=== PATIENT | male | born 1970 | race Caucasian/White ===

== ENCOUNTER 2019-11-25 13:43 | Inpatient (IN) | payer MEDICAID, OTHER ==
[~2019-11-25] VITALS: Ht 172.7 cm; Wt 80.0 kg
--- NOTE | 2019-11-25 13:00 | NUR ---
Patient in room [facility]. I have received report from Epi DICK and had the opportunity to ask questions and assume patient care.
[~2019-11-25 13:43] MED LIST: etomidate 2mg/ml inj. ONE
[2019-11-25] MEDS ORDERED: ondansetron/PF 4mg/2ml inj IV PRN (15:10)
[2019-11-25] MEDS ORDERED: magnesium hydroxide 30ml (MOM) UD suspension PO PRN (15:10)
[2019-11-25] MEDS ORDERED: mag hydrox/Alum hydrox/simeth 30ml oral suspension PO PRN (15:10)
[2019-11-25] MEDS ORDERED: acetaminophen 325mg tablet PO PRN (15:10)
[2019-11-25] MEDS ORDERED: HYDROmorphone inj. 0.5 MG/0.5 ML DISP.SYRIN IV PRN (15:10)
--- NOTE | 2019-11-25 15:20 | NUR ---
Patient arrive via emt transport.
[2019-11-25 16:02] LABS: BASOPHILS % (AUTO) 0.1 % (0-1); EOSINOPHILS % (AUTO) 0.1 % (0-6); HEMATOCRIT 41.2 % (42.0-52.0); HEMOGLOBIN 13.9 g/dl (14.0-17.9); LYMPHOCYTES # (AUTO) 0.4 X10'3 (1.1-4.8); LYMPHOCYTES % (AUTO) 6.6 % (21-51); MEAN CORPUSCULAR HEMOGLOBIN 29.9 PG (27.0-31.0); MEAN CORPUSCULAR HGB CONC 33.7 g/dL (33.0-36.5); MEAN CORPUSCULAR VOLUME 88.7 FL (78-98); MEAN PLATELET VOLUME 8.2 FL (7.4-10.4); MONOCYTES # (AUTO) 0.5 X10'3 (0-0.9); MONOCYTES % (AUTO) 7.2 % (2-12); NEUTROPHILS # (AUTO) 5.4 X10'3 (1.8-7.7); PLATELET COUNT 204 X10'3 (140-440); RED BLOOD COUNT 4.65 X10'6 (4.70-6.10); RED CELL DISTRIBUTION WIDTH 13.4 % (11.5-14.5); WHITE BLOOD COUNT 6.3 X10'3 (4.5-11.0)
[2019-11-25 16:10] VITALS: BP 111/61
[2019-11-25 16:13] LABS: ALANINE AMINOTRANSFERASE 205 U/L (12-78); ALBUMIN 2.6 G/DL (3.4-5.0); ALBUMIN/GLOBULIN RATIO 0.7 (1.1-1.5); ALKALINE PHOSPHATASE 131 IU/L (46-116); ANION GAP 11 (8-16); ASPARTATE AMINO TRANSFERASE 117 U/L (10-37); BILIRUBIN,TOTAL 1.8 MG/DL (0.1-1.0); BLOOD UREA NITROGEN 41 MG/DL (7-18); BUN/CREATININE RATIO 20.8 (5.4-32.0); CHLORIDE 112 MMOL/L (99-107); CREATININE 1.97 MG/DL (0.60-1.10); GLUCOSE 136 MG/DL (70-104); SODIUM 145 MMOL/L (135-145); TOTAL CARBON DIOXIDE 22.1 MMOL/L (24-32); TOTAL PROTEIN 6.2 G/DL (6.4-8.2); eGFR 36 ML/MIN
[2019-11-25 16:19] LABS: POTASSIUM 3.8 MMOL/L (3.5-5.1)
[2019-11-25 16:28] LABS: CALCIUM < 5.0 MG/DL (8.5-10.1)
[2019-11-25 16:46] LABS: LARGE PLATELETS FEW; PLATELET ESTIMATE NORMAL; TOTAL CELLS COUNTED 100
[2019-11-25] MEDS: HYDROmorphone 1 mg/ml syringe IV PRN ×2 (17:21→21:31)
[2019-11-25] MEDS ORDERED: NO HOME MEDS (17:33)
[2019-11-25] MEDS: normal saline 1000ml 1,000 ML IV SCH ×2 (17:39→21:49)
[2019-11-25 17:45] VITALS: BP 111/61
[2019-11-25 18:00] VITALS: BP 117/52
[2019-11-25 18:05] VITALS: BP 115/75
--- NOTE | 2019-11-25 18:47 | NUR ---
Problems reprioritized. Patient report given, questions answered & plan of care reviewed with Ant DICK.
[2019-11-25] MEDS: heparin, porcine 5000 units/ml vial SQ SCH (20:00)
[2019-11-25] MEDS: ipratropium/albuterol 3ml nebule NEB SCH (20:25)
[2019-11-26] VITALS (15 sets, daily range): BP systolic 106–155; BP diastolic 62–89
[2019-11-26] MEDS: piperacillin/tazo 4.5gm/100ml 100 ML IV SCH ×4 (00:08→23:51)
[2019-11-26] MEDS: HYDROmorphone 1 mg/ml syringe IV PRN ×3 (01:23→10:14)
[2019-11-26] MEDS: ipratropium/albuterol 3ml nebule NEB SCH ×5 (03:17→23:04)
[2019-11-26] MEDS: normal saline 1000ml 1,000 ML IV SCH ×5 (04:29→23:52)
[2019-11-26 05:50] LABS: BASOPHILS % (AUTO) 0.1 % (0-1); EOSINOPHILS % (AUTO) 0.2 % (0-6); HEMATOCRIT 37.1 % (42.0-52.0); HEMOGLOBIN 12.4 g/dl (14.0-17.9); LYMPHOCYTES # (AUTO) 0.3 X10'3 (1.1-4.8); LYMPHOCYTES % (AUTO) 6.9 % (21-51); MEAN CORPUSCULAR HEMOGLOBIN 29.8 PG (27.0-31.0); MEAN CORPUSCULAR HGB CONC 33.4 g/dL (33.0-36.5); MEAN CORPUSCULAR VOLUME 89.1 FL (78-98); MEAN PLATELET VOLUME 8.1 FL (7.4-10.4); MONOCYTES # (AUTO) 0.4 X10'3 (0-0.9); MONOCYTES % (AUTO) 8.1 % (2-12); NEUTROPHILS # (AUTO) 3.8 X10'3 (1.8-7.7); NEUTROPHILS % (AUTO) 84.7 % (42-75); PLATELET COUNT 189 X10'3 (140-440); RED BLOOD COUNT 4.16 X10'6 (4.70-6.10); RED CELL DISTRIBUTION WIDTH 13.3 % (11.5-14.5); WHITE BLOOD COUNT 4.5 X10'3 (4.5-11.0)
[2019-11-26 06:07] LABS: ALANINE AMINOTRANSFERASE 140 U/L (12-78); ALBUMIN 2.3 G/DL (3.4-5.0); ALBUMIN/GLOBULIN RATIO 0.7 (1.1-1.5); ALKALINE PHOSPHATASE 95 IU/L (46-116); ANION GAP 17 (8-16); ASPARTATE AMINO TRANSFERASE 85 U/L (10-37); BILIRUBIN,TOTAL 1.6 MG/DL (0.1-1.0); BLOOD UREA NITROGEN 35 MG/DL (7-18); BUN/CREATININE RATIO 19.9 (5.4-32.0); CHLORIDE 111 MMOL/L (99-107); CREATININE 1.76 MG/DL (0.60-1.10); GLUCOSE 147 MG/DL (70-104); POTASSIUM 3.4 MMOL/L (3.5-5.1); SODIUM 145 MMOL/L (135-145); TOTAL CARBON DIOXIDE 17.4 MMOL/L (24-32); TOTAL PROTEIN 5.7 G/DL (6.4-8.2); eGFR 41 ML/MIN
--- NOTE | 2019-11-26 06:56 | NUR ---
Patient in room [facility]. I have received report from Ant DICK and had the opportunity to ask questions and assume patient care.
[2019-11-26 07:38] LABS: PLATELET ESTIMATE NORMAL; TOTAL CELLS COUNTED 100; TOXIC GRANULATION 1+; TOXIC VACUOLATION 1+
[2019-11-26] MEDS: heparin, porcine 5000 units/ml vial SQ SCH ×2 (07:59→21:03)
[2019-11-26] MEDS ORDERED: dextrose 50%-water 50ml dispensing syringe IV PRN (09:30)
[2019-11-26] MEDS ORDERED: calcium gluconate inj. 1 GM in normal saline 100ml IV soln 90 ML IV ONE (09:30)
[2019-11-26] MEDS: K and/or MAG REPLACEMENT MC SCH ×2 (09:40→20:00)
[2019-11-26] MEDS ORDERED: potassium Cl 20 mEq SR tablet PO PRN ×3 (09:40→13:20)
[2019-11-26] MEDS ORDERED: magnesium Cl slow-release 64mg tablet PO PRN (09:40)
[2019-11-26] MEDS ORDERED: magnesium 4gm in 100ml NS 100 ML IV PRN (09:40)
[2019-11-26 10:15] LABS: MAGNESIUM 1.9 MG/DL (1.5-2.4)
[2019-11-26] MEDS ORDERED: amiodarone/D5 360MG/200ML BAG 200 ML IV SCH (11:21)
[2019-11-26] MEDS ORDERED: amiodarone 150mg/dext, iso-os 100 ML IV ONE (11:25)
--- NOTE | 2019-11-26 11:50 | NUR ---
Call from tele stating that pts HR is 150s to 160s. Checked on pt, pt sleeping. Informed Dr. Cates at nurses station. Call again from tele stating HR in 200s Afib with RVR. Dr. Cates ordered to transfer pt to PCU on Amiodarone drip. STAT EKG done. Family at bedside and aware of transfer. Patient alert and oriented, and aware of transfer. Patient report called to Faustina DICK. Pt to transfer to [facility].
--- NOTE | 2019-11-26 12:00 | NUR ---
Emergent Transfer to ICU after several minutes in Rm 3024A Chest x-ray completed, Ativan given for anxiety, HR in 180's prior to and during transfer, rhythm is A-Fib. Family is at bedside and is informed of transfer. Pt. is alert and able to follow directions, he reports severe abdominal pain.
[2019-11-26] MEDS: LORazepam 2 mg/ml vial IV PRN ×2 (12:13→12:15)
[2019-11-26] MEDS ORDERED: calcium chloride 100 MG/1 ML inj IV ONE ×2 (12:46→12:50)
--- NOTE | 2019-11-26 12:48 | NUR ---
Initial: Pt admit with acute respiratory failure with hypoxia, acute pancreatitis secondary to EtOH, and hypocalcemia. Per MD notes pt was getting more confused with SOB and a rapid response was called and pt was transferred to critical care. Pt with bilat PE s/p thoracentesis with 200 mL fluid removed 11/25. Per H&P pt reports he drinks 1 beer a day, no toxicology report at this time. Pt on banana bag. Pt currently NPO. LBM 11/25. Pt would benefit from pancreatitis nutrition therapy education once stable. Will continue to follow closely. Recommendations: 1) Advance to low fat diet as medically indicated 2) Pancreatitis nutrition therapy education once stable 3) Continue banana bag 4) Bowel care PRN 5) Wt per rx Addendum: 11/26/19 at [address] Amended: Links added.
[2019-11-26] MEDS ORDERED: midazolam 2 mg/2 ml injection ONE ×3 (12:53→13:03)
[2019-11-26 12:55] LABS: ABG BASE EXCESS -7.6 mmol/L (-2.0-3.0); ABG HCO3 16.9 mmol/L (22.0-26.0); ABG OXYGEN SATURATION 91.9 % (95-98); ABG PCO2 (T) 31.2 mmHg (35.0-45.0); ABG PH (T) 7.351 (7.350-7.450); ABG PO2 (T) 62.5 mmHg (83-108); ALLEN'S TEST POSITIVE; FCOHb 0.3 % (0.5-1.5); FLOW 15 L/min; FMetHb 0.2 % (0.3-1.12); FO2Hb 91.4 % (94-100); TOTAL HEMOGLOBIN 12.5 G/dl (14.0-17.9)
[2019-11-26] MEDS ORDERED: ipratropium/albuterol 3ml nebule NEB PRN (12:55)
[2019-11-26] MEDS ORDERED: midazolam 2 mg/2 ml injection IV ONE (12:55)
[2019-11-26] MEDS ORDERED: MIDAZolam 5mg/ml 2ml vial IV ONE (13:00)
[2019-11-26] MEDS ORDERED: etomidate 2mg/ml inj. IV ONE (13:05)
--- NOTE | 2019-11-26 13:11 | NUR ---
Problems reprioritized. Patient report given,Chuck DICK questions answered & plan of care reviewed with .
[2019-11-26] MEDS ORDERED: acetaminophen 325mg tablet PO PRN ×2 (13:20)
[2019-11-26] MEDS ORDERED: potassium CL 10mEq/100ml bag 100 ML IV PRN ×2 (13:20)
[2019-11-26] MEDS: midazolam 100mg in NS 100ml 100 ML IV PRN ×3 (13:34→23:52)
[2019-11-26] MEDS: FENTANYL-0.9 % NACL/PF 100 ML IV PRN (13:58)
[2019-11-26 14:30] LABS: ABG BASE EXCESS -5.9 mmol/L (-2.0-3.0); ABG HCO3 18.1 mmol/L (22.0-26.0); ABG OXYGEN SATURATION 95.8 % (95-98); ABG PCO2 (T) 31.1 mmHg (35.0-45.0); ABG PH (T) 7.383 (7.350-7.450); ABG PO2 (T) 79.1 mmHg (83-108); ALLEN'S TEST POSITIVE; FMetHb 0.3 % (0.3-1.12); FO2Hb 95.5 % (94-100); RESPIRATORY RATE 20 b/min; TIDAL VOLUME 500 mL; TOTAL HEMOGLOBIN 11.9 G/dl (14.0-17.9)
[2019-11-26 14:58] LABS: CLARITY,URINE SLIGHTLY CLOUDY (Clear); COLOR,URINE YELLOW (Yellow); GLUCOSE, URINE NEGATIVE (Neg); KETONES,URINE NEGATIVE (Neg); LEUKOCYTE ESTERASE ,URINE NEGATIVE (Neg); NITRITES, URINE NEGATIVE (Neg); OCCULT BLOOD,URINE LARGE (Neg); PROTEIN,URINE 100 mg/dl (Neg)
[2019-11-26 15:06] LABS: UA COLLECTION TYPE FOLEY CATH
[2019-11-26 15:11] LABS: WBC,URINE 0-4 /HPF (0-4)
[2019-11-26 15:12] LABS: BACTERIA,URINE NONE SEEN /HPF (Neg); CELLULAR CAST 0-4 /LPF (NEGATIVE); MUCUS STRANDS FEW /LPF (Neg); RBC,URINE 20-50 /HPF (0-2); SQUAMOUS EPITHELIAL CELL,UR FEW /LPF (FEW)
[2019-11-26 15:38] LABS: UA EOSINOPHILS NO EOS /HPF
--- NOTE | 2019-11-26 15:47 | NUR ---
patient lost airway during trip to CT when o2 tubing got stuck under the bed. Patient emergently re intubate by DR franz. Addendum: 11/26/19 at 1548 by Vince Garg RN DR kathia delgado
[2019-11-26] MEDS: vancomycin/NS 1 GM ADD-VANTAGE 250 ML IV SCH ×2 (16:05→20:00)
[2019-11-26 16:42] LABS: AMYLASE 152 U/L (25-115); LIPASE 390 U/L (73-393)
--- NOTE | 2019-11-26 18:30 | NUR ---
Patient in room CICU 2007. I have received report from Vince DICK and had the opportunity to ask questions and assume patient care.
[2019-11-26] MEDS: potassium CL 10mEq/100ml bag 100 ML IV PRN ×3 (19:16→23:53)
[2019-11-26] MEDS ORDERED: docusate sod 100mg capsule PO SCH (20:00)
[2019-11-26] MEDS: docusate sodium 100mg/10ml UD cup PO SCH (20:10)
[2019-11-26] MEDS: famotidine/PF 10 mg/ml inj IV SCH (20:10)
[2019-11-26 20:37] LABS: HEMOGLOBIN 12.2 g/dl (14.0-17.9); MEAN CORPUSCULAR HEMOGLOBIN 29.8 PG (27.0-31.0); MEAN CORPUSCULAR HGB CONC 33.8 g/dL (33.0-36.5); MEAN CORPUSCULAR VOLUME 88.1 FL (78-98); MEAN PLATELET VOLUME 8.1 FL (7.4-10.4); PLATELET COUNT 216 X10'3 (140-440); RED BLOOD COUNT 4.09 X10'6 (4.70-6.10); RED CELL DISTRIBUTION WIDTH 13.5 % (11.5-14.5); WHITE BLOOD COUNT 4.4 X10'3 (4.5-11.0)
[2019-11-26 20:50] LABS: ALBUMIN 2.1 G/DL (3.4-5.0); ANION GAP 13 (8-16); BLOOD UREA NITROGEN 33 MG/DL (7-18); BUN/CREATININE RATIO 17.2 (5.4-32.0); CHLORIDE 113 MMOL/L (99-107); CREATININE 1.92 MG/DL (0.60-1.10); GLUCOSE 133 MG/DL (70-104); PHOSPHORUS 2.2 MG/DL (2.3-4.5); SODIUM 146 MMOL/L (135-145); TOTAL CARBON DIOXIDE 19.9 MMOL/L (24-32); eGFR 37 ML/MIN
[2019-11-26 20:51] LABS: POTASSIUM 3.3 MMOL/L (3.5-5.1)
[2019-11-26] MEDS ORDERED: MVI, adult No.4 with vit. K 10 ML in dextrose 5% water 500ml 490 ML IV SCH ×2 (20:53)
[2019-11-26] MEDS ORDERED: thiamine inj. 100 MG, folic acid inj. 2 MG in normal saline 100ml IV soln 99 ML IV SCH (20:54)
--- NOTE | 2019-11-26 21:37 | NUR ---
Pt febrile, ice packs and cooling blanket in place. Fan on as well. Tachycardic, tachypnic, Medardo Coats updated, orders received.
--- NOTE | 2019-11-26 22:40 | NUR ---
Pt having frequent runs of afib with RVR but not sustained. Currently sinus tach at 114. BP:122/69. Medardo Coats notified, no new orders at this time, Will continue to monitor.
[2019-11-27] VITALS (24 sets, daily range): BP systolic 113–157; BP diastolic 66–87
[2019-11-27] MEDS: FENTANYL-0.9 % NACL/PF 100 ML IV PRN ×4 (01:12→20:07)
--- NOTE | 2019-11-27 02:06 | NUR ---
Pt tachypneic, over breathing the vent, using abdominal muscles to ventilate, titrating sedation to promote synchrony with the vent. Intra abdominal pressure obtained:26. JRamiro Coats updated.
[2019-11-27 02:45] LABS: ABG BASE EXCESS -8.2 mmol/L (-2.0-3.0); ABG HCO3 17.3 mmol/L (22.0-26.0); ABG OXYGEN SATURATION 88.2 % (95-98); ABG PCO2 (T) 36.6 mmHg (35.0-45.0); ABG PH (T) 7.296 (7.350-7.450); ABG PO2 (T) 59.5 mmHg (83-108); ALLEN'S TEST POSITIVE; FCOHb 0.3 % (0.5-1.5); FMetHb 0.2 % (0.3-1.12); FO2Hb 87.8 % (94-100); PATIENT TEMPERATURE 37.5; PEEP 5 cm H2O; RESPIRATORY RATE 20 b/min; TIDAL VOLUME 500 mL; TOTAL HEMOGLOBIN 12.6 G/dl (14.0-17.9)
[2019-11-27] MEDS: ipratropium/albuterol 3ml nebule NEB SCH ×6 (03:23→23:01)
[2019-11-27] MEDS: vancomycin/NS 1 GM ADD-VANTAGE 250 ML IV SCH ×2 (05:02→20:28)
[2019-11-27] MEDS: midazolam 100mg in NS 100ml 100 ML IV PRN ×3 (05:02→21:36)
[2019-11-27 06:16] LABS: ALANINE AMINOTRANSFERASE 104 U/L (12-78); ALBUMIN 2.1 G/DL (3.4-5.0); ALBUMIN/GLOBULIN RATIO 0.5 (1.1-1.5); ALKALINE PHOSPHATASE 89 IU/L (46-116); AMYLASE 75 U/L (25-115); ANION GAP 16 (8-16); ASPARTATE AMINO TRANSFERASE 53 U/L (10-37); BILIRUBIN,TOTAL 1.5 MG/DL (0.1-1.0); BLOOD UREA NITROGEN 28 MG/DL (7-18); BUN/CREATININE RATIO 14.9 (5.4-32.0); CALCIUM 6.7 MG/DL (8.5-10.1); CHLORIDE 113 MMOL/L (99-107); CREATININE 1.88 MG/DL (0.60-1.10); GLUCOSE 141 MG/DL (70-104); LIPASE 224 U/L (73-393); MAGNESIUM 2.4 MG/DL (1.5-2.4); PHOSPHORUS 2.8 MG/DL (2.3-4.5); SODIUM 149 MMOL/L (135-145); TOTAL CARBON DIOXIDE 20.1 MMOL/L (24-32); TOTAL PROTEIN 6.6 G/DL (6.4-8.2); eGFR 38 ML/MIN
[2019-11-27 06:17] LABS: POTASSIUM 3.6 MMOL/L (3.5-5.1)
[2019-11-27 06:21] LABS: BASOPHILS % (AUTO) 0 % (0-1); EOSINOPHILS % (AUTO) 0.3 % (0-6); HEMATOCRIT 38.7 % (42.0-52.0); HEMOGLOBIN 12.8 g/dl (14.0-17.9); LYMPHOCYTES # (AUTO) 0.7 X10'3 (1.1-4.8); LYMPHOCYTES % (AUTO) 10.5 % (21-51); MEAN CORPUSCULAR HEMOGLOBIN 29.8 PG (27.0-31.0); MEAN CORPUSCULAR HGB CONC 33.1 g/dL (33.0-36.5); MEAN CORPUSCULAR VOLUME 89.9 FL (78-98); MEAN PLATELET VOLUME 8.5 FL (7.4-10.4); MONOCYTES # (AUTO) 0.5 X10'3 (0-0.9); MONOCYTES % (AUTO) 7.7 % (2-12); NEUTROPHILS # (AUTO) 5.7 X10'3 (1.8-7.7); NEUTROPHILS % (AUTO) 81.5 % (42-75); PLATELET COUNT 225 X10'3 (140-440); RED BLOOD COUNT 4.31 X10'6 (4.70-6.10); RED CELL DISTRIBUTION WIDTH 13.6 % (11.5-14.5)
--- NOTE | 2019-11-27 06:23 | NUR ---
Problems reprioritized. Patient report given, questions answered & plan of care reviewed with Vince DICK.
[2019-11-27] MEDS: normal saline 1000ml 1,000 ML IV SCH ×2 (07:06→21:02)
[2019-11-27 07:51] LABS: PLATELET ESTIMATE NORMAL; TOTAL CELLS COUNTED 100
[2019-11-27 07:52] LABS: POLYCHROMASIA FEW; TOXIC GRANULATION 1+; TOXIC VACUOLATION 1+
[2019-11-27] MEDS ORDERED: folic acid inj. 2 MG, thiamine inj. 100 MG, MVI, adult No.4 with vit. K 10 ML in dextro... IV SCH ×4 (08:00)
[2019-11-27] MEDS ORDERED: thiamine 100mg tablet PO SCH (08:00)
[2019-11-27] MEDS: docusate sodium 100mg/10ml UD cup PO SCH ×2 (08:00→20:28)
[2019-11-27] MEDS ORDERED: folic acid 1mg tablet PO SCH (08:00)
[2019-11-27] MEDS: K and/or MAG REPLACEMENT MC SCH ×2 (08:00→20:00)
[2019-11-27] MEDS: MVI, adult No.4 with vit. K 10 ML in dextrose 5% water 500ml 490 ML IV SCH ×2 (08:10)
[2019-11-27] MEDS: acetaminophen 325mg/10.15ml oral unit dose solution OGT PRN ×2 (08:10→18:05)
[2019-11-27] MEDS: heparin, porcine 5000 units/ml vial SQ SCH ×2 (08:10→20:30)
[2019-11-27] MEDS: famotidine/PF 10 mg/ml inj IV SCH ×2 (08:10→20:30)
[2019-11-27] MEDS: thiamine inj. 100 MG, folic acid inj. 2 MG in normal saline 100ml IV soln 100.0 ML IV SCH (08:11)
[2019-11-27] MEDS: piperacillin/tazo 4.5gm/100ml 100 ML IV SCH ×2 (10:15→14:52)
--- NOTE | 2019-11-27 10:41 | NUR ---
Reassessment: Pt now intubated. TF recommendations below for if prolonged intubation and to receive nutrition support. If TF, pt would benefit from Corpak for post-pyloric feeding to avoid stimulation of the pancreas given admit with pancreatitis. Will continue to follow closely. Initial: Pt admit with acute respiratory failure with hypoxia, acute pancreatitis secondary to EtOH, and hypocalcemia. Per MD notes pt was getting more confused with SOB and a rapid response was called and pt was transferred to critical care. Pt with bilat PE s/p thoracentesis with 200 mL fluid removed 11/25. Per H&P pt reports he drinks 1 beer a day, no toxicology report at this time. Pt on banana bag. Pt currently NPO. LBM 11/25. Pt would benefit from pancreatitis nutrition therapy education once stable. Will continue to follow closely. Recommendations: 1) If TF, Corpak for post-pyloric feeding using Vital High Protein with goal rate of 75 mL/hr 2) If TF, Additional 200 mL water flush Q4H 3) If TF, Prealbumin q /; daily weights 4) Advance to low fat diet after extubation as medically indicated 5) Pancreatitis nutrition therapy education once stable 6) Continue banana bag 7) Bowel care PRN Addendum: 11/27/19 at [address] Amended: Links added.
[2019-11-27] MEDS ORDERED: VECuronium br 10mg inj. IV ONE (11:15)
--- NOTE | 2019-11-27 13:18 | NUR ---
Zosyn piggyback was clamped and med not administered. Spoke with pharmacist for recommendation since the next dose is due at 1600, and this dose would not even be finished by then. She advised me to continue the dose that was hung earlier, and skip the 1600 dose.
[2019-11-27] MEDS: mineral oil/petrolatum ophthal oint EACHEYE SCH ×2 (14:52→20:49)
[2019-11-27] MEDS ORDERED: magnesium 2GM in 50ml NS 50 ML IV ONE (15:10)
[2019-11-27] MEDS ORDERED: amiodarone 150mg/dext, iso-os 100 ML IV ONE ×2 (15:24→15:25)
[2019-11-27] MEDS: potassium Cl 20 mEq/100mL bag IV SCH ×2 (16:25→17:44)
[2019-11-27] MEDS: amiodarone/D5 360MG/200ML BAG 200 ML IV SCH ×2 (17:15→22:00)
[2019-11-27 17:20] LABS: ABG BASE EXCESS -6.1 mmol/L (-2.0-3.0); ABG HCO3 19.4 mmol/L (22.0-26.0); ABG OXYGEN SATURATION 90.2 % (95-98); ABG PCO2 (T) 41.2 mmHg (35.0-45.0); ABG PH (T) 7.298 (7.350-7.450); ABG PO2 (T) 67.2 mmHg (83-108); ALLEN'S TEST POSITIVE; FCOHb 0.3 % (0.5-1.5); FMetHb 0.2 % (0.3-1.12); FO2Hb 89.7 % (94-100); PATIENT TEMPERATURE 38.6; PEEP 5 cm H2O; RESPIRATORY RATE 20 b/min; TIDAL VOLUME 500 mL; TOTAL HEMOGLOBIN 16.4 G/dl (14.0-17.9)
[2019-11-27 17:31] LABS: OXYGEN SATURATION (MIXED VEN) 62.2 % (60-80); PO2 MIXED VENOUS (TEMP COR) 38.4 mmHg (35-46)
[2019-11-27] MEDS: CISatracurium **Bolus** 2 mg/ml inj IV PRN (17:56)
[2019-11-27 18:21] LABS: CLARITY,URINE SLIGHTLY CLOUDY (Clear); COLOR,URINE YELLOW (Yellow); GLUCOSE, URINE NEGATIVE (Neg); KETONES,URINE NEGATIVE (Neg); LEUKOCYTE ESTERASE ,URINE NEGATIVE (Neg); NITRITES, URINE NEGATIVE (Neg); OCCULT BLOOD,URINE MODERATE (Neg); PH,URINE 5.5 (4.8-8.0); PROTEIN,URINE 100 mg/dl (Neg); UA COLLECTION TYPE CLN CATCH MIDSTREAM; UROBILINOGEN,URINE 0.2 E.U/dL (0.2-1.0)
--- NOTE | 2019-11-27 18:30 | NUR ---
Patient in room CICU 2007. I have received report from Vince DICK and had the opportunity to ask questions and assume patient care. student teacher Rohit also received report. Patient is intubated, sedated with versed, pain controlled with fentanyl. Lung sounds clear and equal bilaterally. Patient is on ventilator FiO2 50%. Upper extremity restraints in place. Patient is currently on a cooling mat Temperature 38.3. Tylenol administered prior to shift change.
[2019-11-27 18:45] LABS: CELLULAR CAST 0-4 /LPF (NEGATIVE)
[2019-11-27 18:47] LABS: BACTERIA,URINE NONE SEEN /HPF (Neg); MUCUS STRANDS FEW /LPF (Neg); SQUAMOUS EPITHELIAL CELL,UR FEW /LPF (FEW); WBC,URINE 0-4 /HPF (0-4)
[2019-11-27 18:48] LABS: AMORPHOUS URATES 1+
[2019-11-27] MEDS: lactobacillus rhamnosus 10,000 MMU CELLS/CAPSULE PO SCH (20:31)
[2019-11-28] VITALS (24 sets, daily range): BP systolic 131–167; BP diastolic 70–94
[2019-11-28] MEDS: piperacillin/tazo 4.5gm/100ml 100 ML IV SCH ×3 (00:11→15:37)
[2019-11-28] MEDS: normal saline 1000ml 1,000 ML IV SCH (00:13)
[2019-11-28] MEDS: mineral oil/petrolatum ophthal oint EACHEYE SCH ×4 (02:42→20:10)
[2019-11-28] MEDS: FENTANYL-0.9 % NACL/PF 100 ML IV PRN ×3 (02:42→20:18)
[2019-11-28 03:13] LABS: EOSINOPHILS # (AUTO) 0.1 X10'3 (0-0.9); EOSINOPHILS % (AUTO) 0.8 % (0-6); HEMOGLOBIN 11.6 g/dl (14.0-17.9); LYMPHOCYTES # (AUTO) 0.4 X10'3 (1.1-4.8); MONOCYTES # (AUTO) 0.4 X10'3 (0-0.9)
[2019-11-28 03:15] LABS: BASOPHILS % (AUTO) 0.1 % (0-1); HEMATOCRIT 34.5 % (42.0-52.0); LYMPHOCYTES % (AUTO) 4.1 % (21-51); MEAN CORPUSCULAR HGB CONC 33.6 g/dL (33.0-36.5); MEAN CORPUSCULAR VOLUME 89.3 FL (78-98); MEAN PLATELET VOLUME 8.5 FL (7.4-10.4); MONOCYTES % (AUTO) 3.9 % (2-12); NEUTROPHILS # (AUTO) 8.6 X10'3 (1.8-7.7); NEUTROPHILS % (AUTO) 91.1 % (42-75); PLATELET COUNT 258 X10'3 (140-440); RED BLOOD COUNT 3.86 X10'6 (4.70-6.10); RED CELL DISTRIBUTION WIDTH 13.7 % (11.5-14.5); WHITE BLOOD COUNT 9.5 X10'3 (4.5-11.0)
[2019-11-28] MEDS: amiodarone/D5 360MG/200ML BAG 200 ML IV SCH ×4 (03:30→21:13)
[2019-11-28 03:33] LABS: ALANINE AMINOTRANSFERASE 69 U/L (12-78); ALBUMIN 1.8 G/DL (3.4-5.0); ALBUMIN/GLOBULIN RATIO 0.4 (1.1-1.5); ALKALINE PHOSPHATASE 75 IU/L (46-116); AMYLASE 29 U/L (25-115); ANION GAP 12 (8-16); ASPARTATE AMINO TRANSFERASE 30 U/L (10-37); BILIRUBIN,TOTAL 0.7 MG/DL (0.1-1.0); BLOOD UREA NITROGEN 23 MG/DL (7-18); BUN/CREATININE RATIO 14.3 (5.4-32.0); CHLORIDE 116 MMOL/L (99-107); CREATININE 1.61 MG/DL (0.60-1.10); GLUCOSE 158 MG/DL (70-104); LIPASE 128 U/L (73-393); MAGNESIUM 2.6 MG/DL (1.5-2.4); PHOSPHORUS 2.8 MG/DL (2.3-4.5); POTASSIUM 3.8 MMOL/L (3.5-5.1); SODIUM 150 MMOL/L (135-145); TOTAL PROTEIN 6.1 G/DL (6.4-8.2); eGFR 45 ML/MIN
[2019-11-28] MEDS: midazolam 100mg in NS 100ml 100 ML IV PRN ×4 (03:37→20:19)
[2019-11-28] MEDS: ipratropium/albuterol 3ml nebule NEB SCH ×6 (03:46→22:53)
[2019-11-28] MEDS: CISatracurium **Bolus** 2 mg/ml inj IV PRN (04:30)
--- NOTE | 2019-11-28 04:30 | NUR ---
Patient suddenly became agitated, attempting to sit up in bed: raising head, turning head, pulling at restraints. Sedation attempted without success. vending machine attendant at bedside. Administered Nimbex as ordered. Patient with 4/4 train of four at level 8.
[2019-11-28 04:35] LABS: TOTAL CELLS COUNTED 100
[2019-11-28 04:36] LABS: PLATELET ESTIMATE NORMAL
[2019-11-28 04:37] LABS: LARGE PLATELETS FEW
[2019-11-28 05:10] LABS: ABG BASE EXCESS -7.4 mmol/L (-2.0-3.0); ABG HCO3 19.1 mmol/L (22.0-26.0); ABG OXYGEN SATURATION 91.7 % (95-98); ABG PCO2 (T) 42.7 mmHg (35.0-45.0); ABG PO2 (T) 70.2 mmHg (83-108); ALLEN'S TEST POSITIVE; FCOHb 0.3 % (0.5-1.5); FMetHb 0.1 % (0.3-1.12); FO2Hb 91.3 % (94-100); PATIENT TEMPERATURE 37.3; PEEP 5 cm H2O; RESPIRATORY RATE 20 b/min; TIDAL VOLUME 500 mL; TOTAL HEMOGLOBIN 12.2 G/dl (14.0-17.9)
--- NOTE | 2019-11-28 05:53 | NUR ---
Sodium 150, October JANA Coats made aware of value. No new orders at this time.
--- NOTE | 2019-11-28 05:54 | NUR ---
Student documentation: I have reviewed and agree with all interventions, assessments performed and documented by SN Idalmis.
--- NOTE | 2019-11-28 05:55 | NUR ---
Student Medication Administration: For this medication-pass time frame, all medication were reviewed, dispensed, administered and documented per hospital policy by SN Idalmis.
--- NOTE | 2019-11-28 06:30 | NUR ---
Patient in room CICU 2007. I have received report from Rosey DICK and had the opportunity to ask questions and assume patient care.
--- NOTE | 2019-11-28 06:38 | NUR ---
Problems reprioritized. Patient report given, questions answered & plan of care reviewed with MAYELIN Pizarro.
[2019-11-28] MEDS: docusate sodium 100mg/10ml UD cup PO SCH ×2 (07:28→20:11)
[2019-11-28] MEDS: famotidine/PF 10 mg/ml inj IV SCH ×2 (07:28→20:11)
[2019-11-28] MEDS: heparin, porcine 5000 units/ml vial SQ SCH ×2 (07:28→20:11)
[2019-11-28] MEDS: vancomycin/NS 1 GM ADD-VANTAGE 250 ML IV SCH ×2 (07:28→20:21)
[2019-11-28] MEDS: lactobacillus rhamnosus 10,000 MMU CELLS/CAPSULE PO SCH ×2 (07:28→20:11)
[2019-11-28] MEDS: thiamine inj. 100 MG, folic acid inj. 2 MG in normal saline 100ml IV soln 100.0 ML IV SCH (07:33)
[2019-11-28] MEDS: MVI, adult No.4 with vit. K 10 ML in dextrose 5% water 500ml 490 ML IV SCH ×2 (07:33)
[2019-11-28] MEDS: K and/or MAG REPLACEMENT MC SCH ×2 (08:00→20:00)
[2019-11-28] MEDS: acetaminophen 325mg/10.15ml oral unit dose solution OGT PRN ×2 (09:09→14:55)
[2019-11-28] MEDS ORDERED: LORazepam 2 mg/ml vial IV PRN (09:30)
[2019-11-28] MEDS ORDERED: LORazepam 1 MG tablet PO PRN (09:30)
--- NOTE | 2019-11-28 10:28 | NUR ---
Dr. Klein in to see pt. RN notified of fever and sodium of 150. Dr. Klein stated he would order to start tube feedings and free water.
--- NOTE | 2019-11-28 12:30 | NUR ---
Alpesh consult: Alpesh 10; no edema and skin intact. Addendum: 11/28/19 at [address] Amended: Links added.
--- NOTE | 2019-11-28 12:41 | NUR ---
Pt. remains febrile despite Tylenol. Ice packs to groin and axilla now.
--- NOTE | 2019-11-28 15:43 | NUR ---
Dr. Del Castillo in to see pt. Notified of most recent intra abdominal pressures.
--- NOTE | 2019-11-28 18:19 | NUR ---
Patient in room CICU 2007. I have received report from MAYELIN Pizarro and had the opportunity to ask questions and assume patient care.
--- NOTE | 2019-11-28 18:20 | NUR ---
Problems reprioritized. Patient report given, questions answered & plan of care reviewed with Rosey DICK.
--- NOTE | 2019-11-28 18:55 | NUR ---
Patients Nancy called for an update.
[2019-11-28] MEDS ORDERED: VANCOMYCIN LEVEL IV ONE (19:30)
[2019-11-29] VITALS (24 sets, daily range): BP systolic 131–166; BP diastolic 70–99
[2019-11-29] MEDS: piperacillin/tazo 4.5gm/100ml 100 ML IV SCH ×4 (00:27→23:36)
[2019-11-29] MEDS: midazolam 100mg in NS 100ml 100 ML IV PRN ×5 (01:37→23:26)
[2019-11-29] MEDS: FENTANYL-0.9 % NACL/PF 100 ML IV PRN ×6 (01:40→23:25)
[2019-11-29] MEDS: mineral oil/petrolatum ophthal oint EACHEYE SCH ×4 (02:36→21:11)
[2019-11-29] MEDS: acetaminophen 325mg/10.15ml oral unit dose solution OGT PRN ×3 (02:47→14:24)
[2019-11-29 03:13] LABS: BASOPHILS % (AUTO) 0.1 % (0-1); EOSINOPHILS # (AUTO) 0.1 X10'3 (0-0.9); EOSINOPHILS % (AUTO) 1.1 % (0-6); HEMATOCRIT 31.4 % (42.0-52.0); HEMOGLOBIN 10.6 g/dl (14.0-17.9); LYMPHOCYTES # (AUTO) 0.3 X10'3 (1.1-4.8); LYMPHOCYTES % (AUTO) 2.9 % (21-51); MEAN CORPUSCULAR HGB CONC 33.9 g/dL (33.0-36.5); MEAN CORPUSCULAR VOLUME 88.6 FL (78-98); MEAN PLATELET VOLUME 8.7 FL (7.4-10.4); MONOCYTES # (AUTO) 0.3 X10'3 (0-0.9); MONOCYTES % (AUTO) 2.7 % (2-12); NEUTROPHILS # (AUTO) 9.9 X10'3 (1.8-7.7); NEUTROPHILS % (AUTO) 93.2 % (42-75); PLATELET COUNT 255 X10'3 (140-440); RED BLOOD COUNT 3.54 X10'6 (4.70-6.10); RED CELL DISTRIBUTION WIDTH 13.7 % (11.5-14.5); WHITE BLOOD COUNT 10.6 X10'3 (4.5-11.0)
[2019-11-29] MEDS: ipratropium/albuterol 3ml nebule NEB SCH ×6 (03:14→22:41)
[2019-11-29 03:17] LABS: ALANINE AMINOTRANSFERASE 50 U/L (12-78); ALBUMIN 1.6 G/DL (3.4-5.0); ALBUMIN/GLOBULIN RATIO 0.4 (1.1-1.5); ALKALINE PHOSPHATASE 75 IU/L (46-116); AMYLASE 23 U/L (25-115); ANION GAP 8 (8-16); ASPARTATE AMINO TRANSFERASE 23 U/L (10-37); BILIRUBIN,TOTAL 0.6 MG/DL (0.1-1.0); BLOOD UREA NITROGEN 25 MG/DL (7-18); BUN/CREATININE RATIO 14.5 (5.4-32.0); CALCIUM 7.9 MG/DL (8.5-10.1); CHLORIDE 116 MMOL/L (99-107); CREATININE 1.72 MG/DL (0.60-1.10); GLUCOSE 154 MG/DL (70-104); LIPASE 135 U/L (73-393); PHOSPHORUS 2.5 MG/DL (2.3-4.5); POTASSIUM 3.1 MMOL/L (3.5-5.1); SODIUM 150 MMOL/L (135-145); TOTAL CARBON DIOXIDE 26.3 MMOL/L (24-32); TOTAL PROTEIN 5.5 G/DL (6.4-8.2); eGFR 42 ML/MIN
[2019-11-29] MEDS: amiodarone/D5 360MG/200ML BAG 200 ML IV SCH ×4 (03:46→21:12)
--- NOTE | 2019-11-29 04:00 | NUR ---
Tube feed/ free water held secondary to high residual volumes, 365ml, and concerns for airway. Patient with increased abdominal firmness. Will continue to re assess.
[2019-11-29 04:20] LABS: ABG BASE EXCESS -3.8 mmol/L (-2.0-3.0); ABG HCO3 20.4 mmol/L (22.0-26.0); ABG OXYGEN SATURATION 95.4 % (95-98); ABG PCO2 (T) 35.6 mmHg (35.0-45.0); ABG PO2 (T) 86.9 mmHg (83-108); ALLEN'S TEST POSITIVE; FCOHb 0.3 % (0.5-1.5); FMetHb 0.1 % (0.3-1.12); PATIENT TEMPERATURE 38.2; PEEP 5 cm H2O; RESPIRATORY RATE 20 b/min; TIDAL VOLUME 500 mL; TOTAL HEMOGLOBIN 11.2 G/dl (14.0-17.9)
[2019-11-29] MEDS: normal saline 1000ml 1,000 ML IV SCH (04:36)
[2019-11-29] MEDS: potassium Cl 20mEq/100mL bag 100 ML IV PRN ×2 (04:38→06:05)
--- NOTE | 2019-11-29 06:36 | NUR ---
Problems reprioritized. Patient report given, questions answered & plan of care reviewed with MAYELIN Pizarro.
--- NOTE | 2019-11-29 06:40 | NUR ---
[facility] I have received report from Rosey DICK and had the opportunity to ask questions and assume patient care. Addendum: 11/29/19 at 0640 by Moira Mckenzie RN Amended: Links added.
[2019-11-29] MEDS: MVI, adult No.4 with vit. K 10 ML in dextrose 5% water 500ml 490 ML IV SCH ×2 (06:58)
[2019-11-29] MEDS: thiamine inj. 100 MG, folic acid inj. 2 MG in normal saline 100ml IV soln 100.0 ML IV SCH (06:58)
[2019-11-29] MEDS: famotidine/PF 10 mg/ml inj IV SCH ×2 (07:12→21:11)
[2019-11-29] MEDS: heparin, porcine 5000 units/ml vial SQ SCH ×2 (07:12→21:11)
[2019-11-29] MEDS: docusate sodium 100mg/10ml UD cup PO SCH ×2 (07:12→21:11)
[2019-11-29] MEDS: K and/or MAG REPLACEMENT MC SCH ×2 (07:14→20:00)
[2019-11-29] MEDS: lactobacillus rhamnosus 10,000 MMU CELLS/CAPSULE PO SCH ×2 (07:14→21:11)
[2019-11-29 09:39] LABS: PLATELET ESTIMATE NORMAL; TOTAL CELLS COUNTED 100
[2019-11-29] MEDS ORDERED: metoclopramide 5 mg/ml inj IV PRN (11:35)
[2019-11-29] MEDS: methylnaltrexone br 12mg/0.6ml inj***SubQ only SQ SCH (11:47)
[2019-11-29] MEDS: POTASSIUM CL IV SCH ×2 (12:15→19:36)
[2019-11-29] MEDS: WATER IV SCH ×2 (12:15→19:36)
[2019-11-29] MEDS: DEXTROSE 5% IV SCH ×2 (12:15→19:36)
[2019-11-29] MEDS ORDERED: VANCOmycin 1250MG/NS 250ml Bag 250 ML IV SCH (13:00)
--- NOTE | 2019-11-29 14:59 | NUR ---
Reassessment: Patient was starting on tube feeding last night by MD at 20 ml/hr using the vital high protein recommended by MANJU. Noted gastric residual volume up to 260 ml, patient is receiving fentanyl and likely have delayed gastric empting r/t opiates; discussed with MD and RN, per MD pt will start receiving reglan and relistor. Recommend to continue to attempt tube feeding before utilizing TPN. Pt is intubated. Pt admit with acute respiratory failure with hypoxia, acute pancreatitis secondary to EtOH, and hypocalcemia. If does not tolerated feeding into stomach may benefit from Corpak for post-pyloric feeding to avoid stimulation of the pancreas given admit with pancreatitis. Will continue to follow closely. Pt with bilat PE s/p thoracentesis with 200 mL fluid removed 11/25. Per H&P pt reports he drinks 1 beer a day, no toxicology report at this time. Pt on banana bag. LBM 11/25. Pt would benefit from pancreatitis nutrition therapy education when extubated and prior to discharge. Will continue to follow closely. Recommendations: 1) Continue tube feeding at 20 ml/hr per MD order using vital high protein. Recommend advancing tube feeding as tolerated using Vital High Protein with goal rate of 75 mL/hr will provide total volume of 1800 ml, 1800 cals, 158 g protein, and 1512 water. 2) Additional 200 mL water flush q 4 hours 3) Prealbumin q /; daily weights 4) Advance to low fat diet after extubation as medically indicated 5) Pancreatitis nutrition therapy education once stable 6) Continue banana bag 7) Bowel care PRN Addendum: 11/29/19 at [address] Amended: Links added.
[2019-11-29] MEDS: furosemide 40mg/4ml inj IV SCH ×2 (15:45→23:38)
[2019-11-29] MEDS: albumin (human) 25% 100ml IV 100 ML IV SCH ×2 (15:45→23:37)
[2019-11-29] MEDS ORDERED: albumin (human) 25% 100 ML IV solution IV ONE (16:00)
--- NOTE | 2019-11-29 18:22 | NUR ---
Problems reprioritized. Patient report given, questions answered & plan of care reviewed with Rosey DICK.
--- NOTE | 2019-11-29 18:26 | NUR ---
Patient in room CICU 2007. I have received report from MAYELIN Pizarro and had the opportunity to ask questions and assume patient care.
--- NOTE | 2019-11-29 23:21 | NUR ---
Spoke with October JANA Coats regarding high residual of 300ml. Notified that Tube feeding was held and free water for 1999 was held. Per Pauly, E [employer] give Reglan as ordered and re start tube feeding.
[2019-11-30] VITALS (22 sets, daily range): BP systolic 115–176; BP diastolic 67–97
[2019-11-30] MEDS ORDERED: metoprolol tartrate 1mg/ml inj IV ONE ×2 (02:10→02:20)
--- NOTE | 2019-11-30 02:10 | NUR ---
RAPID A-FIB Rate in 160's - 170's. Patient is maintaining BP. Verbal order for Lopressor 2.5mg IV now.
[2019-11-30] MEDS: WATER IV SCH ×4 (02:18→21:40)
[2019-11-30] MEDS: DEXTROSE 5% IV SCH ×4 (02:18→21:40)
[2019-11-30] MEDS: POTASSIUM CL IV SCH ×4 (02:18→21:40)
[2019-11-30] MEDS ORDERED: diltiazem-D5W 125mg/125ml 125 ML IV SCH (02:20)
[2019-11-30] MEDS ORDERED: diltiazem 5mg/ml 5ml inj. IV ONE ×2 (02:20→04:45)
[2019-11-30] MEDS ORDERED: diltiazem-NS 100mg/100ml 100 ML IV SCH ×2 (02:24→04:45)
[2019-11-30] MEDS: mineral oil/petrolatum ophthal oint EACHEYE SCH ×4 (02:38→19:53)
[2019-11-30 02:45] LABS: ABG BASE EXCESS -2.3 mmol/L (-2.0-3.0); ABG HCO3 22.8 mmol/L (22.0-26.0); ABG OXYGEN SATURATION 95.9 % (95-98); ABG PCO2 (T) 42.8 mmHg (35.0-45.0); ABG PH (T) 7.351 (7.350-7.450); ABG PO2 (T) 90.5 mmHg (83-108); ALLEN'S TEST POSITIVE; FCOHb 0.3 % (0.5-1.5); FMetHb 0.1 % (0.3-1.12); FO2Hb 95.5 % (94-100); PATIENT TEMPERATURE 38.2; PEEP 5 cm H2O; RESPIRATORY RATE 20 b/min; TIDAL VOLUME 500 mL; TOTAL HEMOGLOBIN 11.8 G/dl (14.0-17.9)
[2019-11-30] MEDS: ipratropium/albuterol 3ml nebule NEB SCH ×6 (02:49→23:02)
--- NOTE | 2019-11-30 03:00 | NUR ---
Erasmo to hold free water, re start tube feeding per October JANA Coats . Addendum: 11/30/19 at 0408 by Vanessa Dockery RN TIME SHOULD BE 5656
[2019-11-30 03:15] LABS: BASOPHILS % (AUTO) 0.1 % (0-1); EOSINOPHILS # (AUTO) 0.2 X10'3 (0-0.9); EOSINOPHILS % (AUTO) 1.4 % (0-6); HEMATOCRIT 33.5 % (42.0-52.0); HEMOGLOBIN 11.1 g/dl (14.0-17.9); LYMPHOCYTES # (AUTO) 0.3 X10'3 (1.1-4.8); LYMPHOCYTES % (AUTO) 2.4 % (21-51); MEAN CORPUSCULAR HEMOGLOBIN 29.9 PG (27.0-31.0); MEAN CORPUSCULAR HGB CONC 33.2 g/dL (33.0-36.5); MEAN PLATELET VOLUME 8.6 FL (7.4-10.4); MONOCYTES # (AUTO) 0.3 X10'3 (0-0.9); MONOCYTES % (AUTO) 2.3 % (2-12); NEUTROPHILS # (AUTO) 12.1 X10'3 (1.8-7.7); NEUTROPHILS % (AUTO) 93.8 % (42-75); PLATELET COUNT 241 X10'3 (140-440); RED BLOOD COUNT 3.73 X10'6 (4.70-6.10); RED CELL DISTRIBUTION WIDTH 13.9 % (11.5-14.5); WHITE BLOOD COUNT 12.9 X10'3 (4.5-11.0)
[2019-11-30 03:35] LABS: ALANINE AMINOTRANSFERASE 37 U/L (12-78); ALBUMIN 2.4 G/DL (3.4-5.0); ALBUMIN/GLOBULIN RATIO 0.6 (1.1-1.5); ALKALINE PHOSPHATASE 75 IU/L (46-116); AMYLASE 29 U/L (25-115); ANION GAP 11 (8-16); ASPARTATE AMINO TRANSFERASE 23 U/L (10-37); BILIRUBIN,TOTAL 0.8 MG/DL (0.1-1.0); BLOOD UREA NITROGEN 23 MG/DL (7-18); BUN/CREATININE RATIO 11.2 (5.4-32.0); CALCIUM 8.3 MG/DL (8.5-10.1); CHLORIDE 111 MMOL/L (99-107); CREATININE 2.06 MG/DL (0.60-1.10); GLUCOSE 164 MG/DL (70-104); LIPASE 215 U/L (73-393); MAGNESIUM 1.6 MG/DL (1.5-2.4); PHOSPHORUS 3.7 MG/DL (2.3-4.5); POTASSIUM 3.9 MMOL/L (3.5-5.1); SODIUM 148 MMOL/L (135-145); TOTAL CARBON DIOXIDE 26.1 MMOL/L (24-32); TOTAL PROTEIN 6.4 G/DL (6.4-8.2); eGFR 34 ML/MIN
[2019-11-30 03:58] LABS: TOTAL CELLS COUNTED 100
[2019-11-30 03:59] LABS: PLATELET ESTIMATE NORMAL
[2019-11-30] MEDS: amiodarone/D5 360MG/200ML BAG 200 ML IV SCH ×2 (04:02→08:42)
--- NOTE | 2019-11-30 04:30 | NUR ---
Patient back into A-fib with RVR at 165. October JANA Coats at bedside, order placed for Cardizem drip with bolus. Magnesium 1.6 to be replaced.
[2019-11-30] MEDS: midazolam 100mg in NS 100ml 100 ML IV PRN ×4 (04:40→20:36)
[2019-11-30] MEDS: FENTANYL-0.9 % NACL/PF 100 ML IV PRN ×3 (04:43→14:03)
[2019-11-30] MEDS ORDERED: magnesium 4gm in 100ml NS 100 ML IV PRN (05:00)
[2019-11-30] MEDS ORDERED: magnesium 2GM in 50ml NS 50 ML IV PRN (05:00)
[2019-11-30] MEDS: acetaminophen 325mg/10.15ml oral unit dose solution OGT PRN ×2 (05:33→12:40)
--- NOTE | 2019-11-30 05:39 | NUR ---
Patient with increased abdominal tightness. Abdominal pressure tested, unit faulty, replaced. Reading resulted at 22 with new unit. Results to October JANA Coats. Order to give paralytic as ordered and to re check the value.
--- NOTE | 2019-11-30 06:45 | NUR ---
Problems reprioritized. Patient report given, questions answered & plan of care reviewed with MAYELIN Pizarro.
[2019-11-30] MEDS: K and/or MAG REPLACEMENT MC SCH ×2 (08:00→20:00)
[2019-11-30] MEDS: furosemide 40mg/4ml inj IV SCH (08:12)
[2019-11-30] MEDS: albumin (human) 25% 100ml IV 100 ML IV SCH ×2 (08:13→15:39)
[2019-11-30] MEDS: lactobacillus rhamnosus 10,000 MMU CELLS/CAPSULE PO SCH ×2 (08:16→19:15)
[2019-11-30] MEDS: heparin, porcine 5000 units/ml vial SQ SCH ×2 (08:16→19:53)
[2019-11-30] MEDS: docusate sodium 100mg/10ml UD cup PO SCH ×2 (08:16→19:15)
[2019-11-30] MEDS: piperacillin/tazo 4.5gm/100ml 100 ML IV SCH ×2 (08:18→15:38)
[2019-11-30] MEDS: famotidine/PF 10 mg/ml inj IV SCH ×2 (08:18→19:53)
[2019-11-30] MEDS: thiamine inj. 100 MG, folic acid inj. 2 MG in normal saline 100ml IV soln 100.0 ML IV SCH (08:18)
[2019-11-30] MEDS: MVI, adult No.4 with vit. K 10 ML in dextrose 5% water 500ml 490 ML IV SCH ×2 (08:46)
[2019-11-30] MEDS ORDERED: LORazepam 1 MG tablet PO PRN (09:30)
[2019-11-30] MEDS ORDERED: LORazepam 2 mg/ml vial IV PRN (09:30)
[2019-11-30] MEDS: diltiazem-NS 100mg/100ml 100 ML IV SCH ×2 (13:19→21:39)
[2019-11-30] MEDS: metoclopramide 5 mg/ml inj IV SCH ×2 (14:02→19:53)
[2019-11-30] MEDS: furosemide 10 MG/1 ML 10ml inj IV SCH (15:35)
--- NOTE | 2019-11-30 15:53 | NUR ---
Reassessment: Per process line operator during critical care rounds, pt may have abdominal compartment syndrome with current abdominal distention. Per bedside RN, pt with IAP results of 12-17 mm Hg. Pt with OG which is now to suction and TF is held. Pt may benefit from parenteral nutrition pending further GI results. TPN recs below if to begin TPN. LBM 11/28. Will continue to monitor. Recommendations: 1) Continue tube feeding at 20 ml/hr per MD order using vital high protein. Recommend advancing tube feeding as tolerated using Vital High Protein with goal rate of 75 mL/hr will provide total volume of 1800 ml, 1800 cals, 158 g protein, and 1512 water. 2) Additional 200 mL water flush q 4 hours 3) Prealbumin q /; daily weights 4) IF TPN, recommend 2:1 TPN using Clinimix E 5/20 to run at 70ml/hr 5) IF TPN, separate 20% intralipids to run at 23ml/hr for 12 hours a day. 6) If TPN, Using Clinimix E 5/20 and 20% intralipids to provide a total of 2030 kcal, 84g protein, 55g fat with dextrose loading of 2.57 mg/kg/min. 6) Pancreatitis nutrition therapy education once stable 7) Continue banana bag 8) Bowel care PRN Addendum: 11/30/19 at 1553 by Wing Connie NUNES Amended: Links added. Addendum: 11/30/19 at [address] MANJU Cochran
[2019-11-30] MEDS: fentaNYL/PF 50MCG/1 ML 2ML syringe IV PRN ×4 (20:37→21:18)
[2019-11-30] MEDS: CISatracurium **Bolus** 2 mg/ml inj IV PRN (23:50)
[2019-12-01] VITALS (24 sets, daily range): BP systolic 104–169; BP diastolic 55–97
[2019-12-01] MEDS: albumin (human) 25% 100ml IV 100 ML IV SCH ×2 (00:10→07:34)
[2019-12-01] MEDS: furosemide 10 MG/1 ML 10ml inj IV SCH ×3 (00:11→15:13)
[2019-12-01] MEDS: piperacillin/tazo 4.5gm/100ml 100 ML IV SCH ×3 (00:11→15:13)
[2019-12-01] MEDS ORDERED: VANCOMYCIN LEVEL IV ONE (00:30)
[2019-12-01] MEDS: midazolam 100mg in NS 100ml 100 ML IV PRN ×3 (00:50→14:07)
[2019-12-01] MEDS: FENTANYL-0.9 % NACL/PF 100 ML IV PRN ×2 (01:57→19:19)
[2019-12-01] MEDS: metoclopramide 5 mg/ml inj IV SCH ×4 (02:07→20:46)
[2019-12-01] MEDS: mineral oil/petrolatum ophthal oint EACHEYE SCH ×4 (02:11→20:49)
[2019-12-01 02:21] LABS: BASOPHILS # (AUTO) 0.1 X10'3 (0-0.2); BASOPHILS % (AUTO) 0.3 % (0-1); EOSINOPHILS # (AUTO) 0.3 X10'3 (0-0.9); EOSINOPHILS % (AUTO) 1.6 % (0-6); HEMATOCRIT 31.3 % (42.0-52.0); HEMOGLOBIN 10.5 g/dl (14.0-17.9); LYMPHOCYTES # (AUTO) 0.5 X10'3 (1.1-4.8); LYMPHOCYTES % (AUTO) 3.2 % (21-51); MEAN CORPUSCULAR HGB CONC 33.5 g/dL (33.0-36.5); MEAN CORPUSCULAR VOLUME 89.7 FL (78-98); MEAN PLATELET VOLUME 8.8 FL (7.4-10.4); MONOCYTES # (AUTO) 0.5 X10'3 (0-0.9); MONOCYTES % (AUTO) 2.8 % (2-12); NEUTROPHILS # (AUTO) 15.5 X10'3 (1.8-7.7); NEUTROPHILS % (AUTO) 92.1 % (42-75); PLATELET COUNT 235 X10'3 (140-440); RED BLOOD COUNT 3.49 X10'6 (4.70-6.10); RED CELL DISTRIBUTION WIDTH 13.9 % (11.5-14.5); WHITE BLOOD COUNT 16.8 X10'3 (4.5-11.0)
[2019-12-01 02:26] LABS: ALBUMIN 2.7 G/DL (3.4-5.0); AMYLASE 29 U/L (25-115); ANION GAP 8 (8-16); BLOOD UREA NITROGEN 30 MG/DL (7-18); CALCIUM 8.1 MG/DL (8.5-10.1); CHLORIDE 107 MMOL/L (99-107); GLUCOSE 151 MG/DL (70-104); LIPASE 254 U/L (73-393); MAGNESIUM 2.1 MG/DL (1.5-2.4); PHOSPHORUS 4.9 MG/DL (2.3-4.5); POTASSIUM 4.4 MMOL/L (3.5-5.1); SODIUM 142 MMOL/L (135-145); TOTAL CARBON DIOXIDE 26.7 MMOL/L (24-32); eGFR 27 ML/MIN
[2019-12-01] MEDS: ipratropium/albuterol 3ml nebule NEB SCH ×6 (02:47→23:03)
[2019-12-01 03:09] LABS: TOTAL CELLS COUNTED 100
[2019-12-01 03:10] LABS: PLATELET ESTIMATE NORMAL
[2019-12-01 04:20] LABS: ABG BASE EXCESS -3.1 mmol/L (-2.0-3.0); ABG OXYGEN SATURATION 91.7 % (95-98); ABG PCO2 (T) 46.9 mmHg (35.0-45.0); ABG PH (T) 7.311 (7.350-7.450); ABG PO2 (T) 72.5 mmHg (83-108); ALLEN'S TEST POSITIVE; FCOHb 0.3 % (0.5-1.5); FMetHb 0.2 % (0.3-1.12); FO2Hb 91.2 % (94-100); PATIENT TEMPERATURE 37.7; PEEP 5 cm H2O; RESPIRATORY RATE 20 b/min; TIDAL VOLUME 500 mL
[2019-12-01] MEDS: WATER IV SCH ×2 (05:11→11:11)
[2019-12-01] MEDS: DEXTROSE 5% IV SCH ×2 (05:11→11:11)
[2019-12-01] MEDS: POTASSIUM CL IV SCH ×2 (05:11→11:11)
--- NOTE | 2019-12-01 06:24 | NUR ---
Patient in room CICU 2007. I have received report from Meghan DICK and had the opportunity to ask questions and assume patient care.
[2019-12-01] MEDS: MVI, adult No.4 with vit. K 10 ML in dextrose 5% water 500ml 490 ML IV SCH ×4 (07:29→13:30)
[2019-12-01] MEDS: thiamine inj. 100 MG, folic acid inj. 2 MG in normal saline 100ml IV soln 100.0 ML IV SCH (07:29)
[2019-12-01] MEDS: docusate sodium 100mg/10ml UD cup PO SCH ×2 (07:30→20:00)
[2019-12-01] MEDS: acetaminophen 325mg/10.15ml oral unit dose solution OGT PRN ×2 (07:30→15:27)
[2019-12-01] MEDS: lactobacillus rhamnosus 10,000 MMU CELLS/CAPSULE PO SCH ×2 (07:30→20:00)
[2019-12-01] MEDS: famotidine/PF 10 mg/ml inj IV SCH ×2 (07:30→20:46)
[2019-12-01] MEDS: heparin, porcine 5000 units/ml vial SQ SCH ×2 (07:31→20:47)
[2019-12-01] MEDS: methylnaltrexone br 12mg/0.6ml inj***SubQ only SQ SCH (07:31)
[2019-12-01] MEDS: K and/or MAG REPLACEMENT MC SCH ×2 (07:31→20:00)
--- NOTE | 2019-12-01 11:37 | NUR ---
Dr. Ghosh would like the long prep oral contrast for this patient before going to CT and he is aware that the patient will not go down until the change of shift. I coordinated with CT to have analytics consultant bring the patient around 7pm
[2019-12-01] MEDS ORDERED: diatr meglu/diatrizoate 30ml oral sol.-(3 dose) bottle PO SCH (12:00)
[2019-12-01] MEDS: diatr meglu/diatrizoate 30ml oral sol.-(3 dose) bottle PO SCH ×3 (13:13→18:59)
[2019-12-01] MEDS ORDERED: sodium phosphate inj. 15 MMOL in dextrose 5%-water 250 ML IV PRN (13:20)
[2019-12-01] MEDS: K, MAG and/or Phos replacement - Verify level? MC SCH (13:20)
[2019-12-01] MEDS ORDERED: potassium Cl 20mEq/100mL bag 100 ML IV PRN ×2 (13:20)
[2019-12-01] MEDS ORDERED: sodium phosphate inj. 30 MMOL in dextrose 5%-water 250 ML IV PRN (13:20)
[2019-12-01] MEDS ORDERED: Neutra Phos packet PO PRN (13:20)
[2019-12-01] MEDS ORDERED: potassium Cl 20 mEq SR tablet PO PRN ×2 (13:20)
[2019-12-01] MEDS ORDERED: magnesium Cl slow-release 64mg tablet PO PRN (13:20)
[2019-12-01] MEDS ORDERED: magnesium 2GM in 50ml NS 50 ML IV PRN (13:20)
[2019-12-01] MEDS ORDERED: magnesium 4gm in 100ml NS 100 ML IV PRN (13:20)
--- NOTE | 2019-12-01 15:23 | NUR ---
TPN consult, patient has elevated intra-abdominal pressure 17-21 mm Hg and tube feeding is contraindicated due to risk of ischemic bowel, TPN needed to meet nutrition needs on the vent. Discussed at rounds with MD, pharmacy, and bedside RN. Recommendations: 1) Recommend continuous 2:1 TPN using Clinimix E 5/20 at goal rate of 70ml/hr. This formula and rate will not meet the patient's needs without overfeeding on the vent, dextrose overloading, and fluid overloading. 2) Separate 20% intralipids to run at 23ml/hr for 12 hours a day 3) Using Clinimix E 5/20 and 20% intralipids to provide a total of 2030 kcal, 84g protein, 55g fat with dextrose loading of 2.57 mg/kg/min. 4) Prealbumin q /; daily weights 5) When intra-abdominal pressure is decreased, recommend to resume tube feedings at trickle tube feeding at 20 ml/hr using vital high Protein and advance tube feeding as tolerated using Vital High Protein with goal rate of 75 mL/hr will provide total volume of 1800 ml, 1800 cals, 158 g protein, and 1512 water. 6. When tube feedings resumed, provide additional 200 mL water flush q 4 hours 7) Pancreatitis nutrition therapy education once stable 8) Continue banana bag 9) Bowel care as needed Addendum: 12/01/19 at [address] Amended: Links added.
--- NOTE | 2019-12-01 18:36 | NUR ---
report given to LUIS E DICK
[2019-12-01] MEDS: FAT EMULSION IV SCH (20:47)
[2019-12-01] MEDS: Trace element-5 inj. 1 ML in AA 5 %/CALCIUM/LYTES/DEXT 20% 2,000 ML IV SCH (20:49)
[2019-12-02] VITALS (24 sets, daily range): BP systolic 116–164; BP diastolic 58–95
[2019-12-02] MEDS: piperacillin/tazo 4.5gm/100ml 100 ML IV SCH ×3 (00:06→16:54)
[2019-12-02] MEDS: furosemide 10 MG/1 ML 10ml inj IV SCH ×3 (00:07→15:15)
[2019-12-02] MEDS: midazolam 100mg in NS 100ml 100 ML IV PRN ×4 (00:07→20:32)
[2019-12-02] MEDS: CISatracurium **Bolus** 2 mg/ml inj IV PRN ×2 (01:56→06:28)
[2019-12-02] MEDS: FENTANYL-0.9 % NACL/PF 100 ML IV PRN ×4 (01:57→19:52)
[2019-12-02] MEDS: metoclopramide 5 mg/ml inj IV SCH ×4 (02:35→19:31)
[2019-12-02] MEDS: ipratropium/albuterol 3ml nebule NEB SCH ×6 (02:46→22:50)
[2019-12-02] MEDS: mineral oil/petrolatum ophthal oint EACHEYE SCH ×4 (02:47→19:32)
[2019-12-02] MEDS: acetaminophen 325mg/10.15ml oral unit dose solution OGT PRN ×2 (02:56→07:51)
[2019-12-02 03:00] LABS: BASOPHILS % (AUTO) 0.3 % (0-1); EOSINOPHILS # (AUTO) 0.2 X10'3 (0-0.9); EOSINOPHILS % (AUTO) 1.3 % (0-6); HEMATOCRIT 29.7 % (42.0-52.0); HEMOGLOBIN 10.1 g/dl (14.0-17.9); LYMPHOCYTES # (AUTO) 0.6 X10'3 (1.1-4.8); LYMPHOCYTES % (AUTO) 3.6 % (21-51); MEAN CORPUSCULAR HEMOGLOBIN 30.1 PG (27.0-31.0); MEAN CORPUSCULAR VOLUME 88.4 FL (78-98); MEAN PLATELET VOLUME 9.2 FL (7.4-10.4); MONOCYTES # (AUTO) 0.4 X10'3 (0-0.9); MONOCYTES % (AUTO) 2.6 % (2-12); NEUTROPHILS # (AUTO) 15.2 X10'3 (1.8-7.7); NEUTROPHILS % (AUTO) 92.2 % (42-75); PLATELET COUNT 269 X10'3 (140-440); RED BLOOD COUNT 3.36 X10'6 (4.70-6.10); RED CELL DISTRIBUTION WIDTH 13.6 % (11.5-14.5); WHITE BLOOD COUNT 16.5 X10'3 (4.5-11.0)
[2019-12-02 03:20] LABS: ALANINE AMINOTRANSFERASE 18 U/L (12-78); ALBUMIN 2.4 G/DL (3.4-5.0); ALBUMIN/GLOBULIN RATIO 0.6 (1.1-1.5); ALKALINE PHOSPHATASE 72 IU/L (46-116); AMYLASE 33 U/L (25-115); ANION GAP 13 (8-16); ASPARTATE AMINO TRANSFERASE 21 U/L (10-37); BLOOD UREA NITROGEN 45 MG/DL (7-18); BUN/CREATININE RATIO 13.2 (5.4-32.0); CALCIUM 8.3 MG/DL (8.5-10.1); CHLORIDE 103 MMOL/L (99-107); CREATININE 3.41 MG/DL (0.60-1.10); GLUCOSE 160 MG/DL (70-104); LIPASE 346 U/L (73-393); MAGNESIUM 1.8 MG/DL (1.5-2.4); PHOSPHORUS 4.9 MG/DL (2.3-4.5); POTASSIUM 3.4 MMOL/L (3.5-5.1); PREALBUMIN 9.1 MG/DL (19-36); SODIUM 140 MMOL/L (135-145); TOTAL CARBON DIOXIDE 23.7 MMOL/L (24-32); TOTAL PROTEIN 6.2 G/DL (6.4-8.2); TRIGLYCERIDES 210 MG/DL (20-135); eGFR 19 ML/MIN
[2019-12-02 03:41] LABS: ABG OXYGEN SATURATION 93.4 % (95-98); ABG PCO2 (T) 35.3 mmHg (35.0-45.0); ABG PO2 (T) 90.9 mmHg (83-108); FCOHb 0.3 % (0.5-1.5); FMetHb 0.3 % (0.3-1.12); FO2Hb 92.8 % (94-100); PATIENT TEMPERATURE 39.5; PEEP 5 cm H2O; RESPIRATORY RATE 24 b/min; TIDAL VOLUME 500 mL; TOTAL HEMOGLOBIN 10.5 G/dl (14.0-17.9)
[2019-12-02 03:56] LABS: TOTAL CELLS COUNTED 100
[2019-12-02 03:57] LABS: PLATELET ESTIMATE NORMAL
[2019-12-02] MEDS: diltiazem-NS 100mg/100ml 100 ML IV SCH ×2 (04:21→13:51)
[2019-12-02] MEDS: lactobacillus rhamnosus 10,000 MMU CELLS/CAPSULE PO SCH ×2 (07:49→19:31)
[2019-12-02] MEDS: potassium Cl 20 mEq SR tablet PO PRN ×2 (07:49→15:16)
[2019-12-02] MEDS: MVI, adult No.4 with vit. K 10 ML in dextrose 5% water 500ml 490 ML IV SCH ×4 (07:49→07:53)
[2019-12-02] MEDS: heparin, porcine 5000 units/ml vial SQ SCH ×2 (07:52→19:31)
[2019-12-02] MEDS: famotidine/PF 10 mg/ml inj IV SCH ×2 (07:53→19:31)
[2019-12-02] MEDS: docusate sodium 100mg/10ml UD cup PO SCH ×2 (07:54→20:34)
[2019-12-02] MEDS: K and/or MAG REPLACEMENT MC SCH ×2 (07:54→20:00)
[2019-12-02] MEDS: K, MAG and/or Phos replacement - Verify level? MC SCH (07:54)
[2019-12-02] MEDS: thiamine inj. 100 MG, folic acid inj. 2 MG in normal saline 100ml IV soln 100.0 ML IV SCH (07:55)
--- NOTE | 2019-12-02 12:00 | NUR ---
patient placed on ARDS protocol per dr gtz
--- NOTE | 2019-12-02 13:48 | NUR ---
Reassessment: Pt remains intubated and sedated. Pt continues with high intra-abdominal pressure of 18 and 19. Per MD discussion at critical care rounds, may proceed with open abdomen surgery if intra-abdominal pressure remains elevated. TPN started last night. Potassium now low at 3.4, currently being replaced. LBM 12/02. Will continue to monitor. Recommendations: 1) Recommend continuous 2:1 TPN using Clinimix E 5/20 at goal rate of 70ml/hr. This formula and rate will not meet the patient's needs without overfeeding on the vent, dextrose overloading, and fluid overloading. 2) Separate 20% intralipids to run at 23ml/hr for 12 hours a day 3) Using Clinimix E 5/20 and 20% intralipids to provide a total of 2030 kcal, 84g protein, 55g fat with dextrose loading of 2.57 mg/kg/min. 4) Prealbumin q /; daily weights 5) When intra-abdominal pressure is decreased, recommend to resume tube feedings at trickle tube feeding at 20 ml/hr using vital high Protein and advance tube feeding as tolerated using Vital High Protein with goal rate of 75 mL/hr will provide total volume of 1800 ml, 1800 cals, 158 g protein, and 1512 water. 6. When tube feedings resumed, provide additional 200 mL water flush q 4 hours 7) Pancreatitis nutrition therapy education once stable 8) Continue banana bag 9) Bowel care as needed Addendum: 12/02/19 at 1348 by Wing Connie NUNES Amended: Links added. Addendum: 12/02/19 at [address] MANJU Cochran
[2019-12-02] MEDS: CISatracurium besylate inj. 100 MG in normal saline 100ml IV soln 90 ML IV PRN ×2 (13:52→19:53)
[2019-12-02] MEDS: FAT EMULSION IV SCH (19:33)
[2019-12-02] MEDS ORDERED: dextrose ORAL solution 15 GM/59 ML bottle PO PRN ×2 (22:15)
[2019-12-02] MEDS ORDERED: glucagon, human recombinant 1mg kit SUBCUT PRN (22:15)
[2019-12-02] MEDS ORDERED: MESSAGE TO PHARMACY PO ONE (22:15)
[2019-12-02] MEDS ORDERED: dextrose 50%-water 50ml dispensing syringe IV PRN (22:15)
[2019-12-03] VITALS (24 sets, daily range): BP systolic 119–165; BP diastolic 64–89
[2019-12-03] MEDS: piperacillin/tazo 4.5gm/100ml 100 ML IV SCH ×4 (00:29→23:09)
[2019-12-03] MEDS: FENTANYL-0.9 % NACL/PF 100 ML IV PRN ×3 (00:29→23:09)
[2019-12-03] MEDS: acetaminophen 325mg/10.15ml oral unit dose solution OGT PRN ×2 (00:30→08:05)
[2019-12-03] MEDS: furosemide 10 MG/1 ML 10ml inj IV SCH ×2 (00:30→08:06)
[2019-12-03] MEDS: diltiazem-NS 100mg/100ml 100 ML IV SCH ×3 (00:31→17:43)
[2019-12-03] MEDS: metoclopramide 5 mg/ml inj IV SCH ×2 (01:36→08:12)
[2019-12-03] MEDS: mineral oil/petrolatum ophthal oint EACHEYE SCH ×4 (01:36→19:14)
[2019-12-03] MEDS: ipratropium/albuterol 3ml nebule NEB SCH ×6 (02:09→23:26)
--- NOTE | 2019-12-03 02:32 | NUR ---
peak pressures greater than 43, decreased tidal volume to 450 and lavaged/suctioned while bagging patient with paralytic on hold, got small amount thick creamy lao sputum. peak pressures down to 30. RN restarted paralytic and will notify pablo BATES.
[2019-12-03 03:04] LABS: ALANINE AMINOTRANSFERASE 16 U/L (12-78); ALBUMIN/GLOBULIN RATIO 0.4 (1.1-1.5); ALKALINE PHOSPHATASE 80 IU/L (46-116); AMYLASE 28 U/L (25-115); ANION GAP 16 (8-16); ASPARTATE AMINO TRANSFERASE 17 U/L (10-37); BILIRUBIN,TOTAL 0.7 MG/DL (0.1-1.0); BLOOD UREA NITROGEN 54 MG/DL (7-18); BUN/CREATININE RATIO 15.2 (5.4-32.0); CALCIUM 8.3 MG/DL (8.5-10.1); CHLORIDE 100 MMOL/L (99-107); CREATININE 3.56 MG/DL (0.60-1.10); GLUCOSE 248 MG/DL (70-104); LIPASE 374 U/L (73-393); MAGNESIUM 1.9 MG/DL (1.5-2.4); PHOSPHORUS 6.6 MG/DL (2.3-4.5); POTASSIUM 2.8 MMOL/L (3.5-5.1); SODIUM 140 MMOL/L (135-145); TOTAL CARBON DIOXIDE 24.3 MMOL/L (24-32); TOTAL PROTEIN 6.6 G/DL (6.4-8.2); eGFR 18 ML/MIN
[2019-12-03] MEDS ORDERED: POTASSIUM BICARB 20meq eff tab 20 MEQ TABLET.EFF PO PRN ×2 (03:27→03:28)
[2019-12-03 03:37] LABS: HEMOGLOBIN A1C 6.5 % (4.5-6.2)
[2019-12-03 04:01] LABS: ABG BASE EXCESS -12.1 mmol/L (-2.0-3.0); ABG HCO3 12.5 mmol/L (22.0-26.0); ABG OXYGEN SATURATION 87.5 % (95-98); ABG PH (T) 7.316 (7.350-7.450); ABG PO2 (T) 69.5 mmHg (83-108); ALLEN'S TEST POSITIVE; FCOHb 0.3 % (0.5-1.5); FMetHb 0.3 % (0.3-1.12); PATIENT TEMPERATURE 37.1; PEEP 5 cm H2O; RESPIRATORY RATE 24 b/min; TIDAL VOLUME 450 mL; TOTAL HEMOGLOBIN 11.1 G/dl (14.0-17.9)
[2019-12-03] MEDS: CISatracurium besylate inj. 100 MG in normal saline 100ml IV soln 90 ML IV PRN ×2 (04:20→13:08)
[2019-12-03] MEDS: potassium Cl 20mEq/100mL bag 100 ML IV PRN (04:22)
[2019-12-03 04:29] LABS: BASOPHILS # (AUTO) 0.1 X10'3 (0-0.2); BASOPHILS % (AUTO) 0.6 % (0-1); EOSINOPHILS # (AUTO) 0.2 X10'3 (0-0.9); EOSINOPHILS % (AUTO) 1.2 % (0-6); HEMATOCRIT 32.2 % (42.0-52.0); LYMPHOCYTES # (AUTO) 0.7 X10'3 (1.1-4.8); LYMPHOCYTES % (AUTO) 3.6 % (21-51); MEAN CORPUSCULAR HGB CONC 34.1 g/dL (33.0-36.5); MEAN CORPUSCULAR VOLUME 87.9 FL (78-98); MEAN PLATELET VOLUME 9.1 FL (7.4-10.4); MONOCYTES # (AUTO) 0.5 X10'3 (0-0.9); MONOCYTES % (AUTO) 2.7 % (2-12); NEUTROPHILS # (AUTO) 17.3 X10'3 (1.8-7.7); NEUTROPHILS % (AUTO) 91.9 % (42-75); PLATELET COUNT 337 X10'3 (140-440); RED BLOOD COUNT 3.66 X10'6 (4.70-6.10); RED CELL DISTRIBUTION WIDTH 13.4 % (11.5-14.5); WHITE BLOOD COUNT 18.8 X10'3 (4.5-11.0)
[2019-12-03] MEDS: midazolam 100mg in NS 100ml 100 ML IV PRN ×2 (04:30→17:42)
[2019-12-03] MEDS: insulin regular, human U-100 3ml vial - multi-dose SQ SCH ×4 (05:10→19:57)
--- NOTE | 2019-12-03 06:48 | NUR ---
received report from LUIS E DCIK , per report patients oxygen demand has gone up over night and patient is now on 70% Fio2 and SATS are 90% HR 102. Patients kidney function is also worsening although urine output is still sufficient. Patient has remained afebrile due to cooling blanket. Will continue to monitor.
[2019-12-03 07:52] LABS: PLATELET ESTIMATE NORMAL; TOTAL CELLS COUNTED 100
[2019-12-03] MEDS: K and/or MAG REPLACEMENT MC SCH ×2 (08:00→20:00)
[2019-12-03] MEDS: K, MAG and/or Phos replacement - Verify level? MC SCH (08:00)
[2019-12-03] MEDS: methylnaltrexone br 12mg/0.6ml inj***SubQ only SQ SCH (08:05)
[2019-12-03] MEDS: heparin, porcine 5000 units/ml vial SQ SCH ×2 (08:06→19:13)
[2019-12-03] MEDS: lactobacillus rhamnosus 10,000 MMU CELLS/CAPSULE PO SCH ×2 (08:06→19:13)
[2019-12-03] MEDS: docusate sodium 100mg/10ml UD cup PO SCH ×2 (08:07→19:13)
[2019-12-03] MEDS: famotidine/PF 10 mg/ml inj IV SCH ×2 (08:07→19:13)
[2019-12-03] MEDS: thiamine inj. 100 MG, folic acid inj. 2 MG in normal saline 100ml IV soln 100.0 ML IV SCH (08:09)
[2019-12-03] MEDS: MVI, adult No.4 with vit. K 10 ML in dextrose 5% water 500ml 490 ML IV SCH ×2 (08:11)
[2019-12-03] MEDS: Trace element-5 inj. 1 ML in AA 5 %/CALCIUM/LYTES/DEXT 20% 2,000 ML IV SCH (09:00)
--- NOTE | 2019-12-03 10:45 | NUR ---
stopping lasix per dr bae
[2019-12-03 11:31] LABS: ABG BASE EXCESS -5.2 mmol/L (-2.0-3.0); ABG HCO3 21.3 mmol/L (22.0-26.0); ABG OXYGEN SATURATION 87.7 % (95-98); ABG PCO2 (T) 45.3 mmHg (35.0-45.0); ABG PO2 (T) 61.3 mmHg (83-108); ALLEN'S TEST POSITIVE; FCOHb 0.3 % (0.5-1.5); FMetHb 0.1 % (0.3-1.12); FO2Hb 87.3 % (94-100); PEEP 8 cm H2O; RESPIRATORY RATE 24 b/min; TIDAL VOLUME 450 mL; TOTAL HEMOGLOBIN 11.5 G/dl (14.0-17.9)
--- NOTE | 2019-12-03 18:44 | NUR ---
gave report to marito cardozo
[2019-12-03] MEDS: FAT EMULSION IV SCH (19:14)
[2019-12-03] MEDS: insulin glargine (Lantus) pen - multi-dose SQ SCH (19:56)
--- NOTE | 2019-12-03 20:36 | NUR ---
spoke with JANA Severino at bedside about patients increased needs for vent support. Pt currently on ARDS protocol.
[2019-12-03 22:06] LABS: SODIUM,URINE RANDOM < 15 MEQ/L
[2019-12-04] VITALS (22 sets, daily range): BP systolic 109–173; BP diastolic 52–91
[2019-12-04] MEDS: mineral oil/petrolatum ophthal oint EACHEYE SCH ×4 (02:00→20:55)
[2019-12-04] MEDS: insulin regular, human U-100 3ml vial - multi-dose SQ SCH ×4 (02:28→21:30)
[2019-12-04] MEDS: diltiazem-NS 100mg/100ml 100 ML IV SCH ×3 (02:45→18:33)
[2019-12-04 02:47] LABS: ALANINE AMINOTRANSFERASE 11 U/L (12-78); ALBUMIN 1.8 G/DL (3.4-5.0); ALBUMIN/GLOBULIN RATIO 0.4 (1.1-1.5); ALKALINE PHOSPHATASE 83 IU/L (46-116); AMYLASE 30 U/L (25-115); ANION GAP 13 (8-16); ASPARTATE AMINO TRANSFERASE 14 U/L (10-37); BILIRUBIN,TOTAL 0.7 MG/DL (0.1-1.0); BLOOD UREA NITROGEN 64 MG/DL (7-18); BUN/CREATININE RATIO 16.2 (5.4-32.0); CALCIUM 8.3 MG/DL (8.5-10.1); CHLORIDE 99 MMOL/L (99-107); CREATININE 3.96 MG/DL (0.60-1.10); GLUCOSE 299 MG/DL (70-104); LIPASE 460 U/L (73-393); MAGNESIUM 2.1 MG/DL (1.5-2.4); POTASSIUM 3.8 MMOL/L (3.5-5.1); SODIUM 135 MMOL/L (135-145); TOTAL CARBON DIOXIDE 22.6 MMOL/L (24-32); TOTAL PROTEIN 6.9 G/DL (6.4-8.2); eGFR 16 ML/MIN
[2019-12-04 02:54] LABS: HEMATOCRIT 31.1 % (42.0-52.0); HEMOGLOBIN 10.1 g/dl (14.0-17.9); MEAN CORPUSCULAR HEMOGLOBIN 29.5 PG (27.0-31.0); MEAN CORPUSCULAR HGB CONC 32.6 g/dL (33.0-36.5); MEAN CORPUSCULAR VOLUME 90.3 FL (78-98); MEAN PLATELET VOLUME 9.3 FL (7.4-10.4); PLATELET COUNT 383 X10'3 (140-440); RED BLOOD COUNT 3.44 X10'6 (4.70-6.10); RED CELL DISTRIBUTION WIDTH 13.9 % (11.5-14.5); WHITE BLOOD COUNT 16.8 X10'3 (4.5-11.0)
[2019-12-04] MEDS: midazolam 100mg in NS 100ml 100 ML IV PRN ×3 (03:12→20:20)
[2019-12-04] MEDS: ipratropium/albuterol 3ml nebule NEB SCH ×6 (03:27→22:59)
[2019-12-04 03:39] LABS: TOTAL CELLS COUNTED 100
[2019-12-04 03:40] LABS: PLATELET ESTIMATE NORMAL
[2019-12-04] MEDS: CISatracurium besylate inj. 100 MG in normal saline 100ml IV soln 90 ML IV PRN ×2 (03:56→12:30)
[2019-12-04] MEDS: FENTANYL-0.9 % NACL/PF 100 ML IV PRN ×3 (03:56→17:02)
[2019-12-04 04:10] LABS: ABG BASE EXCESS -7.6 mmol/L (-2.0-3.0); ABG HCO3 18.9 mmol/L (22.0-26.0); ABG OXYGEN SATURATION 89.4 % (95-98); ABG PCO2 (T) 41.6 mmHg (35.0-45.0); ABG PH (T) 7.273 (7.350-7.450); ABG PO2 (T) 65.3 mmHg (83-108); FCOHb 0.3 % (0.5-1.5); FMetHb 0.2 % (0.3-1.12); PATIENT TEMPERATURE 36.4; PEEP 18 cm H2O; RESPIRATORY RATE 25 b/min; TIDAL VOLUME 425 mL; TOTAL HEMOGLOBIN 11.1 G/dl (14.0-17.9)
[2019-12-04] MEDS: K, MAG and/or Phos replacement - Verify level? MC SCH (08:00)
[2019-12-04] MEDS: piperacillin/tazo 4.5gm/100ml 100 ML IV SCH ×2 (08:00→15:54)
[2019-12-04] MEDS: K and/or MAG REPLACEMENT MC SCH ×2 (08:00→20:00)
[2019-12-04] MEDS: thiamine inj. 100 MG, folic acid inj. 2 MG in normal saline 100ml IV soln 100.0 ML IV SCH (08:37)
[2019-12-04] MEDS: MVI, adult No.4 with vit. K 10 ML in dextrose 5% water 500ml 490 ML IV SCH ×2 (09:33)
[2019-12-04] MEDS: famotidine/PF 10 mg/ml inj IV SCH ×2 (09:51→20:54)
[2019-12-04] MEDS: docusate sodium 100mg/10ml UD cup PO SCH ×2 (09:51→20:00)
[2019-12-04] MEDS: lactobacillus rhamnosus 10,000 MMU CELLS/CAPSULE PO SCH ×2 (09:51→20:00)
[2019-12-04] MEDS ORDERED: gentamicin 40 MG/1 ML inj ONE (12:35)
[2019-12-04] MEDS ORDERED: clindamycin phosphate 150mg/ml inj. ONE (12:35)
[2019-12-04] MEDS ORDERED: phenylephrine 10mg/ml inj. ONE (12:52)
[2019-12-04] MEDS ORDERED: diltiazem 5mg/ml 5ml inj. IV ONE (12:52)
[2019-12-04] MEDS ORDERED: rocuronium 10mg/ml inj IV ONE (12:52)
--- NOTE | 2019-12-04 13:01 | NUR ---
patient off to OR
--- NOTE | 2019-12-04 15:00 | NUR ---
Vent changes per DR chatterjee peep reduced to 12, abg obtained, and dany AMAYA notified. No new orders received
[2019-12-04 15:11] LABS: ABG BASE EXCESS -8.8 mmol/L (-2.0-3.0); ABG HCO3 18.9 mmol/L (22.0-26.0); ABG OXYGEN SATURATION 92.7 % (95-98); ABG PCO2 (T) 49.7 mmHg (35.0-45.0); ABG PH (T) 7.199 (7.350-7.450); ABG PO2 (T) 79.8 mmHg (83-108); FCOHb 0.3 % (0.5-1.5); FMetHb 0.2 % (0.3-1.12); FO2Hb 92.2 % (94-100); PEEP 12 cm H2O; RESPIRATORY RATE 25 b/min; TIDAL VOLUME 350 mL; TOTAL HEMOGLOBIN 9.7 G/dl (14.0-17.9)
--- NOTE | 2019-12-04 15:12 | NUR ---
Left message with DR Ghosh to update him on patient now that he is back from the OR
[2019-12-04] MEDS: Trace element-5 inj. 1 ML in AA 5 %/CALCIUM/LYTES/DEXT 20% 2,000 ML IV SCH (15:54)
--- NOTE | 2019-12-04 18:30 | NUR ---
Patient in room CICU 2007. I have received report from Vince DICK and had the opportunity to ask questions and assume patient care.
[2019-12-04] MEDS: FAT EMULSION IV SCH (21:02)
--- NOTE | 2019-12-04 21:15 | NUR ---
Pt febrile, cooling blanket placed, ice packs to axilla and groin, te,p reduced on ventilator.
[2019-12-04] MEDS: insulin glargine (Lantus) pen - multi-dose SQ SCH (21:32)
[2019-12-05] VITALS (29 sets, daily range): BP systolic 102–177; BP diastolic 39–78
[2019-12-05] MEDS ORDERED: albumin (Human) 5% 250ml 250 ML IV ONE ×2 (00:50)
--- NOTE | 2019-12-05 00:50 | NUR ---
Pt hypotensive, urine output decreased. Doyle notified. Orders received.
[2019-12-05] MEDS: FENTANYL-0.9 % NACL/PF 100 ML IV PRN ×4 (01:24→15:41)
[2019-12-05 02:59] LABS: BASOPHILS % (AUTO) 0.3 % (0-1); EOSINOPHILS # (AUTO) 0.1 X10'3 (0-0.9); EOSINOPHILS % (AUTO) 0.4 % (0-6); HEMATOCRIT 25.6 % (42.0-52.0); HEMOGLOBIN 8.3 g/dl (14.0-17.9); LYMPHOCYTES # (AUTO) 0.4 X10'3 (1.1-4.8); LYMPHOCYTES % (AUTO) 3.1 % (21-51); MEAN CORPUSCULAR HGB CONC 32.5 g/dL (33.0-36.5); MEAN CORPUSCULAR VOLUME 89.3 FL (78-98); MEAN PLATELET VOLUME 8.8 FL (7.4-10.4); MONOCYTES # (AUTO) 0.3 X10'3 (0-0.9); MONOCYTES % (AUTO) 2.6 % (2-12); NEUTROPHILS # (AUTO) 12.1 X10'3 (1.8-7.7); NEUTROPHILS % (AUTO) 93.6 % (42-75); PLATELET COUNT 360 X10'3 (140-440); RED BLOOD COUNT 2.86 X10'6 (4.70-6.10); RED CELL DISTRIBUTION WIDTH 13.4 % (11.5-14.5); WHITE BLOOD COUNT 12.9 X10'3 (4.5-11.0)
[2019-12-05] MEDS: insulin regular, human U-100 3ml vial - multi-dose SQ SCH ×4 (03:05→21:28)
[2019-12-05] MEDS: mineral oil/petrolatum ophthal oint EACHEYE SCH ×4 (03:06→21:31)
[2019-12-05] MEDS: ipratropium/albuterol 3ml nebule NEB SCH ×6 (03:06→23:09)
[2019-12-05] MEDS: midazolam 100mg in NS 100ml 100 ML IV PRN ×5 (03:11→22:34)
[2019-12-05 03:16] LABS: ALANINE AMINOTRANSFERASE 13 U/L (12-78); ALBUMIN 1.7 G/DL (3.4-5.0); ALBUMIN/GLOBULIN RATIO 0.4 (1.1-1.5); ALKALINE PHOSPHATASE 58 IU/L (46-116); AMYLASE 32 U/L (25-115); ANION GAP 15 (8-16); ASPARTATE AMINO TRANSFERASE 14 U/L (10-37); BILIRUBIN,TOTAL 0.7 MG/DL (0.1-1.0); BLOOD UREA NITROGEN 74 MG/DL (7-18); BUN/CREATININE RATIO 17.8 (5.4-32.0); CALCIUM 7.6 MG/DL (8.5-10.1); CHLORIDE 102 MMOL/L (99-107); CREATININE 4.16 MG/DL (0.60-1.10); GLUCOSE 188 MG/DL (70-104); LIPASE 430 U/L (73-393); POTASSIUM 3.8 MMOL/L (3.5-5.1); SODIUM 137 MMOL/L (135-145); TOTAL CARBON DIOXIDE 20.5 MMOL/L (24-32); TOTAL PROTEIN 5.7 G/DL (6.4-8.2); eGFR 15 ML/MIN
[2019-12-05 03:46] LABS: PLATELET ESTIMATE NORMAL; TOTAL CELLS COUNTED 100
[2019-12-05 04:46] LABS: ABG BASE EXCESS -6.3 mmol/L (-2.0-3.0); ABG HCO3 19.3 mmol/L (22.0-26.0); ABG OXYGEN SATURATION 95.1 % (95-98); ABG PCO2 (T) 39.1 mmHg (35.0-45.0); ABG PH (T) 7.312 (7.350-7.450); ABG PO2 (T) 86.4 mmHg (83-108); FCOHb 0.3 % (0.5-1.5); FMetHb 0.1 % (0.3-1.12); FO2Hb 94.7 % (94-100); PATIENT TEMPERATURE 37.4; PEEP 12 cm H2O; RESPIRATORY RATE 25 b/min; TIDAL VOLUME 425 mL
[2019-12-05] MEDS: diltiazem-NS 100mg/100ml 100 ML IV SCH ×3 (05:20→19:57)
[2019-12-05 05:52] LABS: PHOSPHORUS 6.9 MG/DL (2.3-4.5)
--- NOTE | 2019-12-05 06:30 | NUR ---
Patient in room CICU 2007. I have received report from Lety DICK and had the opportunity to ask questions and assume patient care. Patient laying in bed with eyes closed. Patient on ventilator fio2 70% peep of 12, sating 92-95% TV 425, rate of 25 Mode PRVC. Patient has a R subclavian, with ordered titratable drips infusing per protocol. Lujan draining to gravity, patient has an open belly from exploratory lap performed , wound vac in place with 125mmhg, with sanguinous drainage. Art line to R wrist. Vital signs stable , no signs or symptoms of distress. Will continue to monitor
--- NOTE | 2019-12-05 06:43 | NUR ---
Problems reprioritized. Patient report given, questions answered & plan of care reviewed with Mary Grace DICK. Student documentation: I have reviewed and agree with all interventions, assessments performed and documented by Gus SAM. Student Medication Administration: For this medication-pass time frame, all medication were reviewed, dispensed, administered and documented per hospital policy by Gus SAM.
--- NOTE | 2019-12-05 07:54 | NUR ---
Patient in room CICU 2008. I have received report from Lety and had the opportunity to ask questions and assume patient care.
[2019-12-05] MEDS: K and/or MAG REPLACEMENT MC SCH ×2 (08:00→20:00)
[2019-12-05] MEDS: lactobacillus rhamnosus 10,000 MMU CELLS/CAPSULE PO SCH ×2 (08:00→21:31)
[2019-12-05] MEDS: K, MAG and/or Phos replacement - Verify level? MC SCH (08:00)
[2019-12-05] MEDS: docusate sodium 100mg/10ml UD cup PO SCH ×2 (08:00→21:30)
[2019-12-05] MEDS: methylnaltrexone br 12mg/0.6ml inj***SubQ only SQ SCH (08:56)
[2019-12-05] MEDS: famotidine/PF 10 mg/ml inj IV SCH ×2 (08:57→21:30)
[2019-12-05] MEDS: MVI, adult No.4 with vit. K 10 ML in dextrose 5% water 500ml 490 ML IV SCH ×2 (09:00)
[2019-12-05] MEDS: thiamine inj. 100 MG, folic acid inj. 2 MG in normal saline 100ml IV soln 100.0 ML IV SCH (09:12)
[2019-12-05] MEDS ORDERED: epoetin 20,000 units/ml inj SQ ONE (11:20)
--- NOTE | 2019-12-05 11:20 | NUR ---
New orders per Dr. Peter, urine studies, epogen, lasix, albumin, repeat lactic acid, blood cultures and tidal volume increase to 600. orders transcribed.
[2019-12-05 14:44] LABS: SODIUM,URINE RANDOM < 15 MEQ/L; TOTAL PROTEIN,URINE RANDOM 119.5 MG/DL
--- NOTE | 2019-12-05 15:25 | NUR ---
reassessment: Pt abdominal compartment syndrome s/p ex laparotomy w/ drainage of large pseudocyst and abdominal wound vac placement. Trickle EN held OG currently to suction receiving TPN at goal and tolerating. May benefit from increased PN goal rate given wound healing needs and off EN; updated recs below. Will monitor for additional nutrition needs post-op and EN initiation as medically indicated. Recommendations: 1) Recommend continuous 2:1 TPN using Clinimix E 5/20 at goal rate of 70ml/hr. Separate 20% intralipids to run at 23ml/hr for 12 hours a day using Clinimix E 5/20 and 20% intralipids to provide a total of 2030 kcal, 84g protein, 55g fat, 336g DEX, 2.57 mg/kg/min dex loading. 2) IF prolonged PN; consider increase to Clinimix E 5/20 at 100ml/hr w/ minimal 20% intralipids at 9ml/hr for 12 hours daily to meet essential fat needs. Would provide 2400ml fluid, 120g AA, 480g DEX(2.97mg/kg/min), 22g lipids, and total 2332kcals. Unable to meet needs without fluid overloading and overfeeding given high DEX formula. 3) Prealbumin q M/TH; daily weights 4) When intra-abdominal pressure is decreased, recommend to resume tube feedings at trickle tube feeding at 20 ml/hr using vital high Protein and advance tube feeding as tolerated using Vital High Protein with goal rate of 90mL/hr will provide total volume of 2160ml, 2160cals, 189g protein, and 1814ml free water. 5). When tube feedings resumed, provide additional 200 mL water flush q 4 hours 6) Pancreatitis nutrition therapy education once stable 7) Continue banana bag per MD Addendum: 12/05/19 at [address] Amended: Links added.
--- NOTE | 2019-12-05 15:38 | NUR ---
F/u: MANJU d/w BOARD HANDLER regarding PN adjustment to better meet pt protein needs post-op. MANJU collaborated w/ clinical pharmacist regarding updated PN recs. RN reports steroids have been d/c for GLU control; RD reported current DEX loading not substantial and may require insulin drip IF GLU continues to be issue on PN per MD approval. Will monitor for PN tolerance. Recommendations: 1) Recommend continuous 2:1 TPN using Clinimix E 5/20 at goal rate of 100ml/hr. Separate 20% intralipids at 9ml/hr for 12 hours daily to meet essential fat needs. To provide 2400ml fluid, 120g AA, 480g DEX(2.97mg/kg/min), 22g lipids, and total 2332kcals. Unable to meet needs without fluid overloading and overfeeding given high DEX formula. 2) Prealbumin q /; daily weights 3) When intra-abdominal pressure is decreased, recommend to resume tube feedings at trickle tube feeding at 20 ml/hr using vital high Protein and advance tube feeding as tolerated using Vital High Protein with goal rate of 90mL/hr will provide total volume of 2160ml, 2160cals, 189g protein, and 1814ml free water. 4). When tube feedings resumed, provide additional 200 mL water flush q 4 hours 5) Pancreatitis nutrition therapy education once stable 6) Continue banana bag per MD Addendum: 12/05/19 at [address] Amended: Links added. Addendum: 12/05/19 at [address] CORRECTION: F/u: MANJU d/w BOARD HANDLER regarding PN adjustment to better meet pt protein needs post-op. MANJU collaborated w/ clinical pharmacist regarding updated PN recs. Will monitor for PN tolerance. Recommendations: 1) Recommend continuous 2:1 TPN using Clinimix E 02/22 at goal rate of 100ml/hr. Separate 20% intralipids at 9ml/hr for 12 hours daily to meet essential fat needs. To provide 2400ml fluid, 120g AA, 480g DEX(2.97mg/kg/min), 22g lipids, and total 2332kcals. Unable to meet needs without fluid overloading and overfeeding given high DEX formula. 2) Prealbumin q /; daily weights 3) When intra-abdominal pressure is decreased, recommend to resume tube feedings at trickle tube feeding at 20 ml/hr using vital high Protein and advance tube feeding as tolerated using Vital High Protein with goal rate of 90mL/hr will provide total volume of 2160ml, 2160cals, 189g protein, and 1814ml free water. 4). When tube feedings resumed, provide additional 200 mL water flush q 4 hours 5) Pancreatitis nutrition therapy education once stable 6) Continue banana bag per
--- NOTE | 2019-12-05 15:54 | NUR ---
PER RN DR. GRIFFIN WOULD LIKE TO INCREASE PT'S TIDAL VOLUME TO 600. RT ATTEMPTED TO INCREASE VOLUME TO 600, PT DID NOT TOLERATE VOLUME INCREASE, PT'S PEAK PRESSURES INCREASED. DECREASED VOLUME TO 550, PT COMFORTABLE. NURSE MADE AWARE. Addendum: 12/05/19 at 1559 by Maylin [address] RT Amended: Links added.
[2019-12-05] MEDS: furosemide 10 MG/1 ML 10ml inj IV SCH (16:01)
[2019-12-05] MEDS: albumin (human) 25% 100ml IV 100 ML IV SCH (16:02)
[2019-12-05 16:46] LABS: ABG BASE EXCESS -6.6 mmol/L (-2.0-3.0); ABG HCO3 18.1 mmol/L (22.0-26.0); ABG OXYGEN SATURATION 94.4 % (95-98); ABG PCO2 (T) 32.4 mmHg (35.0-45.0); ABG PH (T) 7.364 (7.350-7.450); ABG PO2 (T) 79.4 mmHg (83-108); FCOHb 0.2 % (0.5-1.5); FMetHb 0.2 % (0.3-1.12); PEEP 12 cm H2O; RESPIRATORY RATE 25 b/min; TIDAL VOLUME 550 mL; TOTAL HEMOGLOBIN 8.5 G/dl (14.0-17.9)
[2019-12-05] MEDS: Trace element-5 inj. 1 ML in AA 5 %/CALCIUM/LYTES/DEXT 20% 2,000 ML IV SCH (16:58)
--- NOTE | 2019-12-05 18:25 | NUR ---
Problems reprioritized. Patient report given, questions answered & plan of care reviewed with eLty Mccormick.
--- NOTE | 2019-12-05 18:30 | NUR ---
[facility] I have received report from day shift RN and had the opportunity to ask questions and assume patient care. Addendum: 12/05/19 at 1916 by Lety Rodriguez RN Amended: Links added.
--- NOTE | 2019-12-05 18:30 | NUR ---
Patient in room CICU 2007. I have received report from day shift RN and had the opportunity to ask questions and assume patient care.
[2019-12-05] MEDS: insulin glargine (Lantus) pen - multi-dose SQ SCH (21:29)
[2019-12-05] MEDS: FAT EMULSION IV SCH (21:30)
--- NOTE | 2019-12-05 23:16 | NUR ---
Titrating sedation and pain medications for patient comfort. Vital signs stable. IAP:16. Will continue to monitor
[2019-12-06] VITALS (24 sets, daily range): BP systolic 117–154; BP diastolic 46–66
[2019-12-06] MEDS: FENTANYL-0.9 % NACL/PF 100 ML IV PRN ×6 (00:33→20:29)
[2019-12-06] MEDS: diltiazem-NS 100mg/100ml 100 ML IV SCH ×4 (00:34→20:29)
[2019-12-06] MEDS: furosemide 10 MG/1 ML 10ml inj IV SCH ×4 (00:41→23:00)
[2019-12-06] MEDS: albumin (human) 25% 100ml IV 100 ML IV SCH ×4 (00:41→22:59)
[2019-12-06] MEDS: mineral oil/petrolatum ophthal oint EACHEYE SCH ×4 (02:18→20:00)
[2019-12-06] MEDS: insulin regular, human U-100 3ml vial - multi-dose SQ SCH ×4 (02:21→20:26)
--- NOTE | 2019-12-06 02:58 | NUR ---
Pt peak pressuring on the vent despite increased sedation and pain medication. Mathieu Severino notified, okayed to restart Nimbex drip to assist w/ventilation. Will continue to monitor.
[2019-12-06] MEDS: ipratropium/albuterol 3ml nebule NEB SCH ×6 (02:59→22:43)
[2019-12-06 03:09] LABS: EOSINOPHILS # (AUTO) 0.1 X10'3 (0-0.9); HEMOGLOBIN 7.2 g/dl (14.0-17.9); LYMPHOCYTES # (AUTO) 0.5 X10'3 (1.1-4.8); MONOCYTES # (AUTO) 0.7 X10'3 (0-0.9); WHITE BLOOD COUNT 13.4 X10'3 (4.5-11.0)
[2019-12-06 03:10] LABS: BASOPHILS % (AUTO) 0.3 % (0-1); EOSINOPHILS % (AUTO) 0.7 % (0-6); MEAN CORPUSCULAR HEMOGLOBIN 29.7 PG (27.0-31.0); MEAN CORPUSCULAR HGB CONC 33.8 g/dL (33.0-36.5); MEAN CORPUSCULAR VOLUME 87.8 FL (78-98); MEAN PLATELET VOLUME 8.7 FL (7.4-10.4); MONOCYTES % (AUTO) 5.1 % (2-12); NEUTROPHILS % (AUTO) 89.9 % (42-75); PLATELET COUNT 339 X10'3 (140-440); RED BLOOD COUNT 2.41 X10'6 (4.70-6.10); RED CELL DISTRIBUTION WIDTH 13.1 % (11.5-14.5)
[2019-12-06 03:15] LABS: ABG BASE EXCESS -5.7 mmol/L (-2.0-3.0); ABG HCO3 18.7 mmol/L (22.0-26.0); ABG OXYGEN SATURATION 93.4 % (95-98); ABG PCO2 (T) 32.7 mmHg (35.0-45.0); ABG PH (T) 7.377 (7.350-7.450); ABG PO2 (T) 77.7 mmHg (83-108); ALLEN'S TEST POSITIVE; FCOHb 0.3 % (0.5-1.5); FMetHb 0.2 % (0.3-1.12); FO2Hb 92.9 % (94-100); PATIENT TEMPERATURE 37.4; PEEP 12 cm H2O; RESPIRATORY RATE 25 b/min; TIDAL VOLUME 550 mL; TOTAL HEMOGLOBIN 7.5 G/dl (14.0-17.9)
[2019-12-06 03:19] LABS: HEMATOCRIT 21.2 % (42.0-52.0)
[2019-12-06] MEDS: CISatracurium besylate inj. 100 MG in normal saline 100ml IV soln 90 ML IV PRN ×3 (03:22→22:59)
[2019-12-06 03:23] LABS: ALANINE AMINOTRANSFERASE 11 U/L (12-78); ALBUMIN 1.8 G/DL (3.4-5.0); ALBUMIN/GLOBULIN RATIO 0.5 (1.1-1.5); ALKALINE PHOSPHATASE 56 IU/L (46-116); AMYLASE 24 U/L (25-115); ANION GAP 13 (8-16); ASPARTATE AMINO TRANSFERASE 13 U/L (10-37); BILIRUBIN,TOTAL 0.8 MG/DL (0.1-1.0); BLOOD UREA NITROGEN 78 MG/DL (7-18); BUN/CREATININE RATIO 18.2 (5.4-32.0); CALCIUM 7.7 MG/DL (8.5-10.1); CHLORIDE 102 MMOL/L (99-107); CREATININE 4.29 MG/DL (0.60-1.10); GLUCOSE 146 MG/DL (70-104); LIPASE 226 U/L (73-393); MAGNESIUM 1.9 MG/DL (1.5-2.4); PHOSPHORUS 6.7 MG/DL (2.3-4.5); POTASSIUM 3.2 MMOL/L (3.5-5.1); PREALBUMIN 11.4 MG/DL (19-36); SODIUM 137 MMOL/L (135-145); TOTAL PROTEIN 5.8 G/DL (6.4-8.2); TRIGLYCERIDES 168 MG/DL (20-135); eGFR 15 ML/MIN
[2019-12-06] MEDS: midazolam 100mg in NS 100ml 100 ML IV PRN ×5 (03:23→18:59)
[2019-12-06 04:24] LABS: PLATELET ESTIMATE NORMAL; TOTAL CELLS COUNTED 100
[2019-12-06] MEDS: potassium Cl 20mEq/100mL bag 100 ML IV PRN ×2 (05:04→07:10)
--- NOTE | 2019-12-06 06:26 | NUR ---
Problems reprioritized. Patient report given, questions answered & plan of care reviewed with Mary Grace DICK.
--- NOTE | 2019-12-06 06:30 | NUR ---
Patient in room CICU 2007. I have received report from Lety DICK and had the opportunity to ask questions and assume patient care. Patient laying in bed with closed on ventilator fio2 70% peep of 12, sating 92-94%, king to gravity, art line to r wrist with stable blood pressure reading, wound vac to midline abdomen, with two YORDAN drains, IV drips infusing to R subclavian. Vital signs stable will continue to monitor
[2019-12-06] MEDS: K, MAG and/or Phos replacement - Verify level? MC SCH (08:00)
[2019-12-06] MEDS: lactobacillus rhamnosus 10,000 MMU CELLS/CAPSULE PO SCH ×2 (08:00→19:38)
[2019-12-06] MEDS: docusate sodium 100mg/10ml UD cup PO SCH (08:00)
[2019-12-06] MEDS: K and/or MAG REPLACEMENT MC SCH ×2 (08:00→20:00)
[2019-12-06] MEDS: thiamine inj. 100 MG, folic acid inj. 2 MG in normal saline 100ml IV soln 100.0 ML IV SCH (08:25)
[2019-12-06] MEDS: MVI, adult No.4 with vit. K 10 ML in dextrose 5% water 500ml 490 ML IV SCH ×2 (08:29)
[2019-12-06] MEDS: famotidine/PF 10 mg/ml inj IV SCH ×2 (08:31→19:38)
--- NOTE | 2019-12-06 09:00 | NUR ---
Dr Sutherland by to round on patient adjusted tidal volume to 500 and rate to 28, also increased nimbex from 1.0mcg/kg to 1.5mcg/kg for better ventilator compliance per Dr. Sutherland
[2019-12-06] MEDS: diatr meglu/diatrizoate 30ml oral sol.-(3 dose) bottle PO SCH ×4 (10:59→16:38)
[2019-12-06] MEDS ORDERED: heparin 5,000 units/ml 10ML vial IV SCH (11:00)
[2019-12-06] MEDS ORDERED: THIAMINE IV SCH (11:12)
[2019-12-06] MEDS ORDERED: NORMAL SALINE IV SCH (11:12)
[2019-12-06] MEDS: Trace element-5 inj. 1 ML in AA 5 %/CALCIUM/LYTES/DEXT 20% 2,000 ML IV SCH (12:31)
[2019-12-06] MEDS ORDERED: dextrose ORAL solution 15 GM/59 ML bottle OGT PRN ×2 (16:19)
--- NOTE | 2019-12-06 18:40 | NUR ---
Problems reprioritized. Patient report given, questions answered & plan of care reviewed with Shelby DICK.
[2019-12-06] MEDS: FAT EMULSION IV SCH (19:38)
[2019-12-06] MEDS: docusate sodium 100mg/10ml UD cup OGT SCH (19:38)
[2019-12-06] MEDS: heparin, porcine 5000 units/ml vial IV SCH (19:38)
[2019-12-06] MEDS: insulin glargine (Lantus) pen - multi-dose SQ SCH (20:27)
[2019-12-06 21:05] LABS: ABG BASE EXCESS -9.1 mmol/L (-2.0-3.0); ABG OXYGEN SATURATION 86.1 % (95-98); ABG PCO2 (T) 52.8 mmHg (35.0-45.0); ABG PH (T) 7.172 (7.350-7.450); ABG PO2 (T) 64.2 mmHg (83-108); FCOHb 0.3 % (0.5-1.5); FMetHb 0.3 % (0.3-1.12); FO2Hb 85.6 % (94-100); PATIENT TEMPERATURE 36.5; PEEP 12 cm H2O; RESPIRATORY RATE 28 b/min; TIDAL VOLUME 350 mL; TOTAL HEMOGLOBIN 7.6 G/dl (14.0-17.9)
[2019-12-06 22:35] LABS: BASOPHILS % (AUTO) 0.1 % (0-1); EOSINOPHILS # (AUTO) 0.1 X10'3 (0-0.9); EOSINOPHILS % (AUTO) 0.8 % (0-6); LYMPHOCYTES # (AUTO) 0.5 X10'3 (1.1-4.8); LYMPHOCYTES % (AUTO) 3.1 % (21-51); MEAN CORPUSCULAR HEMOGLOBIN 29.8 PG (27.0-31.0); MEAN CORPUSCULAR HGB CONC 32.8 g/dL (33.0-36.5); MEAN CORPUSCULAR VOLUME 90.7 FL (78-98); MEAN PLATELET VOLUME 8.3 FL (7.4-10.4); MONOCYTES # (AUTO) 0.4 X10'3 (0-0.9); MONOCYTES % (AUTO) 2.7 % (2-12); NEUTROPHILS # (AUTO) 15.1 X10'3 (1.8-7.7); NEUTROPHILS % (AUTO) 93.3 % (42-75); PLATELET COUNT 370 X10'3 (140-440); RED BLOOD COUNT 2.29 X10'6 (4.70-6.10); RED CELL DISTRIBUTION WIDTH 13.5 % (11.5-14.5); WHITE BLOOD COUNT 16.2 X10'3 (4.5-11.0)
[2019-12-06 22:38] LABS: HEMATOCRIT 20.7 % (42.0-52.0); HEMOGLOBIN 6.8 g/dl (14.0-17.9)
[2019-12-06 22:58] LABS: ANION GAP 14 (8-16); BLOOD UREA NITROGEN 87 MG/DL (7-18); BUN/CREATININE RATIO 19.8 (5.4-32.0); CALCIUM 8.5 MG/DL (8.5-10.1); CHLORIDE 102 MMOL/L (99-107); CREATININE 4.39 MG/DL (0.60-1.10); GLUCOSE 214 MG/DL (70-104); SODIUM 136 MMOL/L (135-145); TOTAL CARBON DIOXIDE 20.3 MMOL/L (24-32); eGFR 14 ML/MIN
[2019-12-06 22:59] LABS: PHOSPHORUS 10.4 MG/DL (2.3-4.5)
[2019-12-07] VITALS (30 sets, daily range): BP systolic 103–159; BP diastolic 45–62
[2019-12-07] MEDS: midazolam 100mg in NS 100ml 100 ML IV PRN ×5 (00:09→20:48)
[2019-12-07] MEDS: FENTANYL-0.9 % NACL/PF 100 ML IV PRN ×6 (00:09→23:19)
[2019-12-07 00:31] LABS: ABG BASE EXCESS -10.2 mmol/L (-2.0-3.0); ABG HCO3 18.3 mmol/L (22.0-26.0); ABG OXYGEN SATURATION 85.2 % (95-98); ABG PCO2 (T) 54.6 mmHg (35.0-45.0); ABG PH (T) 7.139 (7.350-7.450); ABG PO2 (T) 60.9 mmHg (83-108); FCOHb 0.3 % (0.5-1.5); FMetHb 0.4 % (0.3-1.12); FO2Hb 84.6 % (94-100); PATIENT TEMPERATURE 36.4; PEEP 12 cm H2O; RESPIRATORY RATE 28 b/min; TIDAL VOLUME 500 mL; TOTAL HEMOGLOBIN 7.3 G/dl (14.0-17.9)
[2019-12-07] MEDS ORDERED: DOBUTamine-DoBUTrex 500mg/D5W 250 ML IV ONE (00:51)
[2019-12-07] MEDS ORDERED: sodium phosphate inj. 30 MMOL in normal saline 250ml IV soln 250 ML IV PRN (01:30)
[2019-12-07] MEDS ORDERED: heparin 10,000 units/1 ML INJ IV ONE (01:30)
[2019-12-07] MEDS ORDERED: calcium chloride inj. 1,000 MG in normal saline 100ml IV soln 100 ML IV PRN (01:30)
[2019-12-07] MEDS ORDERED: potassium Cl 20mEq/100mL bag 100 ML IV PRN (01:30)
[2019-12-07] MEDS: mineral oil/petrolatum ophthal oint EACHEYE SCH ×4 (02:12→20:47)
[2019-12-07] MEDS: hydrocortisone sod succ/PF 100mg/2ml inj. IV SCH ×4 (02:13→20:47)
[2019-12-07] MEDS: insulin regular, human U-100 3ml vial - multi-dose SQ SCH ×4 (02:25→21:34)
[2019-12-07] MEDS: Duosol 4K/3 Ca (w/calcium) 5,000 ML HE SCH ×4 (02:43→06:34)
[2019-12-07] MEDS: ipratropium/albuterol 3ml nebule NEB SCH ×6 (02:45→22:43)
[2019-12-07 03:22] LABS: EOSINOPHILS # (AUTO) 0.1 X10'3 (0-0.9); EOSINOPHILS % (AUTO) 0.6 % (0-6); LYMPHOCYTES # (AUTO) 0.6 X10'3 (1.1-4.8); MEAN PLATELET VOLUME 8.5 FL (7.4-10.4); PARTIAL THROMBOPLASTIN TIME 30 SECONDS (22-32)
[2019-12-07 03:25] LABS: GLUCOSE 211 MG/DL (70-104)
[2019-12-07 03:26] LABS: ALANINE AMINOTRANSFERASE 12 U/L (12-78); ALBUMIN 2.2 G/DL (3.4-5.0); ALBUMIN/GLOBULIN RATIO 0.5 (1.1-1.5); ALKALINE PHOSPHATASE 62 IU/L (46-116); AMYLASE 26 U/L (25-115); ANION GAP 13 (8-16); ASPARTATE AMINO TRANSFERASE 25 U/L (10-37); BILIRUBIN,TOTAL 0.8 MG/DL (0.1-1.0); BLOOD UREA NITROGEN 85 MG/DL (7-18); BUN/CREATININE RATIO 18.8 (5.4-32.0); CALCIUM 8.5 MG/DL (8.5-10.1); CHLORIDE 100 MMOL/L (99-107); CREATININE 4.51 MG/DL (0.60-1.10); LIPASE 371 U/L (73-393); MAGNESIUM 2.2 MG/DL (1.5-2.4); POTASSIUM 4.5 MMOL/L (3.5-5.1); SODIUM 135 MMOL/L (135-145); TOTAL CARBON DIOXIDE 21.9 MMOL/L (24-32); TOTAL PROTEIN 6.5 G/DL (6.4-8.2); eGFR 14 ML/MIN
[2019-12-07 03:27] LABS: BASOPHILS # (AUTO) 0.1 X10'3 (0-0.2); BASOPHILS % (AUTO) 0.3 % (0-1); LYMPHOCYTES % (AUTO) 3.8 % (21-51); MEAN CORPUSCULAR HEMOGLOBIN 30.2 PG (27.0-31.0); MEAN CORPUSCULAR HGB CONC 33.2 g/dL (33.0-36.5); MEAN CORPUSCULAR VOLUME 90.9 FL (78-98); MONOCYTES # (AUTO) 0.6 X10'3 (0-0.9); MONOCYTES % (AUTO) 3.3 % (2-12); NEUTROPHILS # (AUTO) 15.6 X10'3 (1.8-7.7); PLATELET COUNT 363 X10'3 (140-440); RED BLOOD COUNT 2.15 X10'6 (4.70-6.10); RED CELL DISTRIBUTION WIDTH 13.6 % (11.5-14.5)
[2019-12-07 03:59] LABS: HEMATOCRIT 19.6 % (42.0-52.0); HEMOGLOBIN 6.5 g/dl (14.0-17.9)
[2019-12-07] MEDS: heparin 25,000 UNIT/250ml bag 250 ML IV SCH ×2 (03:59→22:42)
[2019-12-07 04:11] LABS: ABG BASE EXCESS -8.8 mmol/L (-2.0-3.0); ABG HCO3 17.1 mmol/L (22.0-26.0); ABG OXYGEN SATURATION 88.5 % (95-98); ABG PCO2 (T) 34.7 mmHg (35.0-45.0); ABG PH (T) 7.304 (7.350-7.450); ABG PO2 (T) 53.6 mmHg (83-108); FCOHb 0.2 % (0.5-1.5); FMetHb 0.1 % (0.3-1.12); FO2Hb 88.2 % (94-100); PATIENT TEMPERATURE 35.7; RESPIRATORY RATE 28 b/min; TIDAL VOLUME 500 mL
[2019-12-07 04:23] LABS: TOTAL CELLS COUNTED 100
[2019-12-07 04:24] LABS: PLATELET ESTIMATE NORMAL
[2019-12-07 04:54] LABS: UREA NITROGEN 24HR,URINE 9.9 GM/24HR (7-20)
[2019-12-07 05:57] LABS: BASOPHILS # (AUTO) 0.2 X10'3 (0-0.2); BASOPHILS % (AUTO) 0.8 % (0-1); EOSINOPHILS # (AUTO) 0.1 X10'3 (0-0.9); EOSINOPHILS % (AUTO) 0.3 % (0-6); HEMOGLOBIN 7.5 g/dl (14.0-17.9); LYMPHOCYTES # (AUTO) 0.5 X10'3 (1.1-4.8); LYMPHOCYTES % (AUTO) 2.4 % (21-51); MEAN CORPUSCULAR HEMOGLOBIN 30.3 PG (27.0-31.0); MEAN CORPUSCULAR HGB CONC 34.2 g/dL (33.0-36.5); MEAN CORPUSCULAR VOLUME 88.9 FL (78-98); MEAN PLATELET VOLUME 8.2 FL (7.4-10.4); MONOCYTES # (AUTO) 0.6 X10'3 (0-0.9); MONOCYTES % (AUTO) 2.8 % (2-12); NEUTROPHILS # (AUTO) 19.4 X10'3 (1.8-7.7); NEUTROPHILS % (AUTO) 93.7 % (42-75); PLATELET COUNT 362 X10'3 (140-440); RED BLOOD COUNT 2.46 X10'6 (4.70-6.10); RED CELL DISTRIBUTION WIDTH 13.6 % (11.5-14.5); WHITE BLOOD COUNT 20.7 X10'3 (4.5-11.0)
[2019-12-07 06:05] LABS: HEMATOCRIT 21.9 % (42.0-52.0)
[2019-12-07 06:12] LABS: ALBUMIN 2.2 G/DL (3.4-5.0); ANION GAP 16 (8-16); BLOOD UREA NITROGEN 78 MG/DL (7-18); BUN/CREATININE RATIO 20.2 (5.4-32.0); CALCIUM 8.8 MG/DL (8.5-10.1); CHLORIDE 101 MMOL/L (99-107); CREATININE 3.87 MG/DL (0.60-1.10); GLUCOSE 212 MG/DL (70-104); MAGNESIUM 2.2 MG/DL (1.5-2.4); POTASSIUM 4.1 MMOL/L (3.5-5.1); SODIUM 136 MMOL/L (135-145); TOTAL CARBON DIOXIDE 18.6 MMOL/L (24-32); eGFR 17 ML/MIN
--- NOTE | 2019-12-07 06:30 | NUR ---
Patient in room CICU 2007. I have received report from Corrine DICK and had the opportunity to ask questions and assume patient care.
[2019-12-07 06:39] LABS: PLATELET ESTIMATE NORMAL; TOTAL CELLS COUNTED 100
[2019-12-07 06:59] LABS: BASOPHILS % (AUTO) 0.1 % (0-1); EOSINOPHILS % (AUTO) 0.1 % (0-6); HEMATOCRIT 24.2 % (42.0-52.0); HEMOGLOBIN 8.2 g/dl (14.0-17.9); LYMPHOCYTES # (AUTO) 0.5 X10'3 (1.1-4.8); LYMPHOCYTES % (AUTO) 2.2 % (21-51); MEAN CORPUSCULAR HEMOGLOBIN 29.7 PG (27.0-31.0); MEAN CORPUSCULAR HGB CONC 33.8 g/dL (33.0-36.5); MEAN PLATELET VOLUME 8.3 FL (7.4-10.4); MONOCYTES # (AUTO) 0.8 X10'3 (0-0.9); MONOCYTES % (AUTO) 3.8 % (2-12); NEUTROPHILS # (AUTO) 19.5 X10'3 (1.8-7.7); NEUTROPHILS % (AUTO) 93.8 % (42-75); PLATELET COUNT 361 X10'3 (140-440); RED BLOOD COUNT 2.75 X10'6 (4.70-6.10); RED CELL DISTRIBUTION WIDTH 13.4 % (11.5-14.5); WHITE BLOOD COUNT 20.8 X10'3 (4.5-11.0)
[2019-12-07] MEDS: diatr meglu/diatrizoate 30ml oral sol.-(3 dose) bottle PO SCH ×4 (07:00→20:51)
[2019-12-07 07:06] LABS: ALBUMIN 2.2 G/DL (3.4-5.0); ANION GAP 13 (8-16); BLOOD UREA NITROGEN 73 MG/DL (7-18); BUN/CREATININE RATIO 19.7 (5.4-32.0); CALCIUM 8.4 MG/DL (8.5-10.1); CHLORIDE 102 MMOL/L (99-107); GLUCOSE 195 MG/DL (70-104); MAGNESIUM 1.9 MG/DL (1.5-2.4); SODIUM 135 MMOL/L (135-145); TOTAL CARBON DIOXIDE 19.8 MMOL/L (24-32); eGFR 17 ML/MIN
[2019-12-07] MEDS: Trace element-5 inj. 1 ML in AA 5 %/CALCIUM/LYTES/DEXT 20% 2,000 ML IV SCH (07:28)
[2019-12-07] MEDS: lactobacillus rhamnosus 10,000 MMU CELLS/CAPSULE PO SCH ×2 (08:00→20:00)
[2019-12-07] MEDS: docusate sodium 100mg/10ml UD cup OGT SCH ×2 (08:00→20:00)
[2019-12-07] MEDS: heparin, porcine 5000 units/ml vial IV SCH (08:00)
[2019-12-07] MEDS: K, MAG and/or Phos replacement - Verify level? MC SCH (08:00)
[2019-12-07] MEDS: furosemide 10 MG/1 ML 10ml inj IV SCH (08:00)
[2019-12-07] MEDS: albumin (human) 25% 100ml IV 100 ML IV SCH ×2 (08:00→16:01)
[2019-12-07 09:04] LABS: NUCLEATED RED BLOOD CELLS 1 /100WBC (0-0); TOTAL CELLS COUNTED 100
[2019-12-07 09:05] LABS: BASOPHILS % (AUTO) 0 % (0-1); EOSINOPHILS % (AUTO) 0.2 % (0-6); HEMATOCRIT 23.2 % (42.0-52.0); LYMPHOCYTES # (AUTO) 0.5 X10'3 (1.1-4.8); LYMPHOCYTES % (AUTO) 2.6 % (21-51); MEAN CORPUSCULAR HEMOGLOBIN 30.1 PG (27.0-31.0); MEAN CORPUSCULAR HGB CONC 34.5 g/dL (33.0-36.5); MEAN CORPUSCULAR VOLUME 87.3 FL (78-98); MEAN PLATELET VOLUME 8.7 FL (7.4-10.4); MONOCYTES # (AUTO) 0.7 X10'3 (0-0.9); MONOCYTES % (AUTO) 3.7 % (2-12); NEUTROPHILS # (AUTO) 18.3 X10'3 (1.8-7.7); NEUTROPHILS % (AUTO) 93.5 % (42-75); PLATELET COUNT 351 X10'3 (140-440); RED BLOOD COUNT 2.65 X10'6 (4.70-6.10); RED CELL DISTRIBUTION WIDTH 13.4 % (11.5-14.5); WHITE BLOOD COUNT 19.6 X10'3 (4.5-11.0)
[2019-12-07 09:06] LABS: PLATELET ESTIMATE NORMAL
[2019-12-07 09:10] LABS: POLYCHROMASIA FEW
[2019-12-07 09:14] LABS: ALBUMIN 2.1 G/DL (3.4-5.0); ANION GAP 13 (8-16); BLOOD UREA NITROGEN 69 MG/DL (7-18); BUN/CREATININE RATIO 19.3 (5.4-32.0); CALCIUM 8.6 MG/DL (8.5-10.1); CHLORIDE 101 MMOL/L (99-107); CREATININE 3.58 MG/DL (0.60-1.10); GLUCOSE 196 MG/DL (70-104); PHOSPHORUS 5.9 MG/DL (2.3-4.5); SODIUM 135 MMOL/L (135-145); TOTAL CARBON DIOXIDE 20.8 MMOL/L (24-32); eGFR 18 ML/MIN
[2019-12-07] MEDS: famotidine/PF 10 mg/ml inj IV SCH ×2 (09:28→20:47)
[2019-12-07] MEDS: THIAMINE IV SCH (09:29)
[2019-12-07] MEDS: NORMAL SALINE IV SCH (09:29)
[2019-12-07] MEDS: methylnaltrexone br 12mg/0.6ml inj***SubQ only SQ SCH (09:29)
[2019-12-07] MEDS: MVI, adult No.4 with vit. K 10 ML in dextrose 5% water 500ml 490 ML IV SCH ×2 (09:30)
[2019-12-07] MEDS: CISatracurium besylate inj. 100 MG in normal saline 100ml IV soln 90 ML IV PRN ×2 (09:44→21:18)
[2019-12-07] MEDS ORDERED: albumin (human) 25% 100ml IV 100 ML IV ONE (10:05)
[2019-12-07] MEDS ORDERED: vancomycin/NS 1 GM ADD-VANTAGE 250 ML IV ONE (10:15)
--- NOTE | 2019-12-07 10:40 | NUR ---
Dr. Sutherland he is " comfortable with 50-100 ml/hr off with CVVH" and that we can use levophed if needed
[2019-12-07 10:41] LABS: BASOPHILS # (AUTO) 0.1 X10'3 (0-0.2); BASOPHILS % (AUTO) 0.3 % (0-1); EOSINOPHILS % (AUTO) 0.1 % (0-6); HEMATOCRIT 23.9 % (42.0-52.0); LYMPHOCYTES # (AUTO) 0.6 X10'3 (1.1-4.8); LYMPHOCYTES % (AUTO) 2.8 % (21-51); MEAN CORPUSCULAR HEMOGLOBIN 29.3 PG (27.0-31.0); MEAN CORPUSCULAR HGB CONC 33.6 g/dL (33.0-36.5); MEAN CORPUSCULAR VOLUME 87.2 FL (78-98); MEAN PLATELET VOLUME 8.7 FL (7.4-10.4); MONOCYTES % (AUTO) 4.7 % (2-12); NEUTROPHILS # (AUTO) 18.8 X10'3 (1.8-7.7); NEUTROPHILS % (AUTO) 92.1 % (42-75); PLATELET COUNT 362 X10'3 (140-440); RED BLOOD COUNT 2.74 X10'6 (4.70-6.10); RED CELL DISTRIBUTION WIDTH 13.6 % (11.5-14.5); WHITE BLOOD COUNT 20.4 X10'3 (4.5-11.0)
[2019-12-07 10:58] LABS: ALBUMIN 2.1 G/DL (3.4-5.0); ANION GAP 12 (8-16); BLOOD UREA NITROGEN 66 MG/DL (7-18); BUN/CREATININE RATIO 19.3 (5.4-32.0); CALCIUM 8.4 MG/DL (8.5-10.1); CHLORIDE 102 MMOL/L (99-107); CREATININE 3.42 MG/DL (0.60-1.10); GLUCOSE 202 MG/DL (70-104); POTASSIUM 3.9 MMOL/L (3.5-5.1); SODIUM 136 MMOL/L (135-145); TOTAL CARBON DIOXIDE 22.4 MMOL/L (24-32); eGFR 19 ML/MIN
[2019-12-07] MEDS: heparin 10,000 units/1 ML INJ IV PRN ×3 (11:40→23:03)
[2019-12-07] MEDS: diltiazem-NS 100mg/100ml 100 ML IV SCH ×2 (15:22→20:47)
[2019-12-07 16:31] LABS: BASOPHILS % (AUTO) 0.2 % (0-1); EOSINOPHILS % (AUTO) 0 % (0-6); HEMATOCRIT 22.8 % (42.0-52.0); HEMOGLOBIN 7.7 g/dl (14.0-17.9); LYMPHOCYTES # (AUTO) 0.8 X10'3 (1.1-4.8); LYMPHOCYTES % (AUTO) 4.4 % (21-51); MEAN CORPUSCULAR HEMOGLOBIN 29.2 PG (27.0-31.0); MEAN CORPUSCULAR HGB CONC 33.9 g/dL (33.0-36.5); MEAN CORPUSCULAR VOLUME 86.2 FL (78-98); MEAN PLATELET VOLUME 8.5 FL (7.4-10.4); MONOCYTES # (AUTO) 0.8 X10'3 (0-0.9); MONOCYTES % (AUTO) 4.6 % (2-12); NEUTROPHILS # (AUTO) 16.1 X10'3 (1.8-7.7); NEUTROPHILS % (AUTO) 90.8 % (42-75); PLATELET COUNT 374 X10'3 (140-440); RED BLOOD COUNT 2.64 X10'6 (4.70-6.10); RED CELL DISTRIBUTION WIDTH 13.3 % (11.5-14.5); WHITE BLOOD COUNT 17.8 X10'3 (4.5-11.0)
[2019-12-07 16:39] LABS: ALBUMIN 2.3 G/DL (3.4-5.0); ANION GAP 12 (8-16); BLOOD UREA NITROGEN 55 MG/DL (7-18); BUN/CREATININE RATIO 20.2 (5.4-32.0); CALCIUM 8.8 MG/DL (8.5-10.1); CHLORIDE 101 MMOL/L (99-107); CREATININE 2.72 MG/DL (0.60-1.10); GLUCOSE 263 MG/DL (70-104); POTASSIUM 3.9 MMOL/L (3.5-5.1); SODIUM 135 MMOL/L (135-145); TOTAL CARBON DIOXIDE 22.3 MMOL/L (24-32); eGFR 25 ML/MIN
[2019-12-07] MEDS: piperacillin/tazo 3.375gm/50ml 50 ML IV SCH (17:35)
--- NOTE | 2019-12-07 19:01 | NUR ---
Problems reprioritized. Patient report given, questions answered & plan of care reviewed with Corrine DICK.
[2019-12-07] MEDS: FAT EMULSION IV SCH (20:50)
[2019-12-07] MEDS: insulin glargine (Lantus) pen - multi-dose SQ SCH (21:34)
[2019-12-07 22:34] LABS: BASOPHILS % (AUTO) 0.2 % (0-1); EOSINOPHILS % (AUTO) 0 % (0-6); HEMATOCRIT 22.6 % (42.0-52.0); HEMOGLOBIN 7.9 g/dl (14.0-17.9); LYMPHOCYTES # (AUTO) 0.6 X10'3 (1.1-4.8); LYMPHOCYTES % (AUTO) 3.5 % (21-51); MEAN CORPUSCULAR HEMOGLOBIN 30.3 PG (27.0-31.0); MEAN CORPUSCULAR HGB CONC 34.9 g/dL (33.0-36.5); MEAN CORPUSCULAR VOLUME 86.6 FL (78-98); MONOCYTES # (AUTO) 0.5 X10'3 (0-0.9); MONOCYTES % (AUTO) 3.3 % (2-12); PLATELET COUNT 387 X10'3 (140-440); RED BLOOD COUNT 2.61 X10'6 (4.70-6.10); RED CELL DISTRIBUTION WIDTH 13.1 % (11.5-14.5); WHITE BLOOD COUNT 16.1 X10'3 (4.5-11.0)
[2019-12-07 22:49] LABS: ALBUMIN 2.5 G/DL (3.4-5.0); ANION GAP 11 (8-16); BLOOD UREA NITROGEN 47 MG/DL (7-18); BUN/CREATININE RATIO 19.9 (5.4-32.0); CALCIUM 8.5 MG/DL (8.5-10.1); CHLORIDE 101 MMOL/L (99-107); CREATININE 2.36 MG/DL (0.60-1.10); GLUCOSE 263 MG/DL (70-104); PHOSPHORUS 3.6 MG/DL (2.3-4.5); POTASSIUM 3.7 MMOL/L (3.5-5.1); SODIUM 136 MMOL/L (135-145); TOTAL CARBON DIOXIDE 24.3 MMOL/L (24-32); eGFR 29 ML/MIN
[2019-12-08] VITALS (24 sets, daily range): BP systolic 111–144; BP diastolic 50–64
[2019-12-08] MEDS: FENTANYL-0.9 % NACL/PF 100 ML IV PRN ×9 (00:09→23:02)
[2019-12-08] MEDS: piperacillin/tazo 3.375gm/50ml 50 ML IV SCH ×4 (00:10→23:32)
[2019-12-08] MEDS: albumin (human) 25% 100ml IV 100 ML IV SCH ×4 (00:10→23:31)
[2019-12-08] MEDS: midazolam 100mg in NS 100ml 100 ML IV PRN ×5 (00:22→20:05)
[2019-12-08] MEDS: CISatracurium besylate inj. 100 MG in normal saline 100ml IV soln 90 ML IV PRN ×3 (01:27→07:34)
[2019-12-08] MEDS: mineral oil/petrolatum ophthal oint EACHEYE SCH ×4 (01:59→19:57)
[2019-12-08] MEDS: hydrocortisone sod succ/PF 100mg/2ml inj. IV SCH ×4 (02:00→19:57)
[2019-12-08] MEDS: insulin regular, human U-100 3ml vial - multi-dose SQ SCH ×4 (02:02→20:21)
[2019-12-08] MEDS: Duosol 4K/3 Ca (w/calcium) 5,000 ML HE SCH ×16 (02:20→23:38)
[2019-12-08] MEDS: ipratropium/albuterol 3ml nebule NEB SCH ×6 (02:44→23:17)
[2019-12-08] MEDS: Trace element-5 inj. 1 ML in AA 5 %/CALCIUM/LYTES/DEXT 20% 2,000 ML IV SCH ×2 (03:12→20:39)
[2019-12-08 03:46] LABS: ABG PCO2 (T) 23.8 mmHg (35.0-45.0); ABG PH (T) 7.446 (7.350-7.450); ABG PO2 (T) 82.9 mmHg (83-108); FCOHb 0.2 % (0.5-1.5); FMetHb 0.4 % (0.3-1.12); FO2Hb 93.4 % (94-100); PATIENT TEMPERATURE 37.1; PEEP 12 cm H2O; RESPIRATORY RATE 28 b/min; TIDAL VOLUME 500 mL; TOTAL HEMOGLOBIN 7.7 G/dl (14.0-17.9)
[2019-12-08 04:35] LABS: BASOPHILS % (AUTO) 0.2 % (0-1); EOSINOPHILS % (AUTO) 0.1 % (0-6); HEMOGLOBIN 7.7 g/dl (14.0-17.9); LYMPHOCYTES # (AUTO) 0.5 X10'3 (1.1-4.8); LYMPHOCYTES % (AUTO) 3.5 % (21-51); MEAN CORPUSCULAR HEMOGLOBIN 30.7 PG (27.0-31.0); MEAN CORPUSCULAR HGB CONC 35.3 g/dL (33.0-36.5); MEAN PLATELET VOLUME 7.9 FL (7.4-10.4); MONOCYTES # (AUTO) 0.8 X10'3 (0-0.9); MONOCYTES % (AUTO) 4.9 % (2-12); NEUTROPHILS # (AUTO) 14.3 X10'3 (1.8-7.7); NEUTROPHILS % (AUTO) 91.3 % (42-75); PLATELET COUNT 377 X10'3 (140-440); RED BLOOD COUNT 2.53 X10'6 (4.70-6.10); RED CELL DISTRIBUTION WIDTH 12.9 % (11.5-14.5); WHITE BLOOD COUNT 15.7 X10'3 (4.5-11.0)
[2019-12-08 04:47] LABS: ALANINE AMINOTRANSFERASE 13 U/L (12-78); ALBUMIN 2.6 G/DL (3.4-5.0); ALBUMIN/GLOBULIN RATIO 0.6 (1.1-1.5); ALKALINE PHOSPHATASE 80 IU/L (46-116); AMYLASE 22 U/L (25-115); ANION GAP 8 (8-16); ASPARTATE AMINO TRANSFERASE 14 U/L (10-37); BLOOD UREA NITROGEN 40 MG/DL (7-18); BUN/CREATININE RATIO 19.3 (5.4-32.0); CALCIUM 8.9 MG/DL (8.5-10.1); CHLORIDE 103 MMOL/L (99-107); CREATININE 2.07 MG/DL (0.60-1.10); GLUCOSE 176 MG/DL (70-104); LIPASE 146 U/L (73-393); PHOSPHORUS 4.5 MG/DL (2.3-4.5); SODIUM 137 MMOL/L (135-145); TOTAL CARBON DIOXIDE 25.9 MMOL/L (24-32); eGFR 34 ML/MIN
[2019-12-08 04:59] LABS: TOTAL CELLS COUNTED 100
[2019-12-08 05:00] LABS: PLATELET ESTIMATE NORMAL
[2019-12-08] MEDS: heparin 10,000 units/1 ML INJ IV PRN (05:39)
[2019-12-08] MEDS: docusate sodium 100mg/10ml UD cup OGT SCH ×2 (07:22→19:58)
[2019-12-08] MEDS: K, MAG and/or Phos replacement - Verify level? MC SCH (07:22)
[2019-12-08] MEDS: famotidine/PF 10 mg/ml inj IV SCH ×2 (07:32→19:57)
[2019-12-08] MEDS: diltiazem-NS 100mg/100ml 100 ML IV SCH ×2 (07:34→15:43)
[2019-12-08] MEDS: MVI, adult No.4 with vit. K 10 ML in dextrose 5% water 500ml 490 ML IV SCH ×2 (07:35)
[2019-12-08] MEDS: lactobacillus rhamnosus 10,000 MMU CELLS/CAPSULE PO SCH ×2 (07:37→19:58)
[2019-12-08] MEDS: NORMAL SALINE IV SCH (07:37)
[2019-12-08] MEDS: THIAMINE IV SCH (07:37)
[2019-12-08 10:01] LABS: BASOPHILS % (AUTO) 0.3 % (0-1); EOSINOPHILS % (AUTO) 0.1 % (0-6); HEMOGLOBIN 7.2 g/dl (14.0-17.9); LYMPHOCYTES # (AUTO) 0.5 X10'3 (1.1-4.8); LYMPHOCYTES % (AUTO) 4.2 % (21-51); MEAN CORPUSCULAR HEMOGLOBIN 29.5 PG (27.0-31.0); MEAN CORPUSCULAR HGB CONC 34.2 g/dL (33.0-36.5); MEAN CORPUSCULAR VOLUME 86.3 FL (78-98); MONOCYTES # (AUTO) 0.7 X10'3 (0-0.9); MONOCYTES % (AUTO) 5.2 % (2-12); NEUTROPHILS # (AUTO) 11.4 X10'3 (1.8-7.7); NEUTROPHILS % (AUTO) 90.2 % (42-75); PLATELET COUNT 380 X10'3 (140-440); RED BLOOD COUNT 2.44 X10'6 (4.70-6.10); WHITE BLOOD COUNT 12.7 X10'3 (4.5-11.0)
[2019-12-08 10:02] LABS: HEMATOCRIT 21.1 % (42.0-52.0)
[2019-12-08 10:13] LABS: ALBUMIN 2.8 G/DL (3.4-5.0); ANION GAP 8 (8-16); BLOOD UREA NITROGEN 37 MG/DL (7-18); BUN/CREATININE RATIO 20.3 (5.4-32.0); CALCIUM 8.7 MG/DL (8.5-10.1); CHLORIDE 102 MMOL/L (99-107); CREATININE 1.82 MG/DL (0.60-1.10); GLUCOSE 207 MG/DL (70-104); PHOSPHORUS 3.9 MG/DL (2.3-4.5); POTASSIUM 4.2 MMOL/L (3.5-5.1); SODIUM 136 MMOL/L (135-145); TOTAL CARBON DIOXIDE 25.9 MMOL/L (24-32); eGFR 39 ML/MIN
[2019-12-08] MEDS: heparin 25,000 UNIT/250ml bag 250 ML IV SCH ×2 (11:02→22:20)
--- NOTE | 2019-12-08 11:57 | NUR ---
reassessment: patient is s/p open abdomen surgery, exploratory lap, and drainage of pseudocyst on due to compartment syndrome. Per solar energy technician will return to OR tomorrow for replacement of wound vac and recheck. Patient is now on CVVH. Tolerating TPN at goal rate. Electrolytes are within normal limits, d/w Dry Lumber Grader and pharmacy. May benefit from increased PN goal rate given wound healing needs and off EN; updated recs below. Will monitor. reassessment: Pt abdominal compartment syndrome s/p ex laparotomy w/ drainage of large pseudocyst and abdominal wound vac placement. Trickle EN held OG currently to suction receiving TPN at goal and tolerating. May benefit from increased PN goal rate given wound healing needs and off EN; updated recs below. Will monitor for additional nutrition needs post-op and EN initiation as medically indicated. Recommendations: 1) Recommend continuous 2:1 TPN using Clinimix E 5/20 at goal rate of 100ml/hr. Separate 20% intralipids at 9ml/hr for 12 hours daily to meet essential fat needs. To provide 2400ml fluid, 120g AA, 480g DEX(2.97mg/kg/min), 22g lipids, and total 2332kcals. Unable to meet needs without fluid overloading and overfeeding given high DEX formula. 2) Prealbumin q /; daily weights 3) When intra-abdominal pressure is decreased and abdomen closed, when OK by surgeon to start tube feedings, recommend to resume tube feedings at trickle tube feeding at 20 ml/hr using vital high Protein and advance tube feeding as tolerated using Vital High Protein with goal rate of 90mL/hr will provide total volume of 2160ml, 2160cals, 189g protein, and 1814ml free water. 4). When tube feedings resumed, provide additional 200 mL water flush q 4 hours 5) Pancreatitis nutrition therapy education once stable 6) Continue banana bag Addendum: 12/08/19 at [address] Amended: Links added.
[2019-12-08 15:52] LABS: BASOPHILS % (AUTO) 0.2 % (0-1); EOSINOPHILS % (AUTO) 0.1 % (0-6); HEMATOCRIT 22.1 % (42.0-52.0); HEMOGLOBIN 7.5 g/dl (14.0-17.9); LYMPHOCYTES # (AUTO) 0.8 X10'3 (1.1-4.8); LYMPHOCYTES % (AUTO) 5.9 % (21-51); MEAN CORPUSCULAR HEMOGLOBIN 29.6 PG (27.0-31.0); MEAN CORPUSCULAR HGB CONC 33.7 g/dL (33.0-36.5); MEAN CORPUSCULAR VOLUME 87.9 FL (78-98); MEAN PLATELET VOLUME 7.6 FL (7.4-10.4); MONOCYTES # (AUTO) 0.8 X10'3 (0-0.9); MONOCYTES % (AUTO) 5.9 % (2-12); NEUTROPHILS # (AUTO) 11.5 X10'3 (1.8-7.7); NEUTROPHILS % (AUTO) 87.9 % (42-75); PLATELET COUNT 406 X10'3 (140-440); RED BLOOD COUNT 2.51 X10'6 (4.70-6.10); RED CELL DISTRIBUTION WIDTH 13.3 % (11.5-14.5); WHITE BLOOD COUNT 13.1 X10'3 (4.5-11.0)
[2019-12-08 16:07] LABS: ALBUMIN 2.8 G/DL (3.4-5.0); ANION GAP 8 (8-16); BLOOD UREA NITROGEN 36 MG/DL (7-18); BUN/CREATININE RATIO 21.3 (5.4-32.0); CALCIUM 9.2 MG/DL (8.5-10.1); CHLORIDE 102 MMOL/L (99-107); CREATININE 1.69 MG/DL (0.60-1.10); GLUCOSE 207 MG/DL (70-104); MAGNESIUM 2.1 MG/DL (1.5-2.4); PHOSPHORUS 3.8 MG/DL (2.3-4.5); POTASSIUM 4.3 MMOL/L (3.5-5.1); SODIUM 136 MMOL/L (135-145); TOTAL CARBON DIOXIDE 26.2 MMOL/L (24-32); eGFR 43 ML/MIN
--- NOTE | 2019-12-08 18:59 | NUR ---
1830..Patient in room CICU 2007. I have received report from Justin DICK and had the opportunity to ask questions and assume patient care.
[2019-12-08] MEDS: FAT EMULSION IV SCH (20:04)
[2019-12-08] MEDS: insulin glargine (Lantus) pen - multi-dose SQ SCH (20:23)
[2019-12-08 22:15] LABS: BASOPHILS % (AUTO) 0.3 % (0-1); EOSINOPHILS % (AUTO) 0.1 % (0-6); HEMOGLOBIN 7.4 g/dl (14.0-17.9); LYMPHOCYTES # (AUTO) 0.7 X10'3 (1.1-4.8); LYMPHOCYTES % (AUTO) 5.3 % (21-51); MEAN CORPUSCULAR HEMOGLOBIN 30.5 PG (27.0-31.0); MEAN CORPUSCULAR HGB CONC 34.7 g/dL (33.0-36.5); MEAN PLATELET VOLUME 7.5 FL (7.4-10.4); MONOCYTES # (AUTO) 0.7 X10'3 (0-0.9); MONOCYTES % (AUTO) 5.3 % (2-12); NEUTROPHILS # (AUTO) 11.8 X10'3 (1.8-7.7); PLATELET COUNT 406 X10'3 (140-440); RED BLOOD COUNT 2.42 X10'6 (4.70-6.10); RED CELL DISTRIBUTION WIDTH 13.3 % (11.5-14.5); WHITE BLOOD COUNT 13.2 X10'3 (4.5-11.0)
--- NOTE | 2019-12-08 22:22 | NUR ---
2000..Assessment as noted, pt will open eyes to name, moves all extremities, does not follow commands. CVVH running with no problems at this time.
--- NOTE | 2019-12-08 22:22 | NUR ---
1900..embossograph operator at bedside, restarting CVVH.
[2019-12-08 22:23] LABS: ALBUMIN 2.8 G/DL (3.4-5.0); ANION GAP 6 (8-16); BLOOD UREA NITROGEN 38 MG/DL (7-18); BUN/CREATININE RATIO 22.1 (5.4-32.0); CALCIUM 8.7 MG/DL (8.5-10.1); CHLORIDE 103 MMOL/L (99-107); CREATININE 1.72 MG/DL (0.60-1.10); GLUCOSE 186 MG/DL (70-104); MAGNESIUM 1.9 MG/DL (1.5-2.4); PHOSPHORUS 3.5 MG/DL (2.3-4.5); POTASSIUM 4.4 MMOL/L (3.5-5.1); SODIUM 137 MMOL/L (135-145); eGFR 42 ML/MIN
[2019-12-08 22:25] LABS: HEMATOCRIT 21.3 % (42.0-52.0)
[2019-12-09] VITALS (26 sets, daily range): BP systolic 110–188; BP diastolic 52–112
[2019-12-09] MEDS: diltiazem-NS 100mg/100ml 100 ML IV SCH ×3 (00:06→21:29)
--- NOTE | 2019-12-09 00:14 | NUR ---
0000..CVVH continues with no problems, no other changes noted.
[2019-12-09] MEDS: Duosol 4K/3 Ca (w/calcium) 5,000 ML HE SCH ×9 (00:55→12:28)
[2019-12-09] MEDS: hydrocortisone sod succ/PF 100mg/2ml inj. IV SCH ×4 (02:05→20:35)
[2019-12-09] MEDS: FENTANYL-0.9 % NACL/PF 100 ML IV PRN ×9 (02:06→23:09)
[2019-12-09] MEDS: midazolam 100mg in NS 100ml 100 ML IV PRN ×5 (02:06→20:35)
[2019-12-09] MEDS: mineral oil/petrolatum ophthal oint EACHEYE SCH ×4 (02:19→20:00)
[2019-12-09] MEDS: insulin regular, human U-100 3ml vial - multi-dose SQ SCH ×4 (02:22→20:27)
[2019-12-09] MEDS: ipratropium/albuterol 3ml nebule NEB SCH ×6 (02:55→23:01)
[2019-12-09 03:00] LABS: BASOPHILS % (AUTO) 0.4 % (0-1); EOSINOPHILS % (AUTO) 0.1 % (0-6); HEMOGLOBIN 7.2 g/dl (14.0-17.9); LYMPHOCYTES # (AUTO) 0.7 X10'3 (1.1-4.8); LYMPHOCYTES % (AUTO) 5.1 % (21-51); MEAN CORPUSCULAR HEMOGLOBIN 30.5 PG (27.0-31.0); MEAN CORPUSCULAR HGB CONC 34.6 g/dL (33.0-36.5); MEAN CORPUSCULAR VOLUME 88.1 FL (78-98); MEAN PLATELET VOLUME 7.9 FL (7.4-10.4); MONOCYTES # (AUTO) 0.8 X10'3 (0-0.9); MONOCYTES % (AUTO) 6.2 % (2-12); NEUTROPHILS # (AUTO) 11.9 X10'3 (1.8-7.7); NEUTROPHILS % (AUTO) 88.2 % (42-75); PLATELET COUNT 417 X10'3 (140-440); RED BLOOD COUNT 2.36 X10'6 (4.70-6.10); RED CELL DISTRIBUTION WIDTH 13.5 % (11.5-14.5); WHITE BLOOD COUNT 13.5 X10'3 (4.5-11.0)
[2019-12-09 03:04] LABS: HEMATOCRIT 20.8 % (42.0-52.0)
[2019-12-09 03:09] LABS: ALANINE AMINOTRANSFERASE 18 U/L (12-78); ALBUMIN/GLOBULIN RATIO 0.7 (1.1-1.5); ALKALINE PHOSPHATASE 124 IU/L (46-116); ANION GAP 12 (8-16); ASPARTATE AMINO TRANSFERASE 16 U/L (10-37); BILIRUBIN,TOTAL 0.9 MG/DL (0.1-1.0); BLOOD UREA NITROGEN 37 MG/DL (7-18); CALCIUM 9.6 MG/DL (8.5-10.1); CHLORIDE 102 MMOL/L (99-107); CREATININE 1.61 MG/DL (0.60-1.10); GLUCOSE 184 MG/DL (70-104); MAGNESIUM 2.2 MG/DL (1.5-2.4); PHOSPHORUS 3.5 MG/DL (2.3-4.5); POTASSIUM 4.6 MMOL/L (3.5-5.1); PREALBUMIN 19.9 MG/DL (19-36); SODIUM 141 MMOL/L (135-145); TOTAL CARBON DIOXIDE 26.9 MMOL/L (24-32); TOTAL PROTEIN 7.1 G/DL (6.4-8.2); TRIGLYCERIDES 138 MG/DL (20-135); eGFR 45 ML/MIN
[2019-12-09 03:11] LABS: ABG BASE EXCESS 0.8 mmol/L (-2.0-3.0); ABG HCO3 24.1 mmol/L (22.0-26.0); ABG OXYGEN SATURATION 94.5 % (95-98); ABG PCO2 (T) 32.9 mmHg (35.0-45.0); ABG PH (T) 7.484 (7.350-7.450); ABG PO2 (T) 74.7 mmHg (83-108); FCOHb 0.3 % (0.5-1.5); FMetHb 0.3 % (0.3-1.12); FO2Hb 93.9 % (94-100); PATIENT TEMPERATURE 36.9; PEEP 12 cm H2O; RESPIRATORY RATE 28 b/min; TIDAL VOLUME 500 mL; TOTAL HEMOGLOBIN 7.7 G/dl (14.0-17.9)
[2019-12-09 03:47] LABS: TOTAL CELLS COUNTED 100
[2019-12-09 03:48] LABS: PLATELET ESTIMATE NORMAL
--- NOTE | 2019-12-09 05:32 | NUR ---
0530..20 ml fentanyl and 10 ml of versed given as boluses for extreme agitation, with moderate effect, no other changes noted.
--- NOTE | 2019-12-09 05:32 | NUR ---
0400..No changes noted.
--- NOTE | 2019-12-09 06:20 | NUR ---
0615..Problems reprioritized. Patient report given, questions answered & plan of care reviewed with Ashish DICK.
[2019-12-09] MEDS: albumin (human) 25% 100ml IV 100 ML IV SCH ×2 (07:46→16:16)
[2019-12-09] MEDS: piperacillin/tazo 3.375gm/50ml 50 ML IV SCH ×2 (07:48→16:18)
[2019-12-09] MEDS: famotidine/PF 10 mg/ml inj IV SCH ×2 (07:54→20:35)
[2019-12-09] MEDS: methylnaltrexone br 12mg/0.6ml inj***SubQ only SQ SCH (07:54)
[2019-12-09] MEDS: MVI, adult No.4 with vit. K 10 ML in dextrose 5% water 500ml 490 ML IV SCH ×2 (07:54)
[2019-12-09] MEDS: NORMAL SALINE IV SCH (07:54)
[2019-12-09] MEDS: THIAMINE IV SCH (07:54)
[2019-12-09] MEDS: lactobacillus rhamnosus 10,000 MMU CELLS/CAPSULE PO SCH ×2 (07:55→21:32)
[2019-12-09] MEDS: docusate sodium 100mg/10ml UD cup OGT SCH ×2 (07:55→21:31)
[2019-12-09] MEDS: K, MAG and/or Phos replacement - Verify level? MC SCH (07:56)
[2019-12-09 08:33] LABS: BASOPHILS % (AUTO) 0.2 % (0-1); EOSINOPHILS % (AUTO) 0.1 % (0-6); HEMOGLOBIN 7.2 g/dl (14.0-17.9); LYMPHOCYTES # (AUTO) 0.8 X10'3 (1.1-4.8); MEAN CORPUSCULAR HEMOGLOBIN 29.4 PG (27.0-31.0); MEAN CORPUSCULAR HGB CONC 33.5 g/dL (33.0-36.5); MEAN CORPUSCULAR VOLUME 87.6 FL (78-98); MEAN PLATELET VOLUME 7.3 FL (7.4-10.4); MONOCYTES # (AUTO) 0.8 X10'3 (0-0.9); MONOCYTES % (AUTO) 6.1 % (2-12); NEUTROPHILS # (AUTO) 12.1 X10'3 (1.8-7.7); NEUTROPHILS % (AUTO) 87.6 % (42-75); PLATELET COUNT 424 X10'3 (140-440); RED BLOOD COUNT 2.46 X10'6 (4.70-6.10); RED CELL DISTRIBUTION WIDTH 13.3 % (11.5-14.5); WHITE BLOOD COUNT 13.8 X10'3 (4.5-11.0)
[2019-12-09 08:37] LABS: HEMATOCRIT 21.5 % (42.0-52.0)
[2019-12-09 08:47] LABS: ANION GAP 7 (8-16); BLOOD UREA NITROGEN 35 MG/DL (7-18); BUN/CREATININE RATIO 22.3 (5.4-32.0); CALCIUM 9.1 MG/DL (8.5-10.1); CHLORIDE 103 MMOL/L (99-107); CREATININE 1.57 MG/DL (0.60-1.10); GLUCOSE 176 MG/DL (70-104); MAGNESIUM 1.9 MG/DL (1.5-2.4); PHOSPHORUS 2.9 MG/DL (2.3-4.5); POTASSIUM 4.4 MMOL/L (3.5-5.1); SODIUM 137 MMOL/L (135-145); eGFR 47 ML/MIN
--- NOTE | 2019-12-09 09:00 | NUR ---
1 Unit PRBC to be given per Dr. Zaria Cano
--- NOTE | 2019-12-09 11:25 | NUR ---
CVVH off and disconnected from the patient. The filter and cartridge have been removed from the CVVH machine, and the CVVH has been Dc'd from future care for today, per Dr. Klein.
[2019-12-09] MEDS ORDERED: heparin 1,000 units/ml 10ml inj HE ONE ×2 (11:45)
[2019-12-09] MEDS ORDERED: ceFAZolin 1000mg inj ONE (11:45)
[2019-12-09] MEDS ORDERED: CISatracurium **Bolus** 2 mg/ml inj IV PRN (12:35)
[2019-12-09] MEDS ORDERED: CISatracurium 10mg/ml inj.***infusion only IV PRN (12:40)
--- NOTE | 2019-12-09 13:08 | NUR ---
Patient is back from the OR and is hooked back up to the monitors in the room.
[2019-12-09] MEDS: epoetin 20,000 units/ml inj SQ SCH (13:32)
[2019-12-09] MEDS: Trace element-5 inj. 1 ML in AA 5 %/CALCIUM/LYTES/DEXT 20% 2,000 ML IV SCH (17:26)
--- NOTE | 2019-12-09 18:08 | NUR ---
Patient's family at bedside
[2019-12-09] MEDS: insulin glargine (Lantus) pen - multi-dose SQ SCH (20:29)
[2019-12-09] MEDS: FAT EMULSION IV SCH (20:36)
[2019-12-09] MEDS: propofol 1000mg/100ml bottle 100 ML IV SCH (21:27)
[2019-12-09] MEDS: acetaminophen 325mg/10.15ml oral unit dose solution OGT PRN (21:31)
[2019-12-10] VITALS (22 sets, daily range): BP systolic 118–143; BP diastolic 56–73
[2019-12-10] MEDS: piperacillin/tazo 3.375gm/50ml 50 ML IV SCH ×4 (01:39→23:37)
[2019-12-10] MEDS: albumin (human) 25% 100ml IV 100 ML IV SCH ×4 (01:41→23:37)
[2019-12-10] MEDS: FENTANYL-0.9 % NACL/PF 100 ML IV PRN ×6 (01:53→23:13)
[2019-12-10] MEDS: mineral oil/petrolatum ophthal oint EACHEYE SCH ×4 (02:00→20:14)
[2019-12-10] MEDS: insulin regular, human U-100 3ml vial - multi-dose SQ SCH ×4 (03:16→20:12)
[2019-12-10] MEDS: hydrocortisone sod succ/PF 100mg/2ml inj. IV SCH ×4 (03:17→20:18)
[2019-12-10] MEDS: ipratropium/albuterol 3ml nebule NEB SCH ×6 (03:20→22:58)
[2019-12-10 03:35] LABS: HEMOGLOBIN 8.2 g/dl (14.0-17.9); MEAN PLATELET VOLUME 7.5 FL (7.4-10.4)
[2019-12-10 03:37] LABS: HEMATOCRIT 24.4 % (42.0-52.0); MEAN CORPUSCULAR HEMOGLOBIN 30.4 PG (27.0-31.0); MEAN CORPUSCULAR HGB CONC 33.7 g/dL (33.0-36.5); MEAN CORPUSCULAR VOLUME 90.1 FL (78-98); PLATELET COUNT 416 X10'3 (140-440); RED BLOOD COUNT 2.71 X10'6 (4.70-6.10); RED CELL DISTRIBUTION WIDTH 13.7 % (11.5-14.5); WHITE BLOOD COUNT 20.6 X10'3 (4.5-11.0)
[2019-12-10 03:49] LABS: ALANINE AMINOTRANSFERASE 42 U/L (12-78); ALBUMIN 3.4 G/DL (3.4-5.0); ALBUMIN/GLOBULIN RATIO 0.9 (1.1-1.5); ALKALINE PHOSPHATASE 156 IU/L (46-116); ANION GAP 8 (8-16); ASPARTATE AMINO TRANSFERASE 35 U/L (10-37); BILIRUBIN,TOTAL 1.2 MG/DL (0.1-1.0); BLOOD UREA NITROGEN 59 MG/DL (7-18); BUN/CREATININE RATIO 25.7 (5.4-32.0); CALCIUM 8.7 MG/DL (8.5-10.1); CHLORIDE 104 MMOL/L (99-107); GLUCOSE 126 MG/DL (70-104); MAGNESIUM 2.2 MG/DL (1.5-2.4); PHOSPHORUS 6.2 MG/DL (2.3-4.5); POTASSIUM 4.8 MMOL/L (3.5-5.1); SODIUM 137 MMOL/L (135-145); TOTAL CARBON DIOXIDE 24.7 MMOL/L (24-32); TOTAL PROTEIN 7.1 G/DL (6.4-8.2); eGFR 30 ML/MIN
[2019-12-10 04:01] LABS: ABG BASE EXCESS -3.4 mmol/L (-2.0-3.0); ABG HCO3 22.9 mmol/L (22.0-26.0); ABG OXYGEN SATURATION 92.8 % (95-98); ABG PCO2 (T) 47.2 mmHg (35.0-45.0); ABG PH (T) 7.304 (7.350-7.450); ABG PO2 (T) 91.7 mmHg (83-108); FCOHb 0.3 % (0.5-1.5); FMetHb 0.3 % (0.3-1.12); FO2Hb 92.2 % (94-100); PATIENT TEMPERATURE 37.1; PEEP 12 cm H2O; RESPIRATORY RATE 25 b/min; TIDAL VOLUME 500 mL; TOTAL HEMOGLOBIN 8.7 G/dl (14.0-17.9)
[2019-12-10] MEDS: heparin 25,000 UNIT/250ml bag 250 ML IV SCH (04:26)
[2019-12-10 04:39] LABS: TOTAL CELLS COUNTED 100
[2019-12-10 04:40] LABS: ANISOCYTOSIS 1+; PLATELET ESTIMATE NORMAL
[2019-12-10 04:41] LABS: POLYCHROMASIA 1+; STOMATOCYTES 1+
[2019-12-10] MEDS: midazolam 100mg in NS 100ml 100 ML IV PRN ×3 (05:21→18:15)
--- NOTE | 2019-12-10 06:30 | NUR ---
received report from OUMAR DICK
[2019-12-10] MEDS: K, MAG and/or Phos replacement - Verify level? MC SCH (08:00)
[2019-12-10] MEDS: MVI, adult No.4 with vit. K 10 ML in dextrose 5% water 500ml 490 ML IV SCH ×2 (08:40)
[2019-12-10] MEDS: NORMAL SALINE IV SCH (08:41)
[2019-12-10] MEDS: lactobacillus rhamnosus 10,000 MMU CELLS/CAPSULE PO SCH ×2 (08:41→20:23)
[2019-12-10] MEDS: THIAMINE IV SCH (08:41)
[2019-12-10] MEDS: famotidine/PF 10 mg/ml inj IV SCH ×2 (08:41→20:18)
[2019-12-10] MEDS: docusate sodium 100mg/10ml UD cup OGT SCH ×2 (08:42→20:23)
[2019-12-10] MEDS: propofol 1000mg/100ml bottle 100 ML IV SCH ×3 (08:45→23:47)
[2019-12-10] MEDS: diltiazem-NS 100mg/100ml 100 ML IV SCH (11:44)
--- NOTE | 2019-12-10 11:45 | NUR ---
patient remains on high amounts of ventilator support and sedation, Currently 80 fio2 and PEEP of [address] Klein with sats remaining in the low 90s. patient is stacking breaths and it has been difficult to synchronize breaths with the ventilator. Respiratory rate is 34 to 36. BP goes up to 200 systolic when patient begins to wake up and he is requiring high amounts of sedation. Dr. Klein does not want to restart nimbex at this time as this was discussed during rounds. Patients abd pressures remain elevated, this morning it was 20 to 21. Patient can open eyes and move arms bilaterally but, no other meaningful commands. Urine output is adequate but, it is noted that since removing CVVH yesterday patients creatinine has begun to climb again and this was discussed during rounds. Will continue to monitor for changes.
[2019-12-10 13:05] LABS: ABG BASE EXCESS -4.2 mmol/L (-2.0-3.0); ABG HCO3 21.9 mmol/L (22.0-26.0); ABG OXYGEN SATURATION 90.7 % (95-98); ABG PCO2 (T) 45.2 mmHg (35.0-45.0); ABG PH (T) 7.304 (7.350-7.450); ABG PO2 (T) 67.9 mmHg (83-108); FCOHb 0.2 % (0.5-1.5); FMetHb 0.3 % (0.3-1.12); FO2Hb 90.2 % (94-100); PEEP 15 cm H2O; RESPIRATORY RATE 25 b/min; TIDAL VOLUME 50 mL; TOTAL HEMOGLOBIN 8.9 G/dl (14.0-17.9)
--- NOTE | 2019-12-10 13:42 | NUR ---
restarting nimbex drip per Dr. Klein
[2019-12-10] MEDS: CISatracurium besylate inj. 100 MG in normal saline 100ml IV soln 90 ML IV PRN ×2 (14:09→19:46)
--- NOTE | 2019-12-10 14:38 | NUR ---
Reassessment: Pt s/p wound VAC change 12/08. Pt remains intubated/sedated and off CVVH at this time. Pt continues tolerating TPN at goal rate of 100 mL/hr. LBM 12/06. Pt receiving routine Colace and Relistor. Will continue to follow closely. Recommendations: 1) Recommend continuous 2:1 TPN using Clinimix E 02/22 at goal rate of 100ml/hr. Separate 20% intralipids at 9ml/hr for 12 hours daily to meet essential fat needs. To provide 2400ml fluid, 120g AA, 480g DEX(2.97mg/kg/min), 22g lipids, and total 2332kcals. Unable to meet needs without fluid overloading and overfeeding given high DEX formula. 2) Prealbumin q /; daily weights 3) When intra-abdominal pressure is decreased and abdomen closed, when OK by surgeon to start tube feedings, recommend to resume tube feedings at trickle tube feeding at 20 ml/hr using vital high Protein and advance tube feeding as tolerated using Vital High Protein with goal rate of 90mL/hr will provide total volume of 2160ml, 2160cals, 189g protein, and 1814ml free water. 4). When tube feedings resumed, provide additional 200 mL water flush q 4 hours 5) Pancreatitis nutrition therapy education once stable 6) Continue banana bag 7) Routine bowel care Addendum: 12/10/19 at [address] Amended: Links added.
[2019-12-10] MEDS: acetaminophen 325mg/10.15ml oral unit dose solution OGT PRN (15:57)
[2019-12-10] MEDS: Trace element-5 inj. 1 ML in AA 5 %/CALCIUM/LYTES/DEXT 20% 2,000 ML IV SCH (17:06)
--- NOTE | 2019-12-10 18:26 | NUR ---
gave report to Claudy DICK
[2019-12-10] MEDS: insulin glargine (Lantus) pen - multi-dose SQ SCH (20:13)
[2019-12-10] MEDS: FAT EMULSION IV SCH (20:19)
[2019-12-11] VITALS (24 sets, daily range): BP systolic 124–229; BP diastolic 48–91
[2019-12-11] MEDS: CISatracurium besylate inj. 100 MG in normal saline 100ml IV soln 90 ML IV PRN ×4 (01:42→22:27)
[2019-12-11] MEDS: insulin regular, human U-100 3ml vial - multi-dose SQ SCH ×4 (02:27→19:59)
[2019-12-11] MEDS: mineral oil/petrolatum ophthal oint EACHEYE SCH ×4 (02:29→20:00)
[2019-12-11] MEDS: hydrocortisone sod succ/PF 100mg/2ml inj. IV SCH ×4 (02:31→20:04)
[2019-12-11 03:10] LABS: BASOPHILS % (AUTO) 0.1 % (0-1); EOSINOPHILS % (AUTO) 0.1 % (0-6); HEMATOCRIT 23.4 % (42.0-52.0); HEMOGLOBIN 7.8 g/dl (14.0-17.9); LYMPHOCYTES # (AUTO) 0.7 X10'3 (1.1-4.8); LYMPHOCYTES % (AUTO) 4.6 % (21-51); MEAN CORPUSCULAR HEMOGLOBIN 30.1 PG (27.0-31.0); MEAN CORPUSCULAR HGB CONC 33.5 g/dL (33.0-36.5); MEAN PLATELET VOLUME 7.6 FL (7.4-10.4); MONOCYTES # (AUTO) 0.9 X10'3 (0-0.9); MONOCYTES % (AUTO) 6.2 % (2-12); NEUTROPHILS # (AUTO) 12.9 X10'3 (1.8-7.7); PLATELET COUNT 386 X10'3 (140-440); WHITE BLOOD COUNT 14.5 X10'3 (4.5-11.0)
[2019-12-11] MEDS: ipratropium/albuterol 3ml nebule NEB SCH ×6 (03:18→23:13)
[2019-12-11 03:22] LABS: ALANINE AMINOTRANSFERASE 31 U/L (12-78); ALBUMIN 3.4 G/DL (3.4-5.0); ALKALINE PHOSPHATASE 120 IU/L (46-116); AMYLASE 134 U/L (25-115); ANION GAP 11 (8-16); ASPARTATE AMINO TRANSFERASE 15 U/L (10-37); BILIRUBIN,TOTAL 0.9 MG/DL (0.1-1.0); BLOOD UREA NITROGEN 77 MG/DL (7-18); BUN/CREATININE RATIO 27.5 (5.4-32.0); CALCIUM 8.7 MG/DL (8.5-10.1); CHLORIDE 107 MMOL/L (99-107); GLUCOSE 147 MG/DL (70-104); LIPASE 948 U/L (73-393); MAGNESIUM 2.4 MG/DL (1.5-2.4); PHOSPHORUS 6.7 MG/DL (2.3-4.5); POTASSIUM 4.5 MMOL/L (3.5-5.1); SODIUM 141 MMOL/L (135-145); TOTAL CARBON DIOXIDE 22.9 MMOL/L (24-32); TOTAL PROTEIN 6.9 G/DL (6.4-8.2); eGFR 24 ML/MIN
[2019-12-11] MEDS: FENTANYL-0.9 % NACL/PF 100 ML IV PRN ×3 (04:05→20:59)
[2019-12-11] MEDS: midazolam 100mg in NS 100ml 100 ML IV PRN ×3 (04:06→20:24)
[2019-12-11 04:15] LABS: ABG BASE EXCESS -5.3 mmol/L (-2.0-3.0); ABG HCO3 21.4 mmol/L (22.0-26.0); ABG OXYGEN SATURATION 90.3 % (95-98); ABG PCO2 (T) 46.6 mmHg (35.0-45.0); ABG PH (T) 7.277 (7.350-7.450); FCOHb 0.3 % (0.5-1.5); FMetHb 0.2 % (0.3-1.12); FO2Hb 89.8 % (94-100); PATIENT TEMPERATURE 36.4; PEEP 15 cm H2O; RESPIRATORY RATE 25 b/min; TIDAL VOLUME 500 mL; TOTAL HEMOGLOBIN 8.8 G/dl (14.0-17.9)
[2019-12-11] MEDS: propofol 1000mg/100ml bottle 100 ML IV SCH ×2 (06:13→11:26)
[2019-12-11] MEDS: diltiazem-NS 100mg/100ml 100 ML IV SCH ×3 (07:51→17:02)
[2019-12-11] MEDS: K, MAG and/or Phos replacement - Verify level? MC SCH (08:00)
--- NOTE | 2019-12-11 08:05 | NUR ---
Patient is hypertensive. Trying to assess level of sedation while he is paralyzed is very difficult. BIS monitor placed and indicates patient is well sedated at 40. I also do not have a baseline for the train of 4. Will place electrodes to ulnar nerve and start at the last charted voltage of 7. will speak with charge nurse for advice on how to proceed Addendum: 12/11/19 at 0824 by Vince Garg RN Charge nurse advised me to wait to call MD for a little while so we can address other nurses concerns at the same time Addendum: 12/11/19 at 0847 by Vince Garg RN Spoke with Jaja ARRIAZA Ordered Thaddeus trac and hydralazine
[2019-12-11] MEDS: hydrALAZINE 20mg/ml inj. IV ONE ×2 (08:50→14:02)
[2019-12-11] MEDS: albumin (human) 25% 100ml IV 100 ML IV SCH ×2 (10:05→16:22)
[2019-12-11] MEDS: piperacillin/tazo 3.375gm/50ml 50 ML IV SCH ×2 (10:05→16:19)
[2019-12-11] MEDS: THIAMINE IV SCH (10:06)
[2019-12-11] MEDS: NORMAL SALINE IV SCH (10:06)
[2019-12-11] MEDS: lactobacillus rhamnosus 10,000 MMU CELLS/CAPSULE PO SCH ×2 (10:20→20:17)
[2019-12-11] MEDS: famotidine/PF 10 mg/ml inj IV SCH ×2 (10:21→20:07)
[2019-12-11] MEDS: methylnaltrexone br 12mg/0.6ml inj***SubQ only SQ SCH (10:21)
[2019-12-11] MEDS: docusate sodium 100mg/10ml UD cup OGT SCH ×2 (10:21→20:16)
[2019-12-11] MEDS: MVI, adult No.4 with vit. K 10 ML in dextrose 5% water 500ml 490 ML IV SCH ×2 (10:54)
[2019-12-11] MEDS: epoetin 20,000 units/ml inj SQ SCH (11:48)
--- NOTE | 2019-12-11 13:57 | NUR ---
BP 225/90. Charge and Jaja AMAYA notified. Ordered to try the hydralazine dose from this morning that was not administered because the BP had stabilized Addendum: 12/11/19 at 1444 by Vince Garg RN SBP continues to be above 200 after administration of hydralazine. Jaja AMAYA notified Addendum: 12/11/19 at 1456 by Vince Garg RN orders to increase propofol to 40 and call her after one hour if SBP still above 200
[2019-12-11] MEDS: Trace element-5 inj. 1 ML in AA 5 %/CALCIUM/LYTES/DEXT 20% 2,000 ML IV SCH (15:05)
[2019-12-11] MEDS: insulin glargine (Lantus) pen - multi-dose SQ SCH (20:00)
[2019-12-11] MEDS: FAT EMULSION IV SCH (20:59)
[2019-12-12] VITALS (35 sets, daily range): BP systolic 129–209; BP diastolic 55–86
[2019-12-12] MEDS: FENTANYL-0.9 % NACL/PF 100 ML IV PRN ×4 (01:23→20:15)
[2019-12-12] MEDS: mineral oil/petrolatum ophthal oint EACHEYE SCH ×4 (02:01→20:09)
[2019-12-12] MEDS: insulin regular, human U-100 3ml vial - multi-dose SQ SCH ×4 (02:01→20:29)
[2019-12-12] MEDS: hydrocortisone sod succ/PF 100mg/2ml inj. IV SCH ×4 (02:01→20:09)
[2019-12-12 03:08] LABS: BASOPHILS % (AUTO) 0.2 % (0-1); EOSINOPHILS % (AUTO) 0 % (0-6); HEMOGLOBIN 7.9 g/dl (14.0-17.9); LYMPHOCYTES # (AUTO) 0.5 X10'3 (1.1-4.8); LYMPHOCYTES % (AUTO) 3.5 % (21-51); MEAN CORPUSCULAR HGB CONC 33.2 g/dL (33.0-36.5); MEAN CORPUSCULAR VOLUME 90.5 FL (78-98); MEAN PLATELET VOLUME 7.5 FL (7.4-10.4); MONOCYTES # (AUTO) 0.8 X10'3 (0-0.9); MONOCYTES % (AUTO) 5.9 % (2-12); NEUTROPHILS # (AUTO) 11.6 X10'3 (1.8-7.7); NEUTROPHILS % (AUTO) 90.4 % (42-75); PLATELET COUNT 392 X10'3 (140-440); RED BLOOD COUNT 2.65 X10'6 (4.70-6.10); RED CELL DISTRIBUTION WIDTH 13.9 % (11.5-14.5); WHITE BLOOD COUNT 12.8 X10'3 (4.5-11.0)
[2019-12-12] MEDS: ipratropium/albuterol 3ml nebule NEB SCH ×6 (03:16→22:44)
[2019-12-12 03:27] LABS: ALANINE AMINOTRANSFERASE 21 U/L (12-78); ALBUMIN 3.5 G/DL (3.4-5.0); ALBUMIN/GLOBULIN RATIO 1.1 (1.1-1.5); ALKALINE PHOSPHATASE 94 IU/L (46-116); ANION GAP 15 (8-16); ASPARTATE AMINO TRANSFERASE 11 U/L (10-37); BILIRUBIN,TOTAL 0.8 MG/DL (0.1-1.0); BLOOD UREA NITROGEN 88 MG/DL (7-18); BUN/CREATININE RATIO 34.1 (5.4-32.0); CALCIUM 8.9 MG/DL (8.5-10.1); CHLORIDE 109 MMOL/L (99-107); CREATININE 2.58 MG/DL (0.60-1.10); GLUCOSE 155 MG/DL (70-104); MAGNESIUM 2.4 MG/DL (1.5-2.4); PHOSPHORUS 6.6 MG/DL (2.3-4.5); POTASSIUM 4.3 MMOL/L (3.5-5.1); SODIUM 144 MMOL/L (135-145); TOTAL CARBON DIOXIDE 20.3 MMOL/L (24-32); TOTAL PROTEIN 6.7 G/DL (6.4-8.2); eGFR 26 ML/MIN
[2019-12-12 04:10] LABS: ABG BASE EXCESS -5.6 mmol/L (-2.0-3.0); ABG HCO3 19.6 mmol/L (22.0-26.0); ABG OXYGEN SATURATION 94.2 % (95-98); ABG PCO2 (T) 36.5 mmHg (35.0-45.0); ABG PH (T) 7.347 (7.350-7.450); ABG PO2 (T) 76.5 mmHg (83-108); FCOHb 0.3 % (0.5-1.5); FMetHb 0.3 % (0.3-1.12); FO2Hb 93.6 % (94-100); PATIENT TEMPERATURE 36.8; PEEP 15 cm H2O; RESPIRATORY RATE 27 b/min; TIDAL VOLUME 500 mL; TOTAL HEMOGLOBIN 8.6 G/dl (14.0-17.9)
[2019-12-12] MEDS: CISatracurium besylate inj. 100 MG in normal saline 100ml IV soln 90 ML IV PRN ×3 (04:17→21:36)
[2019-12-12] MEDS: propofol 1000mg/100ml bottle 100 ML IV SCH ×5 (04:18→21:47)
[2019-12-12] MEDS: Trace element-5 inj. 1 ML in AA 5 %/CALCIUM/LYTES/DEXT 20% 2,000 ML IV SCH (06:17)
--- NOTE | 2019-12-12 06:47 | NUR ---
Patient in room CICU 2007. I have received report from MAYELIN Loco and had the opportunity to ask questions and assume patient care.
[2019-12-12] MEDS: midazolam 100mg in NS 100ml 100 ML IV PRN ×2 (07:17→16:49)
[2019-12-12] MEDS: docusate sodium 100mg/10ml UD cup OGT SCH ×2 (07:52→20:10)
[2019-12-12] MEDS: lactobacillus rhamnosus 10,000 MMU CELLS/CAPSULE PO SCH ×2 (07:52→20:10)
[2019-12-12] MEDS: famotidine/PF 10 mg/ml inj IV SCH ×2 (07:52→20:10)
[2019-12-12] MEDS: piperacillin/tazo 3.375gm/50ml 50 ML IV SCH ×4 (07:53→23:31)
[2019-12-12] MEDS: albumin (human) 25% 100ml IV 100 ML IV SCH ×4 (08:00→23:38)
[2019-12-12] MEDS: K, MAG and/or Phos replacement - Verify level? MC SCH (08:00)
[2019-12-12 08:01] LABS: PLATELET ESTIMATE NORMAL; POIKILOCYTOSIS FEW; POLYCHROMASIA FEW; TOTAL CELLS COUNTED 100
[2019-12-12] MEDS: THIAMINE IV SCH (09:04)
[2019-12-12] MEDS: NORMAL SALINE IV SCH (09:04)
[2019-12-12] MEDS: MVI, adult No.4 with vit. K 10 ML in dextrose 5% water 500ml 490 ML IV SCH ×2 (10:17)
--- NOTE | 2019-12-12 11:09 | NUR ---
Dr. Pema lomas.
[2019-12-12] MEDS: diltiazem-NS 100mg/100ml 100 ML IV SCH ×2 (13:33→22:06)
--- NOTE | 2019-12-12 16:15 | NUR ---
Patient in room CICU 2007. I have received report from Christophe DICK and had the opportunity to ask questions and assume patient care.
--- NOTE | 2019-12-12 16:15 | NUR ---
Reported of to MAYELIN Ortiz
--- NOTE | 2019-12-12 17:00 | NUR ---
i agree with the previous RN's charted physical assessment.
--- NOTE | 2019-12-12 18:30 | NUR ---
Patient in room CICU 2007. I have received report from Deborah Jin RN. Pt received orally intubated #8 ETT @ 23cm teeth. ETT secure with anchorfast. Pt is on vent. AC PRVC mode 100% FIO2 TV 500 Rate 27 +5 PEEP observed TV 505. Pt is on Nimbex, Fentanyl, versed & propofol drips. Unresponsive. Pupils at 1mm bilaterally & reaction is sluggish. Rhythm is sinus, Pt is on cardizem drip. CVP is transduced via PICC line. OGT to low intermittent wall suction draining dark green fluid. Abdomen with open wound & wound Vac. Left upper mid abdomen with YORDAN drain, fluid is brown. BS absent. TPN infusing at 100ml/hr. Right femoral dialysis cath intact. Lujan cath is draining yellow urine with sediment. No distress at change of shift.
--- NOTE | 2019-12-12 18:31 | NUR ---
Patient report given, questions answered & plan of care reviewed with Verito DICK.
--- NOTE | 2019-12-12 20:00 | NUR ---
Spoke with SOCK IRONER regarding TOF & Nimbex. Instructed to keep peak pressures WNL utilizing paralytic. When Nimbex titrated down, peak pressures rise to 38-40, RR with retractions & SBP > 216. Pt is on 100% FIO2 on ventilator with oxygen saturations 88-90%. + 12 PEEP.
[2019-12-12] MEDS: FAT EMULSION IV SCH (20:16)
[2019-12-12] MEDS: insulin glargine (Lantus) pen - multi-dose SQ SCH (20:31)
[2019-12-13] VITALS (62 sets, daily range): BP systolic 114–179; BP diastolic 58–78
[2019-12-13] MEDS: propofol 1000mg/100ml bottle 100 ML IV SCH ×6 (00:45→22:06)
[2019-12-13] MEDS: diltiazem-NS 100mg/100ml 100 ML IV SCH ×3 (00:51→17:33)
[2019-12-13] MEDS: FENTANYL-0.9 % NACL/PF 100 ML IV PRN ×6 (00:52→19:29)
[2019-12-13] MEDS: midazolam 100mg in NS 100ml 100 ML IV PRN ×3 (01:41→19:27)
[2019-12-13] MEDS: hydrocortisone sod succ/PF 100mg/2ml inj. IV SCH ×4 (01:41→20:06)
[2019-12-13] MEDS: mineral oil/petrolatum ophthal oint EACHEYE SCH ×4 (01:42→20:06)
[2019-12-13] MEDS: Trace element-5 inj. 1 ML in AA 5 %/CALCIUM/LYTES/DEXT 20% 2,000 ML IV SCH ×2 (02:10→22:10)
[2019-12-13] MEDS: insulin regular, human U-100 3ml vial - multi-dose SQ SCH ×4 (02:20→20:02)
[2019-12-13] MEDS: CISatracurium besylate inj. 100 MG in normal saline 100ml IV soln 90 ML IV PRN (02:49)
[2019-12-13] MEDS: ipratropium/albuterol 3ml nebule NEB SCH ×6 (03:01→23:11)
[2019-12-13 03:10] LABS: BASOPHILS % (AUTO) 0.2 % (0-1); EOSINOPHILS % (AUTO) 0.1 % (0-6); HEMATOCRIT 25.9 % (42.0-52.0); HEMOGLOBIN 8.6 g/dl (14.0-17.9); LYMPHOCYTES # (AUTO) 0.4 X10'3 (1.1-4.8); LYMPHOCYTES % (AUTO) 2.4 % (21-51); MEAN CORPUSCULAR HEMOGLOBIN 30.5 PG (27.0-31.0); MEAN CORPUSCULAR HGB CONC 33.3 g/dL (33.0-36.5); MEAN CORPUSCULAR VOLUME 91.5 FL (78-98); MEAN PLATELET VOLUME 7.7 FL (7.4-10.4); MONOCYTES # (AUTO) 0.9 X10'3 (0-0.9); MONOCYTES % (AUTO) 5.4 % (2-12); NEUTROPHILS # (AUTO) 14.8 X10'3 (1.8-7.7); NEUTROPHILS % (AUTO) 91.9 % (42-75); PLATELET COUNT 415 X10'3 (140-440); RED BLOOD COUNT 2.83 X10'6 (4.70-6.10); RED CELL DISTRIBUTION WIDTH 14.5 % (11.5-14.5); WHITE BLOOD COUNT 16.1 X10'3 (4.5-11.0)
[2019-12-13 03:11] LABS: ALANINE AMINOTRANSFERASE 20 U/L (12-78); ALBUMIN 3.5 G/DL (3.4-5.0); ALKALINE PHOSPHATASE 98 IU/L (46-116); ANION GAP 13 (8-16); ASPARTATE AMINO TRANSFERASE 11 U/L (10-37); BILIRUBIN,TOTAL 0.8 MG/DL (0.1-1.0); BLOOD UREA NITROGEN 89 MG/DL (7-18); CALCIUM 8.7 MG/DL (8.5-10.1); CHLORIDE 111 MMOL/L (99-107); CREATININE 2.47 MG/DL (0.60-1.10); GLUCOSE 165 MG/DL (70-104); MAGNESIUM 2.4 MG/DL (1.5-2.4); PHOSPHORUS 6.8 MG/DL (2.3-4.5); POTASSIUM 4.4 MMOL/L (3.5-5.1); SODIUM 147 MMOL/L (135-145); TOTAL CARBON DIOXIDE 22.8 MMOL/L (24-32); TOTAL PROTEIN 6.9 G/DL (6.4-8.2); TRIGLYCERIDES 249 MG/DL (20-135); eGFR 28 ML/MIN
[2019-12-13 03:16] LABS: ABG BASE EXCESS -8.5 mmol/L (-2.0-3.0); ABG HCO3 18.6 mmol/L (22.0-26.0); ABG OXYGEN SATURATION 87.7 % (95-98); ABG PCO2 (T) 46.6 mmHg (35.0-45.0); ABG PH (T) 7.222 (7.350-7.450); ABG PO2 (T) 68.1 mmHg (83-108); FCOHb 0.3 % (0.5-1.5); FMetHb 0.3 % (0.3-1.12); FO2Hb 87.2 % (94-100); PATIENT TEMPERATURE 37.7; PEEP 12 cm H2O; RESPIRATORY RATE 27 b/min; TIDAL VOLUME 500 mL; TOTAL HEMOGLOBIN 9.2 G/dl (14.0-17.9)
--- NOTE | 2019-12-13 06:15 | NUR ---
Problems reprioritized. Patient report given, questions answered & plan of care reviewed .
--- NOTE | 2019-12-13 06:30 | NUR ---
Patient in room CICU 2007. I have received report from and had the opportunity to ask questions and assume patient care.
--- NOTE | 2019-12-13 06:30 | NUR ---
Patient in room CICU 2007. I have received report from Verito DICK and had the opportunity to ask questions and assume patient care. Patient laying in bed with eyes closed, Patient on ventilator fio2 100% peep of 12, sating 88-90%, fentanyl, versed, propofol, cardizem, tpn and lipids infusing as ordered, king to gravity with good output, wound vac to mid line 125mmhg with serious output. Vital signs stable no signs or symptoms of distress will continue to monitor
[2019-12-13] MEDS: albumin (human) 25% 100ml IV 100 ML IV SCH ×2 (07:29→15:56)
[2019-12-13] MEDS: THIAMINE IV SCH (07:30)
[2019-12-13] MEDS: NORMAL SALINE IV SCH (07:30)
[2019-12-13] MEDS: MVI, adult No.4 with vit. K 10 ML in dextrose 5% water 500ml 490 ML IV SCH ×2 (07:30)
[2019-12-13] MEDS: piperacillin/tazo 3.375gm/50ml 50 ML IV SCH ×2 (07:31→15:59)
[2019-12-13] MEDS: methylnaltrexone br 12mg/0.6ml inj***SubQ only SQ SCH (07:31)
[2019-12-13] MEDS: famotidine/PF 10 mg/ml inj IV SCH ×2 (07:32→20:06)
[2019-12-13] MEDS: lactobacillus rhamnosus 10,000 MMU CELLS/CAPSULE PO SCH ×2 (08:00→20:06)
[2019-12-13] MEDS: K, MAG and/or Phos replacement - Verify level? MC SCH (08:00)
[2019-12-13 09:17] LABS: PLATELET ESTIMATE NORMAL; TOTAL CELLS COUNTED 100
[2019-12-13 09:18] LABS: POLYCHROMASIA FEW
[2019-12-13] MEDS ORDERED: heparin 1,000unit/ml 10ml vial 10 ML IV ONE (09:53)
[2019-12-13] MEDS ORDERED: albumin (human) 25% 100ml IV 100 ML IV PRN (09:55)
[2019-12-13] MEDS ORDERED: epoetin 20,000 units/ml inj IV ONE (09:55)
[2019-12-13] MEDS ORDERED: heparin 1,000 units/ml 10ml inj IV ONE (09:55)
[2019-12-13] MEDS ORDERED: heparin 1,000 units/ml 10ml inj HE ONE ×2 (10:00)
--- NOTE | 2019-12-13 11:30 | NUR ---
Family at bedside with Dr. Sutherland discussing prognosis and next steps in patients care. would like to make patient DNR, Dr. Sutherland will put in the order, arm band will be changed with two RN verification once ordered
[2019-12-13] MEDS: heparin, porcine 5000 units/ml vial SQ SCH ×2 (12:07→20:42)
[2019-12-13 12:25] LABS: PREALBUMIN 39.2 MG/DL (19-36)
--- NOTE | 2019-12-13 12:57 | NUR ---
reassessment: Pt started on HD for KAROLINE. Remains intubated w/ ARDS. -910ml wound vac drainage to open abdomen and 100ml gastric drainage. LBM 3/3 receiving colace and relistor. Pending family discussion per MD. Tolerating TPN at goal; still unable to fully meet needs given high DEX formula. Will continue to monitor. Recommendations: 1) Recommend continuous 2:1 TPN using Clinimix E 5/20 at goal rate of 100ml/hr. Separate 20% intralipids at 9ml/hr for 12 hours daily to meet essential fat needs. To provide 2400ml fluid, 120g AA, 480g DEX(2.97mg/kg/min), 22g lipids, and total 2332kcals. Unable to meet needs without fluid overloading and overfeeding given high DEX formula. 2) Prealbumin q /; daily weights 3) When intra-abdominal pressure is decreased and abdomen closed, when OK by surgeon to start tube feedings, recommend to resume tube feedings at trickle tube feeding at 20 ml/hr using vital high Protein and advance tube feeding as tolerated using Vital High Protein with goal rate of 90mL/hr will provide total volume of 2160ml, 2160cals, 189g protein, and 1814ml free water. 4). When tube feedings resumed, provide additional 200 mL water flush q 4 hours 5) Pancreatitis nutrition therapy education once stable 6) Continue banana bag 7) Routine bowel care; opioid antagonist per MD Addendum: 12/13/19 at [address] Amended: Links added.
--- NOTE | 2019-12-13 18:16 | NUR ---
Problems reprioritized. Patient report given, questions answered & plan of care reviewed with Verito DICK.
--- NOTE | 2019-12-13 18:17 | NUR ---
Problems reprioritized. Patient report given, questions answered & plan of care reviewed with .
--- NOTE | 2019-12-13 18:17 | NUR ---
Patient in room CICU 2007. I have received report and had the opportunity to ask questions and assume patient care.
[2019-12-13] MEDS: insulin glargine (Lantus) pen - multi-dose SQ SCH (20:04)
[2019-12-13] MEDS: FAT EMULSION IV SCH (20:40)
[2019-12-14] VITALS (57 sets, daily range): BP systolic 123–248; BP diastolic 57–120
[2019-12-14] MEDS: albumin (human) 25% 100ml IV 100 ML IV SCH ×2 (00:13→08:12)
[2019-12-14] MEDS: piperacillin/tazo 3.375gm/50ml 50 ML IV SCH ×4 (00:13→23:59)
[2019-12-14] MEDS: FENTANYL-0.9 % NACL/PF 100 ML IV PRN ×7 (00:31→23:21)
[2019-12-14] MEDS: propofol 1000mg/100ml bottle 100 ML IV SCH ×8 (00:51→21:42)
[2019-12-14] MEDS: mineral oil/petrolatum ophthal oint EACHEYE SCH ×4 (02:18→20:49)
[2019-12-14] MEDS: insulin regular, human U-100 3ml vial - multi-dose SQ SCH ×4 (02:28→21:05)
[2019-12-14] MEDS: hydrocortisone sod succ/PF 100mg/2ml inj. IV SCH ×4 (02:32→21:18)
[2019-12-14] MEDS: ipratropium/albuterol 3ml nebule NEB SCH ×6 (02:52→23:38)
[2019-12-14 03:06] LABS: ABG BASE EXCESS -2.8 mmol/L (-2.0-3.0); ABG HCO3 22.4 mmol/L (22.0-26.0); ABG OXYGEN SATURATION 93.5 % (95-98); ABG PCO2 (T) 41.4 mmHg (35.0-45.0); ABG PH (T) 7.354 (7.350-7.450); ABG PO2 (T) 79.2 mmHg (83-108); FCOHb 0.3 % (0.5-1.5); FMetHb 0.2 % (0.3-1.12); PATIENT TEMPERATURE 37.6; PEEP 12 cm H2O; RESPIRATORY RATE 27 b/min; TIDAL VOLUME 500 mL; TOTAL HEMOGLOBIN 8.5 G/dl (14.0-17.9)
[2019-12-14 03:31] LABS: BASOPHILS % (AUTO) 0 % (0-1); EOSINOPHILS % (AUTO) 0.2 % (0-6); HEMATOCRIT 24.1 % (42.0-52.0); LYMPHOCYTES # (AUTO) 0.6 X10'3 (1.1-4.8); LYMPHOCYTES % (AUTO) 4.6 % (21-51); MEAN CORPUSCULAR HGB CONC 33.1 g/dL (33.0-36.5); MEAN CORPUSCULAR VOLUME 90.4 FL (78-98); MEAN PLATELET VOLUME 7.6 FL (7.4-10.4); MONOCYTES # (AUTO) 0.6 X10'3 (0-0.9); MONOCYTES % (AUTO) 4.5 % (2-12); NEUTROPHILS # (AUTO) 11.6 X10'3 (1.8-7.7); NEUTROPHILS % (AUTO) 90.7 % (42-75); PLATELET COUNT 389 X10'3 (140-440); RED BLOOD COUNT 2.67 X10'6 (4.70-6.10); RED CELL DISTRIBUTION WIDTH 14.1 % (11.5-14.5); WHITE BLOOD COUNT 12.7 X10'3 (4.5-11.0)
[2019-12-14 03:41] LABS: ALANINE AMINOTRANSFERASE 23 U/L (12-78); ALBUMIN 3.6 G/DL (3.4-5.0); ALBUMIN/GLOBULIN RATIO 1.1 (1.1-1.5); ALKALINE PHOSPHATASE 93 IU/L (46-116); ANION GAP 10 (8-16); ASPARTATE AMINO TRANSFERASE 14 U/L (10-37); BILIRUBIN,TOTAL 0.9 MG/DL (0.1-1.0); BLOOD UREA NITROGEN 69 MG/DL (7-18); BUN/CREATININE RATIO 37.7 (5.4-32.0); CALCIUM 8.1 MG/DL (8.5-10.1); CHLORIDE 106 MMOL/L (99-107); CREATININE 1.83 MG/DL (0.60-1.10); GLUCOSE 166 MG/DL (70-104); MAGNESIUM 2.2 MG/DL (1.5-2.4); PHOSPHORUS 5.3 MG/DL (2.3-4.5); POTASSIUM 3.9 MMOL/L (3.5-5.1); SODIUM 142 MMOL/L (135-145); TOTAL CARBON DIOXIDE 26.3 MMOL/L (24-32); TOTAL PROTEIN 6.8 G/DL (6.4-8.2); eGFR 39 ML/MIN
[2019-12-14] MEDS: midazolam 100mg in NS 100ml 100 ML IV PRN ×3 (03:43→21:10)
[2019-12-14 04:15] LABS: NUCLEATED RED BLOOD CELLS 1 /100WBC (0-0); TOTAL CELLS COUNTED 100
[2019-12-14 04:16] LABS: ANISOCYTOSIS 1+; PLATELET ESTIMATE NORMAL
[2019-12-14] MEDS: diltiazem-NS 100mg/100ml 100 ML IV SCH ×2 (04:28→22:45)
--- NOTE | 2019-12-14 06:10 | NUR ---
patient back from OR, new wound vac in place, Upper left quadrant YORDAN drain pulled, vital signs stable no signs or symptoms of distress will continue to monitor
--- NOTE | 2019-12-14 06:15 | NUR ---
Problems reprioritized. Patient report given, questions answered & plan of care reviewed.
--- NOTE | 2019-12-14 06:30 | NUR ---
Patient in room CICU 2007. I have received report from MAYELIN Sellers and had the opportunity to ask questions and assume patient care. Patient laying in bed with eyes closed on ventilator setting of PRVC sating 90% fio2 80% peep of 12. Lujan draining to gravity, wound vac to midline incision with 125mmhg, drips infusing as ordered. Vital signs stable no signs or symptoms of distress will continue to monitor
[2019-12-14] MEDS: lactobacillus rhamnosus 10,000 MMU CELLS/CAPSULE PO SCH ×2 (06:53→21:19)
--- NOTE | 2019-12-14 06:53 | NUR ---
Patient in room CICU 2007. I have received report from and had the opportunity to ask questions and assume patient care.
[2019-12-14] MEDS: K, MAG and/or Phos replacement - Verify level? MC SCH (08:00)
[2019-12-14] MEDS: THIAMINE IV SCH (08:19)
[2019-12-14] MEDS: NORMAL SALINE IV SCH (08:19)
[2019-12-14] MEDS ORDERED: albumin (human) 25% 100ml IV 100 ML IV PRN (08:20)
[2019-12-14] MEDS ORDERED: epoetin 20,000 units/ml inj IV ONE (08:20)
[2019-12-14] MEDS ORDERED: heparin 1,000 units/ml 10ml inj HE ONE ×2 (08:25)
[2019-12-14] MEDS: famotidine/PF 10 mg/ml inj IV SCH ×2 (08:26→21:17)
[2019-12-14] MEDS: heparin, porcine 5000 units/ml vial SQ SCH ×2 (08:26→21:18)
[2019-12-14] MEDS: MVI, adult No.4 with vit. K 10 ML in dextrose 5% water 500ml 490 ML IV SCH ×2 (08:33)
--- NOTE | 2019-12-14 08:40 | NUR ---
Called Jesse, to obtain verbal consent for patient to return OR for a wound vac replacement, verbal consent obtained and verified with MAYELIN Anderson.
--- NOTE | 2019-12-14 10:15 | NUR ---
Per Dr. Sutherland D/C artline after OR when patient is hemodynamically stable
[2019-12-14] MEDS: epoetin 20,000 units/ml inj SQ SCH (11:05)
[2019-12-14] MEDS ORDERED: desflurane 240ml liquid inh. IH ONE (16:52)
[2019-12-14] MEDS ORDERED: fentaNYL /PF 50mcg/ml 5ml ampule ONE (17:02)
--- NOTE | 2019-12-14 17:10 | NUR ---
PT to OR at 1710 accompanied by 2 RNs and one tech.
[2019-12-14] MEDS ORDERED: gentamicin 40 MG/1 ML inj ONE (17:27)
[2019-12-14] MEDS ORDERED: clindamycin phosphate 150mg/ml inj. ONE (17:27)
[2019-12-14] MEDS ORDERED: ceFAZolin 1000mg inj ONE ×2 (17:29)
[2019-12-14] MEDS ORDERED: rocuronium 10mg/ml inj IV ONE (17:30)
[2019-12-14] MEDS: Trace element-5 inj. 1 ML in AA 5 %/CALCIUM/LYTES/DEXT 20% 2,000 ML IV SCH (18:06)
--- NOTE | 2019-12-14 18:29 | NUR ---
Problems reprioritized. Patient report given, questions answered & plan of care reviewed with Verito DICK.
--- NOTE | 2019-12-14 18:30 | NUR ---
Patient in room CICU 2007. I have received report from Mary Grace DICK and had the opportunity to ask questions and assume patient care. Pt remains intubated ETT @23cm teeth & secured with anchorfast. On AC PRVC mode FIO@ 80%ate 27 TV 500 +12 PEEP. O2 saturations 98%. Pt is sedated on Propofol/Fentanyl & versed infusions. Rhythm is sinus HR 78 right radial arterial line is intact with good wave form, fingers are warm with brisk capillary refill. Edema is generalized 2+ pitting. OGT to low intermittent wall suction drainage is dark green. OGT taped securely to ETT. Abdominal wound vac is intact, no drainage at this time. Lujan drains clear yellow urine. Left upper arm PICC line is transduced to CVP line zeroed & reads 18-20. TPN infusing via PICC line. Left F/A IV is patent/ Right wrist saline lock #20 G intact. Right F/A #20G saline lock is intact. No distress at shift change.
[2019-12-14] MEDS: FAT EMULSION IV SCH (20:54)
[2019-12-14] MEDS: insulin glargine (Lantus) pen - multi-dose SQ SCH (21:08)
[2019-12-15] VITALS (41 sets, daily range): BP systolic 87–190; BP diastolic 36–84
[2019-12-15] MEDS: propofol 1000mg/100ml bottle 100 ML IV SCH ×6 (01:51→23:16)
[2019-12-15] MEDS: mineral oil/petrolatum ophthal oint EACHEYE SCH ×4 (01:52→19:13)
[2019-12-15] MEDS: hydrocortisone sod succ/PF 100mg/2ml inj. IV SCH ×4 (01:55→21:34)
[2019-12-15] MEDS: insulin regular, human U-100 3ml vial - multi-dose SQ SCH ×4 (02:32→22:42)
[2019-12-15 02:59] LABS: BASOPHILS % (AUTO) 0.2 % (0-1); EOSINOPHILS # (AUTO) 0.1 X10'3 (0-0.9); EOSINOPHILS % (AUTO) 0.3 % (0-6); HEMATOCRIT 25.4 % (42.0-52.0); HEMOGLOBIN 8.6 g/dl (14.0-17.9); LYMPHOCYTES # (AUTO) 0.6 X10'3 (1.1-4.8); LYMPHOCYTES % (AUTO) 4.2 % (21-51); MEAN CORPUSCULAR HEMOGLOBIN 30.5 PG (27.0-31.0); MEAN CORPUSCULAR VOLUME 89.6 FL (78-98); MEAN PLATELET VOLUME 7.6 FL (7.4-10.4); MONOCYTES # (AUTO) 0.6 X10'3 (0-0.9); MONOCYTES % (AUTO) 3.9 % (2-12); NEUTROPHILS # (AUTO) 13.3 X10'3 (1.8-7.7); NEUTROPHILS % (AUTO) 91.4 % (42-75); PLATELET COUNT 401 X10'3 (140-440); RED BLOOD COUNT 2.83 X10'6 (4.70-6.10); RED CELL DISTRIBUTION WIDTH 13.8 % (11.5-14.5); WHITE BLOOD COUNT 14.5 X10'3 (4.5-11.0)
[2019-12-15 03:06] LABS: ALANINE AMINOTRANSFERASE 22 U/L (12-78); ALBUMIN 3.3 G/DL (3.4-5.0); ALKALINE PHOSPHATASE 94 IU/L (46-116); ASPARTATE AMINO TRANSFERASE 15 U/L (10-37); BILIRUBIN,TOTAL 0.8 MG/DL (0.1-1.0); BLOOD UREA NITROGEN 54 MG/DL (7-18); BUN/CREATININE RATIO 36.7 (5.4-32.0); CALCIUM 7.9 MG/DL (8.5-10.1); CHLORIDE 105 MMOL/L (99-107); CREATININE 1.47 MG/DL (0.60-1.10); GLUCOSE 175 MG/DL (70-104); PHOSPHORUS 4.8 MG/DL (2.3-4.5); TOTAL CARBON DIOXIDE 27.1 MMOL/L (24-32); TOTAL PROTEIN 6.7 G/DL (6.4-8.2); eGFR 51 ML/MIN
[2019-12-15] MEDS: ipratropium/albuterol 3ml nebule NEB SCH ×6 (03:06→23:40)
[2019-12-15 03:12] LABS: ANION GAP 7 (8-16); POTASSIUM 3.9 MMOL/L (3.5-5.1); SODIUM 139 MMOL/L (135-145)
[2019-12-15 03:39] LABS: TOTAL CELLS COUNTED 100
[2019-12-15] MEDS: FENTANYL-0.9 % NACL/PF 100 ML IV PRN ×7 (03:39→23:50)
[2019-12-15 03:40] LABS: ANISOCYTOSIS 1+; PLATELET ESTIMATE NORMAL; TOXIC GRANULATION 1+
[2019-12-15 04:30] LABS: ABG BASE EXCESS -1.5 mmol/L (-2.0-3.0); ABG HCO3 23.7 mmol/L (22.0-26.0); ABG OXYGEN SATURATION 96.9 % (95-98); ABG PCO2 (T) 42.2 mmHg (35.0-45.0); ABG PH (T) 7.367 (7.350-7.450); ABG PO2 (T) 108.9 mmHg (83-108); FCOHb 0.3 % (0.5-1.5); FO2Hb 96.6 % (94-100); PATIENT TEMPERATURE 36.9; PEEP 12 cm H2O; RESPIRATORY RATE 27 b/min; TIDAL VOLUME 500 mL; TOTAL HEMOGLOBIN 9.2 G/dl (14.0-17.9)
--- NOTE | 2019-12-15 06:10 | NUR ---
Problems reprioritized. Patient report given, questions answered & plan of care reviewed with Mary Grace DICK.
[2019-12-15] MEDS: lactobacillus rhamnosus 10,000 MMU CELLS/CAPSULE PO SCH ×2 (08:00→20:00)
[2019-12-15] MEDS: MVI, adult No.4 with vit. K 10 ML in dextrose 5% water 500ml 500 ML IV SCH ×2 (08:00)
[2019-12-15] MEDS: heparin, porcine 5000 units/ml vial SQ SCH ×2 (08:00→21:36)
[2019-12-15] MEDS: famotidine/PF 10 mg/ml inj IV SCH ×2 (08:00→21:34)
[2019-12-15] MEDS: K, MAG and/or Phos replacement - Verify level? MC SCH (08:00)
[2019-12-15] MEDS ORDERED: epoetin 20,000 units/ml inj IV ONE (09:10)
[2019-12-15] MEDS ORDERED: heparin 1,000 units/ml 10ml inj HE ONE ×2 (09:15)
[2019-12-15] MEDS: THIAMINE IV SCH (09:32)
[2019-12-15] MEDS: NORMAL SALINE IV SCH (09:32)
[2019-12-15] MEDS: piperacillin/tazo 3.375gm/50ml 50 ML IV SCH ×3 (09:33→23:50)
--- NOTE | 2019-12-15 09:34 | NUR ---
Patient in room CICU 2007. I have received report from Verito Mccormick and had the opportunity to ask questions and assume patient care. Patient laying in bed with eyes closed, on ventilator mode PRVC fio2 70% peep of 12, sating 97%, king to gravity, OG to low intermittent suction, Wound vac to open midline abdominal incision setting 125 mmhg with sanguinous drainage 200ml currently in canister. Ordered drips infusing to L upper picc line as ordered. Vital signs stable, no signs or symptoms of distress will continue to monitor.
[2019-12-15] MEDS: midazolam 100mg in NS 100ml 100 ML IV PRN (11:19)
[2019-12-15] MEDS: Trace element-5 inj. 1 ML in AA 5 %/CALCIUM/LYTES/DEXT 20% 2,000 ML IV SCH (13:25)
[2019-12-15 13:27] LABS: AMYLASE 97 U/L (25-115); LIPASE 571 U/L (73-393)
[2019-12-15] MEDS ORDERED: diltiazem-NS 100mg/100ml 100 ML IV SCH (19:30)
[2019-12-15] MEDS ORDERED: diltiazem 5mg/ml 5ml inj. IV ONE (19:30)
[2019-12-15] MEDS ORDERED: metoprolol tartrate 1mg/ml inj IV ONE ×3 (20:00→21:24)
[2019-12-15] MEDS ORDERED: normal saline 500ml IV soln 500 ML IV ONE (20:25)
[2019-12-15] MEDS: FAT EMULSION IV SCH (21:08)
[2019-12-15] MEDS ORDERED: digoxin 250mcg/ml 2ml ampule IV ONE ×2 (22:25→23:15)
[2019-12-15] MEDS: insulin glargine (Lantus) pen - multi-dose SQ SCH (22:35)
[2019-12-16] VITALS (31 sets, daily range): BP systolic 82–141; BP diastolic 39–74
[2019-12-16] MEDS: diltiazem-NS 100mg/100ml 100 ML IV SCH ×4 (00:40→19:48)
[2019-12-16] MEDS: mineral oil/petrolatum ophthal oint EACHEYE SCH ×4 (03:18→20:00)
[2019-12-16] MEDS: FENTANYL-0.9 % NACL/PF 100 ML IV PRN ×6 (03:18→22:54)
[2019-12-16] MEDS: midazolam 100mg in NS 100ml 100 ML IV PRN ×4 (03:37→21:01)
[2019-12-16] MEDS: propofol 1000mg/100ml bottle 100 ML IV SCH ×2 (03:39→09:11)
[2019-12-16] MEDS: ipratropium/albuterol 3ml nebule NEB SCH ×6 (03:40→22:40)
[2019-12-16] MEDS: hydrocortisone sod succ/PF 100mg/2ml inj. IV SCH ×4 (03:41→20:49)
[2019-12-16] MEDS: insulin regular, human U-100 3ml vial - multi-dose SQ SCH ×3 (04:31→20:43)
[2019-12-16 05:17] LABS: HBSAG SCREEN Negative (Negative)
[2019-12-16 05:51] LABS: BASOPHILS % (AUTO) 0.2 % (0-1); EOSINOPHILS # (AUTO) 0.2 X10'3 (0-0.9); HEMOGLOBIN 10.9 g/dl (14.0-17.9); LYMPHOCYTES # (AUTO) 0.5 X10'3 (1.1-4.8); LYMPHOCYTES % (AUTO) 2.5 % (21-51); MEAN CORPUSCULAR HEMOGLOBIN 29.7 PG (27.0-31.0); MEAN CORPUSCULAR HGB CONC 33.2 g/dL (33.0-36.5); MEAN CORPUSCULAR VOLUME 89.6 FL (78-98); MEAN PLATELET VOLUME 7.5 FL (7.4-10.4); MONOCYTES % (AUTO) 4.8 % (2-12); NEUTROPHILS # (AUTO) 18.4 X10'3 (1.8-7.7); NEUTROPHILS % (AUTO) 91.5 % (42-75); PLATELET COUNT 407 X10'3 (140-440); RED BLOOD COUNT 3.68 X10'6 (4.70-6.10); RED CELL DISTRIBUTION WIDTH 14.2 % (11.5-14.5); WHITE BLOOD COUNT 20.1 X10'3 (4.5-11.0)
[2019-12-16 06:04] LABS: ALANINE AMINOTRANSFERASE 22 U/L (12-78); ALBUMIN 2.8 G/DL (3.4-5.0); ALBUMIN/GLOBULIN RATIO 0.7 (1.1-1.5); ALKALINE PHOSPHATASE 107 IU/L (46-116); ANION GAP 12 (8-16); ASPARTATE AMINO TRANSFERASE 13 U/L (10-37); BILIRUBIN,TOTAL 1.3 MG/DL (0.1-1.0); BLOOD UREA NITROGEN 51 MG/DL (7-18); BUN/CREATININE RATIO 40.8 (5.4-32.0); CALCIUM 7.8 MG/DL (8.5-10.1); CHLORIDE 102 MMOL/L (99-107); CREATININE 1.25 MG/DL (0.60-1.10); GLUCOSE 118 MG/DL (70-104); MAGNESIUM 1.8 MG/DL (1.5-2.4); PHOSPHORUS 5.1 MG/DL (2.3-4.5); SODIUM 139 MMOL/L (135-145); TOTAL CARBON DIOXIDE 24.8 MMOL/L (24-32); eGFR 61 ML/MIN
[2019-12-16] MEDS: K, MAG and/or Phos replacement - Verify level? MC SCH (08:00)
[2019-12-16] MEDS ORDERED: digoxin 250mcg/ml 2ml ampule IV SCH (08:00)
[2019-12-16 08:32] LABS: NUCLEATED RED BLOOD CELLS 1 /100WBC (0-0); PLATELET ESTIMATE NORMAL; TOTAL CELLS COUNTED 100
[2019-12-16 08:33] LABS: POLYCHROMASIA FEW
[2019-12-16] MEDS: famotidine/PF 10 mg/ml inj IV SCH ×2 (08:53→20:50)
[2019-12-16] MEDS: lactobacillus rhamnosus 10,000 MMU CELLS/CAPSULE PO SCH (08:54)
[2019-12-16] MEDS: NORMAL SALINE IV SCH (08:55)
[2019-12-16] MEDS: THIAMINE IV SCH (08:55)
[2019-12-16] MEDS: piperacillin/tazo 3.375gm/50ml 50 ML IV SCH ×3 (08:56→23:59)
[2019-12-16] MEDS: MVI, adult No.4 with vit. K 10 ML in dextrose 5% water 500ml 500 ML IV SCH ×2 (08:56)
[2019-12-16] MEDS ORDERED: heparin 1,000unit/ml 10ml vial 10 ML ONE (10:11)
[2019-12-16] MEDS ORDERED: LIDOcaine 1%/PF 5ML 10 MG/ML VIAL ONE (10:11)
[2019-12-16] MEDS: Trace element-5 inj. 1 ML in AA 5 %/CALCIUM/LYTES/DEXT 20% 2,000 ML IV SCH (12:01)
[2019-12-16] MEDS: FAT EMULSION IV SCH (12:03)
--- NOTE | 2019-12-16 12:23 | NUR ---
reassessment: Pt tolerating PN at goal and propofol stopped today. Still no BM 9 days post-op; LBM /. RD d/w regarding opioid antagonist since receiving opiates for prolonged period of time; per start relistor today. Pt having dialysis catheter placed currently for HD needs; previously on CVVH. Open abdomen wound vac changed yesterday per RN. Will monitor for further PN tolerance and EN needs once medically indicated post-op. Recommendations: 1) Recommend continuous 2:1 TPN using Clinimix E 5/20 at goal rate of 100ml/hr. Separate 20% intralipids at 9ml/hr for 12 hours daily to meet essential fat needs. To provide 2400ml fluid, 120g AA, 480g DEX(2.97mg/kg/min), 22g lipids, and total 2332kcals. Unable to meet needs without fluid overloading and overfeeding given high DEX formula. 2) Prealbumin q /; daily weights 3) When intra-abdominal pressure is decreased and abdomen closed, when OK by surgeon to start tube feedings, recommend to resume tube feedings at trickle tube feeding at 20 ml/hr using vital high Protein and advance tube feeding as tolerated using Vital High Protein with goal rate of 90mL/hr will provide total volume of 2160ml, 2160cals, 189g protein, and 1814ml free water. 4). When tube feedings resumed, provide additional 200 mL water flush q 4 hours 5) Pancreatitis nutrition therapy education once stable 6) Continue banana bag 7) Routine bowel care; opioid antagonist per Addendum: 12/16/19 at [address] Amended: Links added.
[2019-12-16] MEDS: dextrose 50%-water 50ml dispensing syringe IV PRN (12:26)
[2019-12-16] MEDS: epoetin 20,000 units/ml inj SQ SCH (14:12)
[2019-12-16] MEDS: insulin glargine (Lantus) pen - multi-dose SQ SCH (20:45)
[2019-12-16] MEDS: lactobacillus rhamnosus 10,000 MMU CELLS/CAPSULE OGT SCH (20:55)
[2019-12-17] VITALS (24 sets, daily range): BP systolic 105–161; BP diastolic 48–97
[2019-12-17] MEDS: FENTANYL-0.9 % NACL/PF 100 ML IV PRN ×7 (01:41→21:38)
[2019-12-17] MEDS: mineral oil/petrolatum ophthal oint EACHEYE SCH ×4 (02:00→20:09)
[2019-12-17] MEDS: hydrocortisone sod succ/PF 100mg/2ml inj. IV SCH ×4 (02:22→20:05)
[2019-12-17] MEDS: insulin regular, human U-100 3ml vial - multi-dose SQ SCH ×4 (02:25→19:56)
[2019-12-17] MEDS: ipratropium/albuterol 3ml nebule NEB SCH ×6 (02:42→23:26)
[2019-12-17 02:55] LABS: ABG BASE EXCESS -3.5 mmol/L (-2.0-3.0); ABG HCO3 22.2 mmol/L (22.0-26.0); ABG OXYGEN SATURATION 91.6 % (95-98); ABG PCO2 (T) 41.9 mmHg (35.0-45.0); ABG PO2 (T) 65.5 mmHg (83-108); ALLEN'S TEST POSITIVE; FCOHb 0.3 % (0.5-1.5); FMetHb 0.2 % (0.3-1.12); FO2Hb 91.1 % (94-100); PATIENT TEMPERATURE 36.4; PEEP 10 cm H2O; RESPIRATORY RATE 27 b/min; TIDAL VOLUME 500 mL; TOTAL HEMOGLOBIN 9.8 G/dl (14.0-17.9)
[2019-12-17] MEDS: midazolam 100mg in NS 100ml 100 ML IV PRN ×5 (03:13→23:46)
[2019-12-17 03:21] LABS: BASOPHILS % (AUTO) 0.3 % (0-1); EOSINOPHILS % (AUTO) 0.3 % (0-6); HEMOGLOBIN 8.8 g/dl (14.0-17.9); LYMPHOCYTES # (AUTO) 0.4 X10'3 (1.1-4.8); LYMPHOCYTES % (AUTO) 3.4 % (21-51); MEAN CORPUSCULAR HEMOGLOBIN 30.4 PG (27.0-31.0); MEAN CORPUSCULAR HGB CONC 33.8 g/dL (33.0-36.5); MEAN PLATELET VOLUME 7.8 FL (7.4-10.4); MONOCYTES # (AUTO) 0.7 X10'3 (0-0.9); MONOCYTES % (AUTO) 5.2 % (2-12); NEUTROPHILS # (AUTO) 11.5 X10'3 (1.8-7.7); NEUTROPHILS % (AUTO) 90.8 % (42-75); PLATELET COUNT 331 X10'3 (140-440); RED BLOOD COUNT 2.89 X10'6 (4.70-6.10); RED CELL DISTRIBUTION WIDTH 14.2 % (11.5-14.5); WHITE BLOOD COUNT 12.7 X10'3 (4.5-11.0)
[2019-12-17 03:32] LABS: ALANINE AMINOTRANSFERASE 16 U/L (12-78); ALBUMIN 2.4 G/DL (3.4-5.0); ALBUMIN/GLOBULIN RATIO 0.6 (1.1-1.5); ALKALINE PHOSPHATASE 85 IU/L (46-116); ANION GAP 9 (8-16); ASPARTATE AMINO TRANSFERASE 10 U/L (10-37); BILIRUBIN,TOTAL 0.9 MG/DL (0.1-1.0); BLOOD UREA NITROGEN 67 MG/DL (7-18); BUN/CREATININE RATIO 43.8 (5.4-32.0); CALCIUM 7.9 MG/DL (8.5-10.1); CHLORIDE 105 MMOL/L (99-107); CREATININE 1.53 MG/DL (0.60-1.10); GLUCOSE 109 MG/DL (70-104); MAGNESIUM 1.8 MG/DL (1.5-2.4); PHOSPHORUS 5.4 MG/DL (2.3-4.5); SODIUM 140 MMOL/L (135-145); TOTAL CARBON DIOXIDE 25.8 MMOL/L (24-32); TOTAL PROTEIN 6.3 G/DL (6.4-8.2); eGFR 48 ML/MIN
[2019-12-17 03:50] LABS: NUCLEATED RED BLOOD CELLS 1 /100WBC (0-0); TOTAL CELLS COUNTED 100
[2019-12-17 03:52] LABS: ANISOCYTOSIS 1+; LARGE PLATELETS MODERATE; PLATELET ESTIMATE NORMAL
[2019-12-17] MEDS: NORMAL SALINE IV SCH (07:10)
[2019-12-17] MEDS: THIAMINE IV SCH (07:10)
[2019-12-17] MEDS: famotidine/PF 10 mg/ml inj IV SCH ×2 (07:11→20:05)
[2019-12-17] MEDS: piperacillin/tazo 3.375gm/50ml 50 ML IV SCH ×3 (07:12→23:51)
[2019-12-17] MEDS: MVI, adult No.4 with vit. K 10 ML in dextrose 5% water 500ml 500 ML IV SCH ×2 (07:12)
[2019-12-17] MEDS: lactobacillus rhamnosus 10,000 MMU CELLS/CAPSULE OGT SCH ×2 (07:12→20:10)
[2019-12-17] MEDS: Trace element-5 inj. 1 ML in AA 5 %/CALCIUM/LYTES/DEXT 20% 2,000 ML IV SCH (07:14)
[2019-12-17] MEDS: diltiazem-NS 100mg/100ml 100 ML IV SCH ×2 (07:32→16:07)
[2019-12-17] MEDS: K, MAG and/or Phos replacement - Verify level? MC SCH (09:00)
[2019-12-17] MEDS ORDERED: epoetin 20,000 units/ml inj IV ONE (09:10)
[2019-12-17] MEDS ORDERED: heparin 1,000unit/ml 10ml vial 10 ML IV ONE (09:10)
[2019-12-17] MEDS ORDERED: heparin 1,000 units/ml 10ml inj IV ONE (09:10)
[2019-12-17] MEDS ORDERED: albumin (human) 25% 100ml IV 100 ML IV PRN (09:10)
[2019-12-17] MEDS ORDERED: heparin 1,000 units/ml 10ml inj HE ONE ×2 (09:15)
[2019-12-17] MEDS: methylnaltrexone br 12mg/0.6ml inj***SubQ only SQ SCH (12:12)
[2019-12-17] MEDS ORDERED: rocuronium 10mg/ml inj IV ONE (14:40)
--- NOTE | 2019-12-17 18:21 | NUR ---
Pt had tracheosty at bedside by Dr. Mcadams, Pt on sedation and comfortable.
--- NOTE | 2019-12-17 18:28 | NUR ---
Problems reprioritized. Patient report given to Aspen (Charge Nurse), questions answered & plan of care reviewed with .
--- NOTE | 2019-12-17 19:00 | NUR ---
Patient in room CICU 2007. I have received report from Yumiko DICK and had the opportunity to ask questions and assume patient care.
[2019-12-17] MEDS: insulin glargine (Lantus) pen - multi-dose SQ SCH (19:55)
[2019-12-17] MEDS: FAT EMULSION IV SCH (20:04)
[2019-12-18] VITALS (24 sets, daily range): BP systolic 98–168; BP diastolic 37–96
[2019-12-18] MEDS: FENTANYL-0.9 % NACL/PF 100 ML IV PRN ×8 (00:04→22:56)
[2019-12-18] MEDS: hydrocortisone sod succ/PF 100mg/2ml inj. IV SCH ×4 (02:00→19:47)
[2019-12-18] MEDS: mineral oil/petrolatum ophthal oint EACHEYE SCH ×4 (02:00→20:00)
[2019-12-18 02:15] LABS: BASOPHILS % (AUTO) 0.3 % (0-1); EOSINOPHILS % (AUTO) 0 % (0-6); HEMATOCRIT 26.1 % (42.0-52.0); HEMOGLOBIN 8.8 g/dl (14.0-17.9); LYMPHOCYTES # (AUTO) 0.5 X10'3 (1.1-4.8); LYMPHOCYTES % (AUTO) 3.8 % (21-51); MEAN CORPUSCULAR HEMOGLOBIN 30.3 PG (27.0-31.0); MEAN CORPUSCULAR HGB CONC 33.7 g/dL (33.0-36.5); MEAN PLATELET VOLUME 7.6 FL (7.4-10.4); MONOCYTES # (AUTO) 0.8 X10'3 (0-0.9); MONOCYTES % (AUTO) 6.5 % (2-12); NEUTROPHILS # (AUTO) 10.6 X10'3 (1.8-7.7); NEUTROPHILS % (AUTO) 89.4 % (42-75); PLATELET COUNT 317 X10'3 (140-440); RED BLOOD COUNT 2.89 X10'6 (4.70-6.10); RED CELL DISTRIBUTION WIDTH 14.2 % (11.5-14.5); WHITE BLOOD COUNT 11.8 X10'3 (4.5-11.0)
[2019-12-18 02:25] LABS: ALANINE AMINOTRANSFERASE 20 U/L (12-78); ALBUMIN 2.5 G/DL (3.4-5.0); ALBUMIN/GLOBULIN RATIO 0.6 (1.1-1.5); ALKALINE PHOSPHATASE 94 IU/L (46-116); ANION GAP 6 (8-16); ASPARTATE AMINO TRANSFERASE 10 U/L (10-37); BILIRUBIN,TOTAL 0.8 MG/DL (0.1-1.0); BLOOD UREA NITROGEN 35 MG/DL (7-18); BUN/CREATININE RATIO 32.7 (5.4-32.0); CALCIUM 8.2 MG/DL (8.5-10.1); CHLORIDE 104 MMOL/L (99-107); CREATININE 1.07 MG/DL (0.60-1.10); GLUCOSE 147 MG/DL (70-104); MAGNESIUM 1.8 MG/DL (1.5-2.4); PHOSPHORUS 3.6 MG/DL (2.3-4.5); POTASSIUM 3.8 MMOL/L (3.5-5.1); SODIUM 141 MMOL/L (135-145); TOTAL CARBON DIOXIDE 30.8 MMOL/L (24-32); TOTAL PROTEIN 6.8 G/DL (6.4-8.2); eGFR 73 ML/MIN
[2019-12-18] MEDS: ipratropium/albuterol 3ml nebule NEB SCH ×6 (02:52→23:25)
[2019-12-18 03:10] LABS: ABG HCO3 24.9 mmol/L (22.0-26.0); ABG OXYGEN SATURATION 94.8 % (95-98); ABG PCO2 (T) 46.2 mmHg (35.0-45.0); ABG PH (T) 7.348 (7.350-7.450); ABG PO2 (T) 84.9 mmHg (83-108); ALLEN'S TEST POSITIVE; FCOHb 0.3 % (0.5-1.5); FMetHb 0.2 % (0.3-1.12); FO2Hb 94.3 % (94-100); PATIENT TEMPERATURE 36.9; PEEP 8 cm H2O; RESPIRATORY RATE 22 b/min; TIDAL VOLUME 500 mL; TOTAL HEMOGLOBIN 10.4 G/dl (14.0-17.9)
[2019-12-18] MEDS: diltiazem-NS 100mg/100ml 100 ML IV SCH ×3 (03:20→19:40)
[2019-12-18 03:54] LABS: ANISOCYTOSIS 1+; PLATELET ESTIMATE NORMAL; POLYCHROMASIA FEW; TOTAL CELLS COUNTED 100
[2019-12-18] MEDS: midazolam 100mg in NS 100ml 100 ML IV PRN ×4 (06:06→21:51)
[2019-12-18] MEDS: THIAMINE IV SCH (07:20)
[2019-12-18] MEDS: NORMAL SALINE IV SCH (07:20)
[2019-12-18] MEDS: K, MAG and/or Phos replacement - Verify level? MC SCH (08:00)
[2019-12-18] MEDS: lactobacillus rhamnosus 10,000 MMU CELLS/CAPSULE OGT SCH ×2 (08:00→20:00)
[2019-12-18] MEDS: MVI, adult No.4 with vit. K 10 ML in dextrose 5% water 500ml 500 ML IV SCH ×2 (08:05)
[2019-12-18] MEDS: piperacillin/tazo 3.375gm/50ml 50 ML IV SCH ×3 (08:06→23:58)
[2019-12-18] MEDS: Trace element-5 inj. 1 ML in AA 5 %/CALCIUM/LYTES/DEXT 20% 2,000 ML IV SCH ×2 (08:07→22:36)
[2019-12-18] MEDS: famotidine/PF 10 mg/ml inj IV SCH ×2 (08:07→19:47)
[2019-12-18] MEDS: insulin regular, human U-100 3ml vial - multi-dose SQ SCH ×3 (08:12→20:08)
[2019-12-18] MEDS ORDERED: amiodarone/D5 360MG/200ML BAG 200 ML IV SCH (08:33)
[2019-12-18] MEDS ORDERED: amiodarone 150mg/dext, iso-os 100 ML IV ONE ×2 (08:35→17:15)
--- NOTE | 2019-12-18 08:56 | NUR ---
Patient in afib RVR this AM. ordered amiodarone drip. patient then converts to SR in the 80's; orders to hold amio for now, and start it if he does this again
[2019-12-18] MEDS: epoetin 20,000 units/ml inj SQ SCH (13:20)
[2019-12-18] MEDS: amiodarone/D5 360MG/200ML BAG 200 ML IV SCH ×2 (17:45→23:38)
--- NOTE | 2019-12-18 19:00 | NUR ---
Patient in room CICU 2007. I have received report from Vince DICK and had the opportunity to ask questions and assume patient care.
[2019-12-18] MEDS: insulin glargine (Lantus) pen - multi-dose SQ SCH (20:09)
[2019-12-18] MEDS: FAT EMULSION IV SCH (21:03)
[2019-12-19] VITALS (24 sets, daily range): BP systolic 101–184; BP diastolic 45–91
[2019-12-19] MEDS: insulin regular, human U-100 3ml vial - multi-dose SQ SCH ×3 (01:34→21:58)
[2019-12-19] MEDS: FENTANYL-0.9 % NACL/PF 100 ML IV PRN ×5 (02:09→22:57)
[2019-12-19] MEDS: hydrocortisone sod succ/PF 100mg/2ml inj. IV SCH ×4 (02:12→19:27)
[2019-12-19] MEDS: midazolam 100mg in NS 100ml 100 ML IV PRN ×4 (02:13→16:36)
[2019-12-19] MEDS: mineral oil/petrolatum ophthal oint EACHEYE SCH ×4 (02:18→19:27)
[2019-12-19] MEDS: ipratropium/albuterol 3ml nebule NEB SCH ×6 (03:32→23:07)
[2019-12-19 03:38] LABS: BASOPHILS # (AUTO) 0.1 X10'3 (0-0.2); BASOPHILS % (AUTO) 0.8 % (0-1); EOSINOPHILS % (AUTO) 0.1 % (0-6); LYMPHOCYTES # (AUTO) 0.8 X10'3 (1.1-4.8); LYMPHOCYTES % (AUTO) 8.9 % (21-51); MEAN CORPUSCULAR HEMOGLOBIN 29.9 PG (27.0-31.0); MEAN CORPUSCULAR HGB CONC 33.3 g/dL (33.0-36.5); MEAN CORPUSCULAR VOLUME 89.9 FL (78-98); MEAN PLATELET VOLUME 7.5 FL (7.4-10.4); MONOCYTES # (AUTO) 0.7 X10'3 (0-0.9); MONOCYTES % (AUTO) 7.5 % (2-12); NEUTROPHILS # (AUTO) 7.6 X10'3 (1.8-7.7); NEUTROPHILS % (AUTO) 82.7 % (42-75); PLATELET COUNT 337 X10'3 (140-440); RED CELL DISTRIBUTION WIDTH 14.5 % (11.5-14.5); WHITE BLOOD COUNT 9.2 X10'3 (4.5-11.0)
[2019-12-19 03:59] LABS: ALANINE AMINOTRANSFERASE 21 U/L (12-78); ALBUMIN 2.5 G/DL (3.4-5.0); ALBUMIN/GLOBULIN RATIO 0.6 (1.1-1.5); ALKALINE PHOSPHATASE 95 IU/L (46-116); ANION GAP 9 (8-16); ASPARTATE AMINO TRANSFERASE 14 U/L (10-37); BILIRUBIN,TOTAL 0.8 MG/DL (0.1-1.0); BLOOD UREA NITROGEN 60 MG/DL (7-18); BUN/CREATININE RATIO 43.2 (5.4-32.0); CALCIUM 8.4 MG/DL (8.5-10.1); CHLORIDE 107 MMOL/L (99-107); CREATININE 1.39 MG/DL (0.60-1.10); GLUCOSE 104 MG/DL (70-104); MAGNESIUM 1.9 MG/DL (1.5-2.4); PHOSPHORUS 3.9 MG/DL (2.3-4.5); POTASSIUM 3.7 MMOL/L (3.5-5.1); SODIUM 144 MMOL/L (135-145); TOTAL CARBON DIOXIDE 28.1 MMOL/L (24-32); TOTAL PROTEIN 6.9 G/DL (6.4-8.2); eGFR 54 ML/MIN
[2019-12-19 04:12] LABS: ANISOCYTOSIS 1+; LARGE PLATELETS FEW; PLATELET ESTIMATE NORMAL; POLYCHROMASIA FEW; TOTAL CELLS COUNTED 100
[2019-12-19 05:00] LABS: ABG BASE EXCESS -0.3 mmol/L (-2.0-3.0); ABG HCO3 25.3 mmol/L (22.0-26.0); ABG OXYGEN SATURATION 91.8 % (95-98); ABG PCO2 (T) 45.4 mmHg (35.0-45.0); ABG PH (T) 7.363 (7.350-7.450); ABG PO2 (T) 68.9 mmHg (83-108); ALLEN'S TEST POSITIVE; FCOHb 0.3 % (0.5-1.5); FMetHb 0.3 % (0.3-1.12); FO2Hb 91.2 % (94-100); PATIENT TEMPERATURE 36.8; PEEP 8 cm H2O; RESPIRATORY RATE 22 b/min; TIDAL VOLUME 500 mL; TOTAL HEMOGLOBIN 8.6 G/dl (14.0-17.9)
[2019-12-19] MEDS: NORMAL SALINE IV SCH (07:41)
[2019-12-19] MEDS: THIAMINE IV SCH (07:41)
[2019-12-19] MEDS: lactobacillus rhamnosus 10,000 MMU CELLS/CAPSULE OGT SCH ×2 (07:42→19:27)
[2019-12-19] MEDS: methylnaltrexone br 12mg/0.6ml inj***SubQ only SQ SCH (07:47)
[2019-12-19] MEDS: K, MAG and/or Phos replacement - Verify level? MC SCH (08:00)
[2019-12-19] MEDS: piperacillin/tazo 3.375gm/50ml 50 ML IV SCH ×2 (08:39→16:00)
[2019-12-19] MEDS: MVI, adult No.4 with vit. K 10 ML in dextrose 5% water 500ml 500 ML IV SCH ×2 (08:43)
[2019-12-19] MEDS: famotidine/PF 10 mg/ml inj IV SCH ×2 (08:43→19:27)
[2019-12-19] MEDS ORDERED: heparin 1,000unit/ml 10ml vial 10 ML IV ONE (09:02)
[2019-12-19] MEDS ORDERED: heparin 1,000 units/ml 10ml inj IV ONE (09:05)
[2019-12-19] MEDS ORDERED: albumin (human) 25% 100ml IV 100 ML IV PRN (09:05)
[2019-12-19] MEDS ORDERED: epoetin 20,000 units/ml inj IV ONE (09:05)
[2019-12-19] MEDS ORDERED: heparin 1,000 units/ml 10ml inj HE ONE ×2 (09:10)
[2019-12-19] MEDS: amiodarone/D5 360MG/200ML BAG 200 ML IV SCH ×2 (11:50→22:56)
--- NOTE | 2019-12-19 12:34 | NUR ---
reassessment: Pt s/p tracheostomy tolerating TPN at goal. Open abdomen wound vac in place. Pt now having large BM's 12/17 receiving relistor on opioids though also abdominal compartment syndrome secondary to pancreatitis and will remain on TPN. To have HD today plan 4-5L off w/ general +3 pitting edema present per MD. Will continue to monitor. Recommendations: 1) Recommend continuous 2:1 TPN using Clinimix E 02/22 at goal rate of 100ml/hr. Separate 20% intralipids at 9ml/hr for 12 hours daily to meet essential fat needs. To provide 2400ml fluid, 120g AA, 480g DEX(2.97mg/kg/min), 22g lipids, and total 2332kcals. Unable to meet needs without fluid overloading and overfeeding given high DEX formula. 2) Prealbumin q /; daily weights 3) When intra-abdominal pressure is decreased and abdomen closed, when OK by surgeon to start tube feedings, recommend to resume tube feedings at trickle tube feeding at 20 ml/hr using vital high Protein and advance tube feeding as tolerated using Vital High Protein with goal rate of 90mL/hr will provide total volume of 2160ml, 2160cals, 189g protein, and 1814ml free water. 4). When tube feedings resumed, provide additional 200 mL water flush q 4 hours 5) Pancreatitis nutrition therapy education once stable 6) Continue banana bag 7) Routine bowel care; opioid antagonist per MD Addendum: 12/19/19 at [address] Amended: Links added.
[2019-12-19] MEDS: Trace element-5 inj. 1 ML in AA 5 %/CALCIUM/LYTES/DEXT 20% 2,000 ML IV SCH (14:10)
[2019-12-19] MEDS: acetaminophen 325mg/10.15ml oral unit dose solution OGT PRN (19:27)
[2019-12-19] MEDS: FAT EMULSION IV SCH (19:27)
[2019-12-19] MEDS ORDERED: acetaminophen 325mg rectal suppository RC PRN (20:20)
[2019-12-19] MEDS: insulin glargine (Lantus) pen - multi-dose SQ SCH (22:11)
[2019-12-19] MEDS: acetaminophen 650mg rectal suppository RC PRN (22:15)
[2019-12-20] VITALS (22 sets, daily range): BP systolic 116–185; BP diastolic 64–90
[2019-12-20] MEDS: mineral oil/petrolatum ophthal oint EACHEYE SCH ×4 (01:22→20:00)
[2019-12-20] MEDS: hydrocortisone sod succ/PF 100mg/2ml inj. IV SCH ×4 (01:22→19:39)
[2019-12-20] MEDS: diltiazem-NS 100mg/100ml 100 ML IV SCH ×2 (01:23→13:25)
[2019-12-20] MEDS: midazolam 100mg in NS 100ml 100 ML IV PRN ×3 (01:24→23:39)
[2019-12-20] MEDS: FENTANYL-0.9 % NACL/PF 100 ML IV PRN ×5 (02:16→21:23)
[2019-12-20 02:41] LABS: ALANINE AMINOTRANSFERASE 33 U/L (12-78); ALBUMIN 2.6 G/DL (3.4-5.0); ALBUMIN/GLOBULIN RATIO 0.6 (1.1-1.5); ALKALINE PHOSPHATASE 139 IU/L (46-116); ANION GAP 6 (8-16); ASPARTATE AMINO TRANSFERASE 23 U/L (10-37); BLOOD UREA NITROGEN 33 MG/DL (7-18); BUN/CREATININE RATIO 30.8 (5.4-32.0); CHLORIDE 105 MMOL/L (99-107); CREATININE 1.07 MG/DL (0.60-1.10); GLUCOSE 115 MG/DL (70-104); MAGNESIUM 1.7 MG/DL (1.5-2.4); PHOSPHORUS 3.2 MG/DL (2.3-4.5); POTASSIUM 3.6 MMOL/L (3.5-5.1); SODIUM 140 MMOL/L (135-145); TOTAL CARBON DIOXIDE 29.1 MMOL/L (24-32); TOTAL PROTEIN 7.2 G/DL (6.4-8.2); TRIGLYCERIDES 190 MG/DL (20-135); eGFR 73 ML/MIN
[2019-12-20 02:46] LABS: BASOPHILS % (AUTO) 0.2 % (0-1); EOSINOPHILS % (AUTO) 0.3 % (0-6); HEMATOCRIT 29.7 % (42.0-52.0); HEMOGLOBIN 9.9 g/dl (14.0-17.9); LYMPHOCYTES # (AUTO) 0.8 X10'3 (1.1-4.8); LYMPHOCYTES % (AUTO) 6.9 % (21-51); MEAN CORPUSCULAR HGB CONC 33.4 g/dL (33.0-36.5); MEAN CORPUSCULAR VOLUME 89.8 FL (78-98); MEAN PLATELET VOLUME 7.2 FL (7.4-10.4); MONOCYTES # (AUTO) 0.8 X10'3 (0-0.9); MONOCYTES % (AUTO) 6.7 % (2-12); NEUTROPHILS # (AUTO) 9.8 X10'3 (1.8-7.7); NEUTROPHILS % (AUTO) 85.9 % (42-75); PLATELET COUNT 350 X10'3 (140-440); RED BLOOD COUNT 3.31 X10'6 (4.70-6.10); RED CELL DISTRIBUTION WIDTH 14.4 % (11.5-14.5); WHITE BLOOD COUNT 11.4 X10'3 (4.5-11.0)
[2019-12-20] MEDS: ipratropium/albuterol 3ml nebule NEB SCH ×6 (02:59→22:46)
[2019-12-20 03:13] LABS: TOTAL CELLS COUNTED 100
[2019-12-20 03:14] LABS: ANISOCYTOSIS 1+; LARGE PLATELETS FEW; PLATELET ESTIMATE NORMAL; POLYCHROMASIA FEW
[2019-12-20 04:11] LABS: ABG BASE EXCESS 1.1 mmol/L (-2.0-3.0); ABG HCO3 26.3 mmol/L (22.0-26.0); ABG OXYGEN SATURATION 95.5 % (95-98); ABG PCO2 (T) 47.2 mmHg (35.0-45.0); ABG PH (T) 7.371 (7.350-7.450); ABG PO2 (T) 88.1 mmHg (83-108); ALLEN'S TEST POSITIVE; FCOHb 0.3 % (0.5-1.5); FMetHb 0.2 % (0.3-1.12); PATIENT TEMPERATURE 38.4; PEEP 8 cm H2O; RESPIRATORY RATE 22 b/min; TIDAL VOLUME 500 mL; TOTAL HEMOGLOBIN 11.7 G/dl (14.0-17.9)
[2019-12-20] MEDS: piperacillin/tazo 3.375gm/50ml 50 ML IV SCH ×3 (07:30→16:06)
[2019-12-20] MEDS: MVI, adult No.4 with vit. K 10 ML in dextrose 5% water 500ml 500 ML IV SCH ×2 (07:35)
[2019-12-20] MEDS: famotidine/PF 10 mg/ml inj IV SCH ×2 (07:35→19:39)
[2019-12-20] MEDS: NORMAL SALINE IV SCH (07:38)
[2019-12-20] MEDS: THIAMINE IV SCH (07:38)
[2019-12-20] MEDS: K, MAG and/or Phos replacement - Verify level? MC SCH (08:00)
[2019-12-20] MEDS: lactobacillus rhamnosus 10,000 MMU CELLS/CAPSULE OGT SCH ×2 (08:00→19:39)
[2019-12-20] MEDS: acetaminophen 650mg rectal suppository RC PRN (08:26)
[2019-12-20] MEDS: amiodarone/D5 360MG/200ML BAG 200 ML IV SCH ×2 (10:43→22:12)
[2019-12-20] MEDS: Dextrose 10%-water IV solution 1,000 ML IV PRN (10:44)
[2019-12-20] MEDS: FAT EMULSION IV SCH (19:39)
--- NOTE | 2019-12-20 20:00 | NUR ---
upon assessment, leaking noted around the wound vac site. no seal leak detected in wound vac. Maycol ROCK CUTTER and charge nurse were called to the bedside to assess patient. Because there was not seal leak and wound vac was still draining properly, no interventions done and surgeon did not need to be called per ROCK CUTTER. Pt to go back to OR today for wound vac change.
[2019-12-20] MEDS: insulin glargine (Lantus) pen - multi-dose SQ SCH (20:39)
[2019-12-21] VITALS (29 sets, daily range): BP systolic 103–173; BP diastolic 54–101
[2019-12-21] MEDS: hydrocortisone sod succ/PF 100mg/2ml inj. IV SCH ×4 (02:23→20:59)
[2019-12-21] MEDS: insulin regular, human U-100 3ml vial - multi-dose SQ SCH ×4 (02:32→21:15)
[2019-12-21] MEDS: mineral oil/petrolatum ophthal oint EACHEYE SCH ×4 (02:41→20:59)
[2019-12-21 02:43] LABS: BASOPHILS % (AUTO) 0.6 % (0-1); EOSINOPHILS # (AUTO) 0.2 X10'3 (0-0.9); EOSINOPHILS % (AUTO) 2.9 % (0-6); HEMATOCRIT 28.1 % (42.0-52.0); HEMOGLOBIN 9.7 g/dl (14.0-17.9); LYMPHOCYTES # (AUTO) 0.8 X10'3 (1.1-4.8); LYMPHOCYTES % (AUTO) 11.7 % (21-51); MEAN CORPUSCULAR HEMOGLOBIN 30.7 PG (27.0-31.0); MEAN CORPUSCULAR HGB CONC 34.6 g/dL (33.0-36.5); MEAN CORPUSCULAR VOLUME 88.9 FL (78-98); MEAN PLATELET VOLUME 7.2 FL (7.4-10.4); MONOCYTES # (AUTO) 0.4 X10'3 (0-0.9); MONOCYTES % (AUTO) 5.7 % (2-12); NEUTROPHILS # (AUTO) 5.1 X10'3 (1.8-7.7); NEUTROPHILS % (AUTO) 79.1 % (42-75); PLATELET COUNT 274 X10'3 (140-440); RED BLOOD COUNT 3.17 X10'6 (4.70-6.10); RED CELL DISTRIBUTION WIDTH 15.1 % (11.5-14.5); WHITE BLOOD COUNT 6.4 X10'3 (4.5-11.0)
[2019-12-21 02:50] LABS: ALANINE AMINOTRANSFERASE 22 U/L (12-78); ALBUMIN 2.4 G/DL (3.4-5.0); ALBUMIN/GLOBULIN RATIO 0.5 (1.1-1.5); ALKALINE PHOSPHATASE 111 IU/L (46-116); ANION GAP 8 (8-16); ASPARTATE AMINO TRANSFERASE 14 U/L (10-37); BILIRUBIN,TOTAL 0.9 MG/DL (0.1-1.0); BLOOD UREA NITROGEN 44 MG/DL (7-18); BUN/CREATININE RATIO 34.6 (5.4-32.0); CALCIUM 8.2 MG/DL (8.5-10.1); CHLORIDE 106 MMOL/L (99-107); CREATININE 1.27 MG/DL (0.60-1.10); GLUCOSE 179 MG/DL (70-104); MAGNESIUM 1.8 MG/DL (1.5-2.4); PHOSPHORUS 3.4 MG/DL (2.3-4.5); POTASSIUM 3.7 MMOL/L (3.5-5.1); SODIUM 143 MMOL/L (135-145); TOTAL CARBON DIOXIDE 28.7 MMOL/L (24-32); eGFR 60 ML/MIN
[2019-12-21] MEDS: ipratropium/albuterol 3ml nebule NEB SCH ×6 (03:26→23:34)
[2019-12-21] MEDS: FENTANYL-0.9 % NACL/PF 100 ML IV PRN (04:36)
[2019-12-21] MEDS: K, MAG and/or Phos replacement - Verify level? MC SCH (08:00)
[2019-12-21] MEDS ORDERED: normal saline 1000ml 250 ML IV PRN ×2 (08:00→09:16)
[2019-12-21] MEDS: lactobacillus rhamnosus 10,000 MMU CELLS/CAPSULE OGT SCH ×2 (08:00→20:59)
[2019-12-21] MEDS: methylnaltrexone br 12mg/0.6ml inj***SubQ only SQ SCH (08:00)
[2019-12-21] MEDS ORDERED: heparin 1,000 units/ml 10ml inj HE ONE ×4 (08:00→09:20)
[2019-12-21] MEDS ORDERED: epoetin 20,000 units/ml inj IV ONE ×2 (08:00→09:20)
[2019-12-21] MEDS ORDERED: LIDOcaine 1% (10mg/ml) 2ml vial SQ ONE ×2 (08:00→09:20)
[2019-12-21] MEDS ORDERED: normal saline 1000ml 100 ML IV PRN ×2 (08:00→09:16)
[2019-12-21] MEDS: piperacillin/tazo 3.375gm/50ml 50 ML IV SCH ×3 (08:01→15:24)
[2019-12-21] MEDS: famotidine/PF 10 mg/ml inj IV SCH ×2 (08:01→20:59)
[2019-12-21] MEDS: NORMAL SALINE IV SCH (08:01)
[2019-12-21] MEDS: THIAMINE IV SCH (08:01)
[2019-12-21] MEDS: MVI, adult No.4 with vit. K 10 ML in dextrose 5% water 500ml 500 ML IV SCH ×2 (08:01)
[2019-12-21] MEDS: Trace element-5 inj. 1 ML in AA 5 %/CALCIUM/LYTES/DEXT 20% 2,000 ML IV SCH (08:03)
[2019-12-21] MEDS: midazolam 100mg in NS 100ml 100 ML IV PRN ×3 (08:31→23:57)
[2019-12-21] MEDS: amiodarone/D5 360MG/200ML BAG 200 ML IV SCH ×4 (09:07→20:58)
[2019-12-21] MEDS ORDERED: amiodarone in dextrose, iso-osm 360mg/200ml bag IV ONE (10:07)
[2019-12-21] MEDS ORDERED: sevoflurane 250ml liquid IH ONE (10:07)
[2019-12-21] MEDS ORDERED: niCARDipine in NS 40mg/200ml (0.2mg/ml) IVPB IV ONE (10:07)
--- NOTE | 2019-12-21 10:23 | NUR ---
pt out of the unit for surgery.
[2019-12-21] MEDS ORDERED: MIDAZolam 5mg/5ml vial ONE (10:24)
[2019-12-21] MEDS ORDERED: fentaNYL /PF 50mcg/ml 5ml ampule ONE (10:24)
[2019-12-21] MEDS ORDERED: gentamicin 40 MG/1 ML inj ONE (10:30)
[2019-12-21] MEDS ORDERED: clindamycin phosphate 150mg/ml inj. ONE (10:31)
[2019-12-21] MEDS ORDERED: rocuronium 10mg/ml inj IV ONE (10:57)
[2019-12-21] MEDS: epoetin 20,000 units/ml inj SQ SCH (11:05)
--- NOTE | 2019-12-21 11:45 | NUR ---
pt back to unit from OR
[2019-12-21] MEDS: diltiazem-NS 100mg/100ml 100 ML IV SCH (19:45)
[2019-12-21] MEDS: FAT EMULSION IV SCH (20:59)
[2019-12-21] MEDS: insulin glargine (Lantus) pen - multi-dose SQ SCH (21:14)
[2019-12-22] VITALS (24 sets, daily range): BP systolic 106–172; BP diastolic 47–97
[2019-12-22] MEDS: piperacillin/tazo 3.375gm/50ml 50 ML IV SCH ×3 (00:34→16:30)
[2019-12-22] MEDS: acetaminophen 650mg rectal suppository RC PRN ×2 (00:34→08:04)
[2019-12-22] MEDS: FENTANYL-0.9 % NACL/PF 100 ML IV PRN ×4 (00:52→21:50)
[2019-12-22] MEDS: Trace element-5 inj. 1 ML in AA 5 %/CALCIUM/LYTES/DEXT 20% 2,000 ML IV SCH ×2 (02:20→22:15)
[2019-12-22] MEDS: insulin regular, human U-100 3ml vial - multi-dose SQ SCH ×3 (02:20→21:08)
[2019-12-22] MEDS: mineral oil/petrolatum ophthal oint EACHEYE SCH ×4 (02:30→20:42)
[2019-12-22] MEDS: hydrocortisone sod succ/PF 100mg/2ml inj. IV SCH ×4 (02:30→20:42)
[2019-12-22 02:46] LABS: BASOPHILS % (AUTO) 0.5 % (0-1); EOSINOPHILS # (AUTO) 0.1 X10'3 (0-0.9); HEMATOCRIT 25.3 % (42.0-52.0); HEMOGLOBIN 8.7 g/dl (14.0-17.9); LYMPHOCYTES % (AUTO) 17.3 % (21-51); MEAN CORPUSCULAR HEMOGLOBIN 30.6 PG (27.0-31.0); MEAN CORPUSCULAR HGB CONC 34.4 g/dL (33.0-36.5); MEAN CORPUSCULAR VOLUME 88.9 FL (78-98); MEAN PLATELET VOLUME 7.5 FL (7.4-10.4); MONOCYTES # (AUTO) 0.2 X10'3 (0-0.9); MONOCYTES % (AUTO) 4.2 % (2-12); NEUTROPHILS # (AUTO) 4.3 X10'3 (1.8-7.7); PLATELET COUNT 247 X10'3 (140-440); RED BLOOD COUNT 2.84 X10'6 (4.70-6.10); RED CELL DISTRIBUTION WIDTH 14.4 % (11.5-14.5); WHITE BLOOD COUNT 5.6 X10'3 (4.5-11.0)
[2019-12-22 02:57] LABS: ALANINE AMINOTRANSFERASE 21 U/L (12-78); ALBUMIN 2.2 G/DL (3.4-5.0); ALBUMIN/GLOBULIN RATIO 0.5 (1.1-1.5); ALKALINE PHOSPHATASE 100 IU/L (46-116); ANION GAP 8 (8-16); ASPARTATE AMINO TRANSFERASE 26 U/L (10-37); BILIRUBIN,TOTAL 0.8 MG/DL (0.1-1.0); BLOOD UREA NITROGEN 29 MG/DL (7-18); BUN/CREATININE RATIO 28.7 (5.4-32.0); CHLORIDE 103 MMOL/L (99-107); CREATININE 1.01 MG/DL (0.60-1.10); GLUCOSE 224 MG/DL (70-104); MAGNESIUM 1.7 MG/DL (1.5-2.4); PHOSPHORUS 2.4 MG/DL (2.3-4.5); POTASSIUM 3.1 MMOL/L (3.5-5.1); SODIUM 140 MMOL/L (135-145); TOTAL CARBON DIOXIDE 28.6 MMOL/L (24-32); TOTAL PROTEIN 6.8 G/DL (6.4-8.2); eGFR 78 ML/MIN
[2019-12-22] MEDS: potassium Cl 20mEq/100mL bag 100 ML IV PRN ×2 (03:22→07:22)
[2019-12-22] MEDS: ipratropium/albuterol 3ml nebule NEB SCH ×6 (03:29→23:46)
[2019-12-22] MEDS: midazolam 100mg in NS 100ml 100 ML IV PRN ×3 (05:34→18:46)
[2019-12-22] MEDS: dextrose 50%-water 50ml dispensing syringe IV PRN (07:18)
[2019-12-22] MEDS: NORMAL SALINE IV SCH (07:26)
[2019-12-22] MEDS: THIAMINE IV SCH (07:26)
[2019-12-22] MEDS: MVI, adult No.4 with vit. K 10 ML in dextrose 5% water 500ml 500 ML IV SCH ×2 (07:27)
[2019-12-22] MEDS ORDERED: normal saline 1000ml 250 ML IV PRN (08:00)
[2019-12-22] MEDS ORDERED: normal saline 1000ml 100 ML IV PRN (08:00)
[2019-12-22] MEDS ORDERED: heparin 1,000 units/ml 10ml inj HE ONE ×2 (08:00)
[2019-12-22] MEDS: K, MAG and/or Phos replacement - Verify level? MC SCH (08:00)
[2019-12-22] MEDS ORDERED: epoetin 20,000 units/ml inj IV ONE (08:00)
[2019-12-22] MEDS: lactobacillus rhamnosus 10,000 MMU CELLS/CAPSULE OGT SCH ×2 (08:00→20:00)
[2019-12-22] MEDS ORDERED: albumin (human) 25% 100ml IV 100 ML IV PRN (08:00)
[2019-12-22] MEDS: famotidine/PF 10 mg/ml inj IV SCH ×2 (08:05→20:42)
[2019-12-22] MEDS ORDERED: DEXTROSE IV SCH (09:30)
[2019-12-22] MEDS ORDERED: AMIODARONE 360 MG IV SCH (09:30)
[2019-12-22] MEDS: amiodarone inj. 450 MG in dextrose 5%-water 250 ML IV SCH ×2 (09:48→17:39)
--- NOTE | 2019-12-22 12:19 | NUR ---
reassessment: Pt tolerating TPN at goal s/p abdomen wound closure. Abdominal pressure of 15 today per RN; documented as 16 last night and 5 this morning likely documentation error. Still unable to meet pt protein needs using high DEX formula. +3 pitting edema on HD w/ 18,764ml negative fluid balance past 4 days. Pt having loose stools w/ reddened buttock per RN. No EN at this time w/ elevated abdominal pressure s/p wound closure. Will continue to monitor. Recommendations: 1) Recommend continuous 2:1 TPN using Clinimix E 02/22 at goal rate of 100ml/hr. Separate 20% intralipids at 9ml/hr for 12 hours daily to meet essential fat needs. To provide 2400ml fluid, 120g AA, 480g DEX(2.97mg/kg/min), 22g lipids, and total 2332kcals. Unable to meet needs without fluid overloading and overfeeding given high DEX formula. 2) Prealbumin q /; daily weights 3) When intra-abdominal pressure is decreased and okay by surgeon to start tube feedings, recommend trickle tube feeding at 20 ml/hr using vital high Protein and advance as tolerated to goal rate 90mL/hr. Will provide total volume of 2160ml, 2160cals, 189g protein,and 1814ml free water. 4). When tube feedings resumed, provide additional 200 mL water flush q 4 hours 5) Continue banana bag 6) Routine bowel care; opioid antagonist per MD Addendum: 12/22/19 at [address] Amended: Links added.
[2019-12-22] MEDS: diltiazem-NS 100mg/100ml 100 ML IV SCH (15:45)
--- NOTE | 2019-12-22 18:55 | NUR ---
Patient in room CICU 2008. I have received report from Elizabeth DICK, and had the opportunity to ask questions and assume patient care.
[2019-12-22] MEDS: FAT EMULSION IV SCH (20:42)
[2019-12-22] MEDS: insulin glargine (Lantus) pen - multi-dose SQ SCH (21:09)
[2019-12-23] VITALS (24 sets, daily range): BP systolic 93–180; BP diastolic 52–93
[2019-12-23] MEDS: piperacillin/tazo 3.375gm/50ml 50 ML IV SCH ×3 (00:15→16:20)
[2019-12-23] MEDS: amiodarone inj. 450 MG in dextrose 5%-water 250 ML IV SCH ×3 (00:15→16:21)
[2019-12-23] MEDS: midazolam 100mg in NS 100ml 100 ML IV PRN ×3 (01:19→14:31)
[2019-12-23] MEDS: hydrocortisone sod succ/PF 100mg/2ml inj. IV SCH ×4 (02:02→20:15)
[2019-12-23] MEDS: mineral oil/petrolatum ophthal oint EACHEYE SCH ×4 (02:02→20:15)
[2019-12-23] MEDS: insulin regular, human U-100 3ml vial - multi-dose SQ SCH ×4 (02:20→21:12)
[2019-12-23 02:59] LABS: BASOPHILS % (AUTO) 0.1 % (0-1); EOSINOPHILS % (AUTO) 0.1 % (0-6); HEMATOCRIT 25.3 % (42.0-52.0); HEMOGLOBIN 8.5 g/dl (14.0-17.9); LYMPHOCYTES # (AUTO) 0.7 X10'3 (1.1-4.8); LYMPHOCYTES % (AUTO) 11.9 % (21-51); MEAN CORPUSCULAR HEMOGLOBIN 29.7 PG (27.0-31.0); MEAN CORPUSCULAR HGB CONC 33.7 g/dL (33.0-36.5); MEAN CORPUSCULAR VOLUME 88.3 FL (78-98); MEAN PLATELET VOLUME 7.9 FL (7.4-10.4); MONOCYTES # (AUTO) 0.3 X10'3 (0-0.9); MONOCYTES % (AUTO) 5.4 % (2-12); NEUTROPHILS # (AUTO) 4.8 X10'3 (1.8-7.7); NEUTROPHILS % (AUTO) 82.5 % (42-75); PLATELET COUNT 245 X10'3 (140-440); RED BLOOD COUNT 2.86 X10'6 (4.70-6.10); RED CELL DISTRIBUTION WIDTH 14.8 % (11.5-14.5); WHITE BLOOD COUNT 5.8 X10'3 (4.5-11.0)
[2019-12-23 03:14] LABS: ALANINE AMINOTRANSFERASE 48 U/L (12-78); ALBUMIN 2.2 G/DL (3.4-5.0); ALBUMIN/GLOBULIN RATIO 0.5 (1.1-1.5); ALKALINE PHOSPHATASE 129 IU/L (46-116); ANION GAP 7 (8-16); ASPARTATE AMINO TRANSFERASE 17 U/L (10-37); BILIRUBIN,TOTAL 0.8 MG/DL (0.1-1.0); BLOOD UREA NITROGEN 47 MG/DL (7-18); BUN/CREATININE RATIO 35.1 (5.4-32.0); CHLORIDE 104 MMOL/L (99-107); CREATININE 1.34 MG/DL (0.60-1.10); GLUCOSE 198 MG/DL (70-104); MAGNESIUM 1.8 MG/DL (1.5-2.4); PHOSPHORUS 4.1 MG/DL (2.3-4.5); POTASSIUM 3.6 MMOL/L (3.5-5.1); SODIUM 139 MMOL/L (135-145); TOTAL CARBON DIOXIDE 27.7 MMOL/L (24-32); TOTAL PROTEIN 6.8 G/DL (6.4-8.2); TRIGLYCERIDES 139 MG/DL (20-135); eGFR 56 ML/MIN
[2019-12-23] MEDS: ipratropium/albuterol 3ml nebule NEB SCH ×6 (03:33→23:43)
[2019-12-23] MEDS: FENTANYL-0.9 % NACL/PF 100 ML IV PRN ×3 (04:03→21:13)
--- NOTE | 2019-12-23 06:15 | NUR ---
Patient in room CICU 2007. I have received report from sulfide head operator and had the opportunity to ask questions and assume patient care.
--- NOTE | 2019-12-23 06:44 | NUR ---
Problems reprioritized. Patient report given, questions answered & plan of care reviewed with Martha DICK.
[2019-12-23] MEDS: methylnaltrexone br 12mg/0.6ml inj***SubQ only SQ SCH (08:00)
[2019-12-23] MEDS: K, MAG and/or Phos replacement - Verify level? MC SCH (08:00)
[2019-12-23] MEDS: lactobacillus rhamnosus 10,000 MMU CELLS/CAPSULE OGT SCH ×2 (08:00→20:00)
[2019-12-23] MEDS: MVI, adult No.4 with vit. K 10 ML in dextrose 5% water 500ml 500 ML IV SCH ×2 (08:19)
[2019-12-23] MEDS: famotidine/PF 10 mg/ml inj IV SCH ×2 (08:19→20:15)
[2019-12-23] MEDS: NORMAL SALINE IV SCH (08:22)
[2019-12-23] MEDS: THIAMINE IV SCH (08:22)
[2019-12-23] MEDS: epoetin 20,000 units/ml inj SQ SCH (11:05)
[2019-12-23 11:31] LABS: ABG BASE EXCESS -1.3 mmol/L (-2.0-3.0); ABG HCO3 23.5 mmol/L (22.0-26.0); ABG OXYGEN SATURATION 98.1 % (95-98); ABG PCO2 (T) 39.7 mmHg (35.0-45.0); ABG PH (T) 7.391 (7.350-7.450); ALLEN'S TEST POSITIVE; FCOHb 0.3 % (0.5-1.5); FMetHb 0.1 % (0.3-1.12); FO2Hb 97.7 % (94-100); PEEP 8 cm H2O; RESPIRATORY RATE 22 b/min; TIDAL VOLUME 500 mL; TOTAL HEMOGLOBIN 8.4 G/dl (14.0-17.9)
[2019-12-23] MEDS: diltiazem-NS 100mg/100ml 100 ML IV SCH (11:45)
[2019-12-23 11:53] LABS: LIPASE 424 U/L (73-393)
[2019-12-23] MEDS: Trace element-5 inj. 1 ML in AA 5 %/CALCIUM/LYTES/DEXT 20% 2,000 ML IV SCH (16:26)
--- NOTE | 2019-12-23 18:49 | NUR ---
Patient in room CICU 2008. I have received report from Martha DICK, and had the opportunity to ask questions and assume patient care.
[2019-12-23] MEDS: FAT EMULSION IV SCH (20:39)
[2019-12-23] MEDS: insulin glargine (Lantus) pen - multi-dose SQ SCH (21:11)
[2019-12-24] VITALS (24 sets, daily range): BP systolic 85–182; BP diastolic 45–138
[2019-12-24] MEDS: piperacillin/tazo 3.375gm/50ml 50 ML IV SCH ×2 (00:53→07:58)
[2019-12-24] MEDS: amiodarone inj. 450 MG in dextrose 5%-water 250 ML IV SCH ×2 (01:03→07:58)
[2019-12-24] MEDS: FENTANYL-0.9 % NACL/PF 100 ML IV PRN ×3 (02:42→17:32)
[2019-12-24] MEDS: mineral oil/petrolatum ophthal oint EACHEYE SCH ×4 (02:42→20:30)
[2019-12-24] MEDS: hydrocortisone sod succ/PF 100mg/2ml inj. IV SCH ×4 (02:43→20:29)
[2019-12-24] MEDS: insulin regular, human U-100 3ml vial - multi-dose SQ SCH ×4 (03:07→21:49)
[2019-12-24] MEDS: ipratropium/albuterol 3ml nebule NEB SCH ×6 (03:17→23:10)
[2019-12-24 03:30] LABS: BASOPHILS % (AUTO) 0.1 % (0-1); EOSINOPHILS % (AUTO) 0 % (0-6); HEMATOCRIT 25.6 % (42.0-52.0); HEMOGLOBIN 8.7 g/dl (14.0-17.9); LYMPHOCYTES # (AUTO) 0.8 X10'3 (1.1-4.8); MEAN CORPUSCULAR HEMOGLOBIN 30.1 PG (27.0-31.0); MEAN CORPUSCULAR HGB CONC 34.1 g/dL (33.0-36.5); MEAN CORPUSCULAR VOLUME 88.2 FL (78-98); MEAN PLATELET VOLUME 7.7 FL (7.4-10.4); MONOCYTES # (AUTO) 0.3 X10'3 (0-0.9); MONOCYTES % (AUTO) 5.5 % (2-12); NEUTROPHILS # (AUTO) 5.1 X10'3 (1.8-7.7); NEUTROPHILS % (AUTO) 81.4 % (42-75); PLATELET COUNT 277 X10'3 (140-440); RED CELL DISTRIBUTION WIDTH 14.5 % (11.5-14.5); WHITE BLOOD COUNT 6.2 X10'3 (4.5-11.0)
[2019-12-24 03:31] LABS: ALANINE AMINOTRANSFERASE 41 U/L (12-78); ALBUMIN 2.3 G/DL (3.4-5.0); ALBUMIN/GLOBULIN RATIO 0.5 (1.1-1.5); ALKALINE PHOSPHATASE 136 IU/L (46-116); ANION GAP 9 (8-16); ASPARTATE AMINO TRANSFERASE 19 U/L (10-37); BILIRUBIN,TOTAL 0.7 MG/DL (0.1-1.0); BLOOD UREA NITROGEN 49 MG/DL (7-18); BUN/CREATININE RATIO 37.4 (5.4-32.0); CALCIUM 8.2 MG/DL (8.5-10.1); CHLORIDE 108 MMOL/L (99-107); CREATININE 1.31 MG/DL (0.60-1.10); GLUCOSE 140 MG/DL (70-104); PHOSPHORUS 3.6 MG/DL (2.3-4.5); POTASSIUM 3.2 MMOL/L (3.5-5.1); SODIUM 144 MMOL/L (135-145); TOTAL CARBON DIOXIDE 27.3 MMOL/L (24-32); TOTAL PROTEIN 7.2 G/DL (6.4-8.2); eGFR 58 ML/MIN
[2019-12-24] MEDS: potassium Cl 20mEq/100mL bag 100 ML IV PRN ×2 (05:31→06:58)
[2019-12-24] MEDS: midazolam 100mg in NS 100ml 100 ML IV PRN ×2 (05:32→23:01)
--- NOTE | 2019-12-24 06:15 | NUR ---
Patient in room CICU 2007. I have received report from third shift lieutenant and had the opportunity to ask questions and assume patient care.
--- NOTE | 2019-12-24 06:54 | NUR ---
Problems reprioritized. Patient report given, questions answered & plan of care reviewed with Martha DICK.
[2019-12-24] MEDS: diltiazem-NS 100mg/100ml 100 ML IV SCH (07:45)
[2019-12-24] MEDS: lactobacillus rhamnosus 10,000 MMU CELLS/CAPSULE OGT SCH ×2 (08:00→20:29)
[2019-12-24] MEDS: K, MAG and/or Phos replacement - Verify level? MC SCH (08:03)
[2019-12-24] MEDS: famotidine/PF 10 mg/ml inj IV SCH ×2 (08:24→20:29)
[2019-12-24] MEDS: THIAMINE IV SCH (08:24)
[2019-12-24] MEDS: NORMAL SALINE IV SCH (08:24)
[2019-12-24] MEDS: MVI, adult No.4 with vit. K 10 ML in dextrose 5% water 500ml 500 ML IV SCH ×2 (08:25)
[2019-12-24] MEDS: dexmedetomidin/NS 400mcg/100ml 100 ML IV SCH ×2 (12:15→20:19)
[2019-12-24] MEDS: Trace element-5 inj. 1 ML in AA 5 %/CALCIUM/LYTES/DEXT 20% 2,000 ML IV SCH (12:38)
[2019-12-24] MEDS: VANCOmycin 1250MG/NS 250ml Bag 250 ML IV SCH (13:22)
--- NOTE | 2019-12-24 15:54 | NUR ---
TF consult: Order in place for Corpak placement. Per consult, MD request trickle feed at 10 cc/hr until further notice. TF recommendations for goal rate to meet nutrient needs below for once MD okays to advance TF goal rate. Will continue to follow closely. reassessment: Pt tolerating TPN at goal s/p abdomen wound closure. Abdominal pressure of 15 today per RN; documented as 16 last night and 5 this morning likely documentation error. Still unable to meet pt protein needs using high DEX formula. +3 pitting edema on HD w/ 18,764ml negative fluid balance past 4 days. Pt having loose stools w/ reddened buttock per RN. No EN at this time w/ elevated abdominal pressure s/p wound closure. Will continue to monitor. Recommendations: 1) Recommend continuous 2:1 TPN using Clinimix E 20 at goal rate of 100ml/hr. Separate 20% intralipids at 9ml/hr for 12 hours daily to meet essential fat needs. To provide 2400ml fluid, 120g AA, 480g DEX(2.97mg/kg/min), 22g lipids, and total 2332kcals. Unable to meet needs without fluid overloading and overfeeding given high DEX formula. 2) Prealbumin q /; daily weights 3) Once Corpak placed and confirmed in appropriate location, trickle tube feeding at 10 mL/hr per MD using Vital High Protein to provide: 240 mL total volume/day, 240 kcal, 21 g protein, and 201 mL water. 4) Once MD okays, advance TF as tolerated to goal rate of 90 mL/hr. Will provide total volume of 2160 mL/day, 2160 kcal, 189 g protein,and 1814 mL free water. 5) When tube feedings are advancing to increased goal rate, provide additional 200 mL water flush Q4H 6) Continue banana bag 7) Routine bowel care; opioid antagonist per MD Addendum: 12/24/19 at [address] Amended: Links added.
--- NOTE | 2019-12-24 18:06 | NUR ---
Problems reprioritized. Patient report given, questions answered & plan of care reviewed with oncoming shift.
--- NOTE | 2019-12-24 18:30 | NUR ---
Patient in room CICU 2008. I have received report from Martha DICK, and had the opportunity to ask questions and assume patient care.
[2019-12-24] MEDS: FAT EMULSION IV SCH (20:29)
[2019-12-24] MEDS: heparin, porcine 5000 units/ml vial SQ SCH (20:30)
[2019-12-24] MEDS: amiodarone 200mg tablet CORPAK SCH (20:31)
[2019-12-24] MEDS: insulin glargine (Lantus) pen - multi-dose SQ SCH (21:50)
[2019-12-25] VITALS (23 sets, daily range): BP systolic 95–175; BP diastolic 57–92
[2019-12-25] MEDS: FENTANYL-0.9 % NACL/PF 100 ML IV PRN ×2 (01:19→14:48)
[2019-12-25] MEDS: VANCOmycin 1250MG/NS 250ml Bag 250 ML IV SCH ×2 (01:26→14:05)
[2019-12-25] MEDS: mineral oil/petrolatum ophthal oint EACHEYE SCH ×4 (02:10→21:00)
[2019-12-25] MEDS: hydrocortisone sod succ/PF 100mg/2ml inj. IV SCH ×4 (02:10→21:09)
[2019-12-25 02:49] LABS: BASOPHILS % (AUTO) 0.1 % (0-1); EOSINOPHILS % (AUTO) 0.1 % (0-6); HEMATOCRIT 24.3 % (42.0-52.0); HEMOGLOBIN 8.1 g/dl (14.0-17.9); LYMPHOCYTES # (AUTO) 0.7 X10'3 (1.1-4.8); MEAN CORPUSCULAR HEMOGLOBIN 29.4 PG (27.0-31.0); MEAN CORPUSCULAR HGB CONC 33.6 g/dL (33.0-36.5); MEAN CORPUSCULAR VOLUME 87.5 FL (78-98); MEAN PLATELET VOLUME 7.7 FL (7.4-10.4); MONOCYTES # (AUTO) 0.3 X10'3 (0-0.9); MONOCYTES % (AUTO) 7.6 % (2-12); NEUTROPHILS # (AUTO) 3.5 X10'3 (1.8-7.7); NEUTROPHILS % (AUTO) 77.2 % (42-75); PLATELET COUNT 276 X10'3 (140-440); RED BLOOD COUNT 2.77 X10'6 (4.70-6.10); RED CELL DISTRIBUTION WIDTH 14.8 % (11.5-14.5); WHITE BLOOD COUNT 4.5 X10'3 (4.5-11.0)
[2019-12-25 03:12] LABS: ALANINE AMINOTRANSFERASE 49 U/L (12-78); ALBUMIN 2.2 G/DL (3.4-5.0); ALBUMIN/GLOBULIN RATIO 0.5 (1.1-1.5); ALKALINE PHOSPHATASE 140 IU/L (46-116); ANION GAP 8 (8-16); ASPARTATE AMINO TRANSFERASE 20 U/L (10-37); BILIRUBIN,TOTAL 0.6 MG/DL (0.1-1.0); BLOOD UREA NITROGEN 52 MG/DL (7-18); BUN/CREATININE RATIO 40.6 (5.4-32.0); CALCIUM 8.1 MG/DL (8.5-10.1); CHLORIDE 110 MMOL/L (99-107); CREATININE 1.28 MG/DL (0.60-1.10); GLUCOSE 177 MG/DL (70-104); PHOSPHORUS 4.2 MG/DL (2.3-4.5); POTASSIUM 3.3 MMOL/L (3.5-5.1); SODIUM 144 MMOL/L (135-145); TOTAL CARBON DIOXIDE 25.6 MMOL/L (24-32); TOTAL PROTEIN 6.8 G/DL (6.4-8.2); eGFR 59 ML/MIN
[2019-12-25] MEDS: ipratropium/albuterol 3ml nebule NEB SCH ×6 (03:34→23:10)
[2019-12-25] MEDS: dexmedetomidin/NS 400mcg/100ml 100 ML IV SCH ×3 (04:02→18:40)
[2019-12-25] MEDS: potassium Cl 20mEq/100mL bag 100 ML IV PRN ×2 (06:12→07:58)
--- NOTE | 2019-12-25 06:15 | NUR ---
Patient in room CICU 2007. I have received report from table games shift manager and had the opportunity to ask questions and assume patient care.
--- NOTE | 2019-12-25 06:51 | NUR ---
Problems reprioritized. Patient report given, questions answered & plan of care reviewed with Martha DICK.
[2019-12-25] MEDS: MVI, adult No.4 with vit. K 10 ML in dextrose 5% water 500ml 500 ML IV SCH ×2 (07:59)
[2019-12-25] MEDS: THIAMINE IV SCH (07:59)
[2019-12-25] MEDS: famotidine/PF 10 mg/ml inj IV SCH ×2 (07:59→21:09)
[2019-12-25] MEDS: NORMAL SALINE IV SCH (07:59)
[2019-12-25] MEDS: heparin, porcine 5000 units/ml vial SQ SCH ×2 (07:59→21:10)
[2019-12-25] MEDS: amiodarone 200mg tablet CORPAK SCH ×2 (08:00→21:10)
[2019-12-25] MEDS: K, MAG and/or Phos replacement - Verify level? MC SCH (08:00)
[2019-12-25] MEDS: lactobacillus rhamnosus 10,000 MMU CELLS/CAPSULE OGT SCH ×2 (08:00→21:09)
[2019-12-25] MEDS: methylnaltrexone br 12mg/0.6ml inj***SubQ only SQ SCH (08:00)
[2019-12-25] MEDS: Trace element-5 inj. 1 ML in AA 5 %/CALCIUM/LYTES/DEXT 20% 2,000 ML IV SCH (08:05)
--- NOTE | 2019-12-25 12:58 | NUR ---
TF consult: Per KUB results the Corpak has been advanced past the stomach into the region of the fourth portion of the duodenum. TF to increase by 20 mL Q12H as tolerated to goal rate per MD. TPN being titrated, currently running at 50 mL/hr, although RD recommends continuing TPN until TF at goal rate to monitor patient's tolerance to TF given slow advancement and GI tract hasn't been used for nutrition for almost a month. LB 12/23. Will continue to follow closely. Recommendations: 1) continuous 2:1 TPN using Clinimix E 02/22 at goal rate of 100ml/hr. Separate 20% intralipids at 9ml/hr for 12 hours daily to meet essential fat needs. To provide 2400ml fluid, 120g AA, 480g DEX(2.97mg/kg/min), 22g lipids, and total 2332kcals. Unable to meet needs without fluid overloading and overfeeding given high DEX formula. 2) Prealbumin q /; daily weights 3) Continuous TF using Vital High Protein with goal rate of 90 mL/hr to provide total volume of 2160 mL/day, 2160 kcal, 189 g protein, and 1814 mL free water. Advance TF by 20 mL Q12H as tolerated to goal rate per MD 5) Water flush per MD 6) Continue TPN until pt tolerating TF at goal rate 7) Continue banana bag 8) Routine bowel care; opioid antagonist per MD Addendum: 12/25/19 at [address] Amended: Links added.
[2019-12-25] MEDS: epoetin 20,000 units/ml inj SQ SCH (15:58)
--- NOTE | 2019-12-25 18:06 | NUR ---
Problems reprioritized. Patient report given, questions answered & plan of care reviewed with oncoming shift.
[2019-12-25] MEDS: insulin glargine (Lantus) pen - multi-dose SQ SCH (21:41)
[2019-12-25] MEDS: insulin regular, human U-100 3ml vial - multi-dose SQ SCH (21:42)
[2019-12-26] VITALS (25 sets, daily range): BP systolic 127–175; BP diastolic 46–87
[2019-12-26] MEDS: FENTANYL-0.9 % NACL/PF 100 ML IV PRN ×3 (00:05→18:13)
[2019-12-26] MEDS ORDERED: VANCOMYCIN LEVEL IV ONE (00:30)
[2019-12-26 01:00] LABS: ALANINE AMINOTRANSFERASE 44 U/L (12-78); ALBUMIN 2.3 G/DL (3.4-5.0); ALBUMIN/GLOBULIN RATIO 0.5 (1.1-1.5); ALKALINE PHOSPHATASE 134 IU/L (46-116); ANION GAP 10 (8-16); ASPARTATE AMINO TRANSFERASE 18 U/L (10-37); BILIRUBIN,TOTAL 0.6 MG/DL (0.1-1.0); BLOOD UREA NITROGEN 48 MG/DL (7-18); BUN/CREATININE RATIO 37.2 (5.4-32.0); CHLORIDE 114 MMOL/L (99-107); CREATININE 1.29 MG/DL (0.60-1.10); GLUCOSE 118 MG/DL (70-104); PHOSPHORUS 3.2 MG/DL (2.3-4.5); POTASSIUM 3.2 MMOL/L (3.5-5.1); SODIUM 150 MMOL/L (135-145); TOTAL CARBON DIOXIDE 25.9 MMOL/L (24-32); TOTAL PROTEIN 6.7 G/DL (6.4-8.2); eGFR 59 ML/MIN
[2019-12-26] MEDS: VANCOmycin 1250MG/NS 250ml Bag 250 ML IV SCH (01:00)
[2019-12-26 01:03] LABS: VANCOMYCIN,TROUGH 28.7 UG/ML (6.0-14.0)
--- NOTE | 2019-12-26 01:51 | NUR ---
1830..Patient in room CICU 2007. I have received report from Mikki DICK and had the opportunity to ask questions and assume patient care.
--- NOTE | 2019-12-26 01:52 | NUR ---
1999..Assessment as noted, pt restless/agitated, increasing fentanyl and precedex.
--- NOTE | 2019-12-26 01:53 | NUR ---
0000..No changes noted.
[2019-12-26] MEDS: mineral oil/petrolatum ophthal oint EACHEYE SCH ×4 (02:00→19:56)
[2019-12-26 03:19] LABS: EOSINOPHILS % (AUTO) 0.1 % (0-6); HEMATOCRIT 24.6 % (42.0-52.0); HEMOGLOBIN 8.2 g/dl (14.0-17.9); LYMPHOCYTES # (AUTO) 0.9 X10'3 (1.1-4.8); LYMPHOCYTES % (AUTO) 20.5 % (21-51); MEAN CORPUSCULAR HEMOGLOBIN 28.9 PG (27.0-31.0); MEAN CORPUSCULAR HGB CONC 33.1 g/dL (33.0-36.5); MEAN CORPUSCULAR VOLUME 87.2 FL (78-98); MEAN PLATELET VOLUME 7.2 FL (7.4-10.4); MONOCYTES # (AUTO) 0.2 X10'3 (0-0.9); MONOCYTES % (AUTO) 4.4 % (2-12); NEUTROPHILS # (AUTO) 3.3 X10'3 (1.8-7.7); PLATELET COUNT 296 X10'3 (140-440); RED BLOOD COUNT 2.82 X10'6 (4.70-6.10); RED CELL DISTRIBUTION WIDTH 14.7 % (11.5-14.5); WHITE BLOOD COUNT 4.4 X10'3 (4.5-11.0)
[2019-12-26] MEDS: ipratropium/albuterol 3ml nebule NEB SCH ×6 (03:19→23:19)
[2019-12-26] MEDS: hydrocortisone sod succ/PF 100mg/2ml inj. IV SCH ×4 (03:25→19:54)
--- NOTE | 2019-12-26 03:30 | NUR ---
0300..Continues to require frequent bolus for agitation
--- NOTE | 2019-12-26 05:47 | NUR ---
0400..Abd dsg changed, foul smelling drainage noted. No other changes noted.
--- NOTE | 2019-12-26 06:29 | NUR ---
0625..Problems reprioritized. Patient report given, questions answered & plan of care reviewed with Solitario DICK.
--- NOTE | 2019-12-26 06:30 | NUR ---
Patient in room CICU 2007. I have received report from Kiarra DICK and had the opportunity to ask questions and assume patient care.
[2019-12-26] MEDS: MVI, adult No.4 with vit. K 10 ML in dextrose 5% water 500ml 500 ML IV SCH ×2 (07:41)
[2019-12-26] MEDS: amiodarone 200mg tablet CORPAK SCH ×2 (07:45→19:55)
[2019-12-26] MEDS: lactobacillus rhamnosus 10,000 MMU CELLS/CAPSULE OGT SCH ×2 (07:46→19:55)
[2019-12-26] MEDS: POTASSIUM BICARB 20meq eff tab 20 MEQ TABLET.EFF OGT PRN ×3 (07:46→20:44)
[2019-12-26] MEDS: heparin, porcine 5000 units/ml vial SQ SCH ×2 (07:47→19:55)
[2019-12-26] MEDS: famotidine/PF 10 mg/ml inj IV SCH ×2 (07:50→19:55)
[2019-12-26] MEDS: THIAMINE IV SCH (07:51)
[2019-12-26] MEDS: NORMAL SALINE IV SCH (07:51)
[2019-12-26] MEDS: K, MAG and/or Phos replacement - Verify level? MC SCH (08:00)
[2019-12-26] MEDS: insulin regular, human U-100 3ml vial - multi-dose SQ SCH ×3 (08:13→20:15)
[2019-12-26] MEDS: dextrose 5%-water 1,000 ML IV SCH ×2 (10:47→19:54)
[2019-12-26] MEDS: OLANZapine 2.5MG tablet PO SCH (11:26)
--- NOTE | 2019-12-26 13:00 | NUR ---
Patient has had 3 loose odorous stools that leaving staining to skin despite multiple wipes. Patient has received zosyn and vanco in the last month of hospitalization. Received order from Dr. Goodwin to place rectal tube and get sample to test for C. Diff. Called Dr. Enrique to discuss. After discussing patient's case he agreed to allow testing of stool. Will continue to monitor.
[2019-12-26] MEDS: VANCOMYCIN 750MG IV in NS 250 ML IV SCH ×2 (13:40→23:41)
[2019-12-26 16:05] LABS: C DIFF SPECIMEN=DIARRHEA? ACCEPTABLE
[2019-12-26 16:07] LABS: C DIFF ANTIGEN NEGATIVE (NEGATIVE); C DIFFICILE TOXINS A&B NEGATIVE (Neg)
--- NOTE | 2019-12-26 18:22 | NUR ---
Problems reprioritized. Patient report given, questions answered & plan of care reviewed with Deborah RN, Cristal RN.
--- NOTE | 2019-12-26 18:25 | NUR ---
Patient in room CICU 2007. I have received report from MAYELIN Quintana and had the opportunity to ask questions and assume patient care. Patient is laying comfortably on hospital bed, I will continue to monitor.
--- NOTE | 2019-12-26 19:08 | NUR ---
Patient flipped into SVT with HR in 160-170's, left msg for to call with orders. In meantime the patient flipped back to SR.
--- NOTE | 2019-12-26 19:21 | NUR ---
Per October,PA if patient goes back into SVT start Amio drip per protocol.
[2019-12-26] MEDS: acetaminophen 325mg/10.15ml oral unit dose solution OGT PRN (19:57)
[2019-12-26] MEDS: insulin glargine (Lantus) pen - multi-dose SQ SCH (20:14)
[2019-12-27] VITALS (25 sets, daily range): BP systolic 131–163; BP diastolic 66–90
[2019-12-27] MEDS: mineral oil/petrolatum ophthal oint EACHEYE SCH ×4 (01:41→19:14)
[2019-12-27] MEDS: hydrocortisone sod succ/PF 100mg/2ml inj. IV SCH ×4 (02:15→20:41)
[2019-12-27] MEDS: insulin regular, human U-100 3ml vial - multi-dose SQ SCH ×4 (02:17→20:58)
[2019-12-27 02:40] LABS: BASOPHILS % (AUTO) 0.3 % (0-1); EOSINOPHILS % (AUTO) 0 % (0-6); HEMATOCRIT 22.1 % (42.0-52.0); HEMOGLOBIN 7.4 g/dl (14.0-17.9); LYMPHOCYTES % (AUTO) 17.9 % (21-51); MEAN CORPUSCULAR HEMOGLOBIN 29.3 PG (27.0-31.0); MEAN CORPUSCULAR HGB CONC 33.4 g/dL (33.0-36.5); MEAN CORPUSCULAR VOLUME 87.6 FL (78-98); MEAN PLATELET VOLUME 7.7 FL (7.4-10.4); MONOCYTES # (AUTO) 0.3 X10'3 (0-0.9); MONOCYTES % (AUTO) 5.1 % (2-12); NEUTROPHILS # (AUTO) 4.1 X10'3 (1.8-7.7); NEUTROPHILS % (AUTO) 76.7 % (42-75); PLATELET COUNT 330 X10'3 (140-440); RED BLOOD COUNT 2.53 X10'6 (4.70-6.10); RED CELL DISTRIBUTION WIDTH 15.2 % (11.5-14.5); WHITE BLOOD COUNT 5.3 X10'3 (4.5-11.0)
[2019-12-27 02:51] LABS: ALANINE AMINOTRANSFERASE 63 U/L (12-78); ALBUMIN 2.3 G/DL (3.4-5.0); ALBUMIN/GLOBULIN RATIO 0.5 (1.1-1.5); ALKALINE PHOSPHATASE 146 IU/L (46-116); ANION GAP 9 (8-16); ASPARTATE AMINO TRANSFERASE 32 U/L (10-37); BILIRUBIN,TOTAL 0.6 MG/DL (0.1-1.0); BLOOD UREA NITROGEN 44 MG/DL (7-18); BUN/CREATININE RATIO 36.1 (5.4-32.0); CALCIUM 7.7 MG/DL (8.5-10.1); CHLORIDE 112 MMOL/L (99-107); CREATININE 1.22 MG/DL (0.60-1.10); GLUCOSE 140 MG/DL (70-104); MAGNESIUM 1.5 MG/DL (1.5-2.4); PREALBUMIN 26.6 MG/DL (19-36); SODIUM 148 MMOL/L (135-145); TOTAL CARBON DIOXIDE 26.8 MMOL/L (24-32); TOTAL PROTEIN 6.6 G/DL (6.4-8.2); TRIGLYCERIDES 143 MG/DL (20-135); eGFR 63 ML/MIN
[2019-12-27 02:53] LABS: POTASSIUM 2.5 MMOL/L (3.5-5.1)
[2019-12-27] MEDS: POTASSIUM BICARB 20meq eff tab 20 MEQ TABLET.EFF OGT PRN ×3 (03:00→20:42)
[2019-12-27 03:28] LABS: LIPASE 339 U/L (73-393)
[2019-12-27] MEDS: ipratropium/albuterol 3ml nebule NEB SCH ×6 (03:32→23:20)
[2019-12-27] MEDS: FENTANYL-0.9 % NACL/PF 100 ML IV PRN ×2 (04:39→16:22)
[2019-12-27] MEDS: dextrose 5%-water 1,000 ML IV SCH ×2 (06:13→18:20)
[2019-12-27] MEDS: acetaminophen 325mg/10.15ml oral unit dose solution OGT PRN (06:13)
[2019-12-27] MEDS: K, MAG and/or Phos replacement - Verify level? MC SCH (08:00)
[2019-12-27] MEDS: thiamine 100mg tablet CORPAK SCH (08:47)
[2019-12-27] MEDS: POTASSIUM BICARB 20meq eff tab 20 MEQ TABLET.EFF PO SCH ×2 (08:47→20:42)
[2019-12-27] MEDS: OLANZapine 2.5MG tablet PO SCH (08:47)
[2019-12-27] MEDS: lactobacillus rhamnosus 10,000 MMU CELLS/CAPSULE OGT SCH ×2 (08:47→20:40)
[2019-12-27] MEDS: famotidine/PF 10 mg/ml inj IV SCH ×2 (08:48→20:41)
[2019-12-27] MEDS: multivitamins, therapeutics tablet PO SCH (08:48)
[2019-12-27] MEDS: amiodarone 200mg tablet CORPAK SCH ×2 (08:48→20:41)
[2019-12-27] MEDS: heparin, porcine 5000 units/ml vial SQ SCH ×2 (08:49→20:39)
--- NOTE | 2019-12-27 11:41 | NUR ---
Reassessment: Pt tolerating TF at goal. LBM 12/25. K 2.5 receiving D5 at 100ml/hr per RN w/ Na 148 to start 100ml water flush Q6 per MD. TPN has been weaned. PALB WNL. Will continue to monitor for EN tolerance. Recommendations: 1) Continuous TF using Vital High Protein with goal rate of 90 mL/hr to provide total volume of 2160 mL/day, 2160 kcal, 189 g protein, and 1814 mL free water. Advance TF by 20 mL Q12H as tolerated to goal rate per MD 2) Prealbumin q /; daily weights 3) Water flush 100ml Q4 per MD 4) thiamin, folic, MVI for etoh hx 5) Routine bowel care; opioid antagonist per MD Addendum: 12/27/19 at [address] Amended: Links added.
[2019-12-27] MEDS: potassium Cl 20mEq/100mL bag 100 ML IV PRN ×4 (12:27→16:32)
[2019-12-27] MEDS: VANCOMYCIN 750MG IV in NS 250 ML IV SCH ×2 (12:27→23:45)
--- NOTE | 2019-12-27 18:30 | NUR ---
Patient in room CICU 2007. I have received report from MAYELIN Lyons and had the opportunity to ask questions and assume patient care.
[2019-12-27] MEDS: insulin glargine (Lantus) pen - multi-dose SQ SCH (20:59)
[2019-12-27] MEDS ORDERED: VANCOMYCIN LEVEL IV ONE (23:30)
[2019-12-28] VITALS (24 sets, daily range): BP systolic 98–163; BP diastolic 57–90
--- NOTE | 2019-12-28 00:30 | NUR ---
Patient restless and squirming a lot, corpak was displaced. I attempted to reinsert corpak, however xray showed it was coiled in stomach. Because of his abdominal surgery, I will leave it out until IR can reinsert in am. D10 hung in place of tube feed.
[2019-12-28] MEDS: mineral oil/petrolatum ophthal oint EACHEYE SCH ×4 (02:00→19:18)
[2019-12-28] MEDS: potassium Cl 20mEq/100mL bag 100 ML IV PRN ×4 (02:00→14:22)
[2019-12-28] MEDS: hydrocortisone sod succ/PF 100mg/2ml inj. IV SCH ×4 (02:00→19:17)
[2019-12-28] MEDS: dextrose 5%-water 1,000 ML IV SCH ×3 (03:43→22:43)
[2019-12-28] MEDS: ipratropium/albuterol 3ml nebule NEB SCH ×6 (03:44→23:15)
[2019-12-28 04:36] LABS: BASOPHILS # (AUTO) 0.1 X10'3 (0-0.2); BASOPHILS % (AUTO) 0.8 % (0-1); EOSINOPHILS % (AUTO) 0 % (0-6); HEMATOCRIT 24.7 % (42.0-52.0); HEMOGLOBIN 8.5 g/dl (14.0-17.9); LYMPHOCYTES # (AUTO) 1.1 X10'3 (1.1-4.8); LYMPHOCYTES % (AUTO) 18.4 % (21-51); MEAN CORPUSCULAR HEMOGLOBIN 30.3 PG (27.0-31.0); MEAN CORPUSCULAR HGB CONC 34.4 g/dL (33.0-36.5); MEAN CORPUSCULAR VOLUME 88.2 FL (78-98); MEAN PLATELET VOLUME 7.2 FL (7.4-10.4); MONOCYTES # (AUTO) 0.1 X10'3 (0-0.9); MONOCYTES % (AUTO) 2.3 % (2-12); NEUTROPHILS # (AUTO) 4.8 X10'3 (1.8-7.7); NEUTROPHILS % (AUTO) 78.5 % (42-75); PLATELET COUNT 315 X10'3 (140-440); RED CELL DISTRIBUTION WIDTH 15.3 % (11.5-14.5); WHITE BLOOD COUNT 6.1 X10'3 (4.5-11.0)
[2019-12-28 05:06] LABS: ALANINE AMINOTRANSFERASE 55 U/L (12-78); ALBUMIN 2.3 G/DL (3.4-5.0); ALBUMIN/GLOBULIN RATIO 0.5 (1.1-1.5); ALKALINE PHOSPHATASE 128 IU/L (46-116); ANION GAP 9 (8-16); ASPARTATE AMINO TRANSFERASE 21 U/L (10-37); BILIRUBIN,TOTAL 0.7 MG/DL (0.1-1.0); BLOOD UREA NITROGEN 36 MG/DL (7-18); CALCIUM 7.8 MG/DL (8.5-10.1); CHLORIDE 113 MMOL/L (99-107); CREATININE 1.03 MG/DL (0.60-1.10); GLUCOSE 104 MG/DL (70-104); LIPASE 263 U/L (73-393); MAGNESIUM 1.5 MG/DL (1.5-2.4); PHOSPHORUS 2.9 MG/DL (2.3-4.5); POTASSIUM 3.3 MMOL/L (3.5-5.1); SODIUM 150 MMOL/L (135-145); TOTAL CARBON DIOXIDE 28.4 MMOL/L (24-32); TOTAL PROTEIN 6.6 G/DL (6.4-8.2); eGFR 76 ML/MIN
[2019-12-28] MEDS: thiamine 100mg tablet CORPAK SCH ×2 (07:24→09:02)
[2019-12-28] MEDS: lactobacillus rhamnosus 10,000 MMU CELLS/CAPSULE OGT SCH ×3 (07:24→19:18)
[2019-12-28] MEDS: famotidine/PF 10 mg/ml inj IV SCH ×2 (07:24→19:18)
[2019-12-28] MEDS: multivitamins, therapeutics tablet PO SCH ×2 (07:24→09:03)
[2019-12-28] MEDS: amiodarone 200mg tablet CORPAK SCH ×3 (07:24→19:18)
[2019-12-28] MEDS: POTASSIUM BICARB 20meq eff tab 20 MEQ TABLET.EFF PO SCH ×3 (07:25→19:18)
[2019-12-28] MEDS: OLANZapine 2.5MG tablet PO SCH ×2 (07:25→08:00)
[2019-12-28] MEDS: heparin, porcine 5000 units/ml vial SQ SCH ×2 (08:00→19:17)
[2019-12-28] MEDS: K, MAG and/or Phos replacement - Verify level? MC SCH (08:00)
[2019-12-28] MEDS: epoetin 20,000 units/ml inj SQ SCH (12:40)
[2019-12-28] MEDS: insulin regular, human U-100 3ml vial - multi-dose SQ SCH ×2 (13:32→21:15)
[2019-12-28] MEDS: FENTANYL-0.9 % NACL/PF 100 ML IV PRN ×2 (13:36→22:44)
--- NOTE | 2019-12-28 15:16 | NUR ---
Large amount of drainage from surgical incision, Called Dr. Del Castillo and received and order for CT abdomen pelvis with oral contrast prep overnight. Order noted. Dressing changed
--- NOTE | 2019-12-28 20:01 | NUR ---
placed patient on heated trach mist fio2 40%. VSS with small creamy secretions.
[2019-12-28] MEDS: diatr meglu/diatrizoate 30ml oral sol.-(3 dose) bottle PO SCH (21:10)
[2019-12-28] MEDS: insulin glargine (Lantus) pen - multi-dose SQ SCH (21:16)
--- NOTE | 2019-12-28 21:43 | NUR ---
patient had increased agitation and desats, placed back on vent, rn giving sedation
[2019-12-28] MEDS: MIDAZolam 5mg/ml 2ml vial IV PRN (21:46)
[2019-12-29] VITALS (24 sets, daily range): BP systolic 98–160; BP diastolic 60–89
[2019-12-29] MEDS: mineral oil/petrolatum ophthal oint EACHEYE SCH ×4 (01:10→20:00)
[2019-12-29] MEDS: hydrocortisone sod succ/PF 100mg/2ml inj. IV SCH ×4 (02:14→20:53)
[2019-12-29 02:46] LABS: BASOPHILS % (AUTO) 0.5 % (0-1); EOSINOPHILS % (AUTO) 0.7 % (0-6); HEMOGLOBIN 7.1 g/dl (14.0-17.9); LYMPHOCYTES # (AUTO) 0.6 X10'3 (1.1-4.8); LYMPHOCYTES % (AUTO) 20.5 % (21-51); MEAN CORPUSCULAR HEMOGLOBIN 29.7 PG (27.0-31.0); MEAN CORPUSCULAR HGB CONC 33.5 g/dL (33.0-36.5); MEAN CORPUSCULAR VOLUME 88.6 FL (78-98); MEAN PLATELET VOLUME 7.8 FL (7.4-10.4); MONOCYTES # (AUTO) 0.1 X10'3 (0-0.9); MONOCYTES % (AUTO) 3.2 % (2-12); NEUTROPHILS # (AUTO) 2.2 X10'3 (1.8-7.7); NEUTROPHILS % (AUTO) 75.1 % (42-75); PLATELET COUNT 275 X10'3 (140-440); RED CELL DISTRIBUTION WIDTH 15.1 % (11.5-14.5)
[2019-12-29 02:58] LABS: ALANINE AMINOTRANSFERASE 45 U/L (12-78); ALBUMIN 1.8 G/DL (3.4-5.0); ALBUMIN/GLOBULIN RATIO 0.5 (1.1-1.5); ALKALINE PHOSPHATASE 103 IU/L (46-116); ANION GAP 7 (8-16); ASPARTATE AMINO TRANSFERASE 18 U/L (10-37); BILIRUBIN,TOTAL 0.5 MG/DL (0.1-1.0); BLOOD UREA NITROGEN 38 MG/DL (7-18); BUN/CREATININE RATIO 35.5 (5.4-32.0); CALCIUM 7.9 MG/DL (8.5-10.1); CHLORIDE 110 MMOL/L (99-107); CREATININE 1.07 MG/DL (0.60-1.10); GLUCOSE 111 MG/DL (70-104); MAGNESIUM 1.4 MG/DL (1.5-2.4); PHOSPHORUS 2.2 MG/DL (2.3-4.5); SODIUM 145 MMOL/L (135-145); TOTAL CARBON DIOXIDE 27.9 MMOL/L (24-32); TOTAL PROTEIN 5.6 G/DL (6.4-8.2); eGFR 73 ML/MIN
[2019-12-29 03:01] LABS: HEMATOCRIT 21.3 % (42.0-52.0); POTASSIUM 2.8 MMOL/L (3.5-5.1)
[2019-12-29] MEDS: ipratropium/albuterol 3ml nebule NEB SCH ×6 (03:08→23:31)
[2019-12-29] MEDS: potassium Cl 20mEq/100mL bag 100 ML IV PRN ×4 (03:26→15:17)
[2019-12-29 03:57] LABS: TOTAL CELLS COUNTED 100
[2019-12-29 03:58] LABS: PLATELET ESTIMATE NORMAL
[2019-12-29] MEDS: magnesium 4gm in 100ml NS 100 ML IV PRN (04:48)
[2019-12-29] MEDS: FENTANYL-0.9 % NACL/PF 100 ML IV PRN ×3 (05:40→23:36)
[2019-12-29] MEDS: diatr meglu/diatrizoate 30ml oral sol.-(3 dose) bottle PO SCH ×2 (07:00→15:19)
[2019-12-29] MEDS: POTASSIUM BICARB 20meq eff tab 20 MEQ TABLET.EFF PO SCH ×2 (08:00→20:53)
[2019-12-29] MEDS: multivitamins, therapeutics tablet PO SCH (08:00)
[2019-12-29] MEDS: thiamine 100mg tablet CORPAK SCH (08:00)
[2019-12-29] MEDS: heparin, porcine 5000 units/ml vial SQ SCH ×2 (08:00→20:53)
[2019-12-29] MEDS: K, MAG and/or Phos replacement - Verify level? MC SCH (08:00)
[2019-12-29] MEDS: lactobacillus rhamnosus 10,000 MMU CELLS/CAPSULE OGT SCH ×2 (08:00→20:53)
[2019-12-29] MEDS: amiodarone 200mg tablet CORPAK SCH ×2 (08:00→20:53)
[2019-12-29] MEDS: famotidine/PF 10 mg/ml inj IV SCH ×2 (08:00→20:53)
[2019-12-29] MEDS: OLANZapine 2.5MG tablet PO SCH (08:00)
[2019-12-29] MEDS: dextrose 5%-water 1,000 ML IV SCH ×2 (09:21→20:53)
[2019-12-29] MEDS: insulin regular, human U-100 3ml vial - multi-dose SQ SCH (09:36)
--- NOTE | 2019-12-29 10:40 | NUR ---
F/u: Pt K, Mg, and Phos decreased. Not refeeding given tolerating TF at goal. Pt is still receiving D5 at 100ml/hr in addition to EN and 1500ml stool output noted 12/26-12/27. Both likely impacting electrolytes. MANJU d/w RN regarding decrease in Dex per foot gatherer approval since receiving EN. Na down to 145 from 150 yesterday w/ increased water flushes as well which could influence potassium. Addendum: 12/29/19 at [address] Amended: Links added.
--- NOTE | 2019-12-29 11:16 | NUR ---
PT. WAS ON HEATED AEROSOL FOR 0700 AND 1100 TX. Addendum: 12/29/19 at 1116 by Dale [address] RT Amended: Links added.
[2019-12-29] MEDS: dextrose 50%-water 50ml dispensing syringe IV PRN (15:08)
[2019-12-29] MEDS: MIDAZolam 5mg/ml 2ml vial IV PRN ×2 (18:54→23:34)
--- NOTE | 2019-12-29 19:30 | NUR ---
1829: Patient very anxious. Attempting to get out of bed. "Going home." Attempted to reorient but patient noted with increased agitation. Patient on vent. Notable cuff leak present. Reported from previous shift that patient was able to ventilate without problems but noted now to automatically switch back to backup mode of A/C due to low volumes. Attempted to inflate cuff but leak remains. Patient still restless and attempting to get out of bed. Medicated with prn Versed 5mg. Paged RT to assess patient's trach. 1899: Patient noted to desat to low 80's. 100% FIO2 via vent. RT assessing cuff leak. 1914: Restraint reapplied. Patient sedated and calm at present time. Continues to desat. RT present in room. 1919: October Pauly EQUIPMENT OPERATOR WAREHOUSE contacted and made aware of cuff leak and desaturations. Assessed patient and called Dr. Rodriguez to change trach. 1939. Dr. Rodriguez present and Trach exchange done without incident. Patient placed on vent spontaneous mode.
[2019-12-29] MEDS: insulin glargine (Lantus) pen - multi-dose SQ SCH (20:46)
[2019-12-30] VITALS (23 sets, daily range): BP systolic 92–224; BP diastolic 44–113
[2019-12-30] MEDS: mineral oil/petrolatum ophthal oint EACHEYE SCH ×4 (02:00→20:40)
[2019-12-30 02:47] LABS: BASOPHILS % (AUTO) 0.3 % (0-1); EOSINOPHILS % (AUTO) 0.4 % (0-6); HEMOGLOBIN 7.2 g/dl (14.0-17.9); LYMPHOCYTES # (AUTO) 0.6 X10'3 (1.1-4.8); LYMPHOCYTES % (AUTO) 18.1 % (21-51); MEAN CORPUSCULAR HEMOGLOBIN 29.7 PG (27.0-31.0); MEAN CORPUSCULAR HGB CONC 33.7 g/dL (33.0-36.5); MEAN CORPUSCULAR VOLUME 88.2 FL (78-98); MEAN PLATELET VOLUME 7.6 FL (7.4-10.4); MONOCYTES # (AUTO) 0.1 X10'3 (0-0.9); MONOCYTES % (AUTO) 2.8 % (2-12); NEUTROPHILS # (AUTO) 2.6 X10'3 (1.8-7.7); NEUTROPHILS % (AUTO) 78.4 % (42-75); PLATELET COUNT 282 X10'3 (140-440); RED BLOOD COUNT 2.44 X10'6 (4.70-6.10); RED CELL DISTRIBUTION WIDTH 15.5 % (11.5-14.5); WHITE BLOOD COUNT 3.3 X10'3 (4.5-11.0)
[2019-12-30 02:57] LABS: HEMATOCRIT 21.5 % (42.0-52.0)
[2019-12-30 03:00] LABS: ALANINE AMINOTRANSFERASE 41 U/L (12-78); ALBUMIN 1.8 G/DL (3.4-5.0); ALBUMIN/GLOBULIN RATIO 0.5 (1.1-1.5); ALKALINE PHOSPHATASE 104 IU/L (46-116); ANION GAP 5 (8-16); ASPARTATE AMINO TRANSFERASE 18 U/L (10-37); BILIRUBIN,TOTAL 0.6 MG/DL (0.1-1.0); BLOOD UREA NITROGEN 28 MG/DL (7-18); BUN/CREATININE RATIO 28.9 (5.4-32.0); CALCIUM 7.8 MG/DL (8.5-10.1); CHLORIDE 107 MMOL/L (99-107); CREATININE 0.97 MG/DL (0.60-1.10); GLUCOSE 111 MG/DL (70-104); MAGNESIUM 1.8 MG/DL (1.5-2.4); PHOSPHORUS 2.8 MG/DL (2.3-4.5); POTASSIUM 3.4 MMOL/L (3.5-5.1); PREALBUMIN 18.5 MG/DL (19-36); SODIUM 142 MMOL/L (135-145); TOTAL CARBON DIOXIDE 29.6 MMOL/L (24-32); TOTAL PROTEIN 5.6 G/DL (6.4-8.2); TRIGLYCERIDES 194 MG/DL (20-135); eGFR 82 ML/MIN
[2019-12-30] MEDS: hydrocortisone sod succ/PF 100mg/2ml inj. IV SCH ×4 (03:04→20:40)
[2019-12-30] MEDS: ipratropium/albuterol 3ml nebule NEB SCH ×6 (03:19→23:02)
[2019-12-30] MEDS: potassium Cl 20mEq/100mL bag 100 ML IV PRN ×2 (03:20→04:21)
[2019-12-30 03:47] LABS: NUCLEATED RED BLOOD CELLS 1 /100WBC (0-0); TOTAL CELLS COUNTED 100
[2019-12-30 03:48] LABS: PLATELET ESTIMATE NORMAL; TEAR DROP CELLS FEW
[2019-12-30] MEDS: dextrose 5%-water 1,000 ML IV SCH (04:21)
--- NOTE | 2019-12-30 06:42 | NUR ---
Patient in room CICU 2007. I have received report from Jasmin DICK and had the opportunity to ask questions and assume patient care.
[2019-12-30] MEDS: K, MAG and/or Phos replacement - Verify level? MC SCH (08:00)
--- NOTE | 2019-12-30 08:30 | NUR ---
per trust evaluation supervisorSarita DICK, AM PO meds held until after AM CT scan.
[2019-12-30] MEDS: heparin, porcine 5000 units/ml vial SQ SCH ×2 (09:13→20:41)
[2019-12-30] MEDS: famotidine/PF 10 mg/ml inj IV SCH ×2 (09:13→20:40)
[2019-12-30] MEDS ORDERED: iohexol 300mg/ml 100ml inj. ONE (10:12)
--- NOTE | 2019-12-30 10:17 | NUR ---
Reassessment: TF currently on hold as pt awaiting CT however previously tolerating at goal rate. Electrolytes have improved, K is 3.4 today, up from 2.8 yesterday; Na, mag, and Phos WNL. Pt documented with 700 mL stool output 12/28. Will continue to follow closely. Recommendations: 1) Continuous TF using Vital High Protein with goal rate of 90 mL/hr to provide total volume of 2160 mL/day, 2160 kcal, 189 g protein, and 1814 mL free water. Advance TF by 20 mL Q12H as tolerated to goal rate per MD 2) Prealbumin q /; daily weights 3) Water flush 200 mL Q4H per MD 4) thiamin, folic, MVI for EtOH hx 5) Routine bowel care; opioid antagonist per MD Addendum: 12/30/19 at [address] Amended: Links added.
[2019-12-30] MEDS: amiodarone 200mg tablet CORPAK SCH ×2 (11:21→20:40)
[2019-12-30] MEDS: lactobacillus rhamnosus 10,000 MMU CELLS/CAPSULE OGT SCH ×2 (11:22→20:40)
[2019-12-30] MEDS: thiamine 100mg tablet CORPAK SCH (11:22)
[2019-12-30] MEDS: multivitamins, therapeutics tablet PO SCH (11:22)
[2019-12-30] MEDS: POTASSIUM BICARB 20meq eff tab 20 MEQ TABLET.EFF PO SCH ×2 (11:22→20:41)
[2019-12-30] MEDS: OLANZapine 2.5MG tablet PO SCH (11:23)
[2019-12-30] MEDS ORDERED: haloperidol lactate 5mg/ml inj IM PRN (13:15)
[2019-12-30] MEDS: epoetin 20,000 units/ml inj SQ SCH (13:27)
[2019-12-30] MEDS: sodium chloride 0.45% 1,000 ML IV SCH (14:05)
[2019-12-30] MEDS ORDERED: clindamycin phosphate 150mg/ml inj. ONE (15:18)
[2019-12-30] MEDS ORDERED: gentamicin 40 MG/1 ML inj ONE (15:18)
--- NOTE | 2019-12-30 15:46 | NUR ---
OR staff at the bedside taking patient to surgery
[2019-12-30] MEDS ORDERED: fentaNYL /PF 50mcg/ml 5ml ampule ONE (16:09)
[2019-12-30] MEDS ORDERED: midazolam 2 mg/2 ml injection ONE (16:09)
[2019-12-30] MEDS ORDERED: rocuronium 10mg/ml inj IV ONE ×2 (16:11→17:24)
[2019-12-30] MEDS ORDERED: ceFOXitin 2 GM ADDVANTGE BAG 50 ML IV ONE (16:14)
[2019-12-30] MEDS ORDERED: morphine 4 MG/ML inj SYRINge ONE (17:38)
[2019-12-30] MEDS ORDERED: labetalol 20mg/4ml (5mg/ml) syringe IV ONE (17:38)
--- NOTE | 2019-12-30 17:50 | NUR ---
pt returned from OR BP 221/114; Dr. Lynn ordered morphine and labetalol. Pt's dressing upon arrival was oozing and saturated. Dr. Goodwin was notified that BP was still 224/113 and orders were received for hydralazine.
[2019-12-30] MEDS: FENTANYL-0.9 % NACL/PF 100 ML IV PRN ×2 (18:23→22:51)
[2019-12-30] MEDS: MIDAZolam 5mg/ml 2ml vial IV PRN (18:24)
[2019-12-30] MEDS: fentaNYL/PF 50MCG/1 ML 2ML syringe IV PRN (18:24)
[2019-12-30] MEDS: midazolam 100mg in NS 100ml 100 ML IV PRN ×2 (18:30→22:50)
--- NOTE | 2019-12-30 19:00 | NUR ---
Patient report given, questions answered & plan of care reviewed with Sarahy DICK.
[2019-12-30] MEDS: insulin glargine (Lantus) pen - multi-dose SQ SCH (21:00)
[2019-12-30] MEDS: piperacillin/tazo 4.5gm/100ml 100 ML IV SCH (23:23)
[2019-12-31] VITALS (24 sets, daily range): BP systolic 95–131; BP diastolic 46–74
[2019-12-31] MEDS: mineral oil/petrolatum ophthal oint EACHEYE SCH ×4 (02:22→20:32)
[2019-12-31] MEDS: hydrocortisone sod succ/PF 100mg/2ml inj. IV SCH ×4 (02:22→20:32)
[2019-12-31] MEDS: ipratropium/albuterol 3ml nebule NEB SCH ×6 (02:57→23:01)
[2019-12-31 03:01] LABS: BASOPHILS % (AUTO) 0.3 % (0-1); EOSINOPHILS % (AUTO) 0.5 % (0-6); HEMATOCRIT 27.5 % (42.0-52.0); HEMOGLOBIN 9.4 g/dl (14.0-17.9); LYMPHOCYTES # (AUTO) 0.8 X10'3 (1.1-4.8); LYMPHOCYTES % (AUTO) 15.7 % (21-51); MEAN CORPUSCULAR HGB CONC 34.3 g/dL (33.0-36.5); MEAN CORPUSCULAR VOLUME 87.5 FL (78-98); MEAN PLATELET VOLUME 7.9 FL (7.4-10.4); MONOCYTES # (AUTO) 0.1 X10'3 (0-0.9); MONOCYTES % (AUTO) 2.9 % (2-12); NEUTROPHILS # (AUTO) 4.1 X10'3 (1.8-7.7); NEUTROPHILS % (AUTO) 80.6 % (42-75); PLATELET COUNT 256 X10'3 (140-440); RED BLOOD COUNT 3.15 X10'6 (4.70-6.10)
[2019-12-31 03:11] LABS: ABG BASE EXCESS 0.1 mmol/L (-2.0-3.0); ABG HCO3 24.1 mmol/L (22.0-26.0); ABG PCO2 (T) 35.2 mmHg (35.0-45.0); ABG PO2 (T) 68.6 mmHg (83-108); FCOHb 0.4 % (0.5-1.5); FMetHb 0.1 % (0.3-1.12); FO2Hb 94.5 % (94-100); PATIENT TEMPERATURE 36.2; PEEP 5 cm H2O; RESPIRATORY RATE 12 b/min; TIDAL VOLUME 500 mL
[2019-12-31 03:14] LABS: ALANINE AMINOTRANSFERASE 46 U/L (12-78); ALBUMIN 1.6 G/DL (3.4-5.0); ALBUMIN/GLOBULIN RATIO 0.5 (1.1-1.5); ALKALINE PHOSPHATASE 96 IU/L (46-116); ANION GAP 6 (8-16); ASPARTATE AMINO TRANSFERASE 21 U/L (10-37); BILIRUBIN,TOTAL 1.4 MG/DL (0.1-1.0); BLOOD UREA NITROGEN 28 MG/DL (7-18); BUN/CREATININE RATIO 25.5 (5.4-32.0); CALCIUM 7.5 MG/DL (8.5-10.1); CHLORIDE 109 MMOL/L (99-107); GLUCOSE 98 MG/DL (70-104); MAGNESIUM 1.6 MG/DL (1.5-2.4); PHOSPHORUS 3.7 MG/DL (2.3-4.5); POTASSIUM 3.5 MMOL/L (3.5-5.1); SODIUM 143 MMOL/L (135-145); TOTAL CARBON DIOXIDE 27.6 MMOL/L (24-32); TOTAL PROTEIN 5.1 G/DL (6.4-8.2); eGFR 71 ML/MIN
[2019-12-31] MEDS: FENTANYL-0.9 % NACL/PF 100 ML IV PRN ×4 (03:18→19:01)
--- NOTE | 2019-12-31 03:35 | NUR ---
confused , trying to pull out her TDC ,restraint placed with orders from JOSE LUIS . remain very fidgety , vitals stable . Addendum: 12/31/19 at 0640 by Sarahy An RN wrong patient
[2019-12-31 04:03] LABS: NUCLEATED RED BLOOD CELLS 1 /100WBC (0-0); TOTAL CELLS COUNTED 100
[2019-12-31 04:04] LABS: LARGE PLATELETS FEW; PLATELET ESTIMATE NORMAL; TOXIC GRANULATION 2+
--- NOTE | 2019-12-31 06:38 | NUR ---
Problems reprioritized. Patient report given, questions answered & plan of care reviewed with Dawson DICK. Addendum: 12/31/19 at 0639 by Sarahy An RN wrong patient
--- NOTE | 2019-12-31 06:40 | NUR ---
Problems reprioritized. Patient report given, questions answered & plan of care reviewed with Mirela DICK.
[2019-12-31] MEDS: OLANZapine 2.5MG tablet PO SCH (07:58)
[2019-12-31] MEDS: famotidine/PF 10 mg/ml inj IV SCH ×2 (07:58→20:32)
[2019-12-31] MEDS: thiamine 100mg tablet CORPAK SCH (07:58)
[2019-12-31] MEDS: multivitamins, therapeutics tablet PO SCH (07:58)
[2019-12-31] MEDS: lactobacillus rhamnosus 10,000 MMU CELLS/CAPSULE OGT SCH ×2 (07:58→20:32)
[2019-12-31] MEDS: amiodarone 200mg tablet CORPAK SCH ×2 (07:58→20:32)
[2019-12-31] MEDS: POTASSIUM BICARB 20meq eff tab 20 MEQ TABLET.EFF PO SCH ×2 (07:58→20:32)
[2019-12-31] MEDS: piperacillin/tazo 4.5gm/100ml 100 ML IV SCH ×3 (07:59→23:45)
[2019-12-31] MEDS: K, MAG and/or Phos replacement - Verify level? MC SCH (08:00)
[2019-12-31] MEDS: heparin, porcine 5000 units/ml vial SQ SCH ×2 (08:00→20:33)
[2019-12-31] MEDS: midazolam 100mg in NS 100ml 100 ML IV PRN ×2 (08:23→17:44)
--- NOTE | 2019-12-31 14:36 | NUR ---
TF consult, tube feedings will be restarted. He is s/p exploratory lap and debridement of pancreatic pseudocyst. TF recs below, d/w bedside RN. Will continue to follow closely. Recommendations: 1) Continuous TF using Vital High Protein with goal rate of 90 mL/hr to provide total volume of 2160 mL/day, 2160 kcal, 189 g protein, and 1814 mL free water. Advance TF by 30 mL q 8 hours as tolerated to goal rate. 2) Prealbumin q /; daily weights 3) Water flush 200 mL Q4H per MD 4) thiamin, folic, MVI for EtOH hx 5) Routine bowel care; opioid antagonist per MD Addendum: 12/31/19 at [address] Amended: Links added.
[2019-12-31] MEDS: sodium chloride 0.45% 1,000 ML IV SCH (16:14)
--- NOTE | 2019-12-31 18:35 | NUR ---
Patient report given, questions answered & plan of care reviewed with Sarahy DICK.
[2019-12-31] MEDS: insulin glargine (Lantus) pen - multi-dose SQ SCH (21:00)
[2020-01-01] VITALS (23 sets, daily range): BP systolic 107–149; BP diastolic 50–80
[2020-01-01] MEDS: FENTANYL-0.9 % NACL/PF 100 ML IV PRN ×5 (00:04→21:09)
[2020-01-01] MEDS: mineral oil/petrolatum ophthal oint EACHEYE SCH ×4 (02:46→19:36)
[2020-01-01] MEDS: hydrocortisone sod succ/PF 100mg/2ml inj. IV SCH ×4 (02:46→19:34)
[2020-01-01] MEDS: ipratropium/albuterol 3ml nebule NEB SCH ×6 (02:54→23:03)
[2020-01-01 03:14] LABS: ALBUMIN 1.5 G/DL (3.4-5.0); ANION GAP 7 (8-16); BLOOD UREA NITROGEN 36 MG/DL (7-18); BUN/CREATININE RATIO 24.8 (5.4-32.0); CALCIUM 7.9 MG/DL (8.5-10.1); CHLORIDE 107 MMOL/L (99-107); CREATININE 1.45 MG/DL (0.60-1.10); GLUCOSE 166 MG/DL (70-104); POTASSIUM 3.8 MMOL/L (3.5-5.1); SODIUM 141 MMOL/L (135-145); eGFR 51 ML/MIN
[2020-01-01 03:17] LABS: BASOPHILS % (AUTO) 0.2 % (0-1); EOSINOPHILS % (AUTO) 0 % (0-6); HEMATOCRIT 26.5 % (42.0-52.0); HEMOGLOBIN 8.7 g/dl (14.0-17.9); LYMPHOCYTES # (AUTO) 0.7 X10'3 (1.1-4.8); LYMPHOCYTES % (AUTO) 11.7 % (21-51); MEAN CORPUSCULAR HEMOGLOBIN 28.9 PG (27.0-31.0); MEAN CORPUSCULAR HGB CONC 32.6 g/dL (33.0-36.5); MEAN CORPUSCULAR VOLUME 88.6 FL (78-98); MEAN PLATELET VOLUME 8.1 FL (7.4-10.4); MONOCYTES # (AUTO) 0.3 X10'3 (0-0.9); MONOCYTES % (AUTO) 4.6 % (2-12); NEUTROPHILS # (AUTO) 4.8 X10'3 (1.8-7.7); NEUTROPHILS % (AUTO) 83.5 % (42-75); PLATELET COUNT 239 X10'3 (140-440); RED BLOOD COUNT 2.99 X10'6 (4.70-6.10); RED CELL DISTRIBUTION WIDTH 15.3 % (11.5-14.5); WHITE BLOOD COUNT 5.8 X10'3 (4.5-11.0)
[2020-01-01 03:26] LABS: ABG BASE EXCESS -2.1 mmol/L (-2.0-3.0); ABG HCO3 22.7 mmol/L (22.0-26.0); ABG OXYGEN SATURATION 93.9 % (95-98); ABG PCO2 (T) 38.4 mmHg (35.0-45.0); ABG PH (T) 7.388 (7.350-7.450); ABG PO2 (T) 72.6 mmHg (83-108); FMetHb 0.2 % (0.3-1.12); FO2Hb 93.7 % (94-100); PATIENT TEMPERATURE 36.7; PEEP 5 cm H2O; RESPIRATORY RATE 12 b/min; TIDAL VOLUME 500 mL; TOTAL HEMOGLOBIN 9.3 G/dl (14.0-17.9)
[2020-01-01] MEDS: midazolam 100mg in NS 100ml 100 ML IV PRN ×3 (03:36→23:00)
[2020-01-01 04:18] LABS: ANISOCYTOSIS 1+; PLATELET ESTIMATE NORMAL; POLYCHROMASIA FEW; TOTAL CELLS COUNTED 100
[2020-01-01] MEDS: sodium chloride 0.45% 1,000 ML IV SCH (05:10)
--- NOTE | 2020-01-01 06:33 | NUR ---
Problems reprioritized. Patient report given, questions answered & plan of care reviewed with Meagan DICK.
[2020-01-01 07:43] LABS: MAGNESIUM 1.9 MG/DL (1.5-2.4)
[2020-01-01] MEDS: K, MAG and/or Phos replacement - Verify level? MC SCH (08:00)
[2020-01-01] MEDS: POTASSIUM BICARB 20meq eff tab 20 MEQ TABLET.EFF PO SCH ×2 (08:11→19:34)
[2020-01-01] MEDS: piperacillin/tazo 4.5gm/100ml 100 ML IV SCH ×2 (08:12→15:29)
[2020-01-01] MEDS: famotidine/PF 10 mg/ml inj IV SCH ×2 (08:12→19:35)
[2020-01-01] MEDS: multivitamins, therapeutics tablet PO SCH (08:13)
[2020-01-01] MEDS: amiodarone 200mg tablet CORPAK SCH ×2 (08:13→19:34)
[2020-01-01] MEDS: heparin, porcine 5000 units/ml vial SQ SCH ×2 (08:13→19:35)
[2020-01-01] MEDS: lactobacillus rhamnosus 10,000 MMU CELLS/CAPSULE OGT SCH ×2 (08:13→19:34)
[2020-01-01] MEDS: OLANZapine 2.5MG tablet PO SCH (08:13)
[2020-01-01] MEDS: thiamine 100mg tablet CORPAK SCH (08:13)
[2020-01-01] MEDS: epoetin 20,000 units/ml inj SQ SCH (14:35)
[2020-01-01] MEDS ORDERED: fentaNYL 50mcg/ml PF inj. 2,500 MCG in normal saline 250ml IV soln 200 ML IV PRN (15:00)
--- NOTE | 2020-01-01 18:23 | NUR ---
Problems reprioritized. Patient report given, questions answered & plan of care reviewed with Jasmin DICK.
[2020-01-01] MEDS: diatr meglu/diatrizoate 30ml oral sol.-(3 dose) bottle PO SCH (20:49)
[2020-01-01] MEDS: insulin regular, human U-100 3ml vial - multi-dose SQ SCH (21:06)
[2020-01-01] MEDS: insulin glargine (Lantus) pen - multi-dose SQ SCH (21:08)
[2020-01-02] VITALS (24 sets, daily range): BP systolic 112–182; BP diastolic 56–91
[2020-01-02] MEDS: sodium chloride 0.45% 1,000 ML IV SCH ×2 (00:09→22:32)
[2020-01-02] MEDS: midazolam 100mg in NS 100ml 100 ML IV PRN ×4 (00:10→21:31)
[2020-01-02] MEDS: piperacillin/tazo 4.5gm/100ml 100 ML IV SCH ×3 (00:10→15:41)
[2020-01-02] MEDS: Dextrose 10%-water IV solution 1,000 ML IV PRN (00:11)
[2020-01-02] MEDS: hydrocortisone sod succ/PF 100mg/2ml inj. IV SCH ×4 (01:54→19:49)
[2020-01-02] MEDS: FENTANYL-0.9 % NACL/PF 100 ML IV PRN ×5 (01:54→21:18)
[2020-01-02] MEDS: mineral oil/petrolatum ophthal oint EACHEYE SCH ×4 (01:55→19:49)
[2020-01-02] MEDS: insulin regular, human U-100 3ml vial - multi-dose SQ SCH ×4 (02:17→21:30)
[2020-01-02 03:04] LABS: BASOPHILS % (AUTO) 0.1 % (0-1); EOSINOPHILS % (AUTO) 0 % (0-6); HEMATOCRIT 25.5 % (42.0-52.0); HEMOGLOBIN 8.3 g/dl (14.0-17.9); LYMPHOCYTES # (AUTO) 0.5 X10'3 (1.1-4.8); LYMPHOCYTES % (AUTO) 10.7 % (21-51); MEAN CORPUSCULAR HEMOGLOBIN 29.1 PG (27.0-31.0); MEAN CORPUSCULAR HGB CONC 32.5 g/dL (33.0-36.5); MEAN CORPUSCULAR VOLUME 89.4 FL (78-98); MEAN PLATELET VOLUME 8.3 FL (7.4-10.4); MONOCYTES # (AUTO) 0.2 X10'3 (0-0.9); MONOCYTES % (AUTO) 4.1 % (2-12); NEUTROPHILS # (AUTO) 4.2 X10'3 (1.8-7.7); NEUTROPHILS % (AUTO) 85.1 % (42-75); PLATELET COUNT 236 X10'3 (140-440); RED BLOOD COUNT 2.86 X10'6 (4.70-6.10); RED CELL DISTRIBUTION WIDTH 15.8 % (11.5-14.5)
[2020-01-02 03:13] LABS: ALANINE AMINOTRANSFERASE 28 U/L (12-78); ALBUMIN 1.5 G/DL (3.4-5.0); ALBUMIN/GLOBULIN RATIO 0.4 (1.1-1.5); ALKALINE PHOSPHATASE 103 IU/L (46-116); ANION GAP 8 (8-16); ASPARTATE AMINO TRANSFERASE 13 U/L (10-37); BILIRUBIN,TOTAL 0.3 MG/DL (0.1-1.0); BLOOD UREA NITROGEN 47 MG/DL (7-18); BUN/CREATININE RATIO 27.3 (5.4-32.0); CALCIUM 7.8 MG/DL (8.5-10.1); CHLORIDE 108 MMOL/L (99-107); CREATININE 1.72 MG/DL (0.60-1.10); GLUCOSE 208 MG/DL (70-104); MAGNESIUM 1.9 MG/DL (1.5-2.4); PHOSPHORUS 5.1 MG/DL (2.3-4.5); POTASSIUM 3.1 MMOL/L (3.5-5.1); SODIUM 142 MMOL/L (135-145); TOTAL CARBON DIOXIDE 26.2 MMOL/L (24-32); TOTAL PROTEIN 5.5 G/DL (6.4-8.2); eGFR 42 ML/MIN
[2020-01-02] MEDS: ipratropium/albuterol 3ml nebule NEB SCH ×6 (03:34→23:05)
[2020-01-02] MEDS: potassium Cl 20mEq/100mL bag 100 ML IV PRN ×2 (03:36→05:36)
[2020-01-02 04:38] LABS: ANISOCYTOSIS 1+; PLATELET ESTIMATE NORMAL; POLYCHROMASIA FEW; TOTAL CELLS COUNTED 100
[2020-01-02] MEDS: diatr meglu/diatrizoate 30ml oral sol.-(3 dose) bottle PO SCH ×2 (07:20→18:23)
[2020-01-02] MEDS: famotidine/PF 10 mg/ml inj IV SCH ×2 (07:21→19:49)
[2020-01-02] MEDS: multivitamins, therapeutics tablet PO SCH (08:00)
[2020-01-02] MEDS: thiamine 100mg tablet CORPAK SCH (08:00)
[2020-01-02] MEDS: heparin, porcine 5000 units/ml vial SQ SCH ×2 (08:00→19:49)
[2020-01-02] MEDS: POTASSIUM BICARB 20meq eff tab 20 MEQ TABLET.EFF PO SCH ×2 (08:00→19:49)
[2020-01-02] MEDS: K, MAG and/or Phos replacement - Verify level? MC SCH (08:00)
[2020-01-02] MEDS: OLANZapine 2.5MG tablet PO SCH (08:00)
[2020-01-02] MEDS: amiodarone 200mg tablet CORPAK SCH ×2 (08:00→19:49)
[2020-01-02] MEDS: lactobacillus rhamnosus 10,000 MMU CELLS/CAPSULE OGT SCH ×2 (08:00→19:49)
[2020-01-02] MEDS ORDERED: iohexol 300mg/ml 100ml inj. ONE (11:00)
--- NOTE | 2020-01-02 13:27 | NUR ---
Reassessment: Pt NPO this AM s/p imaging per RN. RN reports pt NPO at midnight tonight pending return to OR tomorrow. 600ml stool output past 24 hours noted; may require anti-diarrheal if persists and MD is agreeable. Pt previously tolerated TF at goal. Will continue to monitor for TF tolerance post-op. Recommendations: 1) Continuous TF using Vital High Protein with goal rate of 90 mL/hr to provide total volume of 2160 mL/day, 2160 kcal, 189 g protein, and 1814 mL free water. Advance TF by 30 mL q 8 hours as tolerated to goal rate. 2) Prealbumin q /; daily weights 3) Water flush 200 mL Q4H per MD 4) thiamin, folic, MVI for EtOH hx 5) monitor for additional protein needs post-op pending new PALB Addendum: 01/02/20 at [address] Amended: Links added.
[2020-01-02] MEDS: insulin glargine (Lantus) pen - multi-dose SQ SCH (21:30)
[2020-01-02] MEDS ORDERED: OLANZAPINE 5 MG TABLET PO SCH (22:10)
[2020-01-02] MEDS ORDERED: OLANZAPINE 5 MG TABLET PO ONE (22:10)
[2020-01-03] VITALS (27 sets, daily range): BP systolic 89–210; BP diastolic 56–101
[2020-01-03] MEDS: piperacillin/tazo 4.5gm/100ml 100 ML IV SCH ×3 (00:21→16:13)
[2020-01-03] MEDS: midazolam 100mg in NS 100ml 100 ML IV PRN ×4 (00:22→23:50)
[2020-01-03] MEDS: FENTANYL-0.9 % NACL/PF 100 ML IV PRN ×6 (00:25→23:51)
[2020-01-03] MEDS: mineral oil/petrolatum ophthal oint EACHEYE SCH ×4 (02:36→21:48)
[2020-01-03] MEDS: hydrocortisone sod succ/PF 100mg/2ml inj. IV SCH ×4 (02:37→21:51)
[2020-01-03 02:51] LABS: BASOPHILS % (AUTO) 0.3 % (0-1); EOSINOPHILS % (AUTO) 0.1 % (0-6); HEMATOCRIT 27.8 % (42.0-52.0); LYMPHOCYTES # (AUTO) 0.7 X10'3 (1.1-4.8); LYMPHOCYTES % (AUTO) 10.4 % (21-51); MEAN CORPUSCULAR HEMOGLOBIN 28.8 PG (27.0-31.0); MEAN CORPUSCULAR HGB CONC 32.4 g/dL (33.0-36.5); MEAN CORPUSCULAR VOLUME 89.1 FL (78-98); MEAN PLATELET VOLUME 8.1 FL (7.4-10.4); MONOCYTES # (AUTO) 0.2 X10'3 (0-0.9); MONOCYTES % (AUTO) 2.4 % (2-12); NEUTROPHILS # (AUTO) 5.7 X10'3 (1.8-7.7); NEUTROPHILS % (AUTO) 86.8 % (42-75); PLATELET COUNT 237 X10'3 (140-440); RED BLOOD COUNT 3.12 X10'6 (4.70-6.10); WHITE BLOOD COUNT 6.6 X10'3 (4.5-11.0)
[2020-01-03 03:03] LABS: ALANINE AMINOTRANSFERASE 39 U/L (12-78); ALBUMIN 1.5 G/DL (3.4-5.0); ALBUMIN/GLOBULIN RATIO 0.4 (1.1-1.5); ALKALINE PHOSPHATASE 145 IU/L (46-116); ANION GAP 9 (8-16); ASPARTATE AMINO TRANSFERASE 18 U/L (10-37); BILIRUBIN,TOTAL 0.3 MG/DL (0.1-1.0); BLOOD UREA NITROGEN 40 MG/DL (7-18); BUN/CREATININE RATIO 25.8 (5.4-32.0); CALCIUM 8.1 MG/DL (8.5-10.1); CHLORIDE 113 MMOL/L (99-107); CREATININE 1.55 MG/DL (0.60-1.10); GLUCOSE 140 MG/DL (70-104); MAGNESIUM 1.8 MG/DL (1.5-2.4); PHOSPHORUS 4.2 MG/DL (2.3-4.5); POTASSIUM 3.3 MMOL/L (3.5-5.1); SODIUM 148 MMOL/L (135-145); TOTAL PROTEIN 5.7 G/DL (6.4-8.2); eGFR 48 ML/MIN
[2020-01-03] MEDS: ipratropium/albuterol 3ml nebule NEB SCH ×6 (03:33→23:15)
[2020-01-03] MEDS: potassium Cl 20mEq/100mL bag 100 ML IV PRN ×2 (03:33→04:46)
[2020-01-03 03:47] LABS: ANISOCYTOSIS 1+; PLATELET ESTIMATE NORMAL; POLYCHROMASIA FEW; TOTAL CELLS COUNTED 100
[2020-01-03 03:48] LABS: TEAR DROP CELLS FEW
[2020-01-03] MEDS: OLANZAPINE 5 MG TABLET PO SCH (07:10)
[2020-01-03] MEDS: hydrALAZINE 20mg/ml inj. IV PRN (07:25)
[2020-01-03 07:34] LABS: PREALBUMIN 15.9 MG/DL (19-36)
[2020-01-03] MEDS: K, MAG and/or Phos replacement - Verify level? MC SCH (08:00)
[2020-01-03] MEDS: famotidine/PF 10 mg/ml inj IV SCH ×2 (08:00→21:51)
[2020-01-03] MEDS: lactobacillus rhamnosus 10,000 MMU CELLS/CAPSULE OGT SCH ×2 (08:00→20:00)
[2020-01-03] MEDS: multivitamins, therapeutics tablet PO SCH (08:00)
[2020-01-03] MEDS: amiodarone 200mg tablet CORPAK SCH ×2 (08:00→20:00)
[2020-01-03] MEDS: heparin, porcine 5000 units/ml vial SQ SCH ×2 (08:00→21:51)
[2020-01-03] MEDS: POTASSIUM BICARB 20meq eff tab 20 MEQ TABLET.EFF PO SCH (08:00)
[2020-01-03] MEDS: thiamine 100mg tablet CORPAK SCH (08:00)
[2020-01-03] MEDS: Dextrose 10%-water IV solution 1,000 ML IV PRN (09:29)
[2020-01-03] MEDS ORDERED: gentamicin 40 MG/1 ML inj ONE (13:49)
[2020-01-03] MEDS ORDERED: clindamycin phosphate 150mg/ml inj. ONE (13:50)
[2020-01-03] MEDS: dextrose 5%-water 1,000 ML IV SCH (14:07)
[2020-01-03] MEDS ORDERED: sevoflurane 250ml liquid IH ONE (14:30)
[2020-01-03] MEDS ORDERED: labetalol 20mg/4ml (5mg/ml) syringe IV ONE (14:46)
[2020-01-03] MEDS ORDERED: rocuronium 10mg/ml inj IV ONE (14:46)
[2020-01-03] MEDS: sodium chloride 0.45% 1,000 ML IV SCH (17:10)
[2020-01-03] MEDS: POTASSIUM BICARB 20meq eff tab 20 MEQ TABLET.EFF OGT SCH (20:00)
[2020-01-03] MEDS: insulin glargine (Lantus) pen - multi-dose SQ SCH (21:37)
[2020-01-04] VITALS (24 sets, daily range): BP systolic 112–213; BP diastolic 53–101
[2020-01-04] MEDS: piperacillin/tazo 4.5gm/100ml 100 ML IV SCH ×4 (00:13→23:14)
[2020-01-04] MEDS: mineral oil/petrolatum ophthal oint EACHEYE SCH ×4 (02:58→19:38)
[2020-01-04] MEDS: midazolam 100mg in NS 100ml 100 ML IV PRN (02:58)
[2020-01-04] MEDS: FENTANYL-0.9 % NACL/PF 100 ML IV PRN ×5 (02:58→23:15)
[2020-01-04] MEDS: dextrose 5%-water 1,000 ML IV SCH ×4 (02:59→23:14)
[2020-01-04] MEDS: ipratropium/albuterol 3ml nebule NEB SCH ×6 (03:06→23:14)
[2020-01-04 03:58] LABS: BASOPHILS % (AUTO) 0.2 % (0-1); EOSINOPHILS % (AUTO) 0.2 % (0-6); HEMATOCRIT 27.1 % (42.0-52.0); HEMOGLOBIN 8.8 g/dl (14.0-17.9); LYMPHOCYTES % (AUTO) 14.3 % (21-51); MEAN CORPUSCULAR HEMOGLOBIN 29.5 PG (27.0-31.0); MEAN CORPUSCULAR HGB CONC 32.5 g/dL (33.0-36.5); MEAN CORPUSCULAR VOLUME 90.8 FL (78-98); MEAN PLATELET VOLUME 7.8 FL (7.4-10.4); MONOCYTES # (AUTO) 0.2 X10'3 (0-0.9); MONOCYTES % (AUTO) 2.8 % (2-12); NEUTROPHILS # (AUTO) 5.5 X10'3 (1.8-7.7); NEUTROPHILS % (AUTO) 82.5 % (42-75); PLATELET COUNT 195 X10'3 (140-440); RED BLOOD COUNT 2.99 X10'6 (4.70-6.10); RED CELL DISTRIBUTION WIDTH 15.6 % (11.5-14.5); WHITE BLOOD COUNT 6.7 X10'3 (4.5-11.0)
[2020-01-04 04:10] LABS: ALANINE AMINOTRANSFERASE 40 U/L (12-78); ALBUMIN 1.4 G/DL (3.4-5.0); ALBUMIN/GLOBULIN RATIO 0.4 (1.1-1.5); ALKALINE PHOSPHATASE 143 IU/L (46-116); ANION GAP 7 (8-16); ASPARTATE AMINO TRANSFERASE 17 U/L (10-37); BILIRUBIN,TOTAL 0.3 MG/DL (0.1-1.0); BLOOD UREA NITROGEN 30 MG/DL (7-18); CALCIUM 8.1 MG/DL (8.5-10.1); CHLORIDE 115 MMOL/L (99-107); CREATININE 1.58 MG/DL (0.60-1.10); GLUCOSE 128 MG/DL (70-104); MAGNESIUM 1.7 MG/DL (1.5-2.4); POTASSIUM 3.1 MMOL/L (3.5-5.1); SODIUM 149 MMOL/L (135-145); TOTAL CARBON DIOXIDE 27.2 MMOL/L (24-32); TOTAL PROTEIN 5.4 G/DL (6.4-8.2); eGFR 46 ML/MIN
[2020-01-04 04:26] LABS: NUCLEATED RED BLOOD CELLS 1 /100WBC (0-0); TOTAL CELLS COUNTED 100
[2020-01-04 04:27] LABS: ANISOCYTOSIS 1+; PLATELET ESTIMATE NORMAL; STOMATOCYTES 1+
[2020-01-04] MEDS: hydrALAZINE 20mg/ml inj. IV PRN ×2 (07:38→12:27)
[2020-01-04] MEDS: potassium Cl 20mEq/100mL bag 100 ML IV PRN (07:55)
[2020-01-04] MEDS: thiamine 100mg tablet CORPAK SCH (07:56)
[2020-01-04] MEDS: heparin, porcine 5000 units/ml vial SQ SCH ×2 (07:56→19:40)
[2020-01-04] MEDS: hydrocortisone sod succ/PF 100mg/2ml inj. IV SCH (07:56)
[2020-01-04] MEDS: POTASSIUM BICARB 20meq eff tab 20 MEQ TABLET.EFF OGT SCH ×2 (07:57→19:39)
[2020-01-04] MEDS: OLANZAPINE 5 MG TABLET PO SCH (07:57)
[2020-01-04] MEDS: multivitamins, therapeutics tablet PO SCH (07:57)
[2020-01-04] MEDS: lactobacillus rhamnosus 10,000 MMU CELLS/CAPSULE OGT SCH ×2 (07:57→19:39)
[2020-01-04] MEDS: amiodarone 200mg tablet CORPAK SCH ×2 (08:00→19:39)
[2020-01-04] MEDS: famotidine/PF 10 mg/ml inj IV SCH ×2 (08:00→19:39)
[2020-01-04] MEDS: K, MAG and/or Phos replacement - Verify level? MC SCH (08:00)
[2020-01-04] MEDS: epoetin 20,000 units/ml inj SQ SCH (11:05)
[2020-01-04] MEDS: dexmedetomidin/NS 400mcg/100ml 100 ML IV SCH ×2 (12:14→19:48)
--- NOTE | 2020-01-04 13:24 | NUR ---
tube feeding started per order
--- NOTE | 2020-01-04 17:38 | NUR ---
ART line DC'd
[2020-01-04] MEDS: labetalol 100mg tablet PO SCH (19:58)
[2020-01-04] MEDS: insulin glargine (Lantus) pen - multi-dose SQ SCH (21:00)
[2020-01-05] VITALS (23 sets, daily range): BP systolic 87–157; BP diastolic 49–97
[2020-01-05] MEDS: mineral oil/petrolatum ophthal oint EACHEYE SCH ×4 (02:00→20:00)
[2020-01-05] MEDS: ipratropium/albuterol 3ml nebule NEB SCH ×6 (03:15→22:58)
[2020-01-05 04:56] LABS: ALANINE AMINOTRANSFERASE 35 U/L (12-78); ALBUMIN 1.3 G/DL (3.4-5.0); ALBUMIN/GLOBULIN RATIO 0.3 (1.1-1.5); ALKALINE PHOSPHATASE 142 IU/L (46-116); ANION GAP 6 (8-16); ASPARTATE AMINO TRANSFERASE 18 U/L (10-37); BILIRUBIN,TOTAL 0.3 MG/DL (0.1-1.0); BLOOD UREA NITROGEN 25 MG/DL (7-18); BUN/CREATININE RATIO 16.1 (5.4-32.0); CALCIUM 7.7 MG/DL (8.5-10.1); CHLORIDE 115 MMOL/L (99-107); CREATININE 1.55 MG/DL (0.60-1.10); GLUCOSE 115 MG/DL (70-104); MAGNESIUM 1.4 MG/DL (1.5-2.4); POTASSIUM 3.2 MMOL/L (3.5-5.1); SODIUM 148 MMOL/L (135-145); TOTAL CARBON DIOXIDE 26.6 MMOL/L (24-32); TOTAL PROTEIN 5.4 G/DL (6.4-8.2); eGFR 48 ML/MIN
[2020-01-05 04:59] LABS: BASOPHILS % (AUTO) 0.1 % (0-1); EOSINOPHILS % (AUTO) 0.6 % (0-6); HEMOGLOBIN 8.4 g/dl (14.0-17.9); LYMPHOCYTES % (AUTO) 17.5 % (21-51); MEAN CORPUSCULAR HEMOGLOBIN 28.8 PG (27.0-31.0); MEAN CORPUSCULAR HGB CONC 32.3 g/dL (33.0-36.5); MEAN PLATELET VOLUME 8.2 FL (7.4-10.4); MONOCYTES # (AUTO) 0.2 X10'3 (0-0.9); MONOCYTES % (AUTO) 2.6 % (2-12); NEUTROPHILS # (AUTO) 4.5 X10'3 (1.8-7.7); NEUTROPHILS % (AUTO) 79.2 % (42-75); PLATELET COUNT 184 X10'3 (140-440); RED BLOOD COUNT 2.92 X10'6 (4.70-6.10); RED CELL DISTRIBUTION WIDTH 15.3 % (11.5-14.5); WHITE BLOOD COUNT 5.7 X10'3 (4.5-11.0)
[2020-01-05] MEDS: dexmedetomidin/NS 400mcg/100ml 100 ML IV SCH ×3 (05:26→19:48)
[2020-01-05] MEDS: dextrose 5%-water 1,000 ML IV SCH (05:26)
[2020-01-05] MEDS: FENTANYL-0.9 % NACL/PF 100 ML IV PRN ×2 (05:27→08:29)
[2020-01-05] MEDS: lactobacillus rhamnosus 10,000 MMU CELLS/CAPSULE OGT SCH ×2 (07:23→19:43)
[2020-01-05] MEDS: labetalol 100mg tablet PO SCH ×2 (07:23→20:00)
[2020-01-05] MEDS: POTASSIUM BICARB 20meq eff tab 20 MEQ TABLET.EFF OGT SCH ×2 (07:23→19:43)
[2020-01-05] MEDS: thiamine 100mg tablet CORPAK SCH (07:23)
[2020-01-05] MEDS: famotidine/PF 10 mg/ml inj IV SCH ×2 (07:23→19:43)
[2020-01-05] MEDS: amiodarone 200mg tablet CORPAK SCH ×2 (07:23→22:09)
[2020-01-05] MEDS: OLANZAPINE 5 MG TABLET PO SCH (07:23)
[2020-01-05] MEDS: multivitamins, therapeutics tablet PO SCH (07:23)
[2020-01-05] MEDS: heparin, porcine 5000 units/ml vial SQ SCH ×2 (07:24→19:43)
[2020-01-05] MEDS: magnesium 4gm in 100ml NS 100 ML IV PRN (07:25)
[2020-01-05] MEDS: potassium Cl 20mEq/100mL bag 100 ML IV PRN (07:25)
[2020-01-05] MEDS: piperacillin/tazo 4.5gm/100ml 100 ML IV SCH ×3 (07:26→23:53)
[2020-01-05] MEDS: K, MAG and/or Phos replacement - Verify level? MC SCH (08:00)
--- NOTE | 2020-01-05 11:34 | NUR ---
changed abdominal dressing.
--- NOTE | 2020-01-05 13:54 | NUR ---
Reassessment: Patient is s/p exploratory lap with pancreatic debridement on 12/29 and 01/02; has not been consistently receiving goal of 90 ml of nutrition support since 12/27 with tube feeds turned off and started at lower rates after surgery. Note that patient was up to 45 ml/hr on 01/03 then turned down to trickle rate of 10 ml/hr at 14:00 by Cold Working Inspector. Pt previously was tolerated TF at goal. Pt has rectal tube with 100 ml out yesterday, and 500 ml out the day prior. Spoke with Cold Working Inspector today regarding recommendation to increase tube feeding to goal, reported he had spoke with RN regarding this and OK to increase to goal, discussed with bedside RN. Recommendations: 1) Continuous TF using Vital High Protein with goal rate of 90 mL/hr to provide total volume of 2160 mL/day, 2160 kcal, 189 g protein, and 1814 mL free water. Advance TF by 30 mL q 8 hours as tolerated to goal rate. 2) Prealbumin q /; daily weights 3) Water flush 200 mL Q4H per MD 4) thiamin, folic, MVI for EtOH hx Addendum: 01/05/20 at [address] Amended: Links added.
--- NOTE | 2020-01-05 14:00 | NUR ---
Tube feeding advanced to 20mL/hr
--- NOTE | 2020-01-05 14:33 | NUR ---
new picc line being placed
[2020-01-05] MEDS: insulin glargine (Lantus) pen - multi-dose SQ SCH (20:40)
[2020-01-06] VITALS (24 sets, daily range): BP systolic 95–159; BP diastolic 48–90
[2020-01-06] MEDS: dexmedetomidin/NS 400mcg/100ml 100 ML IV SCH ×4 (00:04→23:08)
[2020-01-06] MEDS: mineral oil/petrolatum ophthal oint EACHEYE SCH ×4 (02:00→19:45)
[2020-01-06 03:01] LABS: BASOPHILS % (AUTO) 0.2 % (0-1); EOSINOPHILS % (AUTO) 0.5 % (0-6); HEMATOCRIT 25.9 % (42.0-52.0); HEMOGLOBIN 8.4 g/dl (14.0-17.9); LYMPHOCYTES # (AUTO) 1.3 X10'3 (1.1-4.8); MEAN CORPUSCULAR HEMOGLOBIN 28.9 PG (27.0-31.0); MEAN CORPUSCULAR HGB CONC 32.3 g/dL (33.0-36.5); MEAN CORPUSCULAR VOLUME 89.5 FL (78-98); MEAN PLATELET VOLUME 8.1 FL (7.4-10.4); MONOCYTES # (AUTO) 0.2 X10'3 (0-0.9); MONOCYTES % (AUTO) 2.5 % (2-12); NEUTROPHILS # (AUTO) 5.6 X10'3 (1.8-7.7); NEUTROPHILS % (AUTO) 78.8 % (42-75); PLATELET COUNT 178 X10'3 (140-440); RED CELL DISTRIBUTION WIDTH 15.7 % (11.5-14.5); WHITE BLOOD COUNT 7.2 X10'3 (4.5-11.0)
[2020-01-06 03:06] LABS: ALANINE AMINOTRANSFERASE 41 U/L (12-78); ALBUMIN 1.2 G/DL (3.4-5.0); ALBUMIN/GLOBULIN RATIO 0.3 (1.1-1.5); ALKALINE PHOSPHATASE 173 IU/L (46-116); ANION GAP 8 (8-16); ASPARTATE AMINO TRANSFERASE 20 U/L (10-37); BILIRUBIN,TOTAL 0.4 MG/DL (0.1-1.0); BLOOD UREA NITROGEN 26 MG/DL (7-18); BUN/CREATININE RATIO 15.7 (5.4-32.0); CALCIUM 7.6 MG/DL (8.5-10.1); CHLORIDE 114 MMOL/L (99-107); CREATININE 1.66 MG/DL (0.60-1.10); GLUCOSE 115 MG/DL (70-104); POTASSIUM 3.9 MMOL/L (3.5-5.1); PREALBUMIN 15.9 MG/DL (19-36); SODIUM 147 MMOL/L (135-145); TOTAL CARBON DIOXIDE 25.4 MMOL/L (24-32); TOTAL PROTEIN 5.2 G/DL (6.4-8.2); eGFR 44 ML/MIN
[2020-01-06] MEDS: ipratropium/albuterol 3ml nebule NEB SCH ×6 (03:07→22:35)
[2020-01-06] MEDS: FENTANYL-0.9 % NACL/PF 100 ML IV PRN ×2 (05:21→22:59)
--- NOTE | 2020-01-06 07:47 | NUR ---
Pt placed on trach mist
[2020-01-06] MEDS: K, MAG and/or Phos replacement - Verify level? MC SCH (08:00)
[2020-01-06] MEDS: amiodarone 200mg tablet CORPAK SCH ×2 (08:18→19:40)
[2020-01-06] MEDS: labetalol 100mg tablet PO SCH (08:18)
[2020-01-06] MEDS: OLANZAPINE 5 MG TABLET PO SCH (08:18)
[2020-01-06] MEDS: thiamine 100mg tablet CORPAK SCH (08:19)
[2020-01-06] MEDS: multivitamins, therapeutics tablet PO SCH (08:19)
[2020-01-06] MEDS: lactobacillus rhamnosus 10,000 MMU CELLS/CAPSULE OGT SCH ×2 (08:19→19:41)
[2020-01-06] MEDS: POTASSIUM BICARB 20meq eff tab 20 MEQ TABLET.EFF OGT SCH ×2 (08:19→19:38)
[2020-01-06] MEDS: heparin, porcine 5000 units/ml vial SQ SCH ×2 (08:20→19:39)
[2020-01-06] MEDS: famotidine/PF 10 mg/ml inj IV SCH ×2 (08:20→19:37)
[2020-01-06] MEDS: piperacillin/tazo 4.5gm/100ml 100 ML IV SCH ×3 (08:21→23:35)
--- NOTE | 2020-01-06 10:13 | NUR ---
Pt worked with PT and was able to stand!
[2020-01-06] MEDS: epoetin 20,000 units/ml inj SQ SCH (11:05)
[2020-01-06 14:16] LABS: ABG BASE EXCESS 1.5 mmol/L (-2.0-3.0); ABG HCO3 25.1 mmol/L (22.0-26.0); ABG OXYGEN SATURATION 96.8 % (95-98); ABG PCO2 (T) 35.9 mmHg (35.0-45.0); ABG PH (T) 7.462 (7.350-7.450); ALLEN'S TEST POSITIVE; FCOHb 0.3 % (0.5-1.5); FLOW 10 L/min; FMetHb 0.2 % (0.3-1.12); FO2Hb 96.3 % (94-100); TOTAL HEMOGLOBIN 11.3 G/dl (14.0-17.9)
--- NOTE | 2020-01-06 16:47 | NUR ---
Reassessment: Patient mechanically ventilated with trach, sedated s/p exploratory lap with pancreatic debridement on 12/29 and 01/02; receiving tube feeding via corpak at 40 ml/hr. 01/04 discussed with Costume Design Teacher and bedside RN recommendation to increase tube feeding as tolerated to goal rate to meet patient's needs on the vent. Tube feeding has been increased by 10 ml. Recommend to increase tube feeding by 20 ml q 8 hours as tolerated to goal rate of 90 ml/hr, notified bedside RN. Pt has rectal tube with 50 ml out yesterday. Sodium 147, Costume Design Teacher aware; pt receiving 200 ml water flush q 4 hours. Will continue to follow. Recommendations: 1) Continuous TF using Vital High Protein with goal rate of 90 mL/hr to provide total volume of 2160 mL/day, 2160 kcal, 189 g protein, and 1814 mL free water. Advance TF by 30 mL q 8 hours as tolerated to goal rate. 2) Prealbumin q /; daily weights 3) Additional water flush 200 mL q 4 hours 4) Continue MVI Addendum: 01/06/20 at [address] Amended: Links added.
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
--- NOTE | 2020-01-06 19:00 | NUR ---
Patient in room CICU 2007. I have received report from Art RN and had the opportunity to ask questions and assume patient care.
[2020-01-06] MEDS: insulin glargine (Lantus) pen - multi-dose SQ SCH (21:00)
[2020-01-07] VITALS (22 sets, daily range): BP systolic 104–152; BP diastolic 59–84
[2020-01-07] MEDS: dexmedetomidin/NS 400mcg/100ml 100 ML IV SCH ×6 (02:21→20:30)
[2020-01-07] MEDS: FENTANYL-0.9 % NACL/PF 100 ML IV PRN ×4 (02:21→17:43)
[2020-01-07 02:40] LABS: BASOPHILS % (AUTO) 0.3 % (0-1); EOSINOPHILS # (AUTO) 0.1 X10'3 (0-0.9); EOSINOPHILS % (AUTO) 0.6 % (0-6); HEMATOCRIT 26.7 % (42.0-52.0); HEMOGLOBIN 8.8 g/dl (14.0-17.9); LYMPHOCYTES # (AUTO) 1.9 X10'3 (1.1-4.8); LYMPHOCYTES % (AUTO) 21.3 % (21-51); MEAN CORPUSCULAR HEMOGLOBIN 29.2 PG (27.0-31.0); MEAN CORPUSCULAR VOLUME 88.5 FL (78-98); MEAN PLATELET VOLUME 8.2 FL (7.4-10.4); MONOCYTES # (AUTO) 0.3 X10'3 (0-0.9); MONOCYTES % (AUTO) 3.6 % (2-12); NEUTROPHILS # (AUTO) 6.5 X10'3 (1.8-7.7); NEUTROPHILS % (AUTO) 74.2 % (42-75); PLATELET COUNT 209 X10'3 (140-440); RED BLOOD COUNT 3.02 X10'6 (4.70-6.10); RED CELL DISTRIBUTION WIDTH 15.5 % (11.5-14.5); WHITE BLOOD COUNT 8.8 X10'3 (4.5-11.0)
[2020-01-07] MEDS: ipratropium/albuterol 3ml nebule NEB SCH ×6 (02:45→23:05)
[2020-01-07 02:57] LABS: ALANINE AMINOTRANSFERASE 42 U/L (12-78); ALBUMIN 1.4 G/DL (3.4-5.0); ALBUMIN/GLOBULIN RATIO 0.3 (1.1-1.5); ALKALINE PHOSPHATASE 178 IU/L (46-116); ANION GAP 7 (8-16); ASPARTATE AMINO TRANSFERASE 22 U/L (10-37); BILIRUBIN,TOTAL 0.5 MG/DL (0.1-1.0); BLOOD UREA NITROGEN 24 MG/DL (7-18); BUN/CREATININE RATIO 13.6 (5.4-32.0); CHLORIDE 113 MMOL/L (99-107); CREATININE 1.76 MG/DL (0.60-1.10); GLUCOSE 166 MG/DL (70-104); MAGNESIUM 1.6 MG/DL (1.5-2.4); PHOSPHORUS 3.7 MG/DL (2.3-4.5); POTASSIUM 3.6 MMOL/L (3.5-5.1); SODIUM 149 MMOL/L (135-145); TOTAL CARBON DIOXIDE 29.3 MMOL/L (24-32); TOTAL PROTEIN 5.9 G/DL (6.4-8.2); eGFR 41 ML/MIN
--- NOTE | 2020-01-07 05:34 | NUR ---
PT has been thrashing around in bed thumping his legs down on the bed, tapping on the rail and forcing air around his trach cuff, Spoke to october DIAGRAMMER, she's afraid that he might rupture his cuff if he keeps it up, he still has versed q 5 pushes ordered, she suggested I try that to help sedate him.
--- NOTE | 2020-01-07 06:53 | NUR ---
Patient in room CICU 2007. I have received report from Claudy DICK and had the opportunity to ask questions and assume patient care.
[2020-01-07] MEDS: K, MAG and/or Phos replacement - Verify level? MC SCH (08:00)
[2020-01-07] MEDS: mineral oil/petrolatum ophthal oint EACHEYE SCH ×4 (08:03→21:03)
[2020-01-07] MEDS: piperacillin/tazo 4.5gm/100ml 100 ML IV SCH ×2 (08:42→15:07)
[2020-01-07] MEDS: OLANZAPINE 5 MG TABLET PO SCH (08:43)
[2020-01-07] MEDS: thiamine 100mg tablet CORPAK SCH (08:44)
[2020-01-07] MEDS: labetalol 100mg tablet PO SCH ×2 (08:44→20:48)
[2020-01-07] MEDS: famotidine/PF 10 mg/ml inj IV SCH ×2 (08:45→20:50)
[2020-01-07] MEDS: heparin, porcine 5000 units/ml vial SQ SCH ×3 (08:45→20:50)
[2020-01-07] MEDS: POTASSIUM BICARB 20meq eff tab 20 MEQ TABLET.EFF OGT SCH ×2 (08:46→20:48)
[2020-01-07] MEDS: multivitamins, therapeutics tablet PO SCH (08:46)
[2020-01-07] MEDS: lactobacillus rhamnosus 10,000 MMU CELLS/CAPSULE OGT SCH ×2 (08:46→20:47)
[2020-01-07] MEDS: amiodarone 200mg tablet CORPAK SCH ×2 (08:46→20:47)
[2020-01-07] MEDS ORDERED: acetaminophen 1,000mg/100ml IV 100 ML IV ONE (10:40)
[2020-01-07] MEDS: insulin regular, human U-100 3ml vial - multi-dose SQ SCH ×2 (14:36→20:33)
--- NOTE | 2020-01-07 18:20 | NUR ---
Patient report given, questions answered & plan of care reviewed with Claudy DICK.
--- NOTE | 2020-01-07 19:00 | NUR ---
Patient in room CICU 2007. I have received report from AM RN and had the opportunity to ask questions and assume patient care.
[2020-01-07] MEDS: insulin glargine (Lantus) pen - multi-dose SQ SCH (20:38)
[2020-01-08] VITALS (21 sets, daily range): BP systolic 100–132; BP diastolic 55–79
[2020-01-08] MEDS: dexmedetomidin/NS 400mcg/100ml 100 ML IV SCH ×8 (00:08→23:11)
[2020-01-08] MEDS: piperacillin/tazo 4.5gm/100ml 100 ML IV SCH ×3 (00:08→16:19)
[2020-01-08] MEDS: FENTANYL-0.9 % NACL/PF 100 ML IV PRN ×7 (00:49→23:42)
[2020-01-08] MEDS: mineral oil/petrolatum ophthal oint EACHEYE SCH ×4 (02:26→20:47)
[2020-01-08] MEDS: insulin regular, human U-100 3ml vial - multi-dose SQ SCH ×2 (02:35→09:01)
[2020-01-08 02:37] LABS: BASOPHILS % (AUTO) 0.5 % (0-1); EOSINOPHILS % (AUTO) 0.6 % (0-6); HEMOGLOBIN 8.5 g/dl (14.0-17.9); LYMPHOCYTES # (AUTO) 1.5 X10'3 (1.1-4.8); LYMPHOCYTES % (AUTO) 20.8 % (21-51); MEAN CORPUSCULAR HEMOGLOBIN 28.7 PG (27.0-31.0); MEAN CORPUSCULAR HGB CONC 32.6 g/dL (33.0-36.5); MEAN CORPUSCULAR VOLUME 88.1 FL (78-98); MEAN PLATELET VOLUME 7.7 FL (7.4-10.4); MONOCYTES # (AUTO) 0.4 X10'3 (0-0.9); MONOCYTES % (AUTO) 5.5 % (2-12); NEUTROPHILS # (AUTO) 5.2 X10'3 (1.8-7.7); NEUTROPHILS % (AUTO) 72.6 % (42-75); PLATELET COUNT 200 X10'3 (140-440); RED BLOOD COUNT 2.95 X10'6 (4.70-6.10); WHITE BLOOD COUNT 7.2 X10'3 (4.5-11.0)
[2020-01-08 02:48] LABS: ALANINE AMINOTRANSFERASE 40 U/L (12-78); ALBUMIN 1.4 G/DL (3.4-5.0); ALBUMIN/GLOBULIN RATIO 0.3 (1.1-1.5); ALKALINE PHOSPHATASE 165 IU/L (46-116); ANION GAP 3 (8-16); ASPARTATE AMINO TRANSFERASE 20 U/L (10-37); BILIRUBIN,TOTAL 0.3 MG/DL (0.1-1.0); BLOOD UREA NITROGEN 24 MG/DL (7-18); BUN/CREATININE RATIO 14.8 (5.4-32.0); CALCIUM 7.7 MG/DL (8.5-10.1); CHLORIDE 115 MMOL/L (99-107); CREATININE 1.62 MG/DL (0.60-1.10); GLUCOSE 116 MG/DL (70-104); MAGNESIUM 1.3 MG/DL (1.5-2.4); SODIUM 150 MMOL/L (135-145); TOTAL CARBON DIOXIDE 31.8 MMOL/L (24-32); TOTAL PROTEIN 5.8 G/DL (6.4-8.2); eGFR 45 ML/MIN
[2020-01-08] MEDS: ipratropium/albuterol 3ml nebule NEB SCH ×6 (02:58→22:31)
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
[2020-01-08] MEDS: potassium Cl 20mEq/100mL bag 100 ML IV PRN ×8 (03:14→21:20)
[2020-01-08] MEDS: MIDAZolam 5mg/ml 2ml vial IV PRN ×2 (07:34→14:31)
[2020-01-08] MEDS: K, MAG and/or Phos replacement - Verify level? MC SCH (08:00)
[2020-01-08] MEDS: famotidine/PF 10 mg/ml inj IV SCH ×2 (08:14→20:47)
[2020-01-08] MEDS: lactobacillus rhamnosus 10,000 MMU CELLS/CAPSULE OGT SCH ×2 (08:15→20:46)
[2020-01-08] MEDS: POTASSIUM BICARB 20meq eff tab 20 MEQ TABLET.EFF OGT SCH ×2 (08:15→20:46)
[2020-01-08] MEDS: olanzapine 10mg tablet PO SCH (08:16)
[2020-01-08] MEDS: amiodarone 200mg tablet CORPAK SCH ×2 (08:16→20:48)
[2020-01-08] MEDS: heparin, porcine 5000 units/ml vial SQ SCH ×2 (08:16→20:47)
[2020-01-08] MEDS: thiamine 100mg tablet CORPAK SCH (08:16)
[2020-01-08] MEDS: multivitamins, therapeutics tablet PO SCH (08:17)
[2020-01-08] MEDS: labetalol 100mg tablet PO SCH ×3 (08:17→20:00)
[2020-01-08] MEDS: epoetin 20,000 units/ml inj SQ SCH (11:05)
[2020-01-08] MEDS: VANCOMYCIN 750MG IV in NS 250 ML IV SCH ×2 (11:30→23:15)
--- NOTE | 2020-01-08 12:09 | NUR ---
Reassessment: Patient's TF has been advanced to goal rate and pt tolerating. Water flushes have been increased to 250 mL Q4H per MD given hypernatremia, serum Na 150 today. Pt documented with 1L stool output from rectal tube 01/06. No further nutrition intervention warranted at this time. Will continue to follow closely. Recommendations: 1) Continuous TF using Vital High Protein with goal rate of 90 mL/hr to provide total volume of 2160 mL/day, 2160 kcal, 189 g protein, and 1814 mL free water. 2) Prealbumin q /; daily weights 3) Additional water flush 250 mL Q4H per MD; monitor serum Na 4) Continue MVI and Thiamine Addendum: 01/08/20 at [address] Amended: Links added.
[2020-01-08] MEDS: acetaminophen 325mg/10.15ml oral unit dose solution OGT PRN (12:13)
[2020-01-08] MEDS ORDERED: magnesium 4gm in 100ml NS 100 ML IV ONE (12:30)
[2020-01-08] MEDS: diatr meglu/diatrizoate 30ml oral sol.-(3 dose) bottle PO SCH ×3 (13:22→18:00)
[2020-01-08] MEDS ORDERED: diatr meglu/diatrizoate 30ml oral sol.-(3 dose) bottle PO SCH (15:00)
--- NOTE | 2020-01-08 20:00 | NUR ---
PATIENT OFF FLOOR, TAKEN TO CT FOR ABDOMINAL/PELVIS XRAY. VERSED AND FENTYNAL BOLUS GIVEN PRIOR TO TRANSPORT. PATIENT TOLERATED PROCEDURE WELL, RETURNED TO FLOOR APPROXIMATELY 2044. VITAL SIGNS CONTINUOUSLY MONITORED DURING TRANSPORT AND PROCEDURE. Mathieu SEBASTIAN RN
[2020-01-08] MEDS: insulin glargine (Lantus) pen - multi-dose SQ SCH (20:55)
[2020-01-09] VITALS (24 sets, daily range): BP systolic 87–156; BP diastolic 46–78
[2020-01-09] MEDS: piperacillin/tazo 4.5gm/100ml 100 ML IV SCH ×3 (01:48→16:27)
[2020-01-09] MEDS: mineral oil/petrolatum ophthal oint EACHEYE SCH ×4 (02:08→19:35)
[2020-01-09] MEDS: insulin regular, human U-100 3ml vial - multi-dose SQ SCH ×2 (02:22→20:44)
[2020-01-09] MEDS: acetaminophen 325mg/10.15ml oral unit dose solution OGT PRN ×3 (02:24→19:32)
[2020-01-09] MEDS: ipratropium/albuterol 3ml nebule NEB SCH ×6 (02:33→22:50)
[2020-01-09 02:40] LABS: BASOPHILS % (AUTO) 0.8 % (0-1); EOSINOPHILS % (AUTO) 0.5 % (0-6); HEMATOCRIT 24.8 % (42.0-52.0); LYMPHOCYTES # (AUTO) 1.5 X10'3 (1.1-4.8); LYMPHOCYTES % (AUTO) 24.7 % (21-51); MEAN CORPUSCULAR HEMOGLOBIN 28.4 PG (27.0-31.0); MEAN CORPUSCULAR HGB CONC 32.1 g/dL (33.0-36.5); MEAN CORPUSCULAR VOLUME 88.6 FL (78-98); MONOCYTES # (AUTO) 0.5 X10'3 (0-0.9); MONOCYTES % (AUTO) 8.3 % (2-12); NEUTROPHILS % (AUTO) 65.7 % (42-75); PLATELET COUNT 178 X10'3 (140-440); RED CELL DISTRIBUTION WIDTH 15.3 % (11.5-14.5); WHITE BLOOD COUNT 6.1 X10'3 (4.5-11.0)
[2020-01-09 02:56] LABS: ALANINE AMINOTRANSFERASE 46 U/L (12-78); ALBUMIN 1.3 G/DL (3.4-5.0); ALBUMIN/GLOBULIN RATIO 0.3 (1.1-1.5); ALKALINE PHOSPHATASE 217 IU/L (46-116); ANION GAP 5 (8-16); ASPARTATE AMINO TRANSFERASE 28 U/L (10-37); BILIRUBIN,TOTAL 0.3 MG/DL (0.1-1.0); BLOOD UREA NITROGEN 19 MG/DL (7-18); CALCIUM 7.2 MG/DL (8.5-10.1); CHLORIDE 114 MMOL/L (99-107); CREATININE 1.36 MG/DL (0.60-1.10); GLUCOSE 153 MG/DL (70-104); MAGNESIUM 1.8 MG/DL (1.5-2.4); PHOSPHORUS 1.8 MG/DL (2.3-4.5); POTASSIUM 4.3 MMOL/L (3.5-5.1); SODIUM 146 MMOL/L (135-145); TOTAL CARBON DIOXIDE 27.3 MMOL/L (24-32); TOTAL PROTEIN 5.5 G/DL (6.4-8.2); eGFR 55 ML/MIN
[2020-01-09] MEDS: dexmedetomidin/NS 400mcg/100ml 100 ML IV SCH ×3 (05:38→22:05)
[2020-01-09] MEDS: FENTANYL-0.9 % NACL/PF 100 ML IV PRN ×3 (05:40→22:03)
[2020-01-09] MEDS: POTASSIUM BICARB 20meq eff tab 20 MEQ TABLET.EFF OGT SCH ×2 (07:22→19:33)
[2020-01-09] MEDS: thiamine 100mg tablet CORPAK SCH (07:22)
[2020-01-09] MEDS: olanzapine 10mg tablet PO SCH (07:22)
[2020-01-09] MEDS: labetalol 100mg tablet PO SCH ×2 (07:22→19:33)
[2020-01-09] MEDS: multivitamins, therapeutics tablet PO SCH (07:22)
[2020-01-09] MEDS: lactobacillus rhamnosus 10,000 MMU CELLS/CAPSULE OGT SCH ×2 (07:22→19:32)
[2020-01-09] MEDS: heparin, porcine 5000 units/ml vial SQ SCH ×2 (07:23→19:34)
[2020-01-09] MEDS: amiodarone 200mg tablet CORPAK SCH ×2 (07:23→19:33)
[2020-01-09] MEDS: famotidine/PF 10 mg/ml inj IV SCH ×2 (07:23→19:32)
[2020-01-09] MEDS: K, MAG and/or Phos replacement - Verify level? MC SCH (07:24)
[2020-01-09] MEDS: VANCOMYCIN 750MG IV in NS 250 ML IV SCH ×2 (11:35→23:11)
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
--- NOTE | 2020-01-09 14:36 | NUR ---
I will keep this pt for the rest of this shift, but will refuse being assigned again. Security notified, and they came up and took a report.
--- NOTE | 2020-01-09 17:57 | NUR ---
Pt ventilator keeps saying "System leak". I notified RT.
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
[2020-01-09] MEDS: insulin glargine (Lantus) pen - multi-dose SQ SCH (20:45)
--- NOTE | 2020-01-09 22:10 | NUR ---
Patient extremely agitated. Pulling at restraints, not following commands. Patient kicking his left leg, right leg in restraint - pulling at restraint. Sedation administered as ordered. Patient repositioned in bed after sedation. Pillows in place to off load pressure. Will continue to monitor.
[2020-01-09] MEDS: MIDAZolam 5mg/ml 2ml vial IV PRN (22:16)
[2020-01-09] MEDS ORDERED: VANCOMYCIN LEVEL IV ONE (22:30)
[2020-01-10] VITALS (27 sets, daily range): BP systolic 81–141; BP diastolic 36–92
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
[2020-01-10] MEDS: piperacillin/tazo 4.5gm/100ml 100 ML IV SCH ×3 (00:22→16:00)
[2020-01-10] MEDS: MIDAZolam 5mg/ml 2ml vial IV PRN (00:26)
[2020-01-10] MEDS: mineral oil/petrolatum ophthal oint EACHEYE SCH ×4 (02:00→20:00)
[2020-01-10] MEDS: ipratropium/albuterol 3ml nebule NEB SCH ×6 (02:17→23:00)
[2020-01-10] MEDS: insulin regular, human U-100 3ml vial - multi-dose SQ SCH ×4 (02:24→21:42)
[2020-01-10 02:53] LABS: ALANINE AMINOTRANSFERASE 56 U/L (12-78); ALBUMIN 1.3 G/DL (3.4-5.0); ALBUMIN/GLOBULIN RATIO 0.3 (1.1-1.5); ALKALINE PHOSPHATASE 250 IU/L (46-116); ANION GAP 8 (8-16); ASPARTATE AMINO TRANSFERASE 27 U/L (10-37); BILIRUBIN,TOTAL 0.3 MG/DL (0.1-1.0); BLOOD UREA NITROGEN 22 MG/DL (7-18); BUN/CREATININE RATIO 18.5 (5.4-32.0); CALCIUM 7.6 MG/DL (8.5-10.1); CHLORIDE 112 MMOL/L (99-107); CREATININE 1.19 MG/DL (0.60-1.10); GLUCOSE 136 MG/DL (70-104); MAGNESIUM 1.3 MG/DL (1.5-2.4); PHOSPHORUS 2.2 MG/DL (2.3-4.5); POTASSIUM 3.2 MMOL/L (3.5-5.1); PREALBUMIN 12.7 MG/DL (19-36); SODIUM 146 MMOL/L (135-145); TOTAL CARBON DIOXIDE 26.5 MMOL/L (24-32); TOTAL PROTEIN 5.4 G/DL (6.4-8.2); eGFR 64 ML/MIN
[2020-01-10 02:59] LABS: BASOPHILS % (AUTO) 0.7 % (0-1); EOSINOPHILS % (AUTO) 0.8 % (0-6); LYMPHOCYTES # (AUTO) 1.5 X10'3 (1.1-4.8); LYMPHOCYTES % (AUTO) 27.9 % (21-51); MEAN CORPUSCULAR HEMOGLOBIN 28.6 PG (27.0-31.0); MEAN CORPUSCULAR HGB CONC 32.1 g/dL (33.0-36.5); MEAN PLATELET VOLUME 8.3 FL (7.4-10.4); MONOCYTES # (AUTO) 0.5 X10'3 (0-0.9); NEUTROPHILS # (AUTO) 3.3 X10'3 (1.8-7.7); NEUTROPHILS % (AUTO) 60.6 % (42-75); PLATELET COUNT 189 X10'3 (140-440); RED BLOOD COUNT 2.46 X10'6 (4.70-6.10); RED CELL DISTRIBUTION WIDTH 15.3 % (11.5-14.5); WHITE BLOOD COUNT 5.5 X10'3 (4.5-11.0)
[2020-01-10 03:09] LABS: HEMATOCRIT 21.9 % (42.0-52.0)
[2020-01-10] MEDS: dexmedetomidin/NS 400mcg/100ml 100 ML IV SCH ×5 (03:32→23:05)
[2020-01-10] MEDS ORDERED: magnesium 2GM in 50ml NS 50 ML IV ONE (03:50)
[2020-01-10] MEDS: potassium Cl 20mEq/100mL bag 100 ML IV PRN ×2 (04:04→05:14)
[2020-01-10] MEDS ORDERED: FLU VACC QS2019-20 36MOS UP/PF 60 MCG/0.5 ML SYRINGE IMVAC ONE (05:00)
[2020-01-10] MEDS: FENTANYL-0.9 % NACL/PF 100 ML IV PRN ×4 (06:05→21:03)
--- NOTE | 2020-01-10 06:14 | NUR ---
Problems reprioritized. Patient report given, questions answered & plan of care reviewed with Elizabeth RN and Mary Grace RN.
--- NOTE | 2020-01-10 06:15 | NUR ---
Patient in room CICU 2007. I have received report from and had the opportunity to ask questions and assume patient care.
[2020-01-10] MEDS: K, MAG and/or Phos replacement - Verify level? MC SCH (08:00)
[2020-01-10] MEDS: heparin, porcine 5000 units/ml vial SQ SCH ×2 (08:44→21:04)
[2020-01-10] MEDS: POTASSIUM BICARB 20meq eff tab 20 MEQ TABLET.EFF OGT SCH (08:45)
[2020-01-10] MEDS: lactobacillus rhamnosus 10,000 MMU CELLS/CAPSULE OGT SCH (08:45)
[2020-01-10] MEDS: labetalol 100mg tablet PO SCH ×2 (08:45→21:04)
[2020-01-10] MEDS: amiodarone 200mg tablet CORPAK SCH ×2 (08:45→21:04)
[2020-01-10] MEDS: olanzapine 10mg tablet PO SCH (08:45)
[2020-01-10] MEDS: multivitamins, therapeutics tablet PO SCH (08:46)
[2020-01-10] MEDS: thiamine 100mg tablet CORPAK SCH (08:46)
[2020-01-10] MEDS: famotidine/PF 10 mg/ml inj IV SCH ×2 (09:13→21:04)
[2020-01-10 09:59] LABS: MEAN CORPUSCULAR HEMOGLOBIN 29.3 PG (27.0-31.0); MEAN CORPUSCULAR HGB CONC 32.8 g/dL (33.0-36.5); MEAN CORPUSCULAR VOLUME 89.3 FL (78-98); MEAN PLATELET VOLUME 8.3 FL (7.4-10.4); PLATELET COUNT 185 X10'3 (140-440); RED BLOOD COUNT 2.27 X10'6 (4.70-6.10); RED CELL DISTRIBUTION WIDTH 15.1 % (11.5-14.5); WHITE BLOOD COUNT 5.3 X10'3 (4.5-11.0)
[2020-01-10 10:18] LABS: HEMATOCRIT 20.3 % (42.0-52.0); HEMOGLOBIN 6.7 g/dl (14.0-17.9)
[2020-01-10] MEDS: acetaminophen 325mg/10.15ml oral unit dose solution OGT PRN (10:39)
[2020-01-10] MEDS: vancomycin/NS 1 GM ADD-VANTAGE 250 ML IV SCH ×2 (11:00→23:24)
[2020-01-10] MEDS ORDERED: olanzapine 10mg tablet CORPAK SCH (11:36)
[2020-01-10] MEDS ORDERED: olanzapine 10mg tablet PO ONE (12:00)
[2020-01-10 17:54] LABS: HEMATOCRIT 24.1 % (42.0-52.0); HEMOGLOBIN 7.7 g/dl (14.0-17.9); MEAN CORPUSCULAR HEMOGLOBIN 28.5 PG (27.0-31.0); MEAN CORPUSCULAR HGB CONC 32.2 g/dL (33.0-36.5); MEAN CORPUSCULAR VOLUME 88.6 FL (78-98); MEAN PLATELET VOLUME 8.4 FL (7.4-10.4); PLATELET COUNT 199 X10'3 (140-440); RED BLOOD COUNT 2.72 X10'6 (4.70-6.10); RED CELL DISTRIBUTION WIDTH 14.8 % (11.5-14.5); WHITE BLOOD COUNT 6.9 X10'3 (4.5-11.0)
[2020-01-10] MEDS ORDERED: diatr meglu/diatrizoate 30ml oral sol.-(3 dose) bottle PO SCH (18:00)
[2020-01-10] MEDS ORDERED: dextrose 10% 250ml bag IV ONE (18:05)
[2020-01-10] MEDS: Dextrose 10%-water IV solution 1,000 ML IV SCH (18:10)
--- NOTE | 2020-01-10 18:15 | NUR ---
Problems reprioritized. Patient report given, questions answered & plan of care reviewed with .
--- NOTE | 2020-01-10 18:37 | NUR ---
1300 PT calm and cooperative, removed restraints
--- NOTE | 2020-01-10 18:38 | NUR ---
1730 PT became uncooperative, pulled out corpak, restraints re-applied.
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
[2020-01-10] MEDS: acetaminophen 325mg/10.15ml oral unit dose solution CORPAK PRN (21:03)
[2020-01-10] MEDS: diatr meglu/diatrizoate 30ml oral sol.-(3 dose) bottle PO SCH (21:03)
[2020-01-10] MEDS: POTASSIUM BICARB 20meq eff tab 20 MEQ TABLET.EFF CORPAK SCH (21:04)
[2020-01-10] MEDS: lactobacillus rhamnosus 10,000 MMU CELLS/CAPSULE CORPAK SCH (21:05)
[2020-01-10] MEDS: insulin glargine (Lantus) pen - multi-dose SQ SCH (21:43)
[2020-01-10 22:15] LABS: ALANINE AMINOTRANSFERASE 61 U/L (12-78); ALBUMIN 1.3 G/DL (3.4-5.0); ALBUMIN/GLOBULIN RATIO 0.3 (1.1-1.5); ALKALINE PHOSPHATASE 262 IU/L (46-116); ANION GAP 7 (8-16); ASPARTATE AMINO TRANSFERASE 34 U/L (10-37); BILIRUBIN,TOTAL 0.4 MG/DL (0.1-1.0); BLOOD UREA NITROGEN 17 MG/DL (7-18); BUN/CREATININE RATIO 14.7 (5.4-32.0); CALCIUM 7.6 MG/DL (8.5-10.1); CHLORIDE 110 MMOL/L (99-107); CREATININE 1.16 MG/DL (0.60-1.10); GLUCOSE 127 MG/DL (70-104); POTASSIUM 3.6 MMOL/L (3.5-5.1); SODIUM 141 MMOL/L (135-145); TOTAL PROTEIN 5.8 G/DL (6.4-8.2); eGFR 66 ML/MIN
[2020-01-11] VITALS (23 sets, daily range): BP systolic 86–136; BP diastolic 46–84
--- NOTE | 2020-01-11 | NUR ---
Patient continues to be restless and agitated despite increase in Precedex. Switched from t-piece to trach collar. Patient continually coughing and demanding suction despite patient able to cough up secretions on own. Placed on trach mask and able to clean secretions with a tissue or gauze.
[2020-01-11] MEDS: piperacillin/tazo 4.5gm/100ml 100 ML IV SCH ×3 (00:36→16:13)
[2020-01-11] MEDS: mineral oil/petrolatum ophthal oint EACHEYE SCH (02:00)
[2020-01-11] MEDS: ipratropium/albuterol 3ml nebule NEB SCH ×6 (02:35→22:47)
[2020-01-11] MEDS: dexmedetomidin/NS 400mcg/100ml 100 ML IV SCH ×9 (02:45→22:23)
[2020-01-11 03:06] LABS: BASOPHILS # (AUTO) 0.1 X10'3 (0-0.2); BASOPHILS % (AUTO) 0.6 % (0-1); EOSINOPHILS % (AUTO) 0.4 % (0-6); HEMATOCRIT 26.3 % (42.0-52.0); HEMOGLOBIN 8.5 g/dl (14.0-17.9); LYMPHOCYTES # (AUTO) 2.1 X10'3 (1.1-4.8); LYMPHOCYTES % (AUTO) 24.6 % (21-51); MEAN CORPUSCULAR HEMOGLOBIN 28.7 PG (27.0-31.0); MEAN CORPUSCULAR HGB CONC 32.4 g/dL (33.0-36.5); MEAN CORPUSCULAR VOLUME 88.6 FL (78-98); MEAN PLATELET VOLUME 8.4 FL (7.4-10.4); MONOCYTES # (AUTO) 0.7 X10'3 (0-0.9); MONOCYTES % (AUTO) 8.4 % (2-12); NEUTROPHILS # (AUTO) 5.6 X10'3 (1.8-7.7); PLATELET COUNT 228 X10'3 (140-440); RED BLOOD COUNT 2.97 X10'6 (4.70-6.10); RED CELL DISTRIBUTION WIDTH 14.7 % (11.5-14.5); WHITE BLOOD COUNT 8.5 X10'3 (4.5-11.0)
[2020-01-11 03:19] LABS: ALANINE AMINOTRANSFERASE 63 U/L (12-78); ALBUMIN 1.3 G/DL (3.4-5.0); ALBUMIN/GLOBULIN RATIO 0.3 (1.1-1.5); ALKALINE PHOSPHATASE 261 IU/L (46-116); ANION GAP 5 (8-16); ASPARTATE AMINO TRANSFERASE 33 U/L (10-37); BILIRUBIN,TOTAL 0.4 MG/DL (0.1-1.0); BLOOD UREA NITROGEN 14 MG/DL (7-18); BUN/CREATININE RATIO 12.7 (5.4-32.0); CHLORIDE 110 MMOL/L (99-107); GLUCOSE 91 MG/DL (70-104); MAGNESIUM 1.5 MG/DL (1.5-2.4); POTASSIUM 3.6 MMOL/L (3.5-5.1); SODIUM 142 MMOL/L (135-145); TOTAL CARBON DIOXIDE 27.2 MMOL/L (24-32); TOTAL PROTEIN 6.1 G/DL (6.4-8.2); eGFR 71 ML/MIN
--- NOTE | 2020-01-11 04:45 | NUR ---
Patient continues to be very restless and agitated. Scooting to end of bed. Attempting to "leave" Noted to have green bile secretions from around trach. Trach suctioned with clear secretions noted. RT contacted. Trach cuff reinflated and placed on vent. SIMV mode. 0455 Patient noted to be in SVT with HR 160's. Last about 4 minuted and self resolved. October Pauly CHIPPER MACHINE OPERATOR aware.
[2020-01-11] MEDS ORDERED: acetaminophen 1,000mg/100ml IV 100 ML IV ONE (04:50)
[2020-01-11] MEDS: Dextrose 10%-water IV solution 1,000 ML IV SCH (05:10)
[2020-01-11] MEDS: FENTANYL-0.9 % NACL/PF 100 ML IV PRN ×2 (05:10→09:57)
--- NOTE | 2020-01-11 07:05 | NUR ---
Patient in room CICU 2007. I have received report from RN and had the opportunity to ask questions and assume patient care.
[2020-01-11] MEDS: diatr meglu/diatrizoate 30ml oral sol.-(3 dose) bottle PO SCH ×2 (07:12→09:52)
[2020-01-11] MEDS: K, MAG and/or Phos replacement - Verify level? MC SCH (08:00)
[2020-01-11] MEDS: labetalol 100mg tablet PO SCH ×3 (08:00→20:00)
[2020-01-11] MEDS: famotidine/PF 10 mg/ml inj IV SCH ×2 (08:48→20:23)
[2020-01-11] MEDS: heparin, porcine 5000 units/ml vial SQ SCH ×2 (08:48→20:24)
[2020-01-11] MEDS: insulin regular, human U-100 3ml vial - multi-dose SQ SCH ×3 (08:56→20:39)
[2020-01-11] MEDS ORDERED: iohexol 300mg/ml 100ml inj. ONE (10:22)
--- NOTE | 2020-01-11 10:28 | NUR ---
Reassessment: Pt TF at goal GRV WNL is having significant stool output noted 1000ml 4/4, 2800ml 4/5, and 400ml so far past 24 hours. MANJU d/w RN regarding anti-diarrheal given stool output. Pt is receiving post-pyloric feeding for optimal tolerance. Water flush 250ml Q4 given elevated Na now WNL today. Will continue to monitor. Recommendations: 1) Continuous TF using Vital High Protein with goal rate of 90 mL/hr to provide total volume of 2160 mL/day, 2160 kcal, 189 g protein, and 1814 mL free water. 2) Prealbumin q /; daily weights 3) Additional water flush 250 mL Q4H per MD; monitor serum Na 4) Continue MVI and Thiamine 5) anti-diarrheal if MD approval given stool output hx past 3 days Addendum: 01/11/20 at [address] Amended: Links added.
[2020-01-11] MEDS ORDERED: VANCOMYCIN LEVEL IV ONE (10:30)
--- NOTE | 2020-01-11 11:00 | NUR ---
back from ct
[2020-01-11] MEDS: epoetin 20,000 units/ml inj SQ SCH (12:06)
[2020-01-11] MEDS: POTASSIUM BICARB 20meq eff tab 20 MEQ TABLET.EFF CORPAK SCH ×3 (12:54→20:27)
[2020-01-11] MEDS: olanzapine 10mg tablet CORPAK SCH ×2 (12:54→13:26)
[2020-01-11] MEDS: amiodarone 200mg tablet CORPAK SCH ×3 (12:54→20:24)
[2020-01-11] MEDS: multivitamins, therapeutics tablet PO SCH ×2 (12:54→13:26)
[2020-01-11] MEDS: thiamine 100mg tablet CORPAK SCH ×2 (12:55→13:26)
[2020-01-11] MEDS: vancomycin/NS 1 GM ADD-VANTAGE 250 ML IV SCH ×2 (12:55→22:24)
[2020-01-11] MEDS: lactobacillus rhamnosus 10,000 MMU CELLS/CAPSULE CORPAK SCH ×3 (12:55→20:25)
--- NOTE | 2020-01-11 18:20 | NUR ---
Problems reprioritized. Patient report given, questions answered & plan of care reviewed with .
[2020-01-11] MEDS: insulin glargine (Lantus) pen - multi-dose SQ SCH (20:40)
[2020-01-12] VITALS (23 sets, daily range): BP systolic 93–126; BP diastolic 48–74
[2020-01-12] MEDS: piperacillin/tazo 4.5gm/100ml 100 ML IV SCH ×2 (00:02→08:30)
[2020-01-12] MEDS: insulin regular, human U-100 3ml vial - multi-dose SQ SCH ×4 (02:25→20:26)
[2020-01-12] MEDS: dexmedetomidin/NS 400mcg/100ml 100 ML IV SCH ×5 (02:42→19:32)
[2020-01-12 02:43] LABS: BASOPHILS # (AUTO) 0.1 X10'3 (0-0.2); EOSINOPHILS % (AUTO) 0.9 % (0-6); HEMATOCRIT 22.2 % (42.0-52.0); HEMOGLOBIN 7.3 g/dl (14.0-17.9); LYMPHOCYTES # (AUTO) 1.4 X10'3 (1.1-4.8); LYMPHOCYTES % (AUTO) 26.1 % (21-51); MEAN CORPUSCULAR HEMOGLOBIN 29.2 PG (27.0-31.0); MEAN CORPUSCULAR HGB CONC 33.1 g/dL (33.0-36.5); MEAN CORPUSCULAR VOLUME 88.2 FL (78-98); MEAN PLATELET VOLUME 8.6 FL (7.4-10.4); MONOCYTES # (AUTO) 0.5 X10'3 (0-0.9); MONOCYTES % (AUTO) 9.4 % (2-12); NEUTROPHILS # (AUTO) 3.5 X10'3 (1.8-7.7); NEUTROPHILS % (AUTO) 62.6 % (42-75); PLATELET COUNT 217 X10'3 (140-440); RED BLOOD COUNT 2.51 X10'6 (4.70-6.10); RED CELL DISTRIBUTION WIDTH 14.9 % (11.5-14.5); WHITE BLOOD COUNT 5.5 X10'3 (4.5-11.0)
[2020-01-12] MEDS: ipratropium/albuterol 3ml nebule NEB SCH ×6 (02:44→23:15)
[2020-01-12 03:15] LABS: ALANINE AMINOTRANSFERASE 51 U/L (12-78); ALBUMIN 1.3 G/DL (3.4-5.0); ALBUMIN/GLOBULIN RATIO 0.3 (1.1-1.5); ALKALINE PHOSPHATASE 224 IU/L (46-116); ANION GAP 5 (8-16); ASPARTATE AMINO TRANSFERASE 22 U/L (10-37); BILIRUBIN,TOTAL 0.3 MG/DL (0.1-1.0); BLOOD UREA NITROGEN 13 MG/DL (7-18); BUN/CREATININE RATIO 10.3 (5.4-32.0); CALCIUM 7.7 MG/DL (8.5-10.1); CHLORIDE 111 MMOL/L (99-107); CREATININE 1.26 MG/DL (0.60-1.10); GLUCOSE 108 MG/DL (70-104); MAGNESIUM 1.5 MG/DL (1.5-2.4); PHOSPHORUS 2.5 MG/DL (2.3-4.5); POTASSIUM 3.5 MMOL/L (3.5-5.1); SODIUM 143 MMOL/L (135-145); TOTAL CARBON DIOXIDE 26.9 MMOL/L (24-32); TOTAL PROTEIN 5.8 G/DL (6.4-8.2); eGFR 60 ML/MIN
--- NOTE | 2020-01-12 06:14 | NUR ---
RN Note -Shift Summary Pt was pleasant and cooperative most of the shift, needed reoriented at times.
--- NOTE | 2020-01-12 06:15 | NUR ---
Patient in room CICU 2007. I have received report from and had the opportunity to ask questions and assume patient care.
[2020-01-12] MEDS: K, MAG and/or Phos replacement - Verify level? MC SCH (08:00)
[2020-01-12] MEDS: POTASSIUM BICARB 20meq eff tab 20 MEQ TABLET.EFF CORPAK SCH ×2 (08:29→20:09)
[2020-01-12] MEDS: lactobacillus rhamnosus 10,000 MMU CELLS/CAPSULE CORPAK SCH ×2 (08:29→20:07)
[2020-01-12] MEDS: olanzapine 10mg tablet CORPAK SCH (08:29)
[2020-01-12] MEDS: thiamine 100mg tablet CORPAK SCH (08:30)
[2020-01-12] MEDS: amiodarone 200mg tablet CORPAK SCH ×2 (08:32→20:09)
[2020-01-12] MEDS: heparin, porcine 5000 units/ml vial SQ SCH ×2 (08:32→20:08)
[2020-01-12] MEDS: labetalol 100mg tablet PO SCH ×2 (08:32→20:08)
[2020-01-12] MEDS: multivitamins, therapeutics tablet PO SCH (08:35)
[2020-01-12] MEDS: famotidine/PF 10 mg/ml inj IV SCH ×2 (08:35→20:07)
[2020-01-12] MEDS: vancomycin/NS 1 GM ADD-VANTAGE 250 ML IV SCH ×2 (11:26→23:02)
[2020-01-12] MEDS: MEROPENEM 500MG/50ML-NS IVPB 50 ML IV SCH ×2 (14:14→20:09)
--- NOTE | 2020-01-12 16:03 | NUR ---
Notified MD about PT status. PT seems dull today, not very interactive compared to previous day. Vitals WNL. Orders received and placed.
[2020-01-12 16:26] LABS: ABG HCO3 22.2 mmol/L (22.0-26.0); ABG OXYGEN SATURATION 95.2 % (95-98); ABG PCO2 (T) 30.9 mmHg (35.0-45.0); ABG PH (T) 7.474 (7.350-7.450); ABG PO2 (T) 70.2 mmHg (83-108); ALLEN'S TEST POSITIVE; FCOHb 0.3 % (0.5-1.5); FMetHb 0.3 % (0.3-1.12); FO2Hb 94.6 % (94-100); TOTAL HEMOGLOBIN 8.3 G/dl (14.0-17.9)
--- NOTE | 2020-01-12 18:14 | NUR ---
no sbt pt on cool aersol since 1130 Addendum: 01/12/20 at 1815 by Dale Lloyd RT Amended: Links added.
--- NOTE | 2020-01-12 18:22 | NUR ---
Problems reprioritized. Patient report given, questions answered & plan of care reviewed with restaurant shift supervisor RN.
[2020-01-12] MEDS: insulin glargine (Lantus) pen - multi-dose SQ SCH (20:27)
[2020-01-13] VITALS (24 sets, daily range): BP systolic 119–161; BP diastolic 66–90
[2020-01-13] MEDS: dexmedetomidin/NS 400mcg/100ml 100 ML IV SCH ×9 (01:27→21:40)
[2020-01-13] MEDS: MEROPENEM 500MG/50ML-NS IVPB 50 ML IV SCH ×4 (01:28→20:20)
[2020-01-13] MEDS: acetaminophen 325mg/10.15ml oral unit dose solution CORPAK PRN ×2 (01:30→17:13)
[2020-01-13] MEDS: insulin regular, human U-100 3ml vial - multi-dose SQ SCH ×3 (02:06→21:02)
[2020-01-13] MEDS: ipratropium/albuterol 3ml nebule NEB SCH ×6 (03:02→22:47)
[2020-01-13 04:45] LABS: BASOPHILS % (AUTO) 0.5 % (0-1); EOSINOPHILS % (AUTO) 0.9 % (0-6); HEMATOCRIT 23.6 % (42.0-52.0); HEMOGLOBIN 7.5 g/dl (14.0-17.9); LYMPHOCYTES # (AUTO) 1.6 X10'3 (1.1-4.8); LYMPHOCYTES % (AUTO) 28.1 % (21-51); MEAN CORPUSCULAR HEMOGLOBIN 28.5 PG (27.0-31.0); MEAN CORPUSCULAR HGB CONC 31.9 g/dL (33.0-36.5); MEAN CORPUSCULAR VOLUME 89.2 FL (78-98); MEAN PLATELET VOLUME 8.8 FL (7.4-10.4); MONOCYTES # (AUTO) 0.4 X10'3 (0-0.9); MONOCYTES % (AUTO) 7.9 % (2-12); NEUTROPHILS # (AUTO) 3.5 X10'3 (1.8-7.7); NEUTROPHILS % (AUTO) 62.6 % (42-75); PLATELET COUNT 267 X10'3 (140-440); RED BLOOD COUNT 2.64 X10'6 (4.70-6.10); RED CELL DISTRIBUTION WIDTH 14.8 % (11.5-14.5); WHITE BLOOD COUNT 5.6 X10'3 (4.5-11.0)
[2020-01-13 04:51] LABS: ALANINE AMINOTRANSFERASE 50 U/L (12-78); ALBUMIN 1.3 G/DL (3.4-5.0); ALBUMIN/GLOBULIN RATIO 0.3 (1.1-1.5); ALKALINE PHOSPHATASE 206 IU/L (46-116); ANION GAP 9 (8-16); ASPARTATE AMINO TRANSFERASE 21 U/L (10-37); BILIRUBIN,TOTAL 0.3 MG/DL (0.1-1.0); BLOOD UREA NITROGEN 15 MG/DL (7-18); BUN/CREATININE RATIO 11.3 (5.4-32.0); CALCIUM 7.8 MG/DL (8.5-10.1); CHLORIDE 115 MMOL/L (99-107); CREATININE 1.33 MG/DL (0.60-1.10); GLUCOSE 135 MG/DL (70-104); MAGNESIUM 1.4 MG/DL (1.5-2.4); PHOSPHORUS 2.3 MG/DL (2.3-4.5); POTASSIUM 3.1 MMOL/L (3.5-5.1); PREALBUMIN 12.9 MG/DL (19-36); SODIUM 149 MMOL/L (135-145); TOTAL CARBON DIOXIDE 25.5 MMOL/L (24-32); TOTAL PROTEIN 6.2 G/DL (6.4-8.2); eGFR 57 ML/MIN
[2020-01-13] MEDS: potassium Cl 20mEq/100mL bag 100 ML IV PRN ×2 (05:37→06:42)
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
[2020-01-13] MEDS: olanzapine 10mg tablet CORPAK SCH (07:28)
[2020-01-13] MEDS: thiamine 100mg tablet CORPAK SCH (07:28)
[2020-01-13] MEDS: labetalol 100mg tablet PO SCH ×2 (07:28→20:41)
[2020-01-13] MEDS: multivitamins, therapeutics tablet PO SCH (07:28)
[2020-01-13] MEDS: lactobacillus rhamnosus 10,000 MMU CELLS/CAPSULE CORPAK SCH ×2 (07:28→20:41)
[2020-01-13] MEDS: POTASSIUM BICARB 20meq eff tab 20 MEQ TABLET.EFF CORPAK SCH ×2 (07:28→20:41)
[2020-01-13] MEDS: amiodarone 200mg tablet CORPAK SCH ×2 (07:28→20:00)
[2020-01-13] MEDS: famotidine/PF 10 mg/ml inj IV SCH ×2 (07:32→20:35)
[2020-01-13] MEDS: heparin, porcine 5000 units/ml vial SQ SCH ×2 (07:32→20:32)
[2020-01-13] MEDS: K, MAG and/or Phos replacement - Verify level? MC SCH (07:56)
[2020-01-13] MEDS: vancomycin/NS 1 GM ADD-VANTAGE 250 ML IV SCH ×2 (11:30→23:40)
[2020-01-13] MEDS: fluconazole-Diflucan 200mg/NS 100 ML IV SCH (12:13)
[2020-01-13] MEDS: loperamide 2mg capsule PO PRN ×2 (12:20→20:41)
[2020-01-13] MEDS: epoetin 20,000 units/ml inj SQ SCH (12:53)
[2020-01-13] MEDS: LIPASE/PROTEASE/AMYLASE 4,200 unit CAPSULE.DR PO SCH ×2 (14:25→20:41)
--- NOTE | 2020-01-13 17:05 | NUR ---
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 Pt tube feedings at goal rate. Sodium elevated today at 149, MD is aware, water flushes will continue. Elevated sodium possibly r/t water loss via diarrhea. Likely will improve with anti-diarrheal. Will continue to monitor. Recommendations: 1) Continuous TF using Vital High Protein with goal rate of 90 mL/hr to provide total volume of 2160 mL/day, 2160 kcal, 189 g protein, and 1814 mL free water. 2) Prealbumin q /; daily weights 3) Additional water flush 200 mL Q4H per MD 4) Continue MVI and Thiamine, Pancreatic enzymes 5) continue anti-diarrheal Addendum: 01/13/20 at [address] Amended: Links added.
--- NOTE | 2020-01-13 17:49 | NUR ---
Patient on Tmist from 0800 to 1700
--- NOTE | 2020-01-13 19:38 | NUR ---
RN Note -MD Communication/Fever Spoke to Dimitris regarding pt's fever, which is up to 38.8 after Tylenol. Received order for one time does of ibuprofen.
[2020-01-13] MEDS ORDERED: ibuprofen 100 MG/5 ML oral susp PO ONE (19:40)
[2020-01-13] MEDS: insulin glargine (Lantus) pen - multi-dose SQ SCH (21:03)
[2020-01-14] VITALS (24 sets, daily range): BP systolic 112–149; BP diastolic 61–96
[2020-01-14] MEDS: dexmedetomidin/NS 400mcg/100ml 100 ML IV SCH ×9 (00:44→22:53)
[2020-01-14] MEDS: ipratropium/albuterol 3ml nebule NEB SCH ×6 (02:40→22:32)
[2020-01-14] MEDS: insulin regular, human U-100 3ml vial - multi-dose SQ SCH ×4 (02:43→20:19)
[2020-01-14] MEDS: MEROPENEM 500MG/50ML-NS IVPB 50 ML IV SCH ×4 (02:51→20:43)
[2020-01-14] MEDS: LIPASE/PROTEASE/AMYLASE 4,200 unit CAPSULE.DR PO SCH ×4 (02:51→20:29)
--- NOTE | 2020-01-14 03:00 | NUR ---
RN Note -Called Dimitris Severino regarding critical hematocrit. Received order to update type and screen and redraw hemogram at noon
[2020-01-14 03:30] LABS: BASOPHILS % (AUTO) 0.7 % (0-1); EOSINOPHILS # (AUTO) 0.1 X10'3 (0-0.9); EOSINOPHILS % (AUTO) 1.2 % (0-6); HEMOGLOBIN 7.2 g/dl (14.0-17.9); LYMPHOCYTES # (AUTO) 1.6 X10'3 (1.1-4.8); LYMPHOCYTES % (AUTO) 31.5 % (21-51); MEAN CORPUSCULAR HEMOGLOBIN 29.3 PG (27.0-31.0); MEAN CORPUSCULAR HGB CONC 32.9 g/dL (33.0-36.5); MEAN PLATELET VOLUME 8.4 FL (7.4-10.4); MONOCYTES # (AUTO) 0.4 X10'3 (0-0.9); MONOCYTES % (AUTO) 8.7 % (2-12); NEUTROPHILS # (AUTO) 2.9 X10'3 (1.8-7.7); NEUTROPHILS % (AUTO) 57.9 % (42-75); PLATELET COUNT 291 X10'3 (140-440); RED BLOOD COUNT 2.46 X10'6 (4.70-6.10); RED CELL DISTRIBUTION WIDTH 15.2 % (11.5-14.5)
[2020-01-14 03:36] LABS: HEMATOCRIT 21.9 % (42.0-52.0)
[2020-01-14 03:40] LABS: ALANINE AMINOTRANSFERASE 52 U/L (12-78); ALBUMIN 1.3 G/DL (3.4-5.0); ALBUMIN/GLOBULIN RATIO 0.3 (1.1-1.5); ALKALINE PHOSPHATASE 181 IU/L (46-116); ANION GAP 9 (8-16); ASPARTATE AMINO TRANSFERASE 31 U/L (10-37); BILIRUBIN,TOTAL 0.2 MG/DL (0.1-1.0); BLOOD UREA NITROGEN 20 MG/DL (7-18); BUN/CREATININE RATIO 17.5 (5.4-32.0); CALCIUM 7.7 MG/DL (8.5-10.1); CHLORIDE 116 MMOL/L (99-107); CREATININE 1.14 MG/DL (0.60-1.10); GLUCOSE 131 MG/DL (70-104); MAGNESIUM 1.3 MG/DL (1.5-2.4); PHOSPHORUS 2.6 MG/DL (2.3-4.5); POTASSIUM 3.1 MMOL/L (3.5-5.1); SODIUM 150 MMOL/L (135-145); TOTAL CARBON DIOXIDE 25.1 MMOL/L (24-32); TOTAL PROTEIN 5.7 G/DL (6.4-8.2); eGFR 68 ML/MIN
[2020-01-14] MEDS: potassium Cl 20mEq/100mL bag 100 ML IV PRN ×2 (06:01→07:03)
--- NOTE | 2020-01-14 06:30 | NUR ---
Patient in room CICU 2007. I have received report from MAYELIN Rangel and had the opportunity to ask questions and assume patient care.
[2020-01-14] MEDS: fluconazole-Diflucan 200mg/NS 100 ML IV SCH (07:32)
[2020-01-14] MEDS: olanzapine 10mg tablet CORPAK SCH (07:34)
[2020-01-14] MEDS: lactobacillus rhamnosus 10,000 MMU CELLS/CAPSULE CORPAK SCH (07:34)
[2020-01-14] MEDS: amiodarone 200mg tablet CORPAK SCH ×2 (07:34→20:29)
[2020-01-14] MEDS: POTASSIUM BICARB 20meq eff tab 20 MEQ TABLET.EFF CORPAK SCH ×2 (07:34→20:35)
[2020-01-14] MEDS: multivitamins, therapeutics tablet PO SCH (07:34)
[2020-01-14] MEDS: labetalol 100mg tablet PO SCH ×2 (07:34→20:29)
[2020-01-14] MEDS: famotidine/PF 10 mg/ml inj IV SCH ×2 (07:34→20:24)
[2020-01-14] MEDS: thiamine 100mg tablet CORPAK SCH (07:35)
[2020-01-14] MEDS: heparin, porcine 5000 units/ml vial SQ SCH ×2 (07:36→20:21)
[2020-01-14] MEDS: K, MAG and/or Phos replacement - Verify level? MC SCH (07:37)
[2020-01-14] MEDS: Dextrose 10%-water IV solution 1,000 ML IV SCH ×2 (11:06→22:13)
[2020-01-14] MEDS: vancomycin/NS 1 GM ADD-VANTAGE 250 ML IV SCH ×2 (11:23→23:23)
[2020-01-14] MEDS: loperamide 2mg capsule PO PRN (12:05)
[2020-01-14] MEDS: magnesium Cl slow-release 64mg tablet PO PRN (12:05)
[2020-01-14] MEDS: acetaminophen 325mg/10.15ml oral unit dose solution CORPAK PRN ×2 (12:06→21:30)
[2020-01-14 13:23] LABS: HEMOGLOBIN 7.6 g/dl (14.0-17.9); MEAN CORPUSCULAR HEMOGLOBIN 28.2 PG (27.0-31.0); MEAN CORPUSCULAR HGB CONC 31.7 g/dL (33.0-36.5); MEAN CORPUSCULAR VOLUME 88.8 FL (78-98); MEAN PLATELET VOLUME 8.8 FL (7.4-10.4); PLATELET COUNT 300 X10'3 (140-440); RED CELL DISTRIBUTION WIDTH 15.1 % (11.5-14.5); WHITE BLOOD COUNT 7.2 X10'3 (4.5-11.0)
[2020-01-14] MEDS: insulin glargine (Lantus) pen - multi-dose SQ SCH (20:20)
[2020-01-15] VITALS (25 sets, daily range): BP systolic 116–139; BP diastolic 64–90
[2020-01-15] MEDS: insulin regular, human U-100 3ml vial - multi-dose SQ SCH ×4 (01:36→19:38)
[2020-01-15] MEDS: MEROPENEM 500MG/50ML-NS IVPB 50 ML IV SCH ×4 (02:24→20:21)
[2020-01-15] MEDS: ipratropium/albuterol 3ml nebule NEB SCH ×6 (02:27→22:51)
[2020-01-15] MEDS: LIPASE/PROTEASE/AMYLASE 4,200 unit CAPSULE.DR PO SCH ×4 (02:28→20:02)
[2020-01-15] MEDS: dexmedetomidin/NS 400mcg/100ml 100 ML IV SCH ×8 (04:16→22:44)
--- NOTE | 2020-01-15 06:39 | NUR ---
Patient in room CICU 2008. I have received report from Claudy and had the opportunity to ask questions and assume patient care.
[2020-01-15] MEDS: labetalol 100mg tablet PO SCH ×2 (07:57→20:02)
[2020-01-15] MEDS: olanzapine 10mg tablet CORPAK SCH (07:57)
[2020-01-15] MEDS: multivitamins, therapeutics tablet PO SCH (07:57)
[2020-01-15] MEDS: thiamine 100mg tablet CORPAK SCH (07:57)
[2020-01-15] MEDS: POTASSIUM BICARB 20meq eff tab 20 MEQ TABLET.EFF CORPAK SCH ×2 (07:57→20:01)
[2020-01-15] MEDS: amiodarone 200mg tablet CORPAK SCH ×2 (07:57→20:02)
[2020-01-15] MEDS: heparin, porcine 5000 units/ml vial SQ SCH ×2 (07:58→20:03)
[2020-01-15] MEDS: famotidine/PF 10 mg/ml inj IV SCH ×2 (07:58→20:02)
[2020-01-15] MEDS: K, MAG and/or Phos replacement - Verify level? MC SCH (08:00)
[2020-01-15] MEDS ORDERED: fluconazole/NS 400mg/200ml bag 200 ML IV SCH (08:00)
[2020-01-15 08:34] LABS: BASOPHILS % (AUTO) 0.7 % (0-1); EOSINOPHILS # (AUTO) 0.1 X10'3 (0-0.9); EOSINOPHILS % (AUTO) 1.2 % (0-6); HEMOGLOBIN 7.7 g/dl (14.0-17.9); LYMPHOCYTES # (AUTO) 1.9 X10'3 (1.1-4.8); LYMPHOCYTES % (AUTO) 28.4 % (21-51); MEAN CORPUSCULAR HEMOGLOBIN 28.3 PG (27.0-31.0); MEAN CORPUSCULAR HGB CONC 32.1 g/dL (33.0-36.5); MEAN CORPUSCULAR VOLUME 88.1 FL (78-98); MEAN PLATELET VOLUME 8.5 FL (7.4-10.4); MONOCYTES # (AUTO) 0.6 X10'3 (0-0.9); MONOCYTES % (AUTO) 9.1 % (2-12); NEUTROPHILS # (AUTO) 4.1 X10'3 (1.8-7.7); NEUTROPHILS % (AUTO) 60.6 % (42-75); PLATELET COUNT 359 X10'3 (140-440); RED BLOOD COUNT 2.73 X10'6 (4.70-6.10); RED CELL DISTRIBUTION WIDTH 15.2 % (11.5-14.5); WHITE BLOOD COUNT 6.8 X10'3 (4.5-11.0)
[2020-01-15 08:45] LABS: ALANINE AMINOTRANSFERASE 116 U/L (12-78); ALBUMIN 1.4 G/DL (3.4-5.0); ALBUMIN/GLOBULIN RATIO 0.3 (1.1-1.5); ALKALINE PHOSPHATASE 210 IU/L (46-116); ANION GAP 8 (8-16); ASPARTATE AMINO TRANSFERASE 87 U/L (10-37); BILIRUBIN,TOTAL 0.3 MG/DL (0.1-1.0); BLOOD UREA NITROGEN 21 MG/DL (7-18); BUN/CREATININE RATIO 21.4 (5.4-32.0); CALCIUM 7.8 MG/DL (8.5-10.1); CHLORIDE 111 MMOL/L (99-107); CREATININE 0.98 MG/DL (0.60-1.10); GLUCOSE 134 MG/DL (70-104); MAGNESIUM 1.1 MG/DL (1.5-2.4); PHOSPHORUS 3.2 MG/DL (2.3-4.5); POTASSIUM 3.3 MMOL/L (3.5-5.1); SODIUM 145 MMOL/L (135-145); TOTAL CARBON DIOXIDE 26.3 MMOL/L (24-32); TOTAL PROTEIN 6.3 G/DL (6.4-8.2); eGFR 81 ML/MIN
[2020-01-15] MEDS: Dextrose 10%-water IV solution 1,000 ML IV SCH ×2 (09:20→20:27)
[2020-01-15] MEDS: potassium Cl 20mEq/100mL bag 100 ML IV PRN (09:30)
--- NOTE | 2020-01-15 10:00 | NUR ---
Dr Klein notified of mag 1.1 He stated he would "put in orders".
--- NOTE | 2020-01-15 10:06 | NUR ---
1000 PLACED PT ON PASSY SHERINE VALVE AND TRACH MIST. PT SPO2 98% ON 30%. NO SIGN OF SOB OR DISTRESS. Addendum: 01/15/20 at 1007 by Maylin [address] RT Amended: Links added.
[2020-01-15] MEDS: acetaminophen 325mg/10.15ml oral unit dose solution CORPAK PRN (10:12)
[2020-01-15] MEDS ORDERED: VANCOMYCIN LEVEL IV ONE (10:30)
[2020-01-15] MEDS: vancomycin/NS 1 GM ADD-VANTAGE 250 ML IV SCH (10:53)
--- NOTE | 2020-01-15 11:30 | NUR ---
Vanco trough came back at 24.9. Notified Jolanta in pharmacy. She stated to stop vanco now and she will readjust next dose.
[2020-01-15] MEDS: epoetin 20,000 units/ml inj SQ SCH (13:19)
[2020-01-15] MEDS: ondansetron/PF 4mg/2ml inj IV PRN (13:42)
[2020-01-15] MEDS: loperamide 2mg capsule PO PRN (15:10)
--- NOTE | 2020-01-15 18:00 | NUR ---
Patient in room CICU 2008. I have received report from Carolina DICK and had the opportunity to ask questions and assume patient care.
--- NOTE | 2020-01-15 18:10 | NUR ---
Problems reprioritized. Patient report given, questions answered & plan of care reviewed with elise.
--- NOTE | 2020-01-15 19:00 | NUR ---
Patient in room CICU 2008. I have received report from Carolina DICK and had the opportunity to ask questions and assume patient care.
[2020-01-15] MEDS: insulin glargine (Lantus) pen - multi-dose SQ SCH (20:05)
[2020-01-16] VITALS (19 sets, daily range): BP systolic 114–162; BP diastolic 62–89
[2020-01-16] MEDS: vancomycin inj. 750 MG in normal saline 250ml IV soln 250 ML IV SCH ×3 (01:45→22:50)
[2020-01-16] MEDS: dexmedetomidin/NS 400mcg/100ml 100 ML IV SCH ×4 (01:46→18:28)
[2020-01-16] MEDS: MEROPENEM 500MG/50ML-NS IVPB 50 ML IV SCH ×4 (01:47→20:52)
--- NOTE | 2020-01-16 03:00 | NUR ---
Pt was agitated sayring her couldn't breathe, pulse oximetry was 98. Blood gas taken and it was unremarkable. [place] valve was removed and a moderate amount of white frothy secretions were extracted, Pt claims he can breathe better.
[2020-01-16 03:01] LABS: ABG BASE EXCESS -0.5 mmol/L (-2.0-3.0); ABG HCO3 24.4 mmol/L (22.0-26.0); ABG OXYGEN SATURATION 96.3 % (95-98); ABG PCO2 (T) 41.5 mmHg (35.0-45.0); ABG PH (T) 7.388 (7.350-7.450); ABG PO2 (T) 89.1 mmHg (83-108); ALLEN'S TEST POSITIVE; FCOHb 0.2 % (0.5-1.5); FMetHb 0.2 % (0.3-1.12); FO2Hb 95.9 % (94-100); PATIENT TEMPERATURE 37.4; TOTAL HEMOGLOBIN 8.9 G/dl (14.0-17.9)
[2020-01-16] MEDS: LIPASE/PROTEASE/AMYLASE 4,200 unit CAPSULE.DR PO SCH ×4 (03:03→20:59)
[2020-01-16] MEDS: insulin regular, human U-100 3ml vial - multi-dose SQ SCH ×4 (03:05→21:13)
[2020-01-16] MEDS: ipratropium/albuterol 3ml nebule NEB SCH ×6 (03:05→22:44)
[2020-01-16 05:47] LABS: BASOPHILS # (AUTO) 0.1 X10'3 (0-0.2); BASOPHILS % (AUTO) 0.8 % (0-1); EOSINOPHILS # (AUTO) 0.1 X10'3 (0-0.9); HEMATOCRIT 24.5 % (42.0-52.0); HEMOGLOBIN 7.9 g/dl (14.0-17.9); LYMPHOCYTES % (AUTO) 24.8 % (21-51); MEAN CORPUSCULAR HEMOGLOBIN 28.3 PG (27.0-31.0); MEAN CORPUSCULAR HGB CONC 32.2 g/dL (33.0-36.5); MEAN CORPUSCULAR VOLUME 87.9 FL (78-98); MEAN PLATELET VOLUME 8.8 FL (7.4-10.4); MONOCYTES # (AUTO) 0.6 X10'3 (0-0.9); MONOCYTES % (AUTO) 7.9 % (2-12); NEUTROPHILS # (AUTO) 5.2 X10'3 (1.8-7.7); NEUTROPHILS % (AUTO) 65.5 % (42-75); PLATELET COUNT 409 X10'3 (140-440); RED BLOOD COUNT 2.79 X10'6 (4.70-6.10); RED CELL DISTRIBUTION WIDTH 15.5 % (11.5-14.5)
[2020-01-16 05:57] LABS: ALANINE AMINOTRANSFERASE 140 U/L (12-78); ALBUMIN 1.5 G/DL (3.4-5.0); ALBUMIN/GLOBULIN RATIO 0.3 (1.1-1.5); ALKALINE PHOSPHATASE 233 IU/L (46-116); ANION GAP 8 (8-16); ASPARTATE AMINO TRANSFERASE 79 U/L (10-37); BILIRUBIN,TOTAL 0.3 MG/DL (0.1-1.0); BLOOD UREA NITROGEN 23 MG/DL (7-18); CALCIUM 8.2 MG/DL (8.5-10.1); CHLORIDE 109 MMOL/L (99-107); GLUCOSE 117 MG/DL (70-104); MAGNESIUM 1.2 MG/DL (1.5-2.4); PHOSPHORUS 3.6 MG/DL (2.3-4.5); POTASSIUM 3.7 MMOL/L (3.5-5.1); SODIUM 144 MMOL/L (135-145); TOTAL CARBON DIOXIDE 26.7 MMOL/L (24-32); TOTAL PROTEIN 6.4 G/DL (6.4-8.2); eGFR 79 ML/MIN
[2020-01-16 06:56] LABS: NUCLEATED RED BLOOD CELLS 1 /100WBC (0-0); TOTAL CELLS COUNTED 100
[2020-01-16 06:58] LABS: ANISOCYTOSIS 1+; HYPOCHROMASIA 1+; PLATELET ESTIMATE NORMAL; POLYCHROMASIA 1+; ROULEAUX 1+
[2020-01-16] MEDS: famotidine/PF 10 mg/ml inj IV SCH ×2 (07:57→20:59)
[2020-01-16] MEDS: thiamine 100mg tablet CORPAK SCH (07:57)
[2020-01-16] MEDS: heparin, porcine 5000 units/ml vial SQ SCH ×2 (07:57→20:59)
[2020-01-16] MEDS: olanzapine 10mg tablet CORPAK SCH (07:58)
[2020-01-16] MEDS: amiodarone 200mg tablet CORPAK SCH ×2 (07:58→20:59)
[2020-01-16] MEDS: POTASSIUM BICARB 20meq eff tab 20 MEQ TABLET.EFF CORPAK SCH ×2 (07:58→20:59)
[2020-01-16] MEDS: multivitamins, therapeutics tablet PO SCH (07:58)
[2020-01-16] MEDS: labetalol 100mg tablet PO SCH ×2 (07:58→20:59)
[2020-01-16] MEDS: K, MAG and/or Phos replacement - Verify level? MC SCH (08:00)
[2020-01-16] MEDS: fluconazole-Diflucan 200mg/NS 100 ML IV SCH (09:59)
--- NOTE | 2020-01-16 11:19 | NUR ---
Reassessment: Pt tolerating TF GRV WNL. Elevated stool output 500-600ml receiving imodium PRN and stool output decreased to 60ml so far today per RN. Mg 1.2 w/ slow-mag PRN. Abdomen open. Will continue to monitor. Recommendations: 1) Continuous TF using Vital High Protein with goal rate of 90 mL/hr to provide total volume of 2160 mL/day, 2160 kcal, 189 g protein, and 1814 mL free water. 2) Prealbumin q /; daily weights 3) Additional water flush 200 mL Q4H per MD 4) Continue MVI and Thiamine, Pancreatic enzymes 5) continue anti-diarrheal Addendum: 01/16/20 at [address] Amended: Links added.
--- NOTE | 2020-01-16 18:25 | NUR ---
Patient in room CICU 2007. I have received report from Livia DICK and had the opportunity to ask questions and assume patient care. Patient in bed, on trach mist at 9L, spo2 at 95%, patient is alert to self, reorientates to time and events with assistance. Tube feedings via small bore tube in right nare infusing per orders. Lujan catheter and rectal tube to gravity drainage. Precedex drip infusing per provider orders via right upper arm PICC, will titrate per protocol, see IV spreadsheet for further information. See interventions and EMR for more information. Will continue to monitor.
[2020-01-16] MEDS: insulin glargine (Lantus) pen - multi-dose SQ SCH (21:14)
[2020-01-17] VITALS (23 sets, daily range): BP systolic 105–144; BP diastolic 49–90
[2020-01-17] MEDS: dexmedetomidin/NS 400mcg/100ml 100 ML IV SCH ×4 (00:30→15:14)
[2020-01-17] MEDS: MEROPENEM 500MG/50ML-NS IVPB 50 ML IV SCH ×4 (01:37→20:54)
[2020-01-17] MEDS: LIPASE/PROTEASE/AMYLASE 4,200 unit CAPSULE.DR PO SCH ×4 (01:37→20:51)
[2020-01-17] MEDS: insulin regular, human U-100 3ml vial - multi-dose SQ SCH ×2 (02:02→21:06)
[2020-01-17] MEDS: ipratropium/albuterol 3ml nebule NEB SCH ×5 (02:37→20:07)
[2020-01-17 02:46] LABS: BASOPHILS # (AUTO) 0.1 X10'3 (0-0.2); BASOPHILS % (AUTO) 0.7 % (0-1); EOSINOPHILS # (AUTO) 0.1 X10'3 (0-0.9); EOSINOPHILS % (AUTO) 1.4 % (0-6); HEMATOCRIT 24.1 % (42.0-52.0); LYMPHOCYTES # (AUTO) 2.1 X10'3 (1.1-4.8); LYMPHOCYTES % (AUTO) 23.8 % (21-51); MEAN CORPUSCULAR HEMOGLOBIN 29.2 PG (27.0-31.0); MEAN CORPUSCULAR HGB CONC 33.2 g/dL (33.0-36.5); MEAN CORPUSCULAR VOLUME 87.9 FL (78-98); MEAN PLATELET VOLUME 8.8 FL (7.4-10.4); MONOCYTES # (AUTO) 0.6 X10'3 (0-0.9); MONOCYTES % (AUTO) 7.3 % (2-12); NEUTROPHILS # (AUTO) 5.8 X10'3 (1.8-7.7); NEUTROPHILS % (AUTO) 66.8 % (42-75); PLATELET COUNT 441 X10'3 (140-440); RED BLOOD COUNT 2.74 X10'6 (4.70-6.10); RED CELL DISTRIBUTION WIDTH 15.1 % (11.5-14.5); WHITE BLOOD COUNT 8.7 X10'3 (4.5-11.0)
[2020-01-17 03:04] LABS: ALANINE AMINOTRANSFERASE 151 U/L (12-78); ALBUMIN 1.5 G/DL (3.4-5.0); ALBUMIN/GLOBULIN RATIO 0.3 (1.1-1.5); ALKALINE PHOSPHATASE 244 IU/L (46-116); ANION GAP 11 (8-16); ASPARTATE AMINO TRANSFERASE 86 U/L (10-37); BILIRUBIN,TOTAL 0.3 MG/DL (0.1-1.0); BLOOD UREA NITROGEN 23 MG/DL (7-18); BUN/CREATININE RATIO 26.1 (5.4-32.0); CHLORIDE 108 MMOL/L (99-107); CREATININE 0.88 MG/DL (0.60-1.10); GLUCOSE 145 MG/DL (70-104); MAGNESIUM 1.3 MG/DL (1.5-2.4); POTASSIUM 3.4 MMOL/L (3.5-5.1); SODIUM 145 MMOL/L (135-145); TOTAL CARBON DIOXIDE 26.2 MMOL/L (24-32); TOTAL PROTEIN 6.4 G/DL (6.4-8.2); eGFR > 90 ML/MIN
[2020-01-17 07:37] LABS: GIANT PLATELET FEW; NUCLEATED RED BLOOD CELLS 1 /100WBC (0-0); PLATELET ESTIMATE INCREASED; TOTAL CELLS COUNTED 100
[2020-01-17 07:38] LABS: LARGE PLATELETS FEW; POLYCHROMASIA 1+
[2020-01-17 07:39] LABS: HYPOCHROMASIA 1+
[2020-01-17] MEDS: POTASSIUM BICARB 20meq eff tab 20 MEQ TABLET.EFF CORPAK SCH ×2 (07:52→20:51)
[2020-01-17] MEDS: fluconazole-Diflucan 200mg/NS 100 ML IV SCH (07:52)
[2020-01-17] MEDS: famotidine/PF 10 mg/ml inj IV SCH ×2 (07:52→20:54)
[2020-01-17] MEDS: labetalol 100mg tablet PO SCH ×2 (07:52→20:51)
[2020-01-17] MEDS: olanzapine 10mg tablet CORPAK SCH (07:52)
[2020-01-17] MEDS: amiodarone 200mg tablet CORPAK SCH ×2 (07:53→20:51)
[2020-01-17] MEDS: heparin, porcine 5000 units/ml vial SQ SCH ×3 (07:53→20:54)
[2020-01-17] MEDS: thiamine 100mg tablet CORPAK SCH (07:53)
[2020-01-17] MEDS: multivitamins, therapeutics tablet PO SCH (07:53)
[2020-01-17] MEDS: K, MAG and/or Phos replacement - Verify level? MC SCH (08:00)
[2020-01-17] MEDS ORDERED: VANCOMYCIN LEVEL IV ONE ×2 (10:30→22:30)
[2020-01-17] MEDS: vancomycin inj. 750 MG in normal saline 250ml IV soln 250 ML IV SCH ×2 (14:21→23:19)
[2020-01-17] MEDS ORDERED: ipratropium/albuterol 3ml nebule NEB PRN (16:16)
--- NOTE | 2020-01-17 21:00 | NUR ---
Spoke with Mathieu Severino EXPERIENCE SPECIALIST regarding PICC line and unable to flush or draw from port, order for cath flow received.
[2020-01-17] MEDS: insulin glargine (Lantus) pen - multi-dose SQ SCH (21:07)
--- NOTE | 2020-01-17 21:28 | NUR ---
Patient refused Heparin shot, educated patient on medication and risk vs benefit. Patient prefers to refuse medication at this time. Will continue to monitor.
[2020-01-17] MEDS ORDERED: tPA-cathflo 2 MG/2 ml IV flush IVF ONE (21:35)
[2020-01-18] VITALS (23 sets, daily range): BP systolic 102–154; BP diastolic 43–90
[2020-01-18] MEDS: dexmedetomidin/NS 400mcg/100ml 100 ML IV SCH ×3 (00:54→17:19)
[2020-01-18] MEDS: ipratropium/albuterol 3ml nebule NEB SCH ×4 (02:06→20:44)
[2020-01-18] MEDS: LIPASE/PROTEASE/AMYLASE 4,200 unit CAPSULE.DR PO SCH ×4 (02:11→19:31)
[2020-01-18] MEDS: MEROPENEM 500MG/50ML-NS IVPB 50 ML IV SCH ×4 (02:13→19:32)
[2020-01-18] MEDS: insulin regular, human U-100 3ml vial - multi-dose SQ SCH ×4 (02:17→19:44)
[2020-01-18 02:45] LABS: BASOPHILS # (AUTO) 0.1 X10'3 (0-0.2); BASOPHILS % (AUTO) 0.6 % (0-1); EOSINOPHILS # (AUTO) 0.1 X10'3 (0-0.9); EOSINOPHILS % (AUTO) 1.1 % (0-6); HEMOGLOBIN 7.8 g/dl (14.0-17.9); LYMPHOCYTES # (AUTO) 2.6 X10'3 (1.1-4.8); LYMPHOCYTES % (AUTO) 25.3 % (21-51); MEAN CORPUSCULAR HEMOGLOBIN 28.7 PG (27.0-31.0); MEAN CORPUSCULAR HGB CONC 32.6 g/dL (33.0-36.5); MEAN PLATELET VOLUME 8.5 FL (7.4-10.4); MONOCYTES # (AUTO) 0.8 X10'3 (0-0.9); MONOCYTES % (AUTO) 7.4 % (2-12); NEUTROPHILS # (AUTO) 6.8 X10'3 (1.8-7.7); NEUTROPHILS % (AUTO) 65.6 % (42-75); PLATELET COUNT 451 X10'3 (140-440); RED BLOOD COUNT 2.72 X10'6 (4.70-6.10); RED CELL DISTRIBUTION WIDTH 15.7 % (11.5-14.5); WHITE BLOOD COUNT 10.3 X10'3 (4.5-11.0)
[2020-01-18 03:00] LABS: ALANINE AMINOTRANSFERASE 180 U/L (12-78); ALBUMIN 1.5 G/DL (3.4-5.0); ALBUMIN/GLOBULIN RATIO 0.3 (1.1-1.5); ALKALINE PHOSPHATASE 261 IU/L (46-116); ANION GAP 8 (8-16); ASPARTATE AMINO TRANSFERASE 100 U/L (10-37); BILIRUBIN,TOTAL 0.3 MG/DL (0.1-1.0); BLOOD UREA NITROGEN 23 MG/DL (7-18); CALCIUM 7.8 MG/DL (8.5-10.1); CHLORIDE 109 MMOL/L (99-107); CREATININE 0.92 MG/DL (0.60-1.10); GLUCOSE 116 MG/DL (70-104); MAGNESIUM 1.3 MG/DL (1.5-2.4); PHOSPHORUS 3.2 MG/DL (2.3-4.5); POTASSIUM 3.3 MMOL/L (3.5-5.1); SODIUM 145 MMOL/L (135-145); TOTAL CARBON DIOXIDE 28.1 MMOL/L (24-32); TOTAL PROTEIN 6.3 G/DL (6.4-8.2); eGFR 87 ML/MIN
[2020-01-18 03:38] LABS: NUCLEATED RED BLOOD CELLS 1 /100WBC (0-0); TOTAL CELLS COUNTED 100
[2020-01-18 03:39] LABS: PLATELET ESTIMATE INCREASED; POLYCHROMASIA 1+
[2020-01-18] MEDS: acetaminophen 325mg/10.15ml oral unit dose solution CORPAK PRN ×2 (03:41→19:32)
--- NOTE | 2020-01-18 04:45 | NUR ---
Patient coughing during oral care, perviously removed central line sight from right IJ bleeding, pressure held hemostats achieved, new dressing in place. Will continue to monitor. Addendum: 01/18/20 at 0530 by Ivory Ko RN Disregard. Wrong patient note.
[2020-01-18] MEDS: potassium Cl 20mEq/100mL bag 100 ML IV PRN ×2 (05:19→06:29)
--- NOTE | 2020-01-18 05:30 | NUR ---
KUB for Corpak reviewed and back in stomach as previous and tube feeding continued at same rate.
--- NOTE | 2020-01-18 05:30 | NUR ---
Patient pulled Corpak out approximally 10cm, put back to 83cm, KUB obtained.
[2020-01-18] MEDS: K, MAG and/or Phos replacement - Verify level? MC SCH (08:00)
[2020-01-18] MEDS: famotidine/PF 10 mg/ml inj IV SCH ×2 (09:00→19:32)
[2020-01-18] MEDS: POTASSIUM BICARB 20meq eff tab 20 MEQ TABLET.EFF CORPAK SCH ×2 (09:00→19:32)
[2020-01-18] MEDS: amiodarone 200mg tablet CORPAK SCH ×2 (09:00→19:32)
[2020-01-18] MEDS: thiamine 100mg tablet CORPAK SCH (09:00)
[2020-01-18] MEDS: heparin, porcine 5000 units/ml vial SQ SCH ×2 (09:00→19:33)
[2020-01-18] MEDS: multivitamins, therapeutics tablet PO SCH (09:00)
[2020-01-18] MEDS: olanzapine 10mg tablet CORPAK SCH (09:00)
[2020-01-18] MEDS: labetalol 100mg tablet PO SCH ×2 (09:00→19:32)
[2020-01-18] MEDS: fluconazole-Diflucan 200mg/NS 100 ML IV SCH (10:11)
[2020-01-18] MEDS: vancomycin inj. 750 MG in normal saline 250ml IV soln 250 ML IV SCH (12:07)
[2020-01-18] MEDS: epoetin 20,000 units/ml inj SQ SCH (12:16)
[2020-01-18] MEDS: magnesium Cl slow-release 64mg tablet PO PRN (14:01)
[2020-01-18] MEDS: clonazePAM 0.5mg tablet PO SCH ×2 (15:20→19:32)
--- NOTE | 2020-01-18 15:21 | NUR ---
decannulated pt, with dr bae at bedside. no complications, pt comfortable on salter 6 lpm, no resp distress, no sob Addendum: 01/18/20 at 1522 by Candi [address] RT Amended: Links added.
[2020-01-18] MEDS ORDERED: LORazepam 2 mg/ml vial IV PRN (17:40)
--- NOTE | 2020-01-18 19:15 | NUR ---
Per report and EMR Ativan given prior to assumption of care. Patient transferred to chair for dinner, patient restless and reaching in the air, patient unable to eat safely at this time, transferred patient back to bed with steady lift. Patient continues to reach hands in air and grab at air.
[2020-01-18] MEDS: insulin glargine (Lantus) pen - multi-dose SQ SCH (19:45)
--- NOTE | 2020-01-18 22:00 | NUR ---
Patient reaching in air, rapidly moving eyes, mumbling but reorientates.
[2020-01-19] VITALS (23 sets, daily range): BP systolic 111–147; BP diastolic 70–96
[2020-01-19] MEDS: LIPASE/PROTEASE/AMYLASE 4,200 unit CAPSULE.DR PO SCH ×4 (02:04→20:17)
[2020-01-19] MEDS: MEROPENEM 500MG/50ML-NS IVPB 50 ML IV SCH ×4 (02:04→20:53)
[2020-01-19] MEDS: insulin regular, human U-100 3ml vial - multi-dose SQ SCH (02:20)
[2020-01-19 02:35] LABS: BASOPHILS # (AUTO) 0.1 X10'3 (0-0.2); BASOPHILS % (AUTO) 0.8 % (0-1); EOSINOPHILS # (AUTO) 0.2 X10'3 (0-0.9); EOSINOPHILS % (AUTO) 1.5 % (0-6); HEMOGLOBIN 7.8 g/dl (14.0-17.9); LYMPHOCYTES # (AUTO) 2.6 X10'3 (1.1-4.8); LYMPHOCYTES % (AUTO) 23.7 % (21-51); MEAN CORPUSCULAR HEMOGLOBIN 28.5 PG (27.0-31.0); MEAN CORPUSCULAR HGB CONC 32.4 g/dL (33.0-36.5); MEAN PLATELET VOLUME 8.2 FL (7.4-10.4); MONOCYTES # (AUTO) 0.8 X10'3 (0-0.9); MONOCYTES % (AUTO) 7.5 % (2-12); NEUTROPHILS # (AUTO) 7.4 X10'3 (1.8-7.7); NEUTROPHILS % (AUTO) 66.5 % (42-75); PLATELET COUNT 462 X10'3 (140-440); RED BLOOD COUNT 2.73 X10'6 (4.70-6.10); RED CELL DISTRIBUTION WIDTH 15.7 % (11.5-14.5); WHITE BLOOD COUNT 11.2 X10'3 (4.5-11.0)
[2020-01-19 02:47] LABS: ALANINE AMINOTRANSFERASE 165 U/L (12-78); ALBUMIN 1.5 G/DL (3.4-5.0); ALBUMIN/GLOBULIN RATIO 0.3 (1.1-1.5); ALKALINE PHOSPHATASE 272 IU/L (46-116); ANION GAP 8 (8-16); ASPARTATE AMINO TRANSFERASE 69 U/L (10-37); BILIRUBIN,TOTAL 0.3 MG/DL (0.1-1.0); BLOOD UREA NITROGEN 17 MG/DL (7-18); CALCIUM 8.2 MG/DL (8.5-10.1); CHLORIDE 108 MMOL/L (99-107); CREATININE 0.85 MG/DL (0.60-1.10); GLUCOSE 101 MG/DL (70-104); MAGNESIUM 1.3 MG/DL (1.5-2.4); PHOSPHORUS 3.3 MG/DL (2.3-4.5); POTASSIUM 3.6 MMOL/L (3.5-5.1); SODIUM 144 MMOL/L (135-145); TOTAL CARBON DIOXIDE 28.3 MMOL/L (24-32); TOTAL PROTEIN 6.4 G/DL (6.4-8.2); eGFR > 90 ML/MIN
[2020-01-19] MEDS: ipratropium/albuterol 3ml nebule NEB SCH ×4 (03:23→20:03)
[2020-01-19 03:42] LABS: TOTAL CELLS COUNTED 100
[2020-01-19 03:44] LABS: ANISOCYTOSIS 1+; PLATELET ESTIMATE INCREASED; POLYCHROMASIA FEW; TEAR DROP CELLS 1+; TOXIC GRANULATION 1+
[2020-01-19 03:45] LABS: GIANT PLATELET FEW
[2020-01-19] MEDS: dexmedetomidin/NS 400mcg/100ml 100 ML IV SCH (03:50)
--- NOTE | 2020-01-19 05:15 | NUR ---
Patient up in chair at bedside.
[2020-01-19] MEDS: POTASSIUM BICARB 20meq eff tab 20 MEQ TABLET.EFF CORPAK SCH ×2 (08:00→20:17)
[2020-01-19] MEDS: heparin, porcine 5000 units/ml vial SQ SCH ×2 (08:00→20:18)
[2020-01-19] MEDS: amiodarone 200mg tablet CORPAK SCH ×2 (08:00→20:17)
[2020-01-19] MEDS: thiamine 100mg tablet CORPAK SCH (08:00)
[2020-01-19] MEDS: labetalol 100mg tablet PO SCH (08:00)
[2020-01-19] MEDS: K, MAG and/or Phos replacement - Verify level? MC SCH (08:00)
[2020-01-19] MEDS: clonazePAM 0.5mg tablet PO SCH (08:00)
[2020-01-19] MEDS: multivitamins, therapeutics tablet PO SCH (08:00)
--- NOTE | 2020-01-19 09:22 | NUR ---
RT ATTEMPTED TO ADMINISTER 0900 SVN TX, PT WOULD NOT ALLOW MASK TO BE PUT ON OR BREATHSOUNDS TO BE TAKEN. NO SOB OR DISTRESS NOTED. PT ON 3.5L 95%. RT WILL RETURN FOR 1400 TX. Addendum: 01/19/20 at 0925 by Maylin Watkins RT Amended: Links added.
--- NOTE | 2020-01-19 10:31 | NUR ---
Reassessment: Pt tolerating TF GRV WNL. TF decreased to 70ml/hr per MD following advancement to pureed/thin liquid diet per PILE DRIVER OPERATOR recs 01/17. Stool output remains significant via rectal tube 600ml documented. MANJU d/w MD regarding routine anti-diarrheal instead of PRN given last imodium administration 01/14. Pt is receiving pancreatic enzymes w/ feeds as well and has only received liquid nutrition for weeks using elemental formula for pancreatitis DX likely impacting stool output. Mg 1.3 and is receiving slow-mag at this time which may help stool output as well. Currently meeting protein needs for wound healing; Dylan BID added to water flushes during day shift for additional wound healing benefits. Will continue to monitor for PO diet and TF tolerance. Recommendations: 1) Continuous TF using Vital High Protein with goal rate of 90 mL/hr to provide total volume of 2160 mL/day, 2160 kcal, 189 g protein, and 1814 mL free water. 2) Prealbumin q /; daily weights 3) Additional water flush 200 mL Q4H per MD; Dylan supplement containing CaHMB, collagen protein, arginine, and glutamine to be added BID during day shift water flushes to aid in wound healing. Mix 1 packet w/ 120ml free water and flush tube using 40ml before and after feeds. 4) Continue MVI and Thiamine, Pancreatic enzymes 5) continue routine anti-diarrheal per MD 6) Continue pureed/thin liquid diet per PILE DRIVER OPERATOR/MD; monitor for PO tolerance Addendum: 01/19/20 at [address] Amended: Links added.
[2020-01-19] MEDS: ziprasidone 20mg capsule PO SCH ×2 (13:07→20:16)
[2020-01-19] MEDS ORDERED: ARGININE/GLUTAMINE/CALCIUM BMB (JUVEN 19.3GM PKT) 1 EACH POWD.PACK PO SCH (20:00)
[2020-01-19] MEDS: clonazePAM 0.5mg tablet CORPAK SCH (20:17)
[2020-01-19] MEDS: labetalol 100mg tablet CORPAK SCH (20:17)
[2020-01-19] MEDS: insulin glargine (Lantus) pen - multi-dose SQ SCH (21:42)
[2020-01-20] VITALS (19 sets, daily range): BP systolic 105–147; BP diastolic 49–87
[2020-01-20] MEDS ORDERED: ziprasidone 20mg capsule PO ONE (00:45)
[2020-01-20] MEDS: MEROPENEM 500MG/50ML-NS IVPB 50 ML IV SCH ×4 (02:08→20:05)
[2020-01-20] MEDS: LIPASE/PROTEASE/AMYLASE 4,200 unit CAPSULE.DR PO SCH ×4 (02:08→20:02)
[2020-01-20 02:57] LABS: BASOPHILS # (AUTO) 0.1 X10'3 (0-0.2); BASOPHILS % (AUTO) 0.8 % (0-1); EOSINOPHILS # (AUTO) 0.2 X10'3 (0-0.9); EOSINOPHILS % (AUTO) 1.2 % (0-6); HEMATOCRIT 24.7 % (42.0-52.0); HEMOGLOBIN 7.9 g/dl (14.0-17.9); LYMPHOCYTES # (AUTO) 3.3 X10'3 (1.1-4.8); LYMPHOCYTES % (AUTO) 24.4 % (21-51); MEAN CORPUSCULAR VOLUME 87.6 FL (78-98); MEAN PLATELET VOLUME 8.5 FL (7.4-10.4); MONOCYTES # (AUTO) 1.1 X10'3 (0-0.9); MONOCYTES % (AUTO) 8.2 % (2-12); NEUTROPHILS # (AUTO) 8.8 X10'3 (1.8-7.7); NEUTROPHILS % (AUTO) 65.4 % (42-75); PLATELET COUNT 515 X10'3 (140-440); RED BLOOD COUNT 2.82 X10'6 (4.70-6.10); RED CELL DISTRIBUTION WIDTH 15.6 % (11.5-14.5); WHITE BLOOD COUNT 13.4 X10'3 (4.5-11.0)
[2020-01-20] MEDS: ipratropium/albuterol 3ml nebule NEB SCH ×4 (03:00→20:56)
[2020-01-20 03:13] LABS: ALANINE AMINOTRANSFERASE 129 U/L (12-78); ALBUMIN 1.6 G/DL (3.4-5.0); ALBUMIN/GLOBULIN RATIO 0.3 (1.1-1.5); ALKALINE PHOSPHATASE 258 IU/L (46-116); ANION GAP 4 (8-16); ASPARTATE AMINO TRANSFERASE 47 U/L (10-37); BILIRUBIN,TOTAL 0.3 MG/DL (0.1-1.0); BLOOD UREA NITROGEN 13 MG/DL (7-18); BUN/CREATININE RATIO 15.3 (5.4-32.0); CALCIUM 8.1 MG/DL (8.5-10.1); CHLORIDE 106 MMOL/L (99-107); CREATININE 0.85 MG/DL (0.60-1.10); GLUCOSE 141 MG/DL (70-104); MAGNESIUM 1.4 MG/DL (1.5-2.4); PHOSPHORUS 2.7 MG/DL (2.3-4.5); POTASSIUM 3.7 MMOL/L (3.5-5.1); SODIUM 141 MMOL/L (135-145); TOTAL CARBON DIOXIDE 30.9 MMOL/L (24-32); TOTAL PROTEIN 6.5 G/DL (6.4-8.2); eGFR > 90 ML/MIN
[2020-01-20 03:50] LABS: NUCLEATED RED BLOOD CELLS 1 /100WBC (0-0); TOTAL CELLS COUNTED 100
[2020-01-20 03:52] LABS: PLATELET ESTIMATE INCREASED
[2020-01-20 03:54] LABS: POLYCHROMASIA 1+; STOMATOCYTES 1+
--- NOTE | 2020-01-20 06:19 | NUR ---
Patient in room CICU 2007. I have received report from Vince DICK and had the opportunity to ask questions and assume patient care.
[2020-01-20] MEDS: POTASSIUM BICARB 20meq eff tab 20 MEQ TABLET.EFF CORPAK SCH ×2 (07:18→20:02)
[2020-01-20] MEDS: MULTIVIT-MIN/FERROUS GLUCONATE 9 MG/15 ML LIQUID CORPAK SCH (07:18)
[2020-01-20] MEDS: loperamide 2mg capsule PO SCH (07:19)
[2020-01-20] MEDS: labetalol 100mg tablet CORPAK SCH ×2 (07:19→20:03)
[2020-01-20] MEDS: clonazePAM 0.5mg tablet CORPAK SCH ×2 (07:20→20:03)
[2020-01-20] MEDS: thiamine 100mg tablet CORPAK SCH (07:20)
[2020-01-20] MEDS: amiodarone 200mg tablet CORPAK SCH ×2 (07:20→20:05)
[2020-01-20] MEDS: heparin, porcine 5000 units/ml vial SQ SCH ×3 (07:21→20:06)
[2020-01-20] MEDS: ziprasidone 20mg capsule PO SCH ×2 (07:26→20:02)
[2020-01-20] MEDS: K, MAG and/or Phos replacement - Verify level? MC SCH (08:00)
--- NOTE | 2020-01-20 09:00 | NUR ---
notified Dr. Sutherland of pt's tube feed and pureed/thin liquid diet; new orders received. Continuous Improvement Specialist called.
--- NOTE | 2020-01-20 11:32 | NUR ---
TF Consult: Pt reporting feels full and is not eating pureed/thin meals r/t this per RN; MD requests nocturnal feeds in hopes to stimulate PO meals. Corpak terminates in gastric fundus per imaging. Nocturnal EN recs below; will monitor for EN tolerance since currently tolerating at goal GRV WNL. No stool output noted in I&O at this time and is receiving imodium daily to help w/ high output hx. Recommendations: 1) Continue pureed/thin liquid diet per HIDE TRIMMER/MD; encourage PO 2) Nocturnal NGTF via corpak to run from 1900 to 0700 using Vital AF at goal rate 130mL/hr to provide 1560ml fluid, 1872kcal, 117g protein, and 1264mL free water. Initiate at 90ml/hr since previously tolerating and advance 20ml Q4 to goal as tolerated. Once tolerating at 130ml/hr can restart at 130ml/hr goal for subsequent feeds. 2) Prealbumin q M/; daily weights 3) Additional water flush 200 mL Q4H per MD; Dylan supplement containing CaHMB, collagen protein, arginine, and glutamine to be added BID during day shift water flushes to aid in wound healing. Mix 1 packet w/ 120ml free water and flush tube using 40ml before and after feeds. 4) Continue MVI and Thiamine, Pancreatic enzymes 5) Continue routine anti-diarrheal per MD 6) Monitor for PO diet intake and EN adjustments as medically indicated Addendum: 01/20/20 at [address] Amended: Links added. Addendum: 01/20/20 at [address] Recommendations: 1) Continue pureed/thin liquid diet per HIDE TRIMMER/MD; encourage PO 2) Nocturnal NGTF via corpak to run from 1900 to 0700 using Vital AF at goal rate 130mL/hr to provide 1560ml fluid, 1872kcal, 117g protein, and 1264mL free water. Initiate at 90ml/hr since previously tolerating and advance 20ml Q4 to goal as tolerated. Once tolerating at 130ml/hr can restart at 130ml/hr goal for subsequent feeds. To meet 85% kcal and 100% protein needs. 2) Prealbumin q /; daily weights 3) Additional water flush 200 mL Q4H per MD; Dylan supplement containing CaHMB, collagen protein, arginine, and glutamine to be added BID during day shift water flushes to aid in wound healing. Mix 1 packet w/ 120ml free water and flush tube using 40ml before and after feeds. 4) Continue MVI and Thiamine, Pancreatic enzymes 5) Continue routine anti-diarrheal per MD 6) Monitor for PO diet intake and EN adjustments as medically indicated
[2020-01-20] MEDS: epoetin 20,000 units/ml inj SQ SCH (12:21)
--- NOTE | 2020-01-20 15:23 | NUR ---
Report called to receiving nurse. Transferred via wheelchair with all belongings. Special Issues communicated to receiving nurse, Brooke DICK; all questions answered.
--- NOTE | 2020-01-20 19:00 | NUR ---
Called ICU nurse to try to find out about patient having no insulin coverage for 2 days. According to labwork, he has not dropped off of level 2, but has not been getting Humalog. Lantus has been given. she stated to just have him "meet protocol" again before administering Humalog. Need to have MD verify if patient should still have Q 6 blood sugar checks or change to AC/HS now that he has been ordered a diet. Will administer Lantus at 1999 after checking BS.
[2020-01-20] MEDS: insulin glargine (Lantus) pen - multi-dose SQ SCH (20:28)
[2020-01-21 02:00] VITALS: BP 125/86
[2020-01-21] MEDS: LIPASE/PROTEASE/AMYLASE 4,200 unit CAPSULE.DR PO SCH ×4 (02:00→21:15)
--- NOTE | 2020-01-21 02:00 | NUR ---
Held patient Pancrease caps. He was pretty out of it, I did not think he could swallow them.
[2020-01-21] MEDS: MEROPENEM 500MG/50ML-NS IVPB 50 ML IV SCH ×4 (02:27→21:18)
[2020-01-21] MEDS: ipratropium/albuterol 3ml nebule NEB SCH ×4 (02:30→19:50)
[2020-01-21] MEDS: acetaminophen 325mg/10.15ml oral unit dose solution CORPAK PRN (02:50)
[2020-01-21 06:00] VITALS: BP 131/86
--- NOTE | 2020-01-21 06:00 | NUR ---
Patient in room PCU 3019. I have received report from Cristal DICK and had the opportunity to ask questions and assume patient care.
[2020-01-21 06:11] LABS: BASOPHILS # (AUTO) 0.1 X10'3 (0-0.2); BASOPHILS % (AUTO) 0.5 % (0-1); EOSINOPHILS # (AUTO) 0.3 X10'3 (0-0.9); EOSINOPHILS % (AUTO) 2.4 % (0-6); HEMATOCRIT 24.7 % (42.0-52.0); HEMOGLOBIN 7.9 g/dl (14.0-17.9); LYMPHOCYTES # (AUTO) 2.3 X10'3 (1.1-4.8); LYMPHOCYTES % (AUTO) 19.8 % (21-51); MEAN CORPUSCULAR HGB CONC 32.1 g/dL (33.0-36.5); MEAN CORPUSCULAR VOLUME 87.1 FL (78-98); MEAN PLATELET VOLUME 8.4 FL (7.4-10.4); MONOCYTES # (AUTO) 0.9 X10'3 (0-0.9); MONOCYTES % (AUTO) 7.8 % (2-12); NEUTROPHILS # (AUTO) 8.2 X10'3 (1.8-7.7); NEUTROPHILS % (AUTO) 69.5 % (42-75); PLATELET COUNT 498 X10'3 (140-440); RED BLOOD COUNT 2.83 X10'6 (4.70-6.10); RED CELL DISTRIBUTION WIDTH 15.7 % (11.5-14.5); WHITE BLOOD COUNT 11.8 X10'3 (4.5-11.0)
--- NOTE | 2020-01-21 06:35 | NUR ---
Problems reprioritized. Patient report given, questions answered & plan of care reviewed with MAYELIN Cox.
[2020-01-21 06:40] LABS: ALANINE AMINOTRANSFERASE 105 U/L (12-78); ALBUMIN 1.6 G/DL (3.4-5.0); ALBUMIN/GLOBULIN RATIO 0.3 (1.1-1.5); ALKALINE PHOSPHATASE 236 IU/L (46-116); ANION GAP 6 (8-16); ASPARTATE AMINO TRANSFERASE 41 U/L (10-37); BILIRUBIN,TOTAL 0.3 MG/DL (0.1-1.0); BLOOD UREA NITROGEN 18 MG/DL (7-18); BUN/CREATININE RATIO 18.9 (5.4-32.0); CALCIUM 8.1 MG/DL (8.5-10.1); CHLORIDE 105 MMOL/L (99-107); CREATININE 0.95 MG/DL (0.60-1.10); GLUCOSE 130 MG/DL (70-104); MAGNESIUM 1.6 MG/DL (1.5-2.4); PHOSPHORUS 3.5 MG/DL (2.3-4.5); POTASSIUM 3.4 MMOL/L (3.5-5.1); SODIUM 141 MMOL/L (135-145); TOTAL CARBON DIOXIDE 29.6 MMOL/L (24-32); TOTAL PROTEIN 6.6 G/DL (6.4-8.2); eGFR 84 ML/MIN
[2020-01-21 07:09] LABS: PLATELET ESTIMATE INCREASED; TOTAL CELLS COUNTED 100
[2020-01-21 07:10] LABS: ANISOCYTOSIS 1+; HYPOCHROMASIA 1+; POIKILOCYTOSIS FEW; POLYCHROMASIA 1+
[2020-01-21] MEDS: thiamine 100mg tablet CORPAK SCH (08:00)
[2020-01-21] MEDS: K, MAG and/or Phos replacement - Verify level? MC SCH (08:00)
[2020-01-21] MEDS: ziprasidone 20mg capsule PO SCH ×2 (08:00→21:01)
[2020-01-21] MEDS: labetalol 100mg tablet CORPAK SCH ×2 (08:00→21:01)
[2020-01-21] MEDS: heparin, porcine 5000 units/ml vial SQ SCH ×2 (08:00→21:01)
[2020-01-21] MEDS: clonazePAM 0.5mg tablet CORPAK SCH ×2 (08:00→21:00)
[2020-01-21] MEDS: amiodarone 200mg tablet CORPAK SCH ×2 (08:00→21:00)
[2020-01-21] MEDS: loperamide 2mg capsule PO SCH (08:00)
[2020-01-21] MEDS: POTASSIUM BICARB 20meq eff tab 20 MEQ TABLET.EFF CORPAK SCH ×2 (08:00→21:00)
[2020-01-21] MEDS: MULTIVIT-MIN/FERROUS GLUCONATE 9 MG/15 ML LIQUID CORPAK SCH (08:00)
[2020-01-21 11:00] VITALS: BP 110/72
--- NOTE | 2020-01-21 12:57 | NUR ---
Paged PICC RN to place extended per Dr. Enrique orders.
--- NOTE | 2020-01-21 14:08 | NUR ---
Discontinued king catheter. 10ml removed from balloon. Catheter tip intact. Patient tolerated procedure well.
[2020-01-21 15:00] VITALS: BP 140/83
--- NOTE | 2020-01-21 18:15 | NUR ---
Patient in room PCU 3019. I have received report from MAYELIN Cox and had the opportunity to ask questions and assume patient care.
--- NOTE | 2020-01-21 18:17 | NUR ---
Problems reprioritized. Patient report given, questions answered & plan of care reviewed with Elizabeth DICK.
[2020-01-21 19:00] VITALS: BP 151/87
--- NOTE | 2020-01-21 22:30 | NUR ---
Sitter in room notified nurse that the patient was sleeping then suddenly awakened and began to projectile vomit across the room. Vomit was orange color without any undigested food observed. Complete linen change to be done as well as EVS notification for room clean up. Zofran PRN to be given with close monitoring.
[2020-01-21] MEDS: ondansetron/PF 4mg/2ml inj IV PRN (22:38)
[2020-01-21] MEDS: insulin glargine (Lantus) pen - multi-dose SQ SCH (22:44)
[2020-01-21 23:00] VITALS: BP 133/80
[2020-01-22] MEDS: LIPASE/PROTEASE/AMYLASE 4,200 unit CAPSULE.DR PO SCH ×2 (02:14→08:23)
[2020-01-22] MEDS: MEROPENEM 500MG/50ML-NS IVPB 50 ML IV SCH ×4 (02:14→20:56)
[2020-01-22 03:00] VITALS: BP 141/83
[2020-01-22] MEDS: ipratropium/albuterol 3ml nebule NEB SCH ×3 (03:00→15:00)
[2020-01-22] MEDS ORDERED: ondansetron/PF 4mg/2ml inj IV ONE (03:45)
[2020-01-22 04:04] LABS: BASOPHILS # (AUTO) 0.1 X10'3 (0-0.2); EOSINOPHILS # (AUTO) 0.4 X10'3 (0-0.9); EOSINOPHILS % (AUTO) 2.8 % (0-6); HEMOGLOBIN 8.3 g/dl (14.0-17.9); LYMPHOCYTES # (AUTO) 2.9 X10'3 (1.1-4.8); LYMPHOCYTES % (AUTO) 22.8 % (21-51); MEAN CORPUSCULAR HEMOGLOBIN 27.9 PG (27.0-31.0); MEAN CORPUSCULAR HGB CONC 31.8 g/dL (33.0-36.5); MEAN CORPUSCULAR VOLUME 87.6 FL (78-98); MEAN PLATELET VOLUME 8.4 FL (7.4-10.4); MONOCYTES # (AUTO) 0.9 X10'3 (0-0.9); MONOCYTES % (AUTO) 7.3 % (2-12); NEUTROPHILS # (AUTO) 8.3 X10'3 (1.8-7.7); NEUTROPHILS % (AUTO) 66.1 % (42-75); PLATELET COUNT 523 X10'3 (140-440); RED BLOOD COUNT 2.97 X10'6 (4.70-6.10); RED CELL DISTRIBUTION WIDTH 16.1 % (11.5-14.5); WHITE BLOOD COUNT 12.5 X10'3 (4.5-11.0)
[2020-01-22 04:21] LABS: ALANINE AMINOTRANSFERASE 101 U/L (12-78); ALBUMIN 1.6 G/DL (3.4-5.0); ALBUMIN/GLOBULIN RATIO 0.3 (1.1-1.5); ALKALINE PHOSPHATASE 248 IU/L (46-116); ANION GAP 4 (8-16); ASPARTATE AMINO TRANSFERASE 42 U/L (10-37); BILIRUBIN,TOTAL 0.2 MG/DL (0.1-1.0); BLOOD UREA NITROGEN 18 MG/DL (7-18); BUN/CREATININE RATIO 17.5 (5.4-32.0); CALCIUM 8.3 MG/DL (8.5-10.1); CHLORIDE 105 MMOL/L (99-107); CREATININE 1.03 MG/DL (0.60-1.10); GLUCOSE 125 MG/DL (70-104); MAGNESIUM 1.7 MG/DL (1.5-2.4); PHOSPHORUS 3.5 MG/DL (2.3-4.5); POTASSIUM 3.5 MMOL/L (3.5-5.1); SODIUM 138 MMOL/L (135-145); TOTAL PROTEIN 6.7 G/DL (6.4-8.2); eGFR 76 ML/MIN
[2020-01-22 05:57] LABS: ANISOCYTOSIS 1+; ELLIPTOCYTES FEW; HYPOCHROMASIA 1+; NUCLEATED RED BLOOD CELLS 1 /100WBC (0-0); PLATELET ESTIMATE INCREASED; POIKILOCYTOSIS FEW; POLYCHROMASIA FEW; TOTAL CELLS COUNTED 100
[2020-01-22 06:00] VITALS: BP 138/91
--- NOTE | 2020-01-22 06:45 | NUR ---
Patient in room PCU 3019. I have received report from Elizabeth DICK and had the opportunity to ask questions and assume patient care.
[2020-01-22] MEDS: MULTIVIT-MIN/FERROUS GLUCONATE 9 MG/15 ML LIQUID CORPAK SCH ×2 (08:00→08:19)
[2020-01-22] MEDS: K, MAG and/or Phos replacement - Verify level? MC SCH (08:00)
[2020-01-22] MEDS: labetalol 100mg tablet CORPAK SCH ×2 (08:21→09:22)
[2020-01-22] MEDS: amiodarone 200mg tablet CORPAK SCH ×2 (08:21→09:22)
[2020-01-22] MEDS: thiamine 100mg tablet CORPAK SCH ×2 (08:21→09:22)
[2020-01-22] MEDS: POTASSIUM BICARB 20meq eff tab 20 MEQ TABLET.EFF CORPAK SCH ×2 (08:21→09:22)
[2020-01-22] MEDS: clonazePAM 0.5mg tablet CORPAK SCH ×2 (08:21→09:22)
[2020-01-22] MEDS: ziprasidone 20mg capsule PO SCH ×2 (08:22→09:22)
[2020-01-22] MEDS: heparin, porcine 5000 units/ml vial SQ SCH ×2 (08:24→20:57)
[2020-01-22 11:00] VITALS: BP 95/60
[2020-01-22] MEDS: epoetin 20,000 units/ml inj SQ SCH (11:05)
[2020-01-22] MEDS ORDERED: LIDOcaine 2% 10ml TOPICAL JELLY (Urojet) MM ONE (11:05)
[2020-01-22] MEDS ORDERED: LORazepam 2 mg/ml vial IV ONE (11:35)
[2020-01-22 15:00] VITALS: BP 129/77
--- NOTE | 2020-01-22 15:50 | NUR ---
Received telephone orders from Hermila AMAYA to hold pancreaze for now and to convert [facility] to IM route
--- NOTE | 2020-01-22 18:18 | NUR ---
Problems reprioritized. Patient report given, questions answered & plan of care reviewed with Elizabeth DICK.
[2020-01-22 19:00] VITALS: BP 137/88
--- NOTE | 2020-01-22 20:37 | NUR ---
DENTAL OFFICE RECEPTIONIST Serene notified by nurse concerning hypoactive bowel sounds and distended abdomen. DENTAL OFFICE RECEPTIONIST ordered that the NG tube be placed on suction for 1HR and to closely monitor pt's toleration of suction. Once 1HR is completed, nurse is to follow up with DENTAL OFFICE RECEPTIONIST to discuss tube feeding continuation.
[2020-01-22] MEDS: ondansetron/PF 4mg/2ml inj IV PRN (21:21)
--- NOTE | 2020-01-22 21:56 | NUR ---
CHIEF HYDROELECTRIC STATION OPERATOR October notified that patient felt nauseous during end of hour of but was able to output 100mL of dark green fluid. PRN Zolfran administered effectively. CHIEF HYDROELECTRIC STATION OPERATOR then ordered to begin tube feeding at 20 mL and then recheck residuals at 0400 am. Nurse was also instructed to HOLD Q4HR free water. Nurse will continue to monitor pt with sitter at bedside.
[2020-01-22] MEDS: insulin glargine (Lantus) pen - multi-dose SQ SCH (22:00)
--- NOTE | 2020-01-22 22:25 | NUR ---
Tube feeding has been started at 20 mL. Residual of 27 mL observed. Free water HELD. Medication crushed and given through NG tube. Will check back at 0400 for residuals. Pt educated to notify RN immediately if nausea returns. Will also continue to monitor closely.
[2020-01-22 23:00] VITALS: BP 137/88
[2020-01-22] MEDS: clonazePAM 0.5mg tablet NG SCH (23:43)
[2020-01-22] MEDS: POTASSIUM BICARB 20meq eff tab 20 MEQ TABLET.EFF NG SCH (23:43)
[2020-01-22] MEDS: amiodarone 200mg tablet NG SCH (23:43)
[2020-01-22] MEDS: labetalol 100mg tablet NG SCH (23:45)
[2020-01-23] MEDS: MEROPENEM 500MG/50ML-NS IVPB 50 ML IV SCH ×4 (02:35→21:09)
[2020-01-23 03:00] VITALS: BP 116/74
--- NOTE | 2020-01-23 06:00 | NUR ---
Patient in room U 3019. I have received report from Elizabeth DICK and had the opportunity to ask questions and assume patient care. Patient has sitter in room. Patient was awake and stable at time of care transfer
[2020-01-23 06:08] LABS: BASOPHILS # (AUTO) 0.1 X10'3 (0-0.2); BASOPHILS % (AUTO) 0.6 % (0-1); EOSINOPHILS # (AUTO) 0.3 X10'3 (0-0.9); EOSINOPHILS % (AUTO) 2.4 % (0-6); HEMATOCRIT 25.9 % (42.0-52.0); HEMOGLOBIN 8.6 g/dl (14.0-17.9); LYMPHOCYTES # (AUTO) 2.9 X10'3 (1.1-4.8); LYMPHOCYTES % (AUTO) 22.9 % (21-51); MEAN CORPUSCULAR HEMOGLOBIN 28.5 PG (27.0-31.0); MEAN CORPUSCULAR HGB CONC 33.1 g/dL (33.0-36.5); MEAN CORPUSCULAR VOLUME 86.3 FL (78-98); MEAN PLATELET VOLUME 7.9 FL (7.4-10.4); MONOCYTES % (AUTO) 7.6 % (2-12); NEUTROPHILS # (AUTO) 8.4 X10'3 (1.8-7.7); NEUTROPHILS % (AUTO) 66.5 % (42-75); PLATELET COUNT 491 X10'3 (140-440); RED CELL DISTRIBUTION WIDTH 15.7 % (11.5-14.5); WHITE BLOOD COUNT 12.6 X10'3 (4.5-11.0)
--- NOTE | 2020-01-23 06:15 | NUR ---
Patient in room PCU 3019. I have received report from Elizabeth DICK and had the opportunity to ask questions and assume patient care. Patient was awake during bedside report, tube feeding running at 20ml/hr to NG tube, midline dressing CDI, rectal tube in place, ostomy intact at this time, patient offers no complaints. Sitter at bedside, will continue to monitor.
[2020-01-23 06:19] LABS: ALANINE AMINOTRANSFERASE 82 U/L (12-78); ALBUMIN 1.8 G/DL (3.4-5.0); ALBUMIN/GLOBULIN RATIO 0.4 (1.1-1.5); ALKALINE PHOSPHATASE 219 IU/L (46-116); ANION GAP 4 (8-16); ASPARTATE AMINO TRANSFERASE 33 U/L (10-37); BILIRUBIN,TOTAL 0.3 MG/DL (0.1-1.0); BLOOD UREA NITROGEN 16 MG/DL (7-18); BUN/CREATININE RATIO 16.5 (5.4-32.0); CALCIUM 8.8 MG/DL (8.5-10.1); CHLORIDE 104 MMOL/L (99-107); CREATININE 0.97 MG/DL (0.60-1.10); GLUCOSE 117 MG/DL (70-104); MAGNESIUM 1.7 MG/DL (1.5-2.4); PHOSPHORUS 3.5 MG/DL (2.3-4.5); SODIUM 138 MMOL/L (135-145); TOTAL CARBON DIOXIDE 30.5 MMOL/L (24-32); TOTAL PROTEIN 6.9 G/DL (6.4-8.2); eGFR 82 ML/MIN
--- NOTE | 2020-01-23 06:40 | NUR ---
Problems reprioritized. Patient report given, questions answered & plan of care reviewed with MAYELIN Santoyo.
[2020-01-23 07:00] VITALS: BP 130/82
[2020-01-23 07:24] LABS: TOTAL CELLS COUNTED 100
[2020-01-23 07:27] LABS: ELLIPTOCYTES FEW; LARGE PLATELETS FEW; PLATELET ESTIMATE INCREASED; POLYCHROMASIA 1+; STOMATOCYTES FEW; TEAR DROP CELLS FEW
[2020-01-23] MEDS: K, MAG and/or Phos replacement - Verify level? MC SCH (08:00)
[2020-01-23] MEDS: clonazePAM 0.5mg tablet NG SCH ×2 (08:06→19:47)
[2020-01-23] MEDS: POTASSIUM BICARB 20meq eff tab 20 MEQ TABLET.EFF NG SCH ×2 (08:06→19:48)
[2020-01-23] MEDS: amiodarone 200mg tablet NG SCH ×2 (08:06→19:47)
[2020-01-23] MEDS: ziprasidone 20mg capsule PO SCH ×2 (08:07→19:47)
[2020-01-23] MEDS: labetalol 100mg tablet NG SCH ×2 (08:07→19:47)
[2020-01-23] MEDS: thiamine 100mg tablet NG SCH (08:07)
[2020-01-23] MEDS: MULTIVIT-MIN/FERROUS GLUCONATE 9 MG/15 ML LIQUID NG SCH (08:08)
[2020-01-23] MEDS: heparin, porcine 5000 units/ml vial SQ SCH ×2 (08:08→19:48)
--- NOTE | 2020-01-23 10:00 | NUR ---
Spoke with Jaja Cleaning at bedside, new order obtained to cancel NPO and start clr liquids and monitor if patient can tolerate. Patient NG tube is for nocturnal tube feedings. Patient will continue to have a sitter at this time.
[2020-01-23] MEDS: acetaminophen 325mg/10.15ml oral unit dose solution NG PRN (10:34)
[2020-01-23 11:00] VITALS: BP 117/82
[2020-01-23 15:00] VITALS: BP 127/79
--- NOTE | 2020-01-23 18:24 | NUR ---
Problems reprioritized. Patient report given, questions answered & plan of care reviewed with Dakota DICK. Patient was awake at time of bedside report, assessed midline dressing and ostomy/ gregorio drain, rectal tube and NG, patient offers no complaints at this time.
--- NOTE | 2020-01-23 18:33 | NUR ---
[place] documentation: I have reviewed and agree with interventions, assessments performed and documented by Nina DICK. [place] Medication Administration: For this medication-pass time frame, medication were reviewed, dispensed, administered and documented per hospital policy by Nina DICK.
[2020-01-23 19:04] VITALS: BP 134/87
--- NOTE | 2020-01-23 19:17 | NUR ---
Patient in room PCU 3019. I have received report from Yarelis Harris RN and MAYELIN Wood and had the opportunity to ask questions and assume patient care. Patient awake for bedside report, on 3L NC, with sitter at bedside. Saline locked. Patient stable at this time. Will continue to monitor closely.
[2020-01-23] MEDS: insulin glargine (Lantus) pen - multi-dose SQ SCH (21:54)
[2020-01-23] MEDS: ondansetron/PF 4mg/2ml inj IV PRN (21:58)
[2020-01-23 23:00] VITALS: BP 121/78
[2020-01-24] MEDS: acetaminophen 325mg/10.15ml oral unit dose solution NG PRN (01:31)
[2020-01-24] MEDS: MEROPENEM 500MG/50ML-NS IVPB 50 ML IV SCH ×4 (02:29→19:46)
[2020-01-24 03:00] VITALS: BP 144/81
[2020-01-24] MEDS ORDERED: LORazepam 0.5 MG tablet PO ONE (04:35)
[2020-01-24 05:28] LABS: BASOPHILS # (AUTO) 0.1 X10'3 (0-0.2); BASOPHILS % (AUTO) 1.1 % (0-1); EOSINOPHILS # (AUTO) 0.2 X10'3 (0-0.9); EOSINOPHILS % (AUTO) 1.9 % (0-6); HEMATOCRIT 27.2 % (42.0-52.0); HEMOGLOBIN 8.9 g/dl (14.0-17.9); LYMPHOCYTES # (AUTO) 2.4 X10'3 (1.1-4.8); LYMPHOCYTES % (AUTO) 19.3 % (21-51); MEAN CORPUSCULAR HEMOGLOBIN 28.3 PG (27.0-31.0); MEAN CORPUSCULAR HGB CONC 32.9 g/dL (33.0-36.5); MEAN PLATELET VOLUME 7.8 FL (7.4-10.4); MONOCYTES # (AUTO) 0.8 X10'3 (0-0.9); MONOCYTES % (AUTO) 6.7 % (2-12); NEUTROPHILS # (AUTO) 8.9 X10'3 (1.8-7.7); PLATELET COUNT 497 X10'3 (140-440); RED BLOOD COUNT 3.16 X10'6 (4.70-6.10); RED CELL DISTRIBUTION WIDTH 15.8 % (11.5-14.5); WHITE BLOOD COUNT 12.6 X10'3 (4.5-11.0)
[2020-01-24 05:44] LABS: ALANINE AMINOTRANSFERASE 74 U/L (12-78); ALBUMIN 1.8 G/DL (3.4-5.0); ALBUMIN/GLOBULIN RATIO 0.3 (1.1-1.5); ALKALINE PHOSPHATASE 221 IU/L (46-116); ANION GAP 9 (8-16); ASPARTATE AMINO TRANSFERASE 34 U/L (10-37); BILIRUBIN,TOTAL 0.3 MG/DL (0.1-1.0); BLOOD UREA NITROGEN 14 MG/DL (7-18); BUN/CREATININE RATIO 14.4 (5.4-32.0); CALCIUM 9.1 MG/DL (8.5-10.1); CHLORIDE 100 MMOL/L (99-107); CREATININE 0.97 MG/DL (0.60-1.10); GLUCOSE 114 MG/DL (70-104); MAGNESIUM 2.1 MG/DL (1.5-2.4); POTASSIUM 4.2 MMOL/L (3.5-5.1); SODIUM 137 MMOL/L (135-145); TOTAL CARBON DIOXIDE 27.7 MMOL/L (24-32); TOTAL PROTEIN 7.1 G/DL (6.4-8.2); eGFR 82 ML/MIN
--- NOTE | 2020-01-24 06:00 | NUR ---
Patient in room PCU 3019. I have received report from Dakota DICK and had the opportunity to ask questions and assume patient care. Patient was awake, alert, and oriented. He notified me that he had no pain. He is stable at the time of transfer.
--- NOTE | 2020-01-24 06:20 | NUR ---
Problems reprioritized. Patient report given, questions answered & plan of care reviewed with Yarelis Stevens RN and MAYELIN Wood.
--- NOTE | 2020-01-24 06:30 | NUR ---
Patient in room PCU 3019. I have received report from Dakota DICK and had the opportunity to ask questions and assume patient care. Patient is awake and oriented at this time, tube feed is running, rectal tube is in place, gregorio drain to ostomy intact, NG tube in place, patient offers no complaints, sitter at bedside, will continue to monitor.
[2020-01-24 07:00] VITALS: BP 133/85
[2020-01-24] MEDS: K, MAG and/or Phos replacement - Verify level? MC SCH (08:00)
[2020-01-24] MEDS: amiodarone 200mg tablet NG SCH ×2 (09:43→19:47)
[2020-01-24] MEDS: POTASSIUM BICARB 20meq eff tab 20 MEQ TABLET.EFF NG SCH ×2 (09:43→19:47)
[2020-01-24] MEDS: clonazePAM 0.5mg tablet NG SCH ×2 (09:43→19:47)
[2020-01-24] MEDS: thiamine 100mg tablet NG SCH (09:44)
[2020-01-24] MEDS: labetalol 100mg tablet NG SCH ×2 (09:44→19:47)
[2020-01-24] MEDS: ziprasidone 20mg capsule PO SCH ×2 (09:44→19:47)
[2020-01-24] MEDS: MULTIVIT-MIN/FERROUS GLUCONATE 9 MG/15 ML LIQUID NG SCH (09:45)
[2020-01-24] MEDS: heparin, porcine 5000 units/ml vial SQ SCH ×2 (09:45→19:49)
[2020-01-24] MEDS ORDERED: LIPASE/PROTEASE/AMYLASE 4,200 unit CAPSULE.DR PO SCH ×2 (09:56→09:57)
[2020-01-24 11:00] VITALS: BP 134/90
[2020-01-24] MEDS: ondansetron/PF 4mg/2ml inj IV PRN (13:06)
[2020-01-24 15:00] VITALS: BP 134/85
--- NOTE | 2020-01-24 15:19 | NUR ---
Reassessment: Pt previously on pureed/thin meals w/ nocturnal feeds placed on clear liquids temporarily following episode of vomiting at night. TF held at 20 that night and has only run at 50ml/hr past 2 nights not meeting nutrient needs given inadequate PO meals. Pt imodium has been discontinued and pancreatic enzymes not given on hold r/t swallow concerns per RN. RD d/w RN regarding recommendations for probiotic and restarting anti-diarrheal w/ 1900ml rectal tube output 01/22. Pt NG is also in the stomach and since has not been receiving enzymes combination likely impacting nutrient absorption. Pt has only been receiving liquids for nutrition since admit as well likely causing liquid stools. RN reports MD is agreeable to probiotic, advancing to pureed/thin diet once more, new OCC THER consult, and pancreatic enzymes w/ PO. MANJU d/w clinical pharmacist regarding pancreatic enzymes order since is to receive at meals but also w/ nocturnal feeds. Receiving water flushes 300ml Q4 per latest circuit rider order per RN. RD d/w RN okay to advance nocturnal feeds to goal at night to optimally meet nutrient needs. Pt would likely benefit from corpak advancement at least post-pylorically to ensure optimal nocturnal EN tolerance. Will continue to monitor. Recommendations: 1) Continue pureed/thin liquid diet per OCC THER/MD; encourage PO 2) Nocturnal NGTF via corpak to run from 1900 to 0700 using Vital AF at goal rate 130mL/hr to provide 1560ml fluid, 1872kcal, 117g protein, and 1264mL free water. Initiate at 90ml/hr since previously tolerating and advance 20ml Q4 to goal as tolerated. Once tolerating at 130ml/hr can restart at 130ml/hr goal for subsequent feeds. To meet 85% kcal and 100% protein needs. 2) Prealbumin q M/TH; daily weights 3) Additional water flush 300 mL Q4H per MD; Dylan supplement containing CaHMB, collagen protein, arginine, and glutamine to be added BID during day shift water flushes to aid in wound healing. Mix 1 packet w/ 120ml free water and flush tube using 40ml before and after feeds. 4) Continue MVI, Thiamine; Pancreatic enzymes w/ meals and nocturnal feeds 5) Continue routine anti-diarrheal and probiotic per MD approval 6) Monitor for PO diet intake and nocturnal EN tolerance adjustments as medically indicated 7) Consider advancement of corpak to post-pyloric to optimize EN tolerance if MD agreeable Addendum: 01/24/20 at [address] Amended: Links added.
--- NOTE | 2020-01-24 15:36 | NUR ---
Spoke with Dr. Sutherland, new orders obtained to remove rectal tube, swallow eval, and advance to pureed diet in am. Removed rectal tube and the patient tolerated well.
--- NOTE | 2020-01-24 18:00 | NUR ---
Problems reprioritized. Patient report given, questions answered & plan of care reviewed with Dakota DICK. Patient is stable at time of transfer.
--- NOTE | 2020-01-24 18:52 | NUR ---
Patient in room PCU 3019. I have received report from Yarelis Harris RN and MAYELIN Wood and had the opportunity to ask questions and assume patient care. Patient awake for beside report, on 1L NC, and saline locked at this time. Sitter at bedside. Will continue to monitor closely.
[2020-01-24 18:57] VITALS: BP 130/87
[2020-01-24] MEDS: LIPASE/PROTEASE/AMYLASE 4,200 unit CAPSULE.DR PO SCH (21:48)
[2020-01-24] MEDS: insulin glargine (Lantus) pen - multi-dose SQ SCH (21:48)
[2020-01-24 23:00] VITALS: BP 112/76
[2020-01-25] VITALS (7 sets, daily range): BP systolic 104–135; BP diastolic 64–92
[2020-01-25] MEDS: MEROPENEM 500MG/50ML-NS IVPB 50 ML IV SCH ×4 (02:14→20:06)
--- NOTE | 2020-01-25 04:30 | NUR ---
TUBE FEEDING ON HOLD. PATIENT HAD EPISODE OF N/V. 4MG/2ML IV ZOFRAN ADMINISTERED. WILL CONTINUE TO MONITOR CLOSELY.
[2020-01-25] MEDS: ondansetron/PF 4mg/2ml inj IV PRN (05:13)
--- NOTE | 2020-01-25 06:00 | NUR ---
Patient in room PCU 3019. I have received report from Dakota Mccormick and had the opportunity to ask questions and assume patient care. Patient is stable at this time
--- NOTE | 2020-01-25 06:27 | NUR ---
Problems reprioritized. Patient report given, questions answered & plan of care reviewed with MAYELIN LEVY and MAYELIN TORIBIO.
[2020-01-25] MEDS: K, MAG and/or Phos replacement - Verify level? MC SCH (08:00)
[2020-01-25] MEDS: MULTIVIT-MIN/FERROUS GLUCONATE 9 MG/15 ML LIQUID NG SCH (08:05)
[2020-01-25] MEDS: POTASSIUM BICARB 20meq eff tab 20 MEQ TABLET.EFF NG SCH ×2 (08:06→20:07)
[2020-01-25] MEDS: clonazePAM 0.5mg tablet NG SCH ×2 (08:06→20:07)
[2020-01-25] MEDS: amiodarone 200mg tablet NG SCH ×2 (08:06→20:07)
[2020-01-25] MEDS: thiamine 100mg tablet NG SCH (08:06)
[2020-01-25] MEDS: labetalol 100mg tablet NG SCH ×2 (08:06→20:07)
[2020-01-25] MEDS: ziprasidone 20mg capsule PO SCH ×2 (08:07→20:07)
[2020-01-25] MEDS: lactobacillus rhamnosus 10,000 MMU CELLS/CAPSULE PO SCH (08:07)
[2020-01-25] MEDS: LIPASE/PROTEASE/AMYLASE 4,200 unit CAPSULE.DR PO SCH ×3 (08:07→21:52)
[2020-01-25] MEDS: heparin, porcine 5000 units/ml vial SQ SCH ×2 (08:08→20:08)
--- NOTE | 2020-01-25 11:40 | NUR ---
Patient has been behaving so we are going to do a trial run without a sitter.
[2020-01-25] MEDS: epoetin 20,000 units/ml inj SQ SCH (14:02)
--- NOTE | 2020-01-25 17:08 | NUR ---
NG tube removed with no issues.
--- NOTE | 2020-01-25 18:14 | NUR ---
Patient in room PCU 3019. I have received report from Magui RN and Nina RN and had the opportunity to ask questions and assume patient care. Per report, patient was found to be in the shower, unbeknownst to staff. Ostomy, abdominal dressing, and IV site dampened and to be removed and replaced. Bed alarm on. Will continue to monitor closely and revisit fall risk reduction education q encounter and PRN.
[2020-01-25] MEDS: insulin glargine (Lantus) pen - multi-dose SQ SCH (21:00)
--- NOTE | 2020-01-25 21:44 | NUR ---
PATIENT NG DISCONTINUED 01/25/20 AT 1600 AND NO LONGER NEEDING NOC TUBE FEEDINGS. SPOKE TO NOC ACCOUNT ANALYST AND VERIFIED ORDER. PER PROVIDER, PATIENT WILL DC CURRENT ORDERS R/T TB AND RESTART HYPER/HYPOGLYCEMIA PROTOCOL. WILL CONTINUE TO MONITOR
[2020-01-26] MEDS: MEROPENEM 500MG/50ML-NS IVPB 50 ML IV SCH ×4 (02:00→19:33)
[2020-01-26 03:00] VITALS: BP 110/77
[2020-01-26 05:47] LABS: BASOPHILS # (AUTO) 0.1 X10'3 (0-0.2); BASOPHILS % (AUTO) 0.9 % (0-1); EOSINOPHILS # (AUTO) 0.1 X10'3 (0-0.9); EOSINOPHILS % (AUTO) 0.8 % (0-6); HEMATOCRIT 27.6 % (42.0-52.0); HEMOGLOBIN 8.9 g/dl (14.0-17.9); LYMPHOCYTES # (AUTO) 2.5 X10'3 (1.1-4.8); LYMPHOCYTES % (AUTO) 21.9 % (21-51); MEAN CORPUSCULAR HEMOGLOBIN 28.1 PG (27.0-31.0); MEAN CORPUSCULAR HGB CONC 32.4 g/dL (33.0-36.5); MEAN CORPUSCULAR VOLUME 86.7 FL (78-98); MEAN PLATELET VOLUME 7.9 FL (7.4-10.4); MONOCYTES # (AUTO) 0.8 X10'3 (0-0.9); MONOCYTES % (AUTO) 7.3 % (2-12); NEUTROPHILS # (AUTO) 7.8 X10'3 (1.8-7.7); NEUTROPHILS % (AUTO) 69.1 % (42-75); PLATELET COUNT 437 X10'3 (140-440); RED BLOOD COUNT 3.18 X10'6 (4.70-6.10); RED CELL DISTRIBUTION WIDTH 16.3 % (11.5-14.5); WHITE BLOOD COUNT 11.3 X10'3 (4.5-11.0)
[2020-01-26 06:00] VITALS: BP 131/72
[2020-01-26 06:21] LABS: ALANINE AMINOTRANSFERASE 63 U/L (12-78); ALBUMIN 1.8 G/DL (3.4-5.0); ALBUMIN/GLOBULIN RATIO 0.3 (1.1-1.5); ALKALINE PHOSPHATASE 197 IU/L (46-116); ANION GAP 8 (8-16); ASPARTATE AMINO TRANSFERASE 28 U/L (10-37); BILIRUBIN,TOTAL 0.4 MG/DL (0.1-1.0); BLOOD UREA NITROGEN 15 MG/DL (7-18); BUN/CREATININE RATIO 13.6 (5.4-32.0); CALCIUM 8.9 MG/DL (8.5-10.1); CHLORIDE 100 MMOL/L (99-107); GLUCOSE 106 MG/DL (70-104); MAGNESIUM 1.9 MG/DL (1.5-2.4); PHOSPHORUS 3.7 MG/DL (2.3-4.5); SODIUM 136 MMOL/L (135-145); TOTAL CARBON DIOXIDE 28.1 MMOL/L (24-32); eGFR 71 ML/MIN
--- NOTE | 2020-01-26 06:21 | NUR ---
Problems reprioritized. Patient report given, questions answered & plan of care reviewed with MAYELIN BARRERA.
--- NOTE | 2020-01-26 06:28 | NUR ---
Patient in room PCU 3019. I have received report from MAYELIN Duncan and had the opportunity to ask questions and assume patient care.
[2020-01-26] MEDS ORDERED: acetaminophen 325mg/10.15ml oral unit dose solution PO PRN (07:58)
[2020-01-26] MEDS: K, MAG and/or Phos replacement - Verify level? MC SCH (08:00)
[2020-01-26] MEDS: heparin, porcine 5000 units/ml vial SQ SCH ×2 (08:07→19:35)
[2020-01-26] MEDS: LIPASE/PROTEASE/AMYLASE 4,200 unit CAPSULE.DR PO SCH ×3 (08:07→22:03)
[2020-01-26] MEDS: ziprasidone 20mg capsule PO SCH ×2 (08:08→19:34)
[2020-01-26] MEDS: lactobacillus rhamnosus 10,000 MMU CELLS/CAPSULE PO SCH (08:08)
[2020-01-26] MEDS: MULTIVIT-MIN/FERROUS GLUCONATE 9 MG/15 ML LIQUID PO SCH (08:09)
[2020-01-26] MEDS: clonazePAM 0.5mg tablet PO SCH ×2 (08:10→19:34)
[2020-01-26] MEDS: amiodarone 200mg tablet PO SCH ×2 (08:10→19:32)
[2020-01-26] MEDS: thiamine 100mg tablet PO SCH (08:11)
[2020-01-26] MEDS: labetalol 100mg tablet PO SCH ×2 (08:11→19:34)
[2020-01-26 11:00] VITALS: BP 119/72
--- NOTE | 2020-01-26 11:38 | NUR ---
Reassessment: Pt PO 25-50% avg pureed/thin liquid meals. Nocturnal TF at been advanced to 130ml/hr goal and tolerating. BM's much improved receiving pancreatic enzymes TIDWM and w/ nocturnal feeds for optimized tolerance. Receiving Dylan w/ water flushes for wound healing needs. Will continue to monitor for additional protein needs. Recommendations: 1) Continue pureed/thin liquid diet per PAPER CAP MACHINE OPERATOR/MD; encourage PO 2) Nocturnal NGTF via corpak to run from 1900 to 0700 using Vital AF at goal rate 130mL/hr to provide 1560ml fluid, 1872kcal, 117g protein, and 1264mL free water. Initiate at 90ml/hr since previously tolerating and advance 20ml Q4 to goal as tolerated. Once tolerating at 130ml/hr can restart at 130ml/hr goal for subsequent feeds. To meet 85% kcal and 100% protein needs. 2) Prealbumin q M/; daily weights 3) Additional water flush 300 mL Q4H per MD; Dylan supplement containing CaHMB, collagen protein, arginine, and glutamine to be added BID during day shift water flushes to aid in wound healing. Mix 1 packet w/ 120ml free water and flush tube using 40ml before and after feeds. 4) Continue MVI, Thiamine; Pancreatic enzymes w/ meals and nocturnal feeds 5) Continue pancreatic enzymes TIDWM and w/ nocturnal feeds 6) Monitor for PO diet intake and nocturnal EN tolerance adjustments as medically indicated Addendum: 01/26/20 at [address] Amended: Links added.
[2020-01-26 13:00] VITALS: BP 101/69
--- NOTE | 2020-01-26 18:20 | NUR ---
Problems reprioritized. Patient report given, questions answered & plan of care reviewed with MAYELIN Broussard. All patient needs met at this time.
--- NOTE | 2020-01-26 18:47 | NUR ---
Patient in room PCU 3019. I have received report from Latonya DICK and had the opportunity to ask questions and assume patient care.
[2020-01-26 19:00] VITALS: BP 134/79
[2020-01-26] MEDS: POTASSIUM BICARB 20meq eff tab 20 MEQ TABLET.EFF PO SCH (19:34)
[2020-01-26] MEDS: insulin glargine (Lantus) pen - multi-dose SQ SCH (21:00)
[2020-01-26 23:00] VITALS: BP 119/72
[2020-01-27] MEDS: MEROPENEM 500MG/50ML-NS IVPB 50 ML IV SCH ×2 (01:38→07:42)
[2020-01-27 03:00] VITALS: BP 121/68
[2020-01-27 05:49] LABS: BASOPHILS # (AUTO) 0.1 X10'3 (0-0.2); BASOPHILS % (AUTO) 0.8 % (0-1); EOSINOPHILS # (AUTO) 0.1 X10'3 (0-0.9); EOSINOPHILS % (AUTO) 0.5 % (0-6); HEMATOCRIT 30.8 % (42.0-52.0); HEMOGLOBIN 9.9 g/dl (14.0-17.9); LYMPHOCYTES # (AUTO) 2.6 X10'3 (1.1-4.8); LYMPHOCYTES % (AUTO) 21.6 % (21-51); MEAN CORPUSCULAR HEMOGLOBIN 27.7 PG (27.0-31.0); MEAN CORPUSCULAR HGB CONC 32.2 g/dL (33.0-36.5); MEAN CORPUSCULAR VOLUME 86.1 FL (78-98); MEAN PLATELET VOLUME 7.9 FL (7.4-10.4); MONOCYTES # (AUTO) 0.8 X10'3 (0-0.9); MONOCYTES % (AUTO) 6.9 % (2-12); NEUTROPHILS # (AUTO) 8.6 X10'3 (1.8-7.7); NEUTROPHILS % (AUTO) 70.2 % (42-75); PLATELET COUNT 474 X10'3 (140-440); RED BLOOD COUNT 3.58 X10'6 (4.70-6.10); RED CELL DISTRIBUTION WIDTH 16.3 % (11.5-14.5); WHITE BLOOD COUNT 12.2 X10'3 (4.5-11.0)
[2020-01-27 06:00] VITALS: BP 140/71
--- NOTE | 2020-01-27 06:00 | NUR ---
Problems reprioritized. Patient report given, questions answered & plan of care reviewed with Latonya DICK.
[2020-01-27 06:11] LABS: ALANINE AMINOTRANSFERASE 54 U/L (12-78); ALBUMIN 2.1 G/DL (3.4-5.0); ALBUMIN/GLOBULIN RATIO 0.4 (1.1-1.5); ALKALINE PHOSPHATASE 215 IU/L (46-116); ANION GAP 8 (8-16); ASPARTATE AMINO TRANSFERASE 29 U/L (10-37); BILIRUBIN,TOTAL 0.4 MG/DL (0.1-1.0); BLOOD UREA NITROGEN 12 MG/DL (7-18); BUN/CREATININE RATIO 11.7 (5.4-32.0); CALCIUM 9.3 MG/DL (8.5-10.1); CHLORIDE 101 MMOL/L (99-107); CREATININE 1.03 MG/DL (0.60-1.10); GLUCOSE 109 MG/DL (70-104); MAGNESIUM 2.1 MG/DL (1.5-2.4); PHOSPHORUS 3.5 MG/DL (2.3-4.5); POTASSIUM 4.1 MMOL/L (3.5-5.1); SODIUM 136 MMOL/L (135-145); TOTAL CARBON DIOXIDE 27.2 MMOL/L (24-32); TOTAL PROTEIN 7.6 G/DL (6.4-8.2); eGFR 76 ML/MIN
--- NOTE | 2020-01-27 06:12 | NUR ---
Patient in room PCU 3019. I have received report from MAYELIN Broussard and had the opportunity to ask questions and assume patient care.
--- NOTE | 2020-01-27 06:30 | NUR ---
Patient in room PCU 3019. I have received report from Bobo and had the opportunity to ask questions and assume patient care. Pt is in bed, no signs of distress.
[2020-01-27] MEDS: LIPASE/PROTEASE/AMYLASE 4,200 unit CAPSULE.DR PO SCH ×3 (07:53→19:46)
[2020-01-27] MEDS: lactobacillus rhamnosus 10,000 MMU CELLS/CAPSULE PO SCH (07:53)
[2020-01-27] MEDS: thiamine 100mg tablet PO SCH (07:54)
[2020-01-27] MEDS: ziprasidone 20mg capsule PO SCH ×2 (07:54→19:46)
[2020-01-27] MEDS: amiodarone 200mg tablet PO SCH ×2 (07:54→19:45)
[2020-01-27] MEDS: clonazePAM 0.5mg tablet PO SCH ×2 (07:55→19:46)
[2020-01-27] MEDS: labetalol 100mg tablet PO SCH ×2 (07:55→19:46)
[2020-01-27] MEDS: POTASSIUM BICARB 20meq eff tab 20 MEQ TABLET.EFF PO SCH ×2 (07:57→19:45)
[2020-01-27] MEDS: MULTIVIT-MIN/FERROUS GLUCONATE 9 MG/15 ML LIQUID PO SCH (07:57)
[2020-01-27] MEDS: heparin, porcine 5000 units/ml vial SQ SCH ×2 (07:59→19:46)
[2020-01-27] MEDS: K, MAG and/or Phos replacement - Verify level? MC SCH (08:00)
--- NOTE | 2020-01-27 09:00 | NUR ---
Patient pulled IV out. Informed Dr Sutherland. Dr Sutherland said it is okay for patient not to have IV access.
[2020-01-27 11:00] VITALS: BP 105/70
[2020-01-27 15:00] VITALS: BP 115/74
[2020-01-27] MEDS: epoetin 20,000 units/ml inj SQ SCH (15:18)
[2020-01-27 18:00] VITALS: BP 111/70
--- NOTE | 2020-01-27 18:00 | NUR ---
Patient in room PCU 3019. I have received report from Latonya DICK and had the opportunity to ask questions and assume patient care.
--- NOTE | 2020-01-27 18:19 | NUR ---
Problems reprioritized. Patient report given, questions answered & plan of care reviewed with Brandy DICK.
--- NOTE | 2020-01-27 18:21 | NUR ---
[place] documentation: I have reviewed and agree with all interventions, assessments performed and documented by MAYELIN Dietz.
--- NOTE | 2020-01-27 18:22 | NUR ---
[place] Medication Administration: For this medication-pass time frame, all medication were reviewed, dispensed, administered and documented per hospital policy by MAYELNI Dietz.
--- NOTE | 2020-01-27 18:23 | NUR ---
Problems reprioritized. Patient report given, questions answered & plan of care reviewed with MAYELIN Escudero. All patient needs met at this time.
--- NOTE | 2020-01-27 20:00 | NUR ---
NO telemetry Patient refusing telemetry monitoring stating "I dont need it, I'm going home tomorrow anyway". JANA Severino was made aware, will continue to monitor patient.
[2020-01-27] MEDS: insulin glargine (Lantus) pen - multi-dose SQ SCH (21:00)
[2020-01-27 22:00] VITALS: BP 123/79
[2020-01-28 02:00] VITALS: BP 118/71
[2020-01-28 06:14] LABS: BASOPHILS # (AUTO) 0.1 X10'3 (0-0.2); BASOPHILS % (AUTO) 0.9 % (0-1); EOSINOPHILS % (AUTO) 0.5 % (0-6); HEMATOCRIT 28.8 % (42.0-52.0); HEMOGLOBIN 9.6 g/dl (14.0-17.9); LYMPHOCYTES # (AUTO) 2.6 X10'3 (1.1-4.8); LYMPHOCYTES % (AUTO) 24.9 % (21-51); MEAN CORPUSCULAR HEMOGLOBIN 28.5 PG (27.0-31.0); MEAN CORPUSCULAR HGB CONC 33.3 g/dL (33.0-36.5); MEAN CORPUSCULAR VOLUME 85.8 FL (78-98); MEAN PLATELET VOLUME 7.8 FL (7.4-10.4); MONOCYTES # (AUTO) 0.8 X10'3 (0-0.9); MONOCYTES % (AUTO) 7.8 % (2-12); NEUTROPHILS # (AUTO) 6.9 X10'3 (1.8-7.7); NEUTROPHILS % (AUTO) 65.9 % (42-75); PLATELET COUNT 419 X10'3 (140-440); RED BLOOD COUNT 3.36 X10'6 (4.70-6.10); RED CELL DISTRIBUTION WIDTH 16.1 % (11.5-14.5); WHITE BLOOD COUNT 10.4 X10'3 (4.5-11.0)
--- NOTE | 2020-01-28 06:31 | NUR ---
Patient in room PCU 3019. I have received report from MAYELIN Llanes and had the opportunity to ask questions and assume patient care.
[2020-01-28 06:35] LABS: ALANINE AMINOTRANSFERASE 45 U/L (12-78); ALBUMIN/GLOBULIN RATIO 0.4 (1.1-1.5); ALKALINE PHOSPHATASE 183 IU/L (46-116); ANION GAP 7 (8-16); ASPARTATE AMINO TRANSFERASE 24 U/L (10-37); BILIRUBIN,TOTAL 0.4 MG/DL (0.1-1.0); BLOOD UREA NITROGEN 10 MG/DL (7-18); BUN/CREATININE RATIO 9.7 (5.4-32.0); CHLORIDE 101 MMOL/L (99-107); CREATININE 1.03 MG/DL (0.60-1.10); GLUCOSE 112 MG/DL (70-104); MAGNESIUM 1.9 MG/DL (1.5-2.4); PHOSPHORUS 3.8 MG/DL (2.3-4.5); POTASSIUM 3.9 MMOL/L (3.5-5.1); SODIUM 135 MMOL/L (135-145); TOTAL CARBON DIOXIDE 27.3 MMOL/L (24-32); TOTAL PROTEIN 7.1 G/DL (6.4-8.2); eGFR 76 ML/MIN
--- NOTE | 2020-01-28 06:36 | NUR ---
Problems reprioritized. Patient report given, questions answered & plan of care reviewed with Shruti DICK.
[2020-01-28 07:00] VITALS: BP 120/70
[2020-01-28] MEDS: LIPASE/PROTEASE/AMYLASE 4,200 unit CAPSULE.DR PO SCH (08:24)
[2020-01-28] MEDS: labetalol 100mg tablet PO SCH (08:25)
[2020-01-28] MEDS: lactobacillus rhamnosus 10,000 MMU CELLS/CAPSULE PO SCH (08:25)
[2020-01-28] MEDS: thiamine 100mg tablet PO SCH (08:25)
[2020-01-28] MEDS: amiodarone 200mg tablet PO SCH (08:25)
[2020-01-28] MEDS: clonazePAM 0.5mg tablet PO SCH (08:25)
[2020-01-28] MEDS: ziprasidone 20mg capsule PO SCH (08:25)
[2020-01-28] MEDS: MULTIVIT-MIN/FERROUS GLUCONATE 9 MG/15 ML LIQUID PO SCH (08:26)
[2020-01-28] MEDS: POTASSIUM BICARB 20meq eff tab 20 MEQ TABLET.EFF PO SCH (08:26)
[2020-01-28] MEDS: heparin, porcine 5000 units/ml vial SQ SCH (08:26)
[2020-01-28] MEDS: K, MAG and/or Phos replacement - Verify level? MC SCH (08:28)
[2020-01-28] MEDS ORDERED: AMIO200T61 PO (10:36)
[2020-01-28] MEDS ORDERED: ZIPR20CA12 PO (10:36)
[2020-01-28] MEDS ORDERED: LACT1CAP26 PO (10:36)
[2020-01-28] MEDS ORDERED: LABE100T5 PO (10:36)
[2020-01-28] MEDS ORDERED: CLON0.5T4 PO (10:36)
[2020-01-28] MEDS ORDERED: thiamine tablet PO (10:36)
[2020-01-28] MEDS ORDERED: LIPA1CAP28 PO (10:36)
[2020-01-28] MEDS ORDERED: MULT9LIQ7 PO (10:36)
--- NOTE | 2020-01-28 12:12 | NUR ---
Wound nurse found pt to have eschar in midline abd surgical site. Suggested to pt that we get Dr. Nagy to take a look at sx site. Called Em' phone and gave his staff the pts name and a bit of the situation. Notified Dr. Sutherland and he stated for discharge to be cancelled. Explained to pt what the situation was and that he may need to stay regarding his sx site. Pt stated, "oh, no i cant stay here any longer. I've been here for 72 days and im going crazy." Pt left against medical advice after explaining his risks and consequences. Notified Dr. Sutherland, Dr. Strickland staff, and Dr. Enrique of this situation. Pt reports that "I'm going to see my doctor at [place], anyway, I'll be fine". Pt claims "my is a nurse, she can take care of me. Tele monitor removed. PIV removed from the day before. All belongings sent with pt. Resource nurse transported pt via wheelchair to lobby in a private vehicle by family.
== END 2020-01-28 12:19 | disposition left against medical advice (07) | DRG 710 ==
LOC: SUR 3N 14:52 → PCU 3S 11-26 11:50 → CICU 2S 11-26 12:20 → PCU 3S 01-20 15:47
PROVIDERS: ADMIT Family Medicine; ATTEND Internal Medicine Critical Care Medicine
PROC: 5A1955Z Respiratory Ventilation, Greater than 96 Consecutive Hours (ICD-10-PCS; principal; 2019-11-25)
PROC: 0W9G00Z Drainage of Peritoneal Cavity with Drainage Device, Open Approach (ICD-10-PCS; 2019-11-25)
PROC: 2W03X6Z Change Pressure Dressing on Abdominal Wall (ICD-10-PCS; 2019-11-25)
PROC: 0WQF0ZZ Repair Abdominal Wall, Open Approach (ICD-10-PCS; 2019-11-25)
PROC: 0W993ZZ Drainage of Right Pleural Cavity, Percutaneous Approach (ICD-10-PCS; 2019-11-25)
DX: A41.9 Sepsis, unspecified organism (principal); J96.00 Acute respiratory failure, unspecified whether with hypoxia or hypercapnia; J90 Pleural effusion, not elsewhere classified; J96.01 Acute respiratory failure with hypoxia; K85.90 Acute pancreatitis without necrosis or infection, unspecified; N17.9 Acute kidney failure, unspecified; E87.6 Hypokalemia; I48.91 Unspecified atrial fibrillation; J98.11 Atelectasis; K86.3 Pseudocyst of pancreas
CPT/HCPCS: 32552; 32555; 36415; 36430; 36558; 36573; 36600; 71045; 71250; 74018; 74176; 74177; 76937; 77001; 80048; 80053; 80069; 80162; 80202; 81001; 82140; 82150; 82330; 82570; 82803; 82810; 82947; 82948; 83036; 83605; 83690; 83735; 84100; 84132; 84134; 84145; 84156; 84300; 84478; 84540; 84560; 85018; 85025; 85027; 85610; 85730; 86885; 86900; 86901; 86920; 87015; 87040; 87070; 87075; 87076; 87077; 87102; 87186; 87207; 87324; 87340; 87449; 90935; 92508; 92616; 93005; 93306; 94002; 94003; 94640; 94760; 97110; 97116; 97161; 97530; A4215; A4421; A4618; A6253; A6258; A6449; A7000; A9270; C1750; C1769; C1894; E1594; G0257; G0378; J0131; J0360; J0610; J0690; J0694; J1160; J1170; J1250; J1450; J1580; J1630; J1644; J1720; J1815; J1940; J2060; J2185; J2212; J2250; J2270; J2370; J2405; J2543; J2704; J2765; J2997; J3010; J3370; J3411; J3475; J3480; J3490; J7030; J7040; J7050; J7060; J7070; J7120; P9016; P9045; P9047; Q2037; Q4081; Q9963; Q9967

== ENCOUNTER 2020-02-04 04:44 | Inpatient (IN) | payer MEDICAID, OTHER ==
[~2020-02-04] VITALS: Ht 172.7 cm; Wt 76.8 kg
[~2020-02-04 04:44] MED LIST changes: +AMIO200T61 PO; +CLON0.5T4 PO; +LABE100T5 PO; +LACT1CAP26 PO; +LIPA1CAP28 PO; +MULT9LIQ7 PO; +NO HOME MEDS; +ZIPR20CA12 PO; -etomidate 2mg/ml inj. ONE; +thiamine tablet PO
[2020-02-04] MEDS ORDERED: THIA100T70 PO (05:06)
--- NOTE | 2020-02-04 05:21 | NUR ---
OTHER FACILITY FAXING US HIS LABS, THEY FORGOT TO PUT THEM IN THE PACKET. DR BREWSTER STATES TO HOLD OFF ON LABS UNTIL WE GET THEM, RADIOLOGY LOADED FILMS FOR THE MD, SO I BELIEVE HE IS GOING TO CANCEL THE CXR.
--- NOTE | 2020-02-04 05:39 | NUR ---
FAXES OBTAINED AND GIVEN TO DR BREWSTER
[2020-02-04 06:13] LABS: BASOPHILS # (AUTO) 0.1 X10'3 (0-0.2); BASOPHILS % (AUTO) 1.1 % (0-1); EOSINOPHILS # (AUTO) 0.1 X10'3 (0-0.9); EOSINOPHILS % (AUTO) 0.9 % (0-6); HEMATOCRIT 29.3 % (42.0-52.0); HEMOGLOBIN 9.5 g/dl (14.0-17.9); LYMPHOCYTES # (AUTO) 2.5 X10'3 (1.1-4.8); LYMPHOCYTES % (AUTO) 29.2 % (21-51); MEAN CORPUSCULAR HEMOGLOBIN 27.8 PG (27.0-31.0); MEAN CORPUSCULAR HGB CONC 32.6 g/dL (33.0-36.5); MEAN CORPUSCULAR VOLUME 85.5 FL (78-98); MEAN PLATELET VOLUME 7.1 FL (7.4-10.4); MONOCYTES # (AUTO) 0.8 X10'3 (0-0.9); MONOCYTES % (AUTO) 9.7 % (2-12); NEUTROPHILS % (AUTO) 59.1 % (42-75); PLATELET COUNT 301 X10'3 (140-440); RED BLOOD COUNT 3.43 X10'6 (4.70-6.10); WHITE BLOOD COUNT 8.4 X10'3 (4.5-11.0)
[2020-02-04 07:11] LABS: ALANINE AMINOTRANSFERASE 28 U/L (12-78); ALBUMIN 1.7 G/DL (3.4-5.0); ALBUMIN/GLOBULIN RATIO 0.3 (1.1-1.5); ALKALINE PHOSPHATASE 148 IU/L (46-116); ANION GAP 11 (8-16); BILIRUBIN,TOTAL 0.6 MG/DL (0.1-1.0); BLOOD UREA NITROGEN 12 MG/DL (7-18); BUN/CREATININE RATIO 11.9 (5.4-32.0); CALCIUM 8.2 MG/DL (8.5-10.1); CHLORIDE 105 MMOL/L (99-107); CREATININE 1.01 MG/DL (0.60-1.10); GLUCOSE 107 MG/DL (70-104); MAGNESIUM 1.6 MG/DL (1.5-2.4); SODIUM 137 MMOL/L (135-145); TOTAL CARBON DIOXIDE 20.8 MMOL/L (24-32); TOTAL PROTEIN 6.6 G/DL (6.4-8.2); eGFR 78 ML/MIN
[2020-02-04 07:12] LABS: ASPARTATE AMINO TRANSFERASE 27 U/L (10-37); POTASSIUM 4.1 MMOL/L (3.5-5.1)
[2020-02-04] MEDS ORDERED: heparin 10,000 units/1 ML INJ IV ONE ×2 (07:15→07:25)
[2020-02-04] MEDS: heparin 25,000 UNIT/250ml bag 250 ML IV SCH (07:55)
--- NOTE | 2020-02-04 08:32 | NUR ---
Received report from Claudy FISCHER. Had opportunity to ask questions concerning Pt's care. Awaiting Pt arrival
--- NOTE | 2020-02-04 08:45 | NUR ---
Pt arrived to unit to room 3026B. Pt oriented to room and call light. Vitals taken WNL. Will continue to monitor Pt.
[2020-02-04] MEDS ORDERED: CLON-513 PO (08:48)
[2020-02-04] MEDS ORDERED: LIPA1CAP28 PO (08:52)
[2020-02-04] MEDS ORDERED: AMIO200T27 PO (08:52)
[2020-02-04] MEDS ORDERED: MULT9LIQ7 PO (08:52)
[2020-02-04] MEDS ORDERED: LACT1CAP74 PO (08:52)
[2020-02-04] MEDS ORDERED: LABE100T5 PO (08:52)
[2020-02-04] MEDS ORDERED: ZIPR20CA12 PO (08:52)
[2020-02-04 09:46] VITALS: BP 132/74
--- NOTE | 2020-02-04 10:29 | NUR ---
Patient presents as transfer from [place] for higher level of care r/t bilateral pulmonary embolism; recent admission s/p open abdomen and pancreatic debridement r/t pancreatic pseudocyst; had trach placed. Has leaking drain bag. Is NPO. Previous admission was tolerating mechanical soft diet grind all prior to discharge, when diet is advanced will need pancreatic enzymes. Recommend: 1. advance diet as medically indicated to mechanical soft grind all 2. may benefit from pancreatic enzymes when diet is advanced in view of hx pancreatic disfuction 3. monitor need for oral nutrition supplement if poor PO when diet advanced 4. bowel care as needed 5. weight per rx Addendum: 02/04/20 at [address] Amended: Links added.
[2020-02-04 11:00] VITALS: BP 131/80
[2020-02-04] MEDS ORDERED: normal saline 1000ml 1,000 ML IV SCH (12:02)
[2020-02-04] MEDS ORDERED: ondansetron/PF 4mg/2ml inj IV PRN (12:05)
[2020-02-04] MEDS ORDERED: acetaminophen 325mg tablet PO PRN (12:05)
[2020-02-04] MEDS ORDERED: potassium CL 10mEq/100ml bag 100 ML IV PRN ×2 (12:05)
[2020-02-04] MEDS ORDERED: magnesium 2GM in 50ml NS 50 ML IV PRN (12:05)
[2020-02-04] MEDS ORDERED: magnesium Cl slow-release 64mg tablet PO PRN (12:05)
[2020-02-04] MEDS ORDERED: potassium Cl 20 mEq SR tablet PO PRN ×2 (12:05)
[2020-02-04] MEDS ORDERED: magnesium 4gm in 100ml NS 100 ML IV PRN (12:05)
[2020-02-04] MEDS: LIPASE/PROTEASE/AMYLASE 4,200 unit CAPSULE.DR PO SCH ×2 (13:22→18:01)
[2020-02-04 15:00] VITALS: BP 118/71
--- NOTE | 2020-02-04 16:36 | NUR ---
Pt ambulated 300 feet with FWW on 3L NC. Pt tolerated well and complained of no SOB. Pt sats were stable at 92%.
[2020-02-04 18:00] VITALS: BP 122/75
--- NOTE | 2020-02-04 18:17 | NUR ---
Patient in room PCU 3026. I have received report from Matthew DICK and had the opportunity to ask questions and assume patient care.
--- NOTE | 2020-02-04 18:20 | NUR ---
Problems reprioritized. Patient report given, questions answered & plan of care reviewed with Bret DICK
[2020-02-04] MEDS: K and/or MAG REPLACEMENT MC SCH (19:14)
[2020-02-04] MEDS: labetalol 100mg tablet PO SCH (19:18)
[2020-02-04] MEDS: amiodarone 200mg tablet PO SCH (19:18)
[2020-02-04] MEDS: ziprasidone 20mg capsule PO SCH (19:18)
[2020-02-04] MEDS: clonazePAM 1mg tablet PO PRN (21:33)
[2020-02-04] MEDS: heparin 10,000 units/1 ML INJ IV PRN (21:38)
[2020-02-04 22:00] VITALS: BP 102/62
[2020-02-05 02:00] VITALS: BP 107/59
[2020-02-05] MEDS: heparin 25,000 UNIT/250ml bag 250 ML IV SCH ×4 (02:27→17:19)
[2020-02-05 05:36] LABS: BASOPHILS # (AUTO) 0.1 X10'3 (0-0.2); BASOPHILS % (AUTO) 0.9 % (0-1); EOSINOPHILS # (AUTO) 0.2 X10'3 (0-0.9); EOSINOPHILS % (AUTO) 2.5 % (0-6); HEMOGLOBIN 8.7 g/dl (14.0-17.9); LYMPHOCYTES # (AUTO) 1.9 X10'3 (1.1-4.8); LYMPHOCYTES % (AUTO) 28.7 % (21-51); MEAN CORPUSCULAR HEMOGLOBIN 27.5 PG (27.0-31.0); MEAN CORPUSCULAR HGB CONC 32.1 g/dL (33.0-36.5); MEAN CORPUSCULAR VOLUME 85.4 FL (78-98); MEAN PLATELET VOLUME 7.3 FL (7.4-10.4); MONOCYTES # (AUTO) 0.7 X10'3 (0-0.9); MONOCYTES % (AUTO) 10.4 % (2-12); NEUTROPHILS # (AUTO) 3.9 X10'3 (1.8-7.7); NEUTROPHILS % (AUTO) 57.5 % (42-75); PLATELET COUNT 306 X10'3 (140-440); RED BLOOD COUNT 3.17 X10'6 (4.70-6.10); RED CELL DISTRIBUTION WIDTH 15.9 % (11.5-14.5); WHITE BLOOD COUNT 6.8 X10'3 (4.5-11.0)
[2020-02-05 05:51] LABS: PARTIAL THROMBOPLASTIN TIME 38 SECONDS (22-32)
[2020-02-05 06:00] VITALS: BP 110/63
--- NOTE | 2020-02-05 06:05 | NUR ---
Problems reprioritized. Patient report given, questions answered & plan of care reviewed with Matthew DICK.
[2020-02-05 06:12] LABS: ALBUMIN 1.7 G/DL (3.4-5.0); ANION GAP 11 (8-16); BLOOD UREA NITROGEN 11 MG/DL (7-18); BUN/CREATININE RATIO 10.9 (5.4-32.0); CALCIUM 8.4 MG/DL (8.5-10.1); CHLORIDE 105 MMOL/L (99-107); CREATININE 1.01 MG/DL (0.60-1.10); GLUCOSE 107 MG/DL (70-104); MAGNESIUM 1.6 MG/DL (1.5-2.4); POTASSIUM 3.6 MMOL/L (3.5-5.1); SODIUM 139 MMOL/L (135-145); TOTAL CARBON DIOXIDE 23.5 MMOL/L (24-32); eGFR 78 ML/MIN
--- NOTE | 2020-02-05 06:15 | NUR ---
Patient in room PCU 3026. I have received report from Bret DICK and had the opportunity to ask questions and assume patient care.
[2020-02-05] MEDS: heparin 10,000 units/1 ML INJ IV PRN (06:48)
[2020-02-05] MEDS: K and/or MAG REPLACEMENT MC SCH ×2 (07:06→20:11)
[2020-02-05] MEDS: LIPASE/PROTEASE/AMYLASE 4,200 unit CAPSULE.DR PO SCH ×3 (07:34→17:45)
[2020-02-05] MEDS: MULTIVIT-MIN/FERROUS GLUCONATE 9 MG/15 ML LIQUID PO SCH (07:34)
[2020-02-05] MEDS: labetalol 100mg tablet PO SCH ×2 (07:35→19:40)
[2020-02-05] MEDS: ziprasidone 20mg capsule PO SCH ×2 (07:35→19:40)
[2020-02-05] MEDS: thiamine 100mg tablet PO SCH (07:35)
[2020-02-05] MEDS: amiodarone 200mg tablet PO SCH ×2 (07:35→19:40)
[2020-02-05] MEDS ORDERED: LACTOBACILLUS RHAMNOSUS GG 15 billion unit sprinkle caps PO SCH (08:00)
[2020-02-05 11:00] VITALS: BP 98/61
--- NOTE | 2020-02-05 13:28 | NUR ---
Malnutrition consult: Pt reports 34 lb or more wt loss with decreased appetite per malnutrition risk screen with RN. Pt recently admitted and estimated nutrient needs were being met with alternative nutrition from 12/01-01/24. During previous admission, patient's weight was 106 kg taken 11/27 with a bed scale on admit and pt weighed 80 kg taken 01/25 also with a bed scale just prior to discharge, however wt loss likely attributed to fluids as pt with cumulative -32.8L fluid balance during that admission and estimated nutrient needs were being met with alternative nutrition throughout most of admit. Current documented wt of 76.82 kg is unreliable as it is pt stated. Patient's diet has been advanced to heart healthy and pt documented with 25% PO intake first meal up to average 75% x 2 most recent meals. Pt with no significant decrease in muscle strength or edema. Pt currently does not meet criteria for malnutrition. Pt previously on mechanical soft grind meat diet with thin liquids on last admission per [facility] although currently seems to be tolerating regular texture at this time. Will continue to follow and monitor need for texture modification. Addendum: 02/05/20 at [address] Amended: Links added.
[2020-02-05 15:00] VITALS: BP 102/64
[2020-02-05 18:00] VITALS: BP 123/66
--- NOTE | 2020-02-05 18:09 | NUR ---
Patient in room PCU 3026. I have received report from Matthew DICK and had the opportunity to ask questions and assume patient care.
--- NOTE | 2020-02-05 18:15 | NUR ---
Problems reprioritized. Patient report given, questions answered & plan of care reviewed with Bret DICK.
[2020-02-05] MEDS: lactobacillus rhamnosus 10,000 MMU CELLS/CAPSULE PO SCH (19:40)
[2020-02-05] MEDS: clonazePAM 1mg tablet PO PRN (21:03)
[2020-02-05 22:00] VITALS: BP 105/67
[2020-02-06 01:54] LABS: BASOPHILS # (AUTO) 0.1 X10'3 (0-0.2); EOSINOPHILS # (AUTO) 0.2 X10'3 (0-0.9); EOSINOPHILS % (AUTO) 2.9 % (0-6); HEMATOCRIT 24.8 % (42.0-52.0); HEMOGLOBIN 8.2 g/dl (14.0-17.9); LYMPHOCYTES % (AUTO) 30.1 % (21-51); MEAN CORPUSCULAR HEMOGLOBIN 28.2 PG (27.0-31.0); MEAN CORPUSCULAR HGB CONC 33.1 g/dL (33.0-36.5); MEAN CORPUSCULAR VOLUME 85.2 FL (78-98); MEAN PLATELET VOLUME 7.5 FL (7.4-10.4); MONOCYTES # (AUTO) 0.7 X10'3 (0-0.9); MONOCYTES % (AUTO) 10.3 % (2-12); NEUTROPHILS # (AUTO) 3.7 X10'3 (1.8-7.7); NEUTROPHILS % (AUTO) 55.7 % (42-75); PLATELET COUNT 315 X10'3 (140-440); RED CELL DISTRIBUTION WIDTH 16.1 % (11.5-14.5); WHITE BLOOD COUNT 6.7 X10'3 (4.5-11.0)
[2020-02-06 01:57] LABS: ALBUMIN 1.6 G/DL (3.4-5.0); ANION GAP 8 (8-16); BLOOD UREA NITROGEN 7 MG/DL (7-18); BUN/CREATININE RATIO 7.3 (5.4-32.0); CALCIUM 8.1 MG/DL (8.5-10.1); CHLORIDE 104 MMOL/L (99-107); CREATININE 0.96 MG/DL (0.60-1.10); GLUCOSE 112 MG/DL (70-104); MAGNESIUM 1.4 MG/DL (1.5-2.4); POTASSIUM 3.1 MMOL/L (3.5-5.1); SODIUM 137 MMOL/L (135-145); TOTAL CARBON DIOXIDE 25.1 MMOL/L (24-32); eGFR 83 ML/MIN
[2020-02-06 02:00] VITALS: BP 106/61
[2020-02-06] MEDS: heparin 10,000 units/1 ML INJ IV PRN (03:24)
--- NOTE | 2020-02-06 06:16 | NUR ---
Problems reprioritized. Patient report given, questions answered & plan of care reviewed with Delphine DICK.
--- NOTE | 2020-02-06 06:48 | NUR ---
Patient in room PCU 3026. I have received report from Bret DICK and had the opportunity to ask questions and assume patient care.
[2020-02-06 07:00] VITALS: BP 119/77
[2020-02-06] MEDS: K and/or MAG REPLACEMENT MC SCH (08:00)
[2020-02-06] MEDS: lactobacillus rhamnosus 10,000 MMU CELLS/CAPSULE PO SCH (08:07)
[2020-02-06] MEDS: thiamine 100mg tablet PO SCH (08:07)
[2020-02-06] MEDS: MULTIVIT-MIN/FERROUS GLUCONATE 9 MG/15 ML LIQUID PO SCH (08:07)
[2020-02-06] MEDS: LIPASE/PROTEASE/AMYLASE 4,200 unit CAPSULE.DR PO SCH (08:07)
[2020-02-06] MEDS: amiodarone 200mg tablet PO SCH (08:07)
[2020-02-06] MEDS: labetalol 100mg tablet PO SCH (08:07)
[2020-02-06] MEDS: ziprasidone 20mg capsule PO SCH (08:07)
[2020-02-06 11:00] VITALS: BP 96/65
[2020-02-06] MEDS ORDERED: APIX5TAB3 PO ×3 (11:43→12:34)
--- NOTE | 2020-02-06 11:50 | NUR ---
Page sent to Dr. Leong: PAGER ID: [phone] MESSAGE: [id number] Brian: Daniel ramirez" I fixed the conflict and it is now "pending" for you to approve. Thanks, Delphine [phone]
[2020-02-06] MEDS ORDERED: APIX2.5T PO (12:04)
[2020-02-06] MEDS ORDERED: heparin 25,000 UNIT/250ml bag 250 ML IV SCH (12:08)
--- NOTE | 2020-02-06 14:35 | NUR ---
Patient stable for discharge per MD order. All necessary discharge information and education reviewed with patient before signing necessary paperwork. IV discontinued with catheter in tact, child monitor removed and returned, all patient belongings packed up and sent with patient, wheeled down to [facility] where he was driven home in a private vehicle by his . Discharge med Eliquis dosing confirmed with Dr. Leong before calling in Rx to [facility] [address] in [place], [place]. Patient will take 10mg BID x 7 days, then 5mg BID x 3 weeks until meeting with PC. Reviewed Rx information with patient
== END 2020-02-06 14:31 | disposition home or self-care (01) | DRG 134 ==
LOC: ER 04:44 → ED HOLD 07:13 → UNDOADMIN 07:13 → PCU 3S 08:47 → ED HOLD 08:47 → PCU 3S 12:02 → ED HOLD 12:02
PROVIDERS: ADMIT Internal Medicine; ATTEND Internal Medicine
DX: I26.99 Other pulmonary embolism without acute cor pulmonale (principal); I48.91 Unspecified atrial fibrillation; F41.9 Anxiety disorder, unspecified; Z79.899 Other long term (current) drug therapy; Z90.49 Acquired absence of other specified parts of digestive tract
CPT/HCPCS: 36415; 80048; 80053; 83735; 83880; 84484; 85025; 85730; 87081; 93005; 96374; 97110; 97116; 97161; 97530; 99285; G0378; J1644; J7030